=== PATIENT | female | born 1940 | race Caucasian/White ===

== ENCOUNTER 2017-07-25 15:47 | Emergency (ER) | payer OTHER ==
[~2017-07-25] VITALS: Ht 165.1 cm; Wt 82.0 kg
[~2017-07-25 15:47] MED LIST: AMLO5 PO; ASPI1TAB7 PO; ASPI81TA82 PO; CALTCHW4 PO; CAPT12.52 PO; CAPT50TA PO; CLON.1 PO; EFFE150C PO; FERR324T8 PO; FOSA70TA PO; FURO20 PO; GABA100C2 PO; GABA100C4 PO; GABA400C5 PO; HYDR-3129 PO; LOVA40TA PO; MECL25 PO; MEVA40TA6 PO; MOTI25CH PO; MULT-65 PO; NAPR250T57 PO; NITR.3 SL; NORV10TA PO; OMEP20TA39 PO; POTA-243 PO; POTA-267 PO; PRIL20CA PO; PRIM50TA PO; RIVA20 PO; TRAM50TA PO; TRIA1CAP PO; VENL150T14 PO; VITA-13 PO; ZOLO50TA PO; [UNRECOGNIZED DRUG - CODE] PO
[2017-07-25 15:54] VITALS: BP 114/65; PULSE 72; RESP 21; TEMP 98.5; O2SAT 92
[2017-07-25 16:08] VITALS: BP 114/65; PULSE 71; RESP 21; TEMP 98.5; O2SAT 93
--- NOTE | 2017-07-25 16:11 | PD ---
HPI Chief Complaint: Fall Time Seen by Provider: 16:00 Travel History International Travel<30 days: No Contact w/Intl Traveler<30days: No Traveled to known affect area: No History of Present Illness HPI 76-year-old female presents via EMS for evaluation of left leg pain. Symptoms started 2 days ago. Pain is an aching pain in the left leg, primarily in the proximal left leg below but the distal left leg. She is also developed some lower back pain since yesterday. The pain is worse with movement. She reports that she primarily ambulates with a wheelchair or a walker at home. She tried using tramadol and Tylenol for pain but it persisted which prompted evaluation. She denies any injury. She does report history of frequent falls as well as frequent fractures in the past. She reports that the last time she fell was over one month ago. She denies any abdominal pain, numbness or tingling or weakness, chest pain or shortness of breath, fevers or chills. No other complaints. PFSH Past Medical History Hx Anticoagulant Therapy: Yes (Unsure of which one) Arthritis: Yes Anxiety: Yes Depression: No Heart Rhythm Problems: Yes Cancer: No Cardiovascular Problems: Yes (HTN ) High Cholesterol: Yes Chest Pain: Yes Congestive Heart Failure: No COPD: Yes Cerebrovascular Accident: Yes Diminished Hearing: No Endocrine: No Gastrointestinal Disorders: Yes GERD: No Genitourinary: No Headaches: No Hiatal Hernia: No Hypertension: No Immune Disorder: No Implanted Vascular Access Dvce: Yes Musculoskeletal: Yes Neurologic: No Psychiatric: Yes Reproductive: No Respiratory: Yes Migraines: No Seizures: No Sickle Cell Disease: No Ulcer: No Menopausal: Yes : 4 Para: 3 : 1 Past Surgical History Abdominal Surgery: Yes (GALLBLADDER 2000) AICD: No Arteriovenous Shunt: No Cardiac Surgery: No Cholecystectomy: Yes (2000) Ear Surgery: No Endocrine Surgery: No Eye Surgery: No Genitourinary Surgery: No Gynecologic Surgery: No Insulin Pump: No Joint Replacement: Yes (hip replacement, wrist surgery) Neurologic Surgery: No Oral Surgery: No Pacemaker: No Thoracic Surgery: No Other Surgery: Yes Social History Alcohol Use: No Tobacco Use: No Substance Use: No Allergies-Medications (Allergen,Severity, Reaction): Coded Allergies: No Known Allergies (Verified , 07/25/17) Reported Meds & Prescriptions Reported Meds & Active Scripts Active Naproxen 500 Mg Tab 500 Mg PO BID 7 Days Reported Calcium 600+D 200 (Calcium Carbonate-Vitamin D) 600-200 Mg-Unit Tab 1 Tab PO DAILY Vitamin D3 (Cholecalciferol) Unknown Strength Tab 1 Tab PO DAILY Garlic Unknown Strength Capsule 1 Cap PO DAILY Vitamin C (Ascorbic Acid) Unknown Strength Tab 1 Tab PO DAILY Amlodipine (Amlodipine Besylate) 10 Mg Tab 10 Mg PO DAILY Primidone 50 Mg Tab 100 Mg PO TID Cymbalta DR (Duloxetine HCl) 20 Mg Capdr 20 Mg PO DAILY Lisinopril-Hctz 20-25 Mg Tab 1 Tab PO DAILY Meclizine 25 (Meclizine HCl) 25 Mg Tab 25 Mg PO TID PRN Lexapro (Escitalopram Oxalate) 10 Mg Tab 10 Mg PO DAILY Lovastatin 40 Mg Tab 40 Mg PO DAILY Potassium Chloride ER (Potassium Chloride) 10 Meq Tab 10 Meq PO DAILY Lasix (Furosemide) 20 Mg Tab 20 Mg PO DAILY Review of Systems Except as stated in HPI: all other systems reviewed are Neg Physical Exam Narrative GENERAL: Well-developed well-nourished female in no acute distress SKIN: Warm and dry. No open wounds, no bruising or soft tissue swelling HEAD: Atraumatic. Normocephalic. EYES: Pupils equal and round. No scleral icterus. No injection or drainage. ENT: No nasal bleeding or discharge. Mucous membranes pink and moist. NECK: Trachea midline. No JVD. CARDIOVASCULAR: Regular rate and rhythm. No murmur appreciated. RESPIRATORY: No accessory muscle use. Clear to auscultation. Breath sounds equal bilaterally. GASTROINTESTINAL: Abdomen soft, non-tender, nondistended. Hepatic and splenic margins not palpable. MUSCULOSKELETAL: No obvious deformities. The patient maintains full range of motion of the lower extremities. She has some tenderness to palpation to the left thigh musculature. There is no lower extremity edema, negative Homans. There is 2+ dorsalis pedis pulse bilaterally in the lower extremities are warm and well perfused. She does have some tenderness to palpation to the left sacroiliac region. There is no tenderness to palpation along the thoracic or lumbar midline spine. NEUROLOGICAL: Awake and alert. No obvious cranial nerve deficits. Motor grossly within normal limits. Normal speech. Data Data Last Documented VS Vital Signs Date Time Temp Pulse Resp B/P (MAP) Pulse Ox O2 Delivery O2 Flow Rate FiO2 07/25/17 16:08 98.5 71 21 114/65 (81) 93 Room Air Orders Orders Femur (Ap & Lat/2vws) (07/25/17 ) Spine, Lumbar - Ltd (Ap & Lat) (07/25/17 ) Us Leg Venous Doppler (07/25/17 16:06) Acetamin-Hydrocod 325-5 Mg (Denison 5-325 (07/25/17 16:15) Ketorolac Inj (Toradol Inj) (07/25/17 16:15) MDM Medical Decision Making Medical Screen Exam Complete: Yes Emergency Medical Condition: Yes Medical Record Reviewed: Yes Interpretation(s) X-ray imaging of the lumbar spine, left femur revealed no acute abnormalities. Ultrasound left leg Differential Diagnosis Herniated nucleus pulposus, compression fracture, muscle spasm, muscle strain, DVT, peripheral neuropathy, peripheral vascular disease, arterial occlusion Narrative Course 76-year-old female to history of frequent falls, frequent bony fractures, presents with 2 days of spontaneous left leg pain and 1 day of left lower back pain. She appears well and examination. She has full range of motion, no obvious deformities. Some tenderness in the left lower back sacroiliac region and left thigh. Plan is for x-ray imaging as well as ultrasound of the left leg. She will be given a dose of Lortab. X-ray and ultrasound imaging are negative. The plan at this time is to discharge the patient into the care of her son. She will follow up with her primary care physician. She'll be given a prescription for naproxen. Diagnosis Primary Impression: Left leg pain Additional Instructions: Medication as needed. Tramadol as needed. Walker and wheelchair as needed. Follow-up with primary care physician. Return for any emergent medical conditions. Med/Other Pt SpecificInfo: Prescription(s) given Scripts Naproxen (Naproxen) 500 Mg Tab 500 MG PO BID for 7 Days, TAB 0 Refills Prov: Aleks Harrison MD 07/25/17 Disposition: 01 DISCHARGE HOME Condition: Stable Joey Shields Jul 25, 2017 16:11
[2017-07-25] MEDS ORDERED: KETOROLAC TROMETHAMINE 60 MG/2 ML (IM) VIAL IM ONE (16:15)
[2017-07-25] MEDS ORDERED: ACETAMINOPHEN/HYDROcodone 325 MG/5 MG TAB PO ONE (16:15)
[2017-07-25] MEDS ORDERED: FURO1TAB62 PO (16:37)
[2017-07-25] MEDS ORDERED: LOVA40TA PO (16:37)
[2017-07-25] MEDS ORDERED: PRIM50TA5 PO (16:37)
[2017-07-25] MEDS ORDERED: CALCTAB19 PO (16:37)
[2017-07-25] MEDS ORDERED: DULO20 PO (16:37)
[2017-07-25] MEDS ORDERED: VITA250T3 PO (16:37)
[2017-07-25] MEDS ORDERED: LEXA10TA PO (16:37)
[2017-07-25] MEDS ORDERED: MECL1TAB42 PO (16:37)
[2017-07-25] MEDS ORDERED: LISI20TA3 PO (16:37)
[2017-07-25] MEDS ORDERED: POTA10TA2 PO (16:37)
[2017-07-25] MEDS ORDERED: GARL1CAP6 PO (16:37)
[2017-07-25] MEDS ORDERED: AMLO10TA2 PO (16:37)
[2017-07-25] MEDS ORDERED: VITA100064 PO (16:37)
--- NOTE | 2017-07-25 17:11 | RADRPT ---
EXAM DATE/TIME: 07/25/2017 16:48 [facility] COMPARISON: FEMUR LEFT (AP & LAT/2VWS), July 25, 2017, 16:49. INDICATIONS : Lower back pain after fall. MEDICAL HISTORY : None. SURGICAL HISTORY : None. ENCOUNTER: Initial ACUITY: 1 day PAIN SCORE: 9/10 LOCATION: Bilateral lower back. FINDINGS: There is preservation of vertebral body height in lateral projection. There is minimal retrolisthesi s of L2 with respect to L3. Pedicles are seen at all levels. The arcuate lines of the sacrum are sy mmetrical. Bilateral total hip arthroplasty. Hemoclips in the right upper quadrant from presumed ch olecystectomy. CONCLUSION: 1. No compression deformities seen. 2. Mild retrolisthesis of L2 with respect to L3. Oneil Hernandez MD on July 25, 2017 at 17:08 Board Certified Radiologist. This report was verified electronically.
--- NOTE | 2017-07-25 17:13 | RADRPT ---
EXAM DATE/TIME: 07/25/2017 16:49 [facility] COMPARISON: FEMUR LEFT (AP & LAT/2VWS), December 04, 2015, 12:18. INDICATIONS : Left femur pain after fall. MEDICAL HISTORY : None. SURGICAL HISTORY : ORIF left hip. ENCOUNTER: Initial ACUITY: 1 day PAIN SCORE: 9/10 LOCATION: Left proximal femur. FINDINGS: Multiple surgical procedures in the left femur including total hip arthroplasty with 2 proximal femor al cerclage wires and a long lateral plate extending down to the distal metaphysis of the femur. Scr ews appear intact. There is mild heterotopic ossification about the greater trochanter and medial to the proximal femur. The bony acetabulum appears grossly intact. No evidence of dislocation. Vascu lar calcifications in the medial thigh. CONCLUSION: No evidence of acute bony injury or dislocation. Oneil Hernandez MD on July 25, 2017 at 17:10 Board Certified Radiologist. This report was verified electronically.
--- NOTE | 2017-07-25 17:24 | RADRPT ---
EXAM DATE/TIME: 07/25/2017 16:53 [facility] COMPARISON: No previous studies available for comparison. INDICATIONS : Left leg pain. MEDICAL HISTORY : Hypertension. Chronic obstructive pulmonary disease. Hypercholesterolemia. Cerebrovascular acciden t. Myocardial infarction. Gallbladder disease. Osteoporosis. Anxiety. SURGICAL HISTORY : Cholecystectomy. Right hip replacement. Right wrist surgery. Left hip replacement. ENCOUNTER: Initial ACUITY: 3 days PAIN SCORE: 6/10 LOCATION: Left leg. TECHNIQUE: Venous ultrasound of the leg was performed from the inguinal ligament to the proximal calf. Real-alyssia e, color Doppler and spectral tracing, compression and augmentation techniques were used. FINDINGS: There is normal compressibility of the deep venous system from the inguinal region to the proximal ca lf. No echogenic clot is seen in the lumen of the common femoral, femoral, popliteal, and posterior tibial veins. There is a normal response of the venous system to proximal and distal augmentation an d respiration. CONCLUSION: Normal examination. Sung Triplett MD on July 25, 2017 at 17:22 Board Certified Radiologist. This report was verified electronically.
[2017-07-25] MEDS ORDERED: NAPR500T PO (17:30)
== END 2017-07-25 19:03 | disposition home or self-care (01) ==
LOC: NEPD 15:47
DX: M79.662 Pain in left lower leg (principal); I10 Essential (primary) hypertension; E78.00 Pure hypercholesterolemia, unspecified; Z86.73 Personal history of transient ischemic attack (TIA), and cerebral infarction without residual deficits; J44.9 Chronic obstructive pulmonary disease, unspecified; Z79.01 Long term (current) use of anticoagulants
CPT/HCPCS: 72100; 73552; 93971; 96372; 99284; J1885

== ENCOUNTER 2017-09-21 20:05 | Inpatient (IN) | payer MEDICARE, OTHER ==
[~2017-09-21] VITALS: Ht 165.1 cm; Wt 81.3 kg
[~2017-09-21 20:05] MED LIST changes: +AMLO10TA2 PO; -AMLO5 PO; -ASPI1TAB7 PO; -ASPI81TA82 PO; -CALTCHW4 PO; -CAPT12.52 PO; -CAPT50TA PO; +CARB25TA9 PO; -CLON.1 PO; +DOCU100C PO; +DULO20 PO; -EFFE150C PO; +FENT25DI T-DERMAL; -FERR324T8 PO; -FOSA70TA PO; +FURO1TAB62 PO; -FURO20 PO; -GABA100C2 PO; -GABA100C4 PO; -GABA400C5 PO; -HYDR-3129 PO; +LEXA10TA PO; -LOVA40TA PO; +MECL1TAB42 PO; -MECL25 PO; -MEVA40TA6 PO; -MOTI25CH PO; -MULT-65 PO; -NAPR250T57 PO; -NITR.3 SL; -NORV10TA PO; -OMEP20TA39 PO; -POTA-243 PO; -POTA-267 PO; +POTA10TA2 PO; -PRIL20CA PO; -PRIM50TA PO; -RIVA20 PO; -TRAM50TA PO; -TRIA1CAP PO; -VENL150T14 PO; -VITA-13 PO; -ZOLO50TA PO; -[UNRECOGNIZED DRUG - CODE] PO
[2017-09-21 20:09] VITALS: BP 93/51; PULSE 66; RESP 17; TEMP 94.6; O2SAT 85
[2017-09-21] MEDS ORDERED: SODIUM CHLOR 0.9% 1000 ML INJ 1,000 ML IV SCH (20:17)
[2017-09-21] MEDS ORDERED: SODIUM CHLORIDE 0.9% FLUSH 10 ML FLUSH IV FLUSH PRN (20:30)
[2017-09-21] MEDS ORDERED: SODIUM CHLOR 0.9% 250 ML INJ 250 ML IV ONE (20:30)
[2017-09-21] MEDS ORDERED: VANCOMYCIN INJ 1,000 MG in SODIUM CHLOR 0.9% 250 ML INJ 250 ML IV ONE (20:30)
[2017-09-21] MEDS ORDERED: SODIUM CHLOR 0.9% 1000 ML INJ 1,000 ML IV ONE ×2 (20:30→20:45)
[2017-09-21] MEDS ORDERED: PIPERACIL-TAZO 4.5 GM PREMIX 100 ML IV ONE (20:30)
[2017-09-21 20:44] LABS: AUTOMATED NEUTROPHIL # 4.3 TH/MM3 (1.8-7.7); BASOPHIL # 0.1 TH/MM3 (0-0.2); BASOPHIL % 1.3 % (0.0-2.0); EOSINOPHIL # 0.1 TH/MM3 (0-0.4); EOSINOPHIL % 0.7 % (0.0-4.0); HEMATOCRIT 40.6 % (35.0-46.0); HEMOGLOBIN 13.7 GM/DL (11.6-15.3); LYMPH % 32.5 % (9.0-44.0); LYMPHOCYTE # 2.4 TH/MM3 (1.0-4.8); MEAN CELL VOLUME 92.6 FL (80.0-100.0); MEAN CORPUSCULAR HEMOGLOBIN 31.3 PG (27.0-34.0); MEAN CORPUSCULAR HGB CONC 33.8 % (32.0-36.0); MEAN PLATELET VOLUME 8.3 FL (7.0-11.0); MONO % 7.4 % (0.0-8.0); MONOCYTE # 0.5 TH/MM3 (0-0.9); NEUT % 58.1 % (16.0-70.0); PLATELET COUNT 470 TH/MM3 (150-450); RED BLOOD COUNT 4.38 MIL/MM3 (4.00-5.30); RED CELL DISTRIBUTION WIDTH 13.3 % (11.6-17.2); WHITE BLOOD COUNT 7.4 TH/MM3 (4.0-11.0)
--- NOTE | 2017-09-21 20:48 | RADRPT ---
EXAM DATE/TIME: 09/21/2017 20:29 [facility] COMPARISON: CHEST SINGLE AP, April 15, 2016, 20:41. INDICATIONS : Abdominal pain. MEDICAL HISTORY : : Hypertension. Chronic obstructive pulmonary disease. Hypercholesterolemia. Cerebrovascular accident . Myocardial infarction. Gallbladder disease. Osteoporosis. Anxiety. SURGICAL HISTORY : Cholecystectomy. Right hip replacement. Right wrist surgery. Left hip replacement. ENCOUNTER: Initial ACUITY: 2 days PAIN SCORE: 4/10 LOCATION: Bilateral lower chest FINDINGS: A single view of the chest demonstrates the lungs to be symmetrically aerated without evidence of mas s, infiltrate or effusion. The cardiomediastinal contours are unremarkable. Osseous structures are intact. Right-sided rotator cuff disease. Osteoarthritis of both shoulders. CONCLUSION: Normal examination. Jameel Baldwin MD on September 21, 2017 at 20:45 Board Certified Radiologist. This report was verified electronically.
--- NOTE | 2017-09-21 20:55 | PD ---
HPI Chief Complaint: Abdominal Pain Time Seen by Provider: 20:17 Travel History International Travel<30 days: No Contact w/Intl Traveler<30days: No Traveled to known affect area: No History of Present Illness HPI 77-year-old female presents to the emergency department from home by EMS transport her family identified patient to be pale and complaining of severe abdominal pain. Patient reportedly has had issues with constipation and symptoms worsened this evening. Patient presents the emergency department. Pale cool diaphoretic and hypotensive. Patient is awake and able to tell her own history. Patient denies any chest pain or shortness of breath. Patient's had no nausea or vomiting. Patient denies fever or chills. Patient does complain of abdominal pain. Patient does not report any dysuria frequency urgency or incontinence. No recent fall or injury. According to paramedics patient is on hospice but she does not know why she is on hospice and reportedly the son who is at the scene also did not know why the patient was on hospice. No known terminal illness. Patient has hypertension chronic tremor and chronic pain syndrome. Patient has recently had many of her medications adjusted according to son Jameel who called the emergency department to provide history. Patient is a DNR. Patient is unaware of exacerbating or alleviating factors. PFSH Past Medical History Narrative Medical CAD dyslipidemia COPD CVA chronic tremor lower extremity weakness cholecystectomy no tobacco use no alcohol use; nursing notes reviewed Hx Anticoagulant Therapy: Yes (Unsure of which one) Arthritis: Yes Anxiety: Yes Depression: No Heart Rhythm Problems: Yes Cancer: No Cardiovascular Problems: Yes (HTN ) High Cholesterol: Yes Chest Pain: Yes Congestive Heart Failure: No COPD: Yes Cerebrovascular Accident: Yes Diminished Hearing: No Endocrine: No Gastrointestinal Disorders: Yes GERD: No Genitourinary: No Headaches: No Hiatal Hernia: No Hypertension: No Immune Disorder: No Implanted Vascular Access Dvce: Yes Musculoskeletal: Yes Neurologic: No Psychiatric: Yes Reproductive: No Respiratory: Yes Migraines: No Seizures: No Sickle Cell Disease: No Ulcer: No ?: Not Menopausal: Yes : 4 Para: 3 : 1 Past Surgical History Abdominal Surgery: Yes (GALLBLADDER 2000) AICD: No Arteriovenous Shunt: No Cardiac Surgery: No Cholecystectomy: Yes (2000) Ear Surgery: No Endocrine Surgery: No Eye Surgery: No Genitourinary Surgery: No Gynecologic Surgery: No Insulin Pump: No Joint Replacement: Yes (hip replacement, wrist surgery) Neurologic Surgery: No Oral Surgery: No Pacemaker: No Thoracic Surgery: No Other Surgery: Yes Social History Alcohol Use: No Tobacco Use: No Substance Use: No Allergies-Medications (Allergen,Severity, Reaction): Coded Allergies: No Known Allergies (Verified Allergy, Unknown, 09/21/17) Reported Meds & Prescriptions Reported Meds & Active Scripts Active Reported Carbidopa-Levodopa 25-100 Mg Tab 1 Tab PO Q8HR Fentanyl Patch 72 HR (Fentanyl) 25 Mcg/Hr Patch 25 Mcg T-DERMAL Q72H Docusate Sodium 100 Mg Cap 100 Mg PO BID Amlodipine (Amlodipine Besylate) 10 Mg Tab 10 Mg PO DAILY Cymbalta DR (Duloxetine HCl) 20 Mg Capdr 20 Mg PO DAILY Meclizine 25 (Meclizine HCl) 25 Mg Tab 25 Mg PO TID PRN Lexapro (Escitalopram Oxalate) 10 Mg Tab 10 Mg PO DAILY Potassium Chloride ER (Potassium Chloride) 10 Meq Tab 10 Meq PO DAILY Lasix (Furosemide) 20 Mg Tab 20 Mg PO DAILY Physical Exam Narrative GENERAL: Well-developed well-nourished pale and cool elderly female; GCS 15 SKIN: Warm and dry. HEAD: Atraumatic. Normocephalic. EYES: Pupils equal and round. No scleral icterus. No injection or drainage. ENT: No nasal bleeding or discharge. Mucous membranes pink and moist. NECK: Trachea midline. No JVD. CARDIOVASCULAR: Regular rate and rhythm. RESPIRATORY: No accessory muscle use. Clear to auscultation. Breath sounds equal bilaterally. GASTROINTESTINAL: Abdomen soft, diffusely tender with marked tenderness to palpation LLQ, nondistended. Hepatic and splenic margins not palpable. MUSCULOSKELETAL: Extremities without clubbing, cyanosis, or edema. No obvious deformities. NEUROLOGICAL: Awake and alert. No obvious cranial nerve deficits. Motor grossly within normal limits. Five out of 5 muscle strength in the arms and legs. Normal speech. PSYCHIATRIC: Appropriate mood and affect; insight and judgment normal. Data Data Last Documented VS Vital Signs Date Time Temp Pulse Resp B/P (MAP) Pulse Ox O2 Delivery O2 Flow Rate FiO2 09/21/17 20:09 94.6 66 17 93/51 (65) 85 Orders Orders Complete Blood Count With Diff (09/21/17 20:17) Comprehensive Metabolic Panel (09/21/17 20:17) Lipase (09/21/17 20:17) Lactic Acid (09/21/17 20:17) Prothrombin Time / Inr (Pt) (09/21/17 20:17) Act Partial Throm Time (Ptt) (09/21/17 20:) Urinalysis - C+S If Indicated (09/21/17 20:17) Iv Access Insert/Monitor (09/21/17 20:17) Ecg Monitoring (09/21/17 20:) Oximetry (09/21/17:) Sodium Chlor 0.9% 1000 Ml Inj (Ns 1000 M (09/21/17 20:17) Sodium Chloride 0.9% Flush (Ns Flush) (09/21/17 20:30) Electrocardiogram (09/21/17:) Chest, Single Ap (09/21/17 20:17) Sodium Chlor 0.9% 1000 Ml Inj (Ns 1000 M (09/21/17 20:30) Urinary Catheter Insert/Apply (09/21/17 20:) Type And Screen (09/21/17:) Piperacil-Tazo 4.5 Gm Premix (Zosyn 4.5 (09/21/17 20:30) Vancomycin Inj (Vancomycin Inj) (09/21/17 20:30) Red Blood Cells (Rbc) (09/21/17 20:17) Sodium Chlor 0.9% 250 Ml Inj (Ns 250 Ml (09/21/17 20:30) ^ For Further Orders (09/21/17 20:36) I-Stat Creatinine (09/21/17 20:30) I-Stat Profile (09/21/17 20:30) Labs Laboratory Tests Test 09/21/17 20:30 09/21/17 20:38 White Blood Count 7.4 TH/MM3 Red Blood Count 4.38 MIL/MM3 Hemoglobin 13.7 GM/DL Bedside Hemoglobin 15.0 G/DL Hematocrit 40.6 % Bedside Hematocrit 44.0 % Mean Corpuscular Volume 92.6 FL Mean Corpuscular Hemoglobin 31.3 PG Mean Corpuscular Hemoglobin Concent 33.8 % Red Cell Distribution Width 13.3 % Platelet Count 470 TH/MM3 Mean Platelet Volume 8.3 FL Neutrophils (%) (Auto) 58.1 % Lymphocytes (%) (Auto) 32.5 % Monocytes (%) (Auto) 7.4 % Eosinophils (%) (Auto) 0.7 % Basophils (%) (Auto) 1.3 % Neutrophils # (Auto) 4.3 TH/MM3 Lymphocytes # (Auto) 2.4 TH/MM3 Monocytes # (Auto) 0.5 TH/MM3 Eosinophils # (Auto) 0.1 TH/MM3 Basophils # (Auto) 0.1 TH/MM3 CBC Comment DIFF FINAL Differential Comment Prothrombin Time 11.1 SEC Prothromb Time International Ratio 1.0 RATIO Activated Partial Thromboplast Time 22.9 SEC Bedside Sodium 138 MMOL/L Blood Urea Nitrogen 32 MG/DL Creatinine 1.89 MG/DL Random Glucose 147 MG/DL Total Protein 7.9 GM/DL Albumin 3.8 GM/DL Calcium Level 9.4 MG/DL Alkaline Phosphatase 71 U/L Aspartate Amino Transf (AST/SGOT) 21 U/L Alanine Aminotransferase (ALT/SGPT) 12 U/L Total Bilirubin 0.6 MG/DL Sodium Level 136 MEQ/L Potassium Level 2.6 MEQ/L Chloride Level 93 MEQ/L Carbon Dioxide Level 29.5 MEQ/L Bedside Potassium 2.6 MMOL/L Bedside Chloride 93 MMOL/L Anion Gap 14 MEQ/L Bedside Blood Urea Nitrogen 33 MG/DL Bedside Creatinine 2.0 MG/DL Estimat Glomerular Filtration Rate 26 ML/MIN Bedside Glucose 153 MG/DL Lactic Acid Level 2.8 mmol/L Magnesium Level 1.8 MG/DL Total Creatine Kinase 96 U/L Troponin I 0.02 NG/ML Lipase 485 U/L Blood Gas Puncture Site LT BRACHIAL Blood Gas Patient Temperature 98.6 Blood Gas HCO3 29 mmol/L Blood Gas Base Excess 4.2 mmol/L Blood Gas Oxygen Saturation 88 % Arterial Blood pH 7.38 Arterial Blood Partial Pressure CO2 50 mmHg Arterial Blood Partial Pressure O2 61 mmHG Arterial Blood Oxygen Content 16.5 Vol % Arterial Blood Carboxyhemoglobin 1.0 % Arterial Blood Methemoglobin 0.5 % Blood Gas Hemoglobin 13.3 G/DL Oxygen Delivery Device NASAL CANNULA Blood Gas Liter Flow 2 L/M [facility] Medical Decision Making Medical Screen Exam Complete: Yes Emergency Medical Condition: Yes Medical Record Reviewed: Yes Interpretation(s) EKG sinus rhythm rate 64 septal infarct age indeterminate possible inferior infarct Q wave noted age-indeterminate no acute ST elevation or injury pattern change or ectopy noted Last Impressions Chest X-Ray 09/21/172016 Signed Impressions: Service Date/Time: Thursday, September 21, 2017 20:29 - CONCLUSION: Normal examination. Jameel Baldwin MD CBC & BMP Diagram 09/21/17 20:30 Total Protein 7.9, Albumin 3.8, Calcium Level 9.4, Alkaline Phosphatase 71, Aspartate Amino Transf (AST/SGOT) 21, Alanine Aminotransferase (ALT/SGPT) 12, Total Bilirubin 0.6 Vital Signs Date Time Temp Pulse Resp B/P (MAP) Pulse Ox O2 Delivery O2 Flow Rate FiO2 09/21/17 20:09 94.6 66 17 93/51 (65) 85 Differential Diagnosis Cardiogenic shock septic shock hypovolemic shock perforated viscus diverticulitis with abscess GI bleed ruptured aneurysm ischemic bowel polypharmacy dehydration Narrative Course @ 8:20 PM Bedside FAST exam does not reveal any free fluid in the abdomen; Patient administered 1 Liter wide open T&S oredered stats Patient administered additional bolus of normal saline spoke with patient's son Los---DNR, hospice for home resources-- no terminal illness to his knowledge, confirmed medications -- no xarelto Warmer discontinued Patient identified to have hypokalemia Patient responding well to IV fluid hydration and blanket warmer Patient administered IV and oral potassium after CT abdomen and pelvis reveals no acute abnormality patient is identified to have elevated lipase nonspecific Urinalysis within normal limits Patient identified to have hypokalemia renal insufficiency and acute lactic acidosis Patient identified to have fentanyl patch underneath a Band-Aid on her right posterior shoulder fentanyl patch removed Plan will be to admit patient to medicine service with ongoing IV fluid hydration reassessment of lactic acid and removal of fentanyl patch Patient risk for overdosing on multiple sedatives and narcotics patient's son did identify that patient's blood pressure has been noticing to become lower and lower on her current regimen of medications and there has been concern about continue her on blood pressure medication these medicines have indigestion or new since being put on hospice for making obtaining resources easier such as her medications and providing care for her at home. Critical Care Narrative Aggregate critical care time was minutes. Time to perform other separately billable procedures was not included in the critical care time. My time did not include minutes spent treating any other patients simultaneously or on activities that did not directly contribute to the patient's treatment. The services I provided to this patient were to treat and/or prevent clinically significant deterioration that could result in: Arrhythmia, shock, I provided critical care services requiring my management, as noted below: Chart data review, documentation time, medication orders and management, vital sign assessments/reviewing monitor data, ordering and reviewing lab tests, ordering and interpreting/reviewing x-rays and diagnostic studies, care of the patient and discussion of the patient with the admitting physicians. Physician Communication Physician Communication discussed with Dr Castillo --admit as OBS Diagnosis Primary Impression: Generalized weakness Additional Impressions: Hypokalemia Abdominal pain Elevated lipase Hypotension LUNA (acute kidney injury) Admitting Information Admitting Physician Requests: Observation Denise Rangel MD Sep 21, 2017 20:55
[2017-09-21 21:06] LABS: PROTHROMBIN TIME - PATIENT 11.1 SEC (9.8-11.6)
[2017-09-21 21:27] LABS: ALBUMIN 3.8 GM/DL (3.4-5.0); ALKALINE PHOSPHATASE 71 U/L (45-117); ALT (GPT) 12 U/L (10-53); AST (GOT) 21 U/L (15-37); BICARBONATE 29.5 MEQ/L (21.0-32.0); BLOOD UREA NITROGEN 32 MG/DL (7-18); CALCIUM 9.4 MG/DL (8.5-10.1); CHLORIDE 93 MEQ/L (98-107); CREATININE 1.89 MG/DL (0.50-1.00); GLOMERULAR FILTRATION RATE 26 ML/MIN (>89); GLUCOSE,RANDOM 147 MG/DL (74-106); LIPASE 485 U/L (73-393); SODIUM (NA) 136 MEQ/L (136-145); TOTAL BILIRUBIN ADULT 0.6 MG/DL (0.2-1.0); TOTAL PROTEIN 7.9 GM/DL (6.4-8.2)
[2017-09-21 21:34] LABS: BILIRUBIN, URINE NEG (NEG); BLOOD, URINE NEG (NEG); GLUCOSE,URINE NEG (NEG); HYALINE CAST, URINE 1 /lpf (RARE); KETONE, URINE NEG (NEG); NITRITE,URINE NEG (NEG); PH, URINE 6.5 (5.0-8.5); SQUAMOUS EPITHELIAL CELL URINE 1 /hpf (0-5); URINE COLOR YELLOW (YELLW/STRAW); URINE LEUKOCYTE ESTERASE NEG (NEG)
--- NOTE | 2017-09-21 21:56 | RADRPT ---
EXAM DATE/TIME: 09/21/2017 21:18 [facility] COMPARISON: No previous studies available for comparison. INDICATIONS : Abdomen pain. ORAL CONTRAST: No oral contrast ingested. RADIATION DOSE: 11.02 CTDIvol (mGy) MEDICAL HISTORY : Cerebrovascular disease. Cardiovascular disease Hypertension.COPD SURGICAL HISTORY : Cholecystectomy. Bilateral hips ENCOUNTER: Initial ACUITY: 1 day PAIN SCALE: 0/10 LOCATION: Bilateral abdomen TECHNIQUE: Volumetric scanning of the abdomen and pelvis was performed. Using automated exposure control and ad justment of the mA and/or kV according to patient size, radiation dose was kept as low as reasonably achievable to obtain optimal diagnostic quality images. DICOM format image data is available electro nically for review and comparison. FINDINGS: LOWER LUNGS: The visualized lower lungs are clear. LIVER: Homogeneous density without lesion. There is expected intrahepatic dilation of the biliary tree stat us post cholecystectomy. SPLEEN: Normal size without lesion. PANCREAS: Within normal limits. KIDNEYS: Normal in size and shape. There is no mass, stone, or hydronephrosis. ADRENAL GLANDS: Within normal limits. VASCULAR: There is no aortic aneurysm. BOWEL/MESENTERY: The stomach, small bowel, and colon demonstrate no acute abnormality. There is no free intraperitone al air or fluid. ABDOMINAL WALL: Within normal limits. RETROPERITONEUM: There is no lymphadenopathy. BLADDER: No wall thickening or mass. REPRODUCTIVE: Within normal limits. INGUINAL: There is no lymphadenopathy or hernia. MUSCULOSKELETAL: Markedly and facet disease lower lumbar spine. Bilateral total hip arthroplasties CONCLUSION: Normal examination with degenerative lumbar disease and bilateral hip arthroplasties. Status post cho lecystectomy with expected intrahepatic biliary tree dilatation. No evidence of free fluid or free ai r.. Jameel Baldwin MD on September 21, 2017 at 21:52 Board Certified Radiologist. This report was verified electronically.
[2017-09-21] MEDS: POTASSIUM CHLOR 10 MEQ PREMIX 100 ML IV SCH ×2 (22:21→23:26)
[2017-09-21 22:22] VITALS: TEMP 94.6
[2017-09-21 22:50] LABS: MAGNESIUM 1.8 MG/DL (1.5-2.5)
[2017-09-21 22:53] LABS: TROPONIN I 0.02 NG/ML (0.02-0.05)
[2017-09-21] MEDS ORDERED: POTASSIUM CHLORIDE 20 MEQ CONTROLLED RELEASE TAB PO ONE (23:30)
[2017-09-21 23:56] VITALS: BP 102/51; PULSE 74; RESP 16; TEMP 98.5; O2SAT 97
[2017-09-22] VITALS (10 sets, daily range): BP systolic 88–118; BP diastolic 51–57; PULSE 62–72; RESP 16–20; TEMP 97–98.9; O2SAT 91–97
[2017-09-22] MEDS ORDERED: ACETAMINOPHEN 325 MG TAB PO PRN
[2017-09-22] MEDS ORDERED: NALOXONE HCL 0.4 MG/ML AMP IV PUSH PRN
[2017-09-22] MEDS ORDERED: ONDANSETRON HCL 4 MG/2 ML VIAL IVP PRN
[2017-09-22] MEDS ORDERED: SODIUM CHLORIDE 0.9% FLUSH 10 ML FLUSH IV FLUSH PRN
[2017-09-22] MEDS: POTASSIUM CHLOR 10 MEQ PREMIX 100 ML IV SCH (01:12)
--- NOTE | 2017-09-22 05:01 | HHI.HP ---
[facility] Triston Pena M.D. Admission Diagnosis generalized weakness; hypotension; hypokalemia Diagnoses: Travel History International Travel<30 Days: No Contact w/Intl Traveler <30 Da: No Traveled to Known Affected Are: No History of Present Illness 77-year-old female presents with weakness and abdominal pain. The patient was brought in by her son who provided most of the history to the emergency room physician. At the time of our interview, the patient was alone in her room. She continues to complain of abdominal pain. Her labs were significant for potassium of 2.6, creatinine of 1.89 with a baseline of 0.85 in 2016, and a lipase of 485. Lactic acid 2.8. Chest x-ray within normal limits. CT of the abdomen/pelvis for acute process. Review of Systems Denies fever or chills Denies blurry vision, otorrhea, rhinorrhea Denies sore throat and cough No chest pain, palpitations, shortness of breath Positive abdominal pain Denies constipation/diarrhea/nausea/vomiting Positive weakness No rashes Past Family Social History Past Medical History Obtained from previous records Anxiety, Hyperlipidemia and HTN Past Surgical History Cholecystectomy, Hip Replacement, Wrist Surgery Reported Medications Reported Meds & Active Scripts Active Reported Carbidopa-Levodopa 25-100 Mg Tab 1 Tab PO Q8HR Fentanyl Patch 72 HR (Fentanyl) 25 Mcg/Hr Patch 25 Mcg T-DERMAL Q72H Docusate Sodium 100 Mg Cap 100 Mg PO BID Amlodipine (Amlodipine Besylate) 10 Mg Tab 10 Mg PO DAILY Cymbalta DR (Duloxetine HCl) 20 Mg Capdr 20 Mg PO DAILY Meclizine 25 (Meclizine HCl) 25 Mg Tab 25 Mg PO TID PRN Lexapro (Escitalopram Oxalate) 10 Mg Tab 10 Mg PO DAILY Potassium Chloride ER (Potassium Chloride) 10 Meq Tab 10 Meq PO DAILY Lasix (Furosemide) 20 Mg Tab 20 Mg PO DAILY Allergies: Coded Allergies: No Known Allergies (Verified Allergy, Unknown, 09/21/17) Family History No diabetes or CAD Social History History of tobacco use, quit 15 years ago. Negative for alcohol or drugs. Physical Exam Vital Signs Vital Signs Date Time Temp Pulse Resp B/P (MAP) Pulse Ox O2 Delivery O2 Flow Rate FiO2 09/22/17 01:03 97.6 62 18 111/53 (72) 97 09/22/17 00:59 09/21/17 23:56 98.5 74 16 102/51 (68) 97 Nasal Cannula 2.00 09/21/17 22:22 94.6 09/21/17 20:09 94.6 66 17 93/51 (65) 85 Physical Exam GENERAL: Elderly female lying in bed SKIN: No rashes, ecchymoses or lesions. Cool and dry. HEAD: Atraumatic. Normocephalic. No temporal or scalp tenderness. EYES: Pupils equal round and reactive. Extraocular motions intact. No scleral icterus. No injection or drainage. ENT: Nose without bleeding, purulent drainage or septal hematoma. Throat without erythema, tonsillar hypertrophy or exudate. Uvula midline. Airway patent. NECK: Trachea midline. No JVD or lymphadenopathy. Supple, nontender, no meningeal signs. CARDIOVASCULAR: Regular rate and rhythm without murmurs, gallops, or rubs. RESPIRATORY: Clear to auscultation. Breath sounds equal bilaterally. No wheezes , rales, or rhonchi. GASTROINTESTINAL: Abdomen soft, tender to palpation worse in the lower quadrants , nondistended. No hepato-splenomegaly, or palpable masses. No guarding. MUSCULOSKELETAL: Extremities without clubbing, cyanosis, or edema. No joint tenderness, effusion, or edema noted. No calf tenderness. NEUROLOGICAL: Awake and alert. Cranial nerves II through XII intact. Motor and sensory grossly within normal limits. Laboratory Laboratory Tests Test 09/21/17 20:30 09/21/17 20:38 09/21/17 21:20 09/22/17 00:20 White Blood Count 7.4 Red Blood Count 4.38 Hemoglobin 13.7 Bedside Hemoglobin 15.0 Hematocrit 40.6 Bedside Hematocrit 44.0 Mean Corpuscular Volume 92.6 Mean Corpuscular Hemoglobin 31.3 Mean Corpuscular Hemoglobin Concent 33.8 Red Cell Distribution Width 13.3 Platelet Count 470 Mean Platelet Volume 8.3 Neutrophils (%) (Auto) 58.1 Lymphocytes (%) (Auto) 32.5 Monocytes (%) (Auto) 7.4 Eosinophils (%) (Auto) 0.7 Basophils (%) (Auto) 1.3 Neutrophils # (Auto) 4.3 Lymphocytes # (Auto) 2.4 Monocytes # (Auto) 0.5 Eosinophils # (Auto) 0.1 Basophils # (Auto) 0.1 CBC Comment DIFF FINAL Differential Comment Prothrombin Time 11.1 Prothromb Time International Ratio 1.0 Activated Partial Thromboplast Time 22.9 Bedside Sodium 138 Blood Urea Nitrogen 32 Creatinine 1.89 Random Glucose 147 Total Protein 7.9 Albumin 3.8 Calcium Level 9.4 Alkaline Phosphatase 71 Aspartate Amino Transf (AST/SGOT) 21 Alanine Aminotransferase (ALT/SGPT) 12 Total Bilirubin 0.6 Sodium Level 136 Potassium Level 2.6 Chloride Level 93 Carbon Dioxide Level 29.5 Bedside Potassium 2.6 Bedside Chloride 93 Anion Gap 14 Bedside Blood Urea Nitrogen 33 Bedside Creatinine 2.0 Estimat Glomerular Filtration Rate 26 Bedside Glucose 153 Lactic Acid Level 2.8 1.1 Magnesium Level 1.8 Total Creatine Kinase 96 Troponin I 0.02 Lipase 485 Blood Gas Puncture Site LT BRACHIAL Blood Gas Patient Temperature 98.6 Blood Gas HCO3 29 Blood Gas Base Excess 4.2 Blood Gas Oxygen Saturation 88 Arterial Blood pH 7.38 Arterial Blood Partial Pressure CO2 50 Arterial Blood Partial Pressure O2 61 Arterial Blood Oxygen Content 16.5 Arterial Blood Carboxyhemoglobin 1.0 Arterial Blood Methemoglobin 0.5 Blood Gas Hemoglobin 13.3 Oxygen Delivery Device NASAL CANNULA Blood Gas Liter Flow 2 Urine Color YELLOW Urine Turbidity CLEAR Urine pH 6.5 Urine Specific [place] 1.009 Urine Protein TRACE Urine Glucose (UA) NEG Urine Ketones NEG Urine Occult Blood NEG Urine Nitrite NEG Urine Bilirubin NEG Urine Urobilinogen LESS THAN 2.0 Urine Leukocyte Esterase NEG Urine WBC LESS THAN 1 Urine Squamous Epithelial Cells 1 Urine Hyaline Casts 1 Microscopic Urinalysis Comment CULT NOT INDICATED Result Diagram: 09/21/17202909/21/172029 Caprini VTE Risk Assessment Caprini VTE Risk Assessment: Mod/High Risk (score >= 2) Caprini Risk Assessment Model Point Value = 1 Point Value = 2 Point Value = 3 Point Value = 5 Age 41-60 Minor surgery BMI > 25 kg/m2 Swollen legs Varicose veins or History of unexplained or recurrent spontaneous Oral contraceptives or hormone replacement Sepsis (< 1 month) Serious lung disease, including pneumonia (< 1 month) Abnormal pulmonary function Acute myocardial infarction Congestive heart failure (< 1 month) History of inflammatory bowel disease Medical patient at bed rest Age 61-74 Arthroscopic surgery Major open surgery (> 45 min) Laparoscopic surgery (> 45 min) Malignancy Confined to bed (> 72 hours) Immobilizing plaster cast Central venous access Age >= 75 History of VTE Family history of VTE Factor V Leiden Prothrombin [id number] Lupus anticoagulant Anticardiolipin antibodies Elevated serum homocysteine Heparin-induced thrombocytopenia Other congenital or acquired thrombophilia Stroke (< 1 month) Elective arthroplasty Hip, pelvis, or leg fracture Acute spinal cord injury (< 1 month) Prophylaxis Regimen Total Risk Factor Score Risk Level Prophylaxis Regimen 0-1 Low Early ambulation 2 Moderate Order ONE of the following: *Sequential Compression Device (SCD) *Heparin 5000 units SQ BID 3-4 Higher Order ONE of the following medications: *Heparin 5000 units SQ TID *Enoxaparin/Lovenox 40 mg SQ daily (WT < 150 kg, CrCl > 30 mL/min) *Enoxaparin/Lovenox 30 mg SQ daily (WT < 150 kg, CrCl > 10-29 mL/min) *Enoxaparin/Lovenox 30 mg SQ BID (WT < 150 kg, CrCl > 30 mL/min) AND/OR *Sequential Compression Device (SCD) 5 or more Highest Order ONE of the following medications: *Heparin 5000 units SQ TID (Preferred with Epidurals) *Enoxaparin/Lovenox 40 mg SQ daily (WT < 150 kg, CrCl > 30 mL/min) *Enoxaparin/Lovenox 30 mg SQ daily (WT < 150 kg, CrCl > 10-29 mL/min) *Enoxaparin/Lovenox 30 mg SQ BID (WT < 150 kg, CrCl > 30 mL/min) AND *Sequential Compression Device (SCD) Assessment and Plan Assessment and Plan 77-year-old female presents with weakness, hypokalemia, AK I and mildly elevated lipase 1. Hypokalemia Repleted Monitor BMP Per son, the patient has been out of her oral potassium replacements 2. Abdominal pain Unclear etiology Trend lipase CT within normal limits 3. Elevated lactic acid Unclear etiology Resolved 4. AK I Continue fluid resuscitation Follow creatinine 5. Hypertension Continue home medications FEN: Heart healthy diet NS +20 K at 84 cc/hour Electrolytes: Replete as above Heparin Patient is on hospice although the reason for this is unclear. Anticipate discharge to home with hospice care. Physician Certification 2 Midnight Certification Type: Admission for Inpatient Services Order for Inpatient Services The services are ordered in accordance with Medicare regulations or non- Medicare payer requirements, as applicable. In the case of services not specified as inpatient-only, they are appropriately provided as inpatient services in accordance with the 2-midnight benchmark. Estimated LOS (days): 2 2 days is the estimated time the patient will need to remain in the hospital, assuming treatment plan goals are met and no additional complications. Post-Hospital Plan: Not yet determined Micki Castillo MD Sep 22, 2017 05:01
[2017-09-22] MEDS: NS + KCL 20 MEQ INJ 1,000 ML IV SCH ×2 (06:06→14:07)
[2017-09-22] MEDS: CARBIDOPA/LEVODOPA 25 MG/100 MG TAB PO SCH ×3 (06:52→23:10)
[2017-09-22] MEDS ORDERED: FUROSEMIDE 20 MG TAB PO SCH (09:00)
[2017-09-22] MEDS ORDERED: MAGNESIUM SULFATE 1 GM PREMIX 100 ML IV ONE ×2 (09:00→18:15)
[2017-09-22] MEDS: POTASSIUM CHLORIDE 10 MEQ CONTROLLED RELEASE TAB PO SCH (09:21)
[2017-09-22] MEDS: HEPARIN SODIUM - SQ 10,000 UNITS/ML VIAL SQ SCH ×2 (09:21→23:10)
[2017-09-22] MEDS: SODIUM CHLORIDE 0.9% FLUSH 10 ML FLUSH IV FLUSH SCH ×2 (09:22→23:10)
[2017-09-22] MEDS: ESCITALOPRAM OXALATE 10 MG TAB PO SCH (09:22)
[2017-09-22] MEDS: DULoxetine HCl DR 20 MG CAP PO SCH (09:22)
[2017-09-22] MEDS ORDERED: SODIUM CHLOR 0.9% 1000 ML INJ 1,000 ML IV ONE (09:45)
--- NOTE | 2017-09-22 13:34 | HHI.PR ---
Subjective Remarks Follow up for weakness, abdominal pain. The patient is awake, alert, oriented to self, [facility], and states the date is July 2018. She says she feels much better today. She admits that she had some abdominal pain yesterday at the Q however this has gone away. She admits to being constipated recently , reports she hasn't had a BM in at least 2-3 days. Denies any nausea/vomiting or diarrhea. Denies any fevers/chills. She does report a mild cough over the past 2 weeks with some nasal congestion. She is unable to produce any sputum. Denies any chest pain. She says she's been eating fairly well recently. Denies any dysuria. She has no other medical complaints at this time. Objective Vitals Vital Signs Date Time Temp Pulse Resp B/P (MAP) Pulse Ox O2 Delivery O2 Flow Rate FiO2 09/22/17 12:18 69 16 107/53 (71) 09/22/17 11:08 97.0 71 18 88/52 (64) 96 09/22/17 07:31 97.6 69 18 92/51 (65) 91 09/22/17 05:05 98.3 68 19 97/52 (67) 94 09/22/17 04:49 Nasal Cannula 3.00 09/22/17 01:03 97.6 62 18 111/53 (72) 97 09/22/17 00:59 09/21/17 23:56 98.5 74 16 102/51 (68) 97 Nasal Cannula 2.00 09/21/17 22:22 94.6 09/21/17 20:09 94.6 66 17 93/51 (65) 85 I/O 09/21/17 09/21/17 09/21/17 09/22/17 09/22/17 09/22/17 07:00 15:00 23:00 07:00 15:00 23:00 Intake Total 3350 ml 200 ml Output Total 2500 ml Balance 3350 ml -2300 ml Intake Oral 100 ml IV Total 3350 ml 100 ml Output Urine Total 2500 ml Result Diagram: 09/21/17202909/21/172029 Imaging Last Impressions Abdomen/Pelvis CT 09/21/172109 Signed Impressions: Service Date/Time: Thursday, September 21, 2017 21:18 - CONCLUSION: Normal examination with degenerative lumbar disease and bilateral hip arthroplasties. Status post cholecystectomy with expected intrahepatic biliary tree dilatation. No evidence of free fluid or free air.. Jameel Baldwin MD Chest X-Ray 09/21/172016 Signed Impressions: Service Date/Time: Thursday, September 21, 2017 20:29 - CONCLUSION: Normal examination. Jameel Baldwin MD Objective Remarks GENERAL: Well-nourished, well-developed pleasant elderly female patient in NAD. SKIN: Warm and dry. No rash. HEENT: Normocephalic. Atraumatic. Pupils equal and round. Mucous membranes pink and moist. NECK: Supple. Trachea midline. CARDIOVASCULAR: Regular rate and rhythm. S1, S2 noted. No murmur appreciated. RESPIRATORY: No accessory muscle use. Clear to auscultation. Breath sounds equal bilaterally. GASTROINTESTINAL: Abdomen soft, non-tender, nondistended. Normoactive bowel sounds x4. MUSCULOSKELETAL: No obvious deformities. Extremities without clubbing, cyanosis , or edema. NEUROLOGICAL: Awake and alert, oriented x2. No obvious cranial nerve deficits. Motor grossly within normal limits. Moving all extremities spontaneously. Normal speech. PSYCHIATRIC: Appropriate mood and affect; insight and judgment fair. Medications and IVs Current Medications Medications (Trade) Dose Ordered Sig/Joselin Route Start Time Stop Time Status Last Admin (NS Flush) 2 ml UNSCH PRN IV FLUSH 09/22/17 00:00 (NS Flush) 2 ml BID IV FLUSH 09/22/17 09:00 09/22/17 09:22 (Tylenol) 650 mg Q4H PRN PO 09/22/17 00:00 (Zofran Inj) 4 mg Q6H PRN IVP 09/22/17 00:00 (Narcan Inj) 0.4 mg UNSCH PRN IV PUSH 09/22/17 00:00 Potassium Chloride/Sodium Chloride 1,000 ml @ 125 mls/hr Q8H IV 09/22/17 04:45 09/22/17 06:06 (Norvasc) 10 mg DAILY PO 09/22/17 09:00 Future Hold (Sinemet 25-100 Mg) 1 tab Q8HR PO 09/22/17 06:00 09/22/17 06:52 (Cymbalta Dr) 20 mg DAILY PO 09/22/17 09:00 09/22/17 09:22 (Lexapro) 10 mg DAILY PO 09/22/17 09:00 09/22/17 09:22 (Lasix) 20 mg DAILY PO 09/22/17 09:00 Future Hold 09/22/17 09:21 (KCl) 10 meq DAILY PO 09/22/17 09:00 09/22/17 09:21 (Heparin Inj) 5,000 units Q12HR SQ 09/22/17 09:00 09/22/17 09:21 A/P Problem List: (1) LUAN (acute kidney injury) ICD Code: N17.9 - Acute kidney failure, unspecified Status: Acute (2) Hypotension ICD Code: I95.9 - Hypotension, unspecified Status: Acute (3) Abdominal pain ICD Code: R10.9 - Unspecified abdominal pain Status: Acute (4) Generalized weakness ICD Code: R53.1 - Weakness Status: Acute Assessment and Plan 77-year-old female with history of HTN, HLD, anxiety, presents with abdominal pain and weakness Hypokalemia: K 2.6 upon arrival. Unclear etiology, possibly secondary to decreased oral intake and reportedly patient has been out of her po potassium supplement. -given po and IV KCl replacement -mag 1.8, given IV Mag sulfate x1G -repeat BMP pending -monitor and replace electrolytes as needed Abdominal pain: suspect secondary to constipation, no BM x2-3 days. No nausea/ vomiting/diarrhea. -Abd/pelvis CT images reviewed, unremarkable s/p cholecystectomy; no acute findings -lipase mildly elevated at 485, will trend -LFTs wnl -give MOM x1 now for constipation, and start on Kayley-Colace 2tabs bid -monitor for BM Elevated lactic acid: lactate 2.8 upon arrival. Unclear etiology -given IVF -repeat lactic acid 1.1, resolved LUNA: Cr 1.89 upon arrival, previously Cr 0.85 in 2016 -Continue IVF hydration -Repeat BMP -Avoid nephrotoxins Hypotension with hx of Hypertension: BP as low as 88/52 -continue IVF hydration and give additional 1L IVF bolus -hold any antihypertensives -monitor BP closely Generalized Weakness: suspect multifactorial with chronic deconditioning and recent illness -continue supportive treatment with IVF hydration -consult PT/OT DVT Prophylaxis: heparin sq Patient is hospice patient, unclear reason. Anticipate discharge home with hospice. Hina Alberto PA-C Sep 22, 2017 1:34 pm
[2017-09-22] MEDS ORDERED: MAGNESIUM HYDROXIDE SUSP 30 ML CUP PO ONE (15:00)
[2017-09-22 15:39] LABS: AUTOMATED NEUTROPHIL # 5.9 TH/MM3 (1.8-7.7); BASOPHIL # 0.1 TH/MM3 (0-0.2); BASOPHIL % 1.1 % (0.0-2.0); EOSINOPHIL # 0.1 TH/MM3 (0-0.4); EOSINOPHIL % 0.9 % (0.0-4.0); HEMATOCRIT 34.1 % (35.0-46.0); HEMOGLOBIN 12.2 GM/DL (11.6-15.3); LYMPH % 19.3 % (9.0-44.0); LYMPHOCYTE # 1.5 TH/MM3 (1.0-4.8); MEAN CORPUSCULAR HEMOGLOBIN 33.2 PG (27.0-34.0); MEAN CORPUSCULAR HGB CONC 35.7 % (32.0-36.0); MEAN PLATELET VOLUME 8.7 FL (7.0-11.0); MONO % 5.7 % (0.0-8.0); MONOCYTE # 0.5 TH/MM3 (0-0.9); PLATELET COUNT 349 TH/MM3 (150-450); RED BLOOD COUNT 3.66 MIL/MM3 (4.00-5.30); RED CELL DISTRIBUTION WIDTH 13.1 % (11.6-17.2)
[2017-09-22 16:08] LABS: ALBUMIN 2.9 GM/DL (3.4-5.0); ALKALINE PHOSPHATASE 63 U/L (45-117); ALT (GPT) 29 U/L (10-53); AST (GOT) 34 U/L (15-37); BICARBONATE 29.1 MEQ/L (21.0-32.0); BLOOD UREA NITROGEN 19 MG/DL (7-18); CALCIUM 8.1 MG/DL (8.5-10.1); CHLORIDE 103 MEQ/L (98-107); CREATININE 1.04 MG/DL (0.50-1.00); GLOMERULAR FILTRATION RATE 51 ML/MIN (>89); GLUCOSE,RANDOM 175 MG/DL (74-106); LIPASE 398 U/L (73-393); MAGNESIUM 1.7 MG/DL (1.5-2.5); SODIUM (NA) 140 MEQ/L (136-145); TOTAL BILIRUBIN ADULT 0.4 MG/DL (0.2-1.0); TOTAL PROTEIN 6.5 GM/DL (6.4-8.2)
[2017-09-22] MEDS ORDERED: POTASSIUM CHLORIDE 20 MEQ CONTROLLED RELEASE TAB PO ONE (18:15)
[2017-09-22] MEDS ORDERED: POTASSIUM CHLOR 20 MEQ PREMIX 100 ML IV ONE (18:15)
[2017-09-22] MEDS: DOCUSATE SODIUM 50 MG/SENNA 8.6 MG TAB PO SCH (23:10)
[2017-09-23] VITALS: BP 121/56; PULSE 72; RESP 18; TEMP 98.6; O2SAT 93
[2017-09-23 04:00] VITALS: BP 112/58; PULSE 70; RESP 18; TEMP 98.7; O2SAT 94
[2017-09-23] MEDS: NS + KCL 20 MEQ INJ 1,000 ML IV SCH ×3 (06:21→20:33)
[2017-09-23] MEDS: CARBIDOPA/LEVODOPA 25 MG/100 MG TAB PO SCH ×3 (06:31→20:32)
--- NOTE | 2017-09-23 07:34 | HHI.PR ---
Subjective Remarks Patient in bed, feels tired. Not eating much. Denies any chest pain at this time. No sob, palpitations. No n/v/d/c. Objective Vitals Vital Signs Date Time Temp Pulse Resp B/P (MAP) Pulse Ox O2 Delivery O2 Flow Rate FiO2 09/23/17 04:00 Nasal Cannula 2.00 09/23/17 04:00 98.7 70 18 112/58 (76) 94 09/23/17 00:00 Nasal Cannula 2.00 09/23/17 00:00 98.6 72 18 121/56 (77) 93 09/22/17 21:22 71 09/22/17 20:10 Nasal Cannula 2.00 09/22/17 20:08 98.9 72 18 118/57 (77) 94 09/22/17 15:21 71 09/22/17 15:13 98.0 70 20 97/52 (67) 97 09/22/17 12:18 69 16 107/53 (71) 09/22/17 11:29 69 09/22/17 11:08 97.0 71 18 88/52 (64) 96 I/O 09/22/17 09/22/17 09/22/17 09/23/17 09/23/17 09/23/17 07:00 15:00 23:00 07:00 15:00 23:00 Intake Total 200 ml 500 ml 100 ml 1354 ml Output Total 2500 ml 1800 ml 800 ml 1400 ml Balance -2300 ml -1300 ml -700 ml -46 ml Intake Oral 100 ml 500 ml 240 ml IV Total 100 ml 100 ml 1114 ml Output Urine Total 2500 ml 1800 ml 800 ml 1400 ml # Bowel Movements 0 Result Diagram: 09/22/17 1505 09/22/17 1505 Imaging Last Impressions Abdomen/Pelvis CT 09/21/172109 Signed Impressions: Service Date/Time: Thursday, September 21, 2017 21:18 - CONCLUSION: Normal examination with degenerative lumbar disease and bilateral hip arthroplasties. Status post cholecystectomy with expected intrahepatic biliary tree dilatation. No evidence of free fluid or free air.. Jameel Baldwin MD Chest X-Ray 09/21/172016 Signed Impressions: Service Date/Time: Thursday, September 21, 2017 20:29 - CONCLUSION: Normal examination. Jameel Baldwin MD Objective Remarks GENERAL: Well-nourished, well-developed pleasant elderly female patient in NAD. CARDIOVASCULAR: Regular rate and rhythm. S1, S2 noted. No murmur appreciated. RESPIRATORY: No accessory muscle use. Clear to auscultation. Breath sounds equal bilaterally. GASTROINTESTINAL: Abdomen soft, non-tender, nondistended. Normoactive bowel sounds x4. MUSCULOSKELETAL: No obvious deformities. Extremities without clubbing, cyanosis , or edema. NEUROLOGICAL: Awake and alert, oriented x2. No obvious cranial nerve deficits. Motor grossly within normal limits. Moving all extremities spontaneously. Normal speech. PSYCHIATRIC: Appropriate mood and affect; insight and judgment fair. A/P Problem List: (1) LUNA (acute kidney injury) ICD Code: N17.9 - Acute kidney failure, unspecified Status: Acute (2) Hypotension ICD Code: I95.9 - Hypotension, unspecified Status: Acute (3) Abdominal pain ICD Code: R10.9 - Unspecified abdominal pain Status: Acute (4) Generalized weakness ICD Code: R53.1 - Weakness Status: Acute Assessment and Plan 77-year-old female with history of HTN, HLD, anxiety, presents with abdominal pain and weakness Hypokalemia: K 2.6 upon arrival. Unclear etiology, possibly secondary to decreased oral intake and reportedly patient has been out of her po potassium supplement. -given po and IV KCl replacement -mag 1.8, given IV Mag sulfate x1G -repeat BMP pending -monitor and replace electrolytes as needed Abdominal pain: suspect secondary to constipation, no BM x2-3 days. No nausea/ vomiting/diarrhea. -Abd/pelvis CT images reviewed, unremarkable s/p cholecystectomy; no acute findings -lipase mildly elevated at 485, will trend -LFTs wnl -give MOM x1 now for constipation, and start on Kayley-Colace 2tabs bid -monitor for BM Elevated lactic acid: lactate 2.8 upon arrival. Unclear etiology -given IVF -repeat lactic acid 1.1, resolved LUNA: Cr 1.89 upon arrival, previously Cr 0.85 in 2016 -Continue IVF hydration -Repeat BMP -Avoid nephrotoxins Hypotension with hx of Hypertension: BP as low as 88/52 -continue IVF hydration and give additional 1L IVF bolus -hold any antihypertensives -monitor BP closely Generalized Weakness: suspect multifactorial with chronic deconditioning and recent illness -continue supportive treatment with IVF hydration -consult PT/OT DVT Prophylaxis: heparin sq Patient is hospice patient, unclear reason. Anticipate discharge home with hospice. Will ask palliative care for goals of care Pt recommends SNF. Daria Laureano MD Sep 23, 2017 07:34
[2017-09-23 08:00] VITALS: BP 116/53; PULSE 73; RESP 18; TEMP 98.5; O2SAT 94
[2017-09-23] MEDS: ESCITALOPRAM OXALATE 10 MG TAB PO SCH (08:49)
[2017-09-23] MEDS: HEPARIN SODIUM - SQ 10,000 UNITS/ML VIAL SQ SCH ×2 (08:49→20:32)
[2017-09-23] MEDS: DOCUSATE SODIUM 50 MG/SENNA 8.6 MG TAB PO SCH ×2 (08:49→20:40)
[2017-09-23] MEDS: POTASSIUM CHLORIDE 10 MEQ CONTROLLED RELEASE TAB PO SCH (08:50)
[2017-09-23] MEDS: SODIUM CHLORIDE 0.9% FLUSH 10 ML FLUSH IV FLUSH SCH ×2 (08:51→20:32)
[2017-09-23 09:01] LABS: CALCIUM 8.5 MG/DL (8.5-10.1)
[2017-09-23 09:22] LABS: BICARBONATE 30.6 MEQ/L (21.0-32.0); CREATININE 0.78 MG/DL (0.50-1.00); MAGNESIUM 1.8 MG/DL (1.5-2.5)
[2017-09-23] MEDS: DULoxetine HCl DR 20 MG CAP PO SCH (10:52)
[2017-09-23] MEDS ORDERED: POTASSIUM CHLORIDE 20 MEQ CONTROLLED RELEASE TAB PO ONE (11:00)
--- NOTE | 2017-09-23 11:44 | EKG ---
Date Performed: 09/21/2017 Time Performed: 21:12:38 PTAGE: 77 years EKG: Sinus rhythm Consider anteroseptal myocardial infarction - age indeterminate Consider inferior myocardial infarct ion - age indeterminate ABNORMAL ECG PREVIOUS TRACING : 12/04/2015 04.36 DOCTOR: Walter West Interpretating Date/Time 09/23/2017 11:42:56
[2017-09-23 12:47] VITALS: BP 122/56; PULSE 68; RESP 18; TEMP 98.4; O2SAT 96
[2017-09-23 16:38] VITALS: BP 144/63; PULSE 70; RESP 18; TEMP 98.6; O2SAT 95
[2017-09-23 20:00] VITALS: BP 125/66; PULSE 72; PULSE 73; RESP 18; TEMP 98.6; O2SAT 98
[2017-09-24] VITALS: BP 157/74; PULSE 76; RESP 18; TEMP 97.9; O2SAT 96
[2017-09-24 04:00] VITALS: BP 139/78; PULSE 71; RESP 18; TEMP 97.7; O2SAT 96
[2017-09-24] MEDS: CARBIDOPA/LEVODOPA 25 MG/100 MG TAB PO SCH ×2 (05:24→13:58)
[2017-09-24] MEDS: NS + KCL 20 MEQ INJ 1,000 ML IV SCH (05:26)
[2017-09-24 07:55] VITALS: PULSE 66
[2017-09-24 08:02] LABS: AUTOMATED NEUTROPHIL # 3.8 TH/MM3 (1.8-7.7); BASOPHIL # 0.1 TH/MM3 (0-0.2); BASOPHIL % 1.1 % (0.0-2.0); EOSINOPHIL # 0.1 TH/MM3 (0-0.4); EOSINOPHIL % 1.2 % (0.0-4.0); HEMATOCRIT 36.5 % (35.0-46.0); HEMOGLOBIN 12.6 GM/DL (11.6-15.3); LYMPH % 23.6 % (9.0-44.0); LYMPHOCYTE # 1.3 TH/MM3 (1.0-4.8); MEAN CORPUSCULAR HEMOGLOBIN 32.5 PG (27.0-34.0); MEAN CORPUSCULAR HGB CONC 34.6 % (32.0-36.0); MEAN PLATELET VOLUME 8.9 FL (7.0-11.0); MONO % 8.2 % (0.0-8.0); MONOCYTE # 0.5 TH/MM3 (0-0.9); NEUT % 65.9 % (16.0-70.0); PLATELET COUNT 326 TH/MM3 (150-450); RED BLOOD COUNT 3.88 MIL/MM3 (4.00-5.30); WHITE BLOOD COUNT 5.7 TH/MM3 (4.0-11.0)
[2017-09-24 08:29] LABS: BICARBONATE 27.8 MEQ/L (21.0-32.0); CREATININE 0.75 MG/DL (0.50-1.00); MAGNESIUM 1.7 MG/DL (1.5-2.5)
--- NOTE | 2017-09-24 09:01 | HHI.PR ---
Subjective Remarks The patient is in the chair, feels much better today. She wants to go home. Patient daughter decided to go home with hospice. She has been with us in the past. Electrolytes are back to normal. Says she still feels very however improving. No nausea or vomiting no diarrhea or constipation. Says she is not eating much. Objective Vitals Vital Signs Date Time Temp Pulse Resp B/P (MAP) Pulse Ox O2 Delivery O2 Flow Rate FiO2 09/24/17 04:00 Room Air 09/24/17 04:00 97.7 71 18 139/78 (98) 96 09/24/17 00:00 Room Air 09/24/17 00:00 97.9 76 18 157/74 (101) 96 09/23/17 20:00 98.6 73 18 125/66 (85) 98 09/23/17 20:00 72 09/23/17 19:45 Nasal Cannula 2.00 09/23/17 16:38 98.6 70 18 144/63 (90) 95 09/23/17 12:47 98.4 68 18 122/56 (78) 96 I/O 09/23/17 09/23/17 09/23/17 09/24/17 09/24/17 09/24/17 07:00 15:00 23:00 07:00 15:00 23:00 Intake Total 1354 ml 480 ml 1283 ml Output Total 1400 ml 1000 ml Balance -46 ml 480 ml 283 ml Intake Oral 240 ml 480 ml 0 ml IV Total 1114 ml 1283 ml Output Urine Total 1400 ml 1000 ml # Voids 4 # Bowel Movements 0 3 3 Result Diagram: 09/24/1730 09/24/17 0630 Imaging Last Impressions Abdomen/Pelvis CT 09/21/172109 Signed Impressions: Service Date/Time: Thursday, September 21, 2017 21:18 - CONCLUSION: Normal examination with degenerative lumbar disease and bilateral hip arthroplasties. Status post cholecystectomy with expected intrahepatic biliary tree dilatation. No evidence of free fluid or free air.. Jameel Baldwin MD Chest X-Ray 09/21/172016 Signed Impressions: Service Date/Time: Thursday, September 21, 2017 20:29 - CONCLUSION: Normal examination. Jameel Baldwin MD Objective Remarks GENERAL: Well-nourished, well-developed pleasant elderly female patient in NAD. CARDIOVASCULAR: Regular rate and rhythm. S1, S2 noted. No murmur appreciated. RESPIRATORY: No accessory muscle use. Clear to auscultation. Breath sounds equal bilaterally. GASTROINTESTINAL: Abdomen soft, non-tender, nondistended. Normoactive bowel sounds x4. MUSCULOSKELETAL: No obvious deformities. Extremities without clubbing, cyanosis , or edema. NEUROLOGICAL: Awake and alert, oriented x2. No obvious cranial nerve deficits. Motor grossly within normal limits. Moving all extremities spontaneously. Normal speech. PSYCHIATRIC: Appropriate mood and affect; insight and judgment fair. A/P Problem List: (1) LUNA (acute kidney injury) ICD Code: N17.9 - Acute kidney failure, unspecified Status: Acute (2) Hypotension ICD Code: I95.9 - Hypotension, unspecified Status: Acute (3) Abdominal pain ICD Code: R10.9 - Unspecified abdominal pain Status: Acute (4) Generalized weakness ICD Code: R53.1 - Weakness Status: Acute Assessment and Plan 77-year-old female with history of HTN, HLD, anxiety, presents with abdominal pain and weakness Hypokalemia: Resolved. She is eating better per nurse. K 2.6 upon arrival. Unclear etiology, possibly secondary to decreased oral intake and reportedly patient has been out of her po potassium supplement. -given po and IV KCl replacement -mag 1.8, given IV Mag sulfate x1G -repeat BMP pending -monitor and replace electrolytes as needed Abdominal pain: suspect secondary to constipation, no BM x2-3 days. No nausea/ vomiting/diarrhea. -Abd/pelvis CT images reviewed, unremarkable s/p cholecystectomy; no acute findings -lipase mildly elevated at 485, will trend -LFTs wnl -give MOM x1 now for constipation, and start on Kayley-Colace 2tabs bid -monitor for BM Elevated lactic acid: lactate 2.8 upon arrival. Unclear etiology -given IVF -repeat lactic acid 1.1, resolved LUNA: Cr 1.89 upon arrival, previously Cr 0.85 in 2016 -Continue IVF hydration -Repeat BMP -Avoid nephrotoxins Hypotension with hx of Hypertension: BP as low as 88/52 -continue IVF hydration and give additional 1L IVF bolus -hold any antihypertensives -monitor BP closely Generalized Weakness: suspect multifactorial with chronic deconditioning and recent illness -continue supportive treatment with IVF hydration -consult PT/OT DVT Prophylaxis: heparin sq Patient is hospice patient, unclear reason. Anticipate discharge home with hospice. Pt recommends SNF. Patient improved. Patient to be discharged home with hospice per patient and daughter wishes. Will walker at discharge. Daria Laureano MD Sep 24, 2017 09:01
[2017-09-24] MEDS ORDERED: WALKER WHEELS/F1 MIS (09:03)
--- NOTE | 2017-09-24 09:05 | HHI.DS ---
Discharge Summary Admission Date Sep 22, 2017 at 04:36 Discharge Date: Sep 24, 2017 Admitting Diagnosis generalized weakness; hypotension; hypokalemia (1) LUNA (acute kidney injury) ICD Code: N17.9 - Acute kidney failure, unspecified Status: Acute (2) Hypotension ICD Code: I95.9 - Hypotension, unspecified Status: Acute (3) Abdominal pain ICD Code: R10.9 - Unspecified abdominal pain Status: Acute (4) Generalized weakness ICD Code: R53.1 - Weakness Status: Acute Procedures none Brief History - From Admission 77-year-old female presents with weakness and abdominal pain. The patient was brought in by her son who provided most of the history to the emergency room physician. At the time of our interview, the patient was alone in her room. She continues to complain of abdominal pain. Her labs were significant for potassium of 2.6, creatinine of 1.89 with a baseline of 0.85 in 2015, and a lipase of 485. Lactic acid 2.8. Chest x-ray within normal limits. CT of the abdomen/pelvis for acute process. CBC/BMP: 09/24/17 0630 09/24/17 0630 Significant Findings Laboratory Tests Test 09/21/17 20:30 09/21/17 20:38 09/21/17 21:20 09/22/17 00:20 Platelet Count 470 TH/MM3 (150-450) Activated Partial Thromboplast Time 22.9 SEC (24.3-30.1) Blood Urea Nitrogen 32 MG/DL (7-18) Creatinine 1.89 MG/DL (0.50-1.00) Random Glucose 147 MG/DL (74-106) Potassium Level 2.6 MEQ/L (3.5-5.1) Chloride Level 93 MEQ/L (98-107) Bedside Potassium 2.6 MMOL/L (3.5-4.9) Bedside Chloride 93 MMOL/L (98-109) Bedside Blood Urea Nitrogen 33 MG/DL (8-26) Bedside Creatinine 2.0 MG/DL (0.6-1.0) Estimat Glomerular Filtration Rate 26 ML/MIN (>89) Bedside Glucose 153 MG/DL (60-95) Lactic Acid Level 2.8 mmol/L (0.4-2.0) Lipase 485 U/L (73-393) Blood Gas HCO3 29 mmol/L (22-26) Blood Gas Base Excess 4.2 mmol/L (-2-2) Blood Gas Oxygen Saturation 88 % (90-100) Arterial Blood Partial Pressure CO2 50 mmHg (38-42) Test 09/22/17 15:05 09/23/17 07:20 09/24/17 06:30 Red Blood Count 3.66 MIL/MM3 (4.00-5.30) 3.88 MIL/MM3 (4.00-5.30) Hematocrit 34.1 % (35.0-46.0) Neutrophils (%) (Auto) 73.0 % (16.0-70.0) Blood Urea Nitrogen 19 MG/DL (7-18) 6 MG/DL (7-18) Creatinine 1.04 MG/DL (0.50-1.00) Random Glucose 175 MG/DL (74-106) Albumin 2.9 GM/DL (3.4-5.0) Calcium Level 8.1 MG/DL (8.5-10.1) Potassium Level 3.0 MEQ/L (3.5-5.1) 3.3 MEQ/L (3.5-5.1) Estimat Glomerular Filtration Rate 51 ML/MIN (>89) 71 ML/MIN (>89) 75 ML/MIN (>89) Lipase 398 U/L (73-393) Monocytes (%) (Auto) 8.2 % (0.0-8.0) Imaging Last Impressions Abdomen/Pelvis CT [id number]/[id number] Signed Impressions: Service Date/Time: Thursday, September 21, 2017 21:18 - CONCLUSION: Normal examination with degenerative lumbar disease and bilateral hip arthroplasties. Status post cholecystectomy with expected intrahepatic biliary tree dilatation. No evidence of free fluid or free air.. Jameel Baldwin MD Chest X-Ray 09/21/172016 Signed Impressions: Service Date/Time: Thursday, September 21, 2017 20:29 - CONCLUSION: Normal examination. Jameel Baldwin MD PE at Discharge GENERAL: Well-nourished, well-developed pleasant elderly female patient in NAD. CARDIOVASCULAR: Regular rate and rhythm. S1, S2 noted. No murmur appreciated. RESPIRATORY: No accessory muscle use. Clear to auscultation. Breath sounds equal bilaterally. GASTROINTESTINAL: Abdomen soft, non-tender, nondistended. Normoactive bowel sounds x4. MUSCULOSKELETAL: No obvious deformities. Extremities without clubbing, cyanosis , or edema. NEUROLOGICAL: Awake and alert, oriented x2. No obvious cranial nerve deficits. Motor grossly within normal limits. Moving all extremities spontaneously. Normal speech. PSYCHIATRIC: Appropriate mood and affect; insight and judgment fair. Hospital Course 77-year-old female with history of HTN, HLD, anxiety, presents with abdominal pain and weakness. Patient was found with hypokalemia replaced the patient was fine with hypokalemia, potassium was replaced. Patient also with abdominal pain and with constipation, resolved with laxatives. Pt recommends SNF. Patient improved. Patient to be discharged home with hospice per patient and daughter wishes. [place] walker at discharge. Hypokalemia: Resolved. She is eating better per nurse. K 2.6 upon arrival. Unclear etiology, possibly secondary to decreased oral intake and reportedly patient has been out of her po potassium supplement. -given po and IV KCl replacement -mag 1.8, given IV Mag sulfate x1G -repeat BMP pending -monitor and replace electrolytes as needed Abdominal pain: suspect secondary to constipation, no BM x2-3 days. No nausea/ vomiting/diarrhea. -Abd/pelvis CT images reviewed, unremarkable s/p cholecystectomy; no acute findings -lipase mildly elevated at 485, will trend -LFTs wnl -give MOM x1 now for constipation, and start on Kayley-Colace 2tabs bid -monitor for BM Elevated lactic acid: lactate 2.8 upon arrival. Unclear etiology -given IVF -repeat lactic acid 1.1, resolved LUNA: Cr 1.89 upon arrival, previously Cr 0.85 in 2016 -Continue IVF hydration -Repeat BMP -Avoid nephrotoxins Hypotension with hx of Hypertension: BP as low as 88/52 -continue IVF hydration and give additional 1L IVF bolus -hold any antihypertensives -monitor BP closely Generalized Weakness: suspect multifactorial with chronic deconditioning and recent illness -continue supportive treatment with IVF hydration -consult PT/OT DVT Prophylaxis: heparin sq Patient is hospice patient, unclear reason. Anticipate discharge home with hospice. Pt recommends SNF. Patient improved. Patient to be discharged home with hospice per patient and daughter wishes. Will have walker at discharge. Pt Condition on Discharge: Stable Discharge Disposition: Hospice/ Home Discharge Time: > 30 minutes Discharge Instructions DIET: Follow Instructions for: Heart Healthy Diet Activities you can perform: Regular-No Restrictions Follow up Referrals: PCP Follow-up - 2-3 Days New Medications: Walker with Front Wheels (Walker with Front Wheels) 1 Mis Mis EA .ROUTE DIRECTED, #1 0 Refills Continued Medications: Amlodipine (Amlodipine) 10 Mg Tab 10 MG PO DAILY for Blood Pressure Management, #30 TAB 0 Refills Carbidopa-Levodopa (Carbidopa-Levodopa) 25-100 Mg Tab 1 TAB PO Q8HR for Parkinson Disease Mgmt, #90 TAB 0 Refills Docusate Sodium (Docusate Sodium) 100 Mg Cap 100 MG PO BID for Prevent Constipation, #60 CAP [address] (Cymbalta DR) 20 Mg Capdr 20 MG PO DAILY, #30 CAP 0 Refills Escitalopram (Lexapro) 10 Mg Tab 10 MG PO DAILY, #30 TAB 0 Refills Fentanyl Patch 72 HR (Fentanyl Patch 72 HR) 25 Mcg/Hr Patch 25 MCG T-DERMAL Q72H for Pain Management, #10 PATCH 0 Refills Furosemide (Lasix) 20 Mg Tab 20 MG PO DAILY, #30 TAB 0 Refills Meclizine HCl (Meclizine 25) 25 Mg Tab 25 MG PO TID PRN for DIZZINESS Potassium Chloride ER (Potassium Chloride ER) 10 Meq Tab 10 MEQ PO DAILY for Electrolyte Replacement, #30 TAB 0 Refills Daria Laureano MD Sep 24, 2017 09:05
[2017-09-24] MEDS: DOCUSATE SODIUM 50 MG/SENNA 8.6 MG TAB PO SCH (09:26)
[2017-09-24] MEDS: ESCITALOPRAM OXALATE 10 MG TAB PO SCH (09:26)
[2017-09-24] MEDS: HEPARIN SODIUM - SQ 10,000 UNITS/ML VIAL SQ SCH (09:26)
[2017-09-24] MEDS: SODIUM CHLORIDE 0.9% FLUSH 10 ML FLUSH IV FLUSH SCH (09:26)
[2017-09-24] MEDS: POTASSIUM CHLORIDE 10 MEQ CONTROLLED RELEASE TAB PO SCH (09:26)
[2017-09-24] MEDS: DULoxetine HCl DR 20 MG CAP PO SCH (09:26)
[2017-09-24 09:30] VITALS: BP 176/77; PULSE 68; RESP 16; TEMP 98.1; O2SAT 98
--- NOTE | 2017-09-24 11:28 | PD.CONS ---
Consult Service Palliative Care . Consult Requested By Dr. Laureano . Primary Care Physician Triston Pena M.D. Reason for Consultation a. To assist with evaluation and management of symptoms including: Anxiety and Pain. b. To assist medical decision maker(s) with: better understanding of current medical conditions; weighing benefits/burdens of medical treatment options; making medical treatment decisions. . HPI History of Present Illness Patient is a 77-year-old female with a history of anxiety, hyperlipidemia, hypertension, tremors, chronic pain syndrome, coronary artery disease and CVA. She presented to [facility] via EMS on 09/21/2017 for evaluation of generalized weakness and severe abdominal pain. Patient reportedly has had issues with constipation with worsening symptoms 1 day. Upon presentation to the ED the patient is pale, diaphoretic and hypotensive. Per EMS, the patient is on hospice but neither is the patient nor her son could identify why the patient was on hospice. No known terminal illness. Additional diagnostic data: * Vital signs: Pulse 66, respirations 17, BP 93/51, oxygen saturation 85% on room air, temperature 94.6 percent * WBC: 7.4, hemoglobin 13.7, hematocrit 40.6, platelets 470, neutrophils 58.1% * Sodium: 140, potassium 3.0, chloride 103, carbon dioxide 29.1, glucose 175, calcium 1.1, magnesium 1.7 * BUN: 19, creatinine 1.04, GFR 51 * Lactic acid: 1.1 * Total bilirubin: 0.4, AST 34, ALT 29, alkaline phosphatase 63 * Total creatine kinase: 96 * Troponin: 0.02 * Total protein: 6.5, albumin 2.9 * Lipase: 398 * FAST exam does not reveal any free fluid in the abdomen * Negative urinalysis * Normal chest x-ray. * CT abdomen/pelvis: Normal examination with degenerative lumbar disease and bilateral hip arthroplasties. Status post cholecystectomy and expected intrahepatic biliary tree dilatation. No evidence of free fluid or free air. The patient received IV fluids and was placed under warmer blanket. Patient was noted to have hypokalemia, renal insufficiency and acute lactic acidosis. Oral and IV potassium were administered secondary to hypokalemia. On exam, the patient was found to have a fentanyl patch underneath a Band-Aid on her right posterior shoulder which was removed. Patient was admitted for further evaluation and medical management of generalized weakness. Additional impressions include hypokalemia, abdominal pain, elevated lipase, hypotension and LUNA. Palliative Care was consulted to assist with symptom management and to discuss with the patient/family the benefits and burdens of her current illnesses and the options regarding future care. Of note, patient is on [facility] although the reason for this is unclear. Anticipate discharge home with hospice care. . Function/Cognitive Trajectory Patient has been on [facility] although the reason for this is unclear. Patient states she is on hospice because it is a better option than her previous insurance and they pay for her medication. She verbalizes aggressive goals up to the point of cardiopulmonary resuscitation. Patient lives at home with her son, oLs. She states she uses a walker when ambulating but is otherwise independent with all ADLs. . Review of Systems ROS Limitations: Poor Historian Constitutional: COMPLAINS OF: Generalized weakness Respiratory: DENIES: Shortness of breath Gastrointestinal: COMPLAINS OF: Abdominal pain, DENIES: Black stools, Bloody stools, Nausea, Vomiting, Vomiting blood Musculoskeletal: COMPLAINS OF: Joint pain Neurologic: COMPLAINS OF: Abnormal gait, Tremor, Poor Balance, DENIES: Seizures , Speech Problems Psychiatric: COMPLAINS OF: Anxiety Past Family Social History Coded Allergies: No Known Allergies (Verified Allergy, Unknown, 09/21/17) Past Medical History Anxiety Hyperlipidemia Hypertension Coronary artery disease COPD CVA . Past Surgical History Cholecystectomy Hip replacement Wrist surgery . Reported Medications Carbidopa-Levodopa 25-100 Mg Tab 1 Tab PO Q8HR Fentanyl Patch 72 HR (Fentanyl) 25 Mcg/Hr Patch 25 Mcg T-DERMAL Q72H Docusate Sodium 100 Mg Cap 100 Mg PO BID Amlodipine (Amlodipine Besylate) 10 Mg Tab 10 Mg PO DAILY Cymbalta DR (Duloxetine HCl) 20 Mg Capdr 20 Mg PO DAILY Meclizine 25 (Meclizine HCl) 25 Mg Tab 25 Mg PO TID PRN Lexapro (Escitalopram Oxalate) 10 Mg Tab 10 Mg PO DAILY Potassium Chloride ER (Potassium Chloride) 10 Meq Tab 10 Meq PO DAILY Lasix (Furosemide) 20 Mg Tab 20 Mg PO DAILY . Current Medications Medications (Trade) Dose Ordered Sig/Joselin Route Start Time Stop Time Status Last Admin (NS Flush) 2 ml UNSCH PRN IV FLUSH 09/22/17 00:00 (NS Flush) 2 ml BID IV FLUSH 11/4/17 09:00 09/24/17 09:26 (Tylenol) 650 mg Q4H PRN PO 09/22/17 00:00 (Zofran Inj) 4 mg Q6H PRN IVP 09/22/17 00:00 (Narcan Inj) 0.4 mg UNSCH PRN IV PUSH 09/22/17 00:00 Potassium Chloride/Sodium Chloride 1,000 ml @ 125 mls/hr Q8H IV 09/22/17 04:45 09/24/17 05:26 (Norvasc) 10 mg DAILY PO 09/22/17 09:00 Future Hold (Sinemet 25-100 Mg) 1 tab Q8HR PO 09/22/17 06:00 09/24/17 05:24 (Cymbalta Dr) 20 mg DAILY PO 09/22/17 09:00 09/24/17 09:26 (Lexapro) 10 mg DAILY PO 09/22/17 09:00 09/24/17 09:26 (Lasix) 20 mg DAILY PO 09/22/17 09:00 Future Hold 09/22/17 09:21 (KCl) 10 meq DAILY PO 09/22/17 09:00 09/24/17 09:26 (Heparin Inj) 5,000 units Q12HR SQ 09/22/17 09:00 09/24/17 09:26 (Kayley-Colace) 2 tab BID PO 09/22/17 21:00 09/24/17 09:26 . Family History Patient's mother at the age of 70 from complications related to CVA. Sister is with a history of seizures. Patient's father in 2002, unknown reason. . Substance Use Tobacco: Previous smoker, quit 15 years ago Alcohol: Patient denies Prescription med abuse: Patient denies Illicits: Patient denies . Psychosocial History Patient was born in [facility]. She had 1 brother and 1 sister. Her sister is ; her brother lives in [place]. Patient states her father was a political prisoner in [place]. She moved to the [place] when she was 17 years old with her daughter. She met her after moving to the [facility]. Together they had 2 addition children; son (Los) and daughter ( Elsy ) both live locally. Patient was to her for approximately 30 years before he from complications related to EtOH consumption. He worked as a gordillo before his . 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 She currently lives with her son in her home in [place]. . Spiritual/Cultural Factors Christianity tato . Date completed: 10/04/2017 . Health Care Surrogate(s): Patient's son (Los) is designated as the healthcare surrogate decision maker. Daughter, Elsy, is designated as the alternate health care surrogate. . Documented care wishes: Health care surrogate designation form completed 09/24/2017. Information on living will was left at patient's bedside. . Today's verbally stated goals: Patient tearfully states she wants to return home to be with her son and kitten. She plans to return home with hospice services. Patient verbalizes aggressive goals up to the point of cardiopulmonary resuscitation. . Family/friends goals: Return home with hospice services. . Ethical and Legal Issues No known ethical or legal issues impacting care at this time. . Physical Exam Vital Signs Date Time Temp Pulse Resp B/P (MAP) Pulse Ox O2 Delivery O2 Flow Rate FiO2 09/24/17 09:30 98.1 68 16 176/77 (110) 98 09/24/17 04:00 Room Air 09/24/17 04:00 97.7 71 18 139/78 (98) 96 09/24/17 00:00 Room Air 09/24/17 00:00 97.9 76 18 157/74 (101) 96 09/23/17 20:00 98.6 73 18 125/66 (85) 98 09/23/17 20:00 72 09/23/17 19:45 Nasal Cannula 2.00 09/23/17 16:38 98.6 70 18 144/63 (90) 95 09/23/17 12:47 98.4 68 18 122/56 (78) 96 . Exam CONSTITUTIONAL/GENERAL: This is an adequately nourished, elderly female patient in no apparent distress. TUBES/LINES/DRAINS: PIV 1 SKIN: No jaundice or lesions. Abrasion on right upper arm. Generalized pallor. Skin temperature appropriate. Not diaphoretic. HEAD: Atraumatic. Normocephalic. EYES: Pupils equal and round and reactive. No scleral icterus. No injection or drainage. Fundi not examined. ENT: Hearing grossly normal. Nose without bleeding or purulent drainage. NECK: Trachea midline. Supple, nontender. No palpable thyroid enlargement or nodularity. CARDIOVASCULAR: Regular rate and rhythm without murmurs, gallops, or rubs. No JVD. Peripheral pulses symmetric. RESPIRATORY/CHEST: Symmetric, unlabored respirations. Breath diminished bilaterally. No wheezes, rales, or rhonchi. GASTROINTESTINAL: Abdomen soft, non-tender, nondistended. No hepato-splenomegaly , or palpable masses. No guarding. Bowel sounds present. GENITOURINARY: Without palpable bladder distension. MUSCULOSKELETAL: Extremities without clubbing, cyanosis, or edema. No mottling or clubbing. LYMPHATICS: No palpable cervical or supraclavicular adenopathy. NEUROLOGICAL: Awake and alert. Follows commands. Moves all extremities. Able to make needs known. PSYCHIATRIC: + Anxiety at baseline . Diagnostic Tests Laboratory Laboratory Tests Test 09/21/17 20:30 09/21/17 20:38 09/21/17 21:20 09/22/17 00:20 White Blood Count 7.4 TH/MM3 (4.0-11.0) Red Blood Count 4.38 MIL/MM3 (4.00-5.30) Hemoglobin 13.7 GM/DL (11.6-15.3) Bedside Hemoglobin 15.0 G/DL (12.0-17.0) Hematocrit 40.6 % (35.0-46.0) Bedside Hematocrit 44.0 % (38.0-51.0) Mean Corpuscular Volume 92.6 FL (80.0-100.0) Mean Corpuscular Hemoglobin 31.3 PG (27.0-34.0) Mean Corpuscular Hemoglobin Concent 33.8 % (32.0-36.0) Red Cell Distribution Width 13.3 % (11.6-17.2) Platelet Count 470 TH/MM3 (150-450) Mean Platelet Volume 8.3 FL (7.0-11.0) Neutrophils (%) (Auto) 58.1 % (16.0-70.0) Lymphocytes (%) (Auto) 32.5 % (9.0-44.0) Monocytes (%) (Auto) 7.4 % (0.0-8.0) Eosinophils (%) (Auto) 0.7 % (0.0-4.0) Basophils (%) (Auto) 1.3 % (0.0-2.0) Neutrophils # (Auto) 4.3 TH/MM3 (1.8-7.7) Lymphocytes # (Auto) 2.4 TH/MM3 (1.0-4.8) Monocytes # (Auto) 0.5 TH/MM3 (0-0.9) Eosinophils # (Auto) 0.1 TH/MM3 (0-0.4) Basophils # (Auto) 0.1 TH/MM3 (0-0.2) CBC Comment DIFF FINAL Differential Comment Prothrombin Time 11.1 SEC (9.8-11.6) Prothromb Time International Ratio 1.0 RATIO Activated Partial Thromboplast Time 22.9 SEC (24.3-30.1) Bedside Sodium 138 MMOL/L (138-146) Blood Urea Nitrogen 32 MG/DL (7-18) Creatinine 1.89 MG/DL (0.50-1.00) Random Glucose 147 MG/DL (74-106) Total Protein 7.9 GM/DL (6.4-8.2) Albumin 3.8 GM/DL (3.4-5.0) Calcium Level 9.4 MG/DL (8.5-10.1) Alkaline Phosphatase 71 U/L (45-117) Aspartate Amino Transf (AST/SGOT) 21 U/L (15-37) Alanine Aminotransferase (ALT/SGPT) 12 U/L (10-53) Total Bilirubin 0.6 MG/DL (0.2-1.0) Sodium Level 136 MEQ/L (136-145) Potassium Level 2.6 MEQ/L (3.5-5.1) Chloride Level 93 MEQ/L (98-107) Carbon Dioxide Level 29.5 MEQ/L (21.0-32.0) Bedside Potassium 2.6 MMOL/L (3.5-4.9) Bedside Chloride 93 MMOL/L (98-109) Anion Gap 14 MEQ/L (5-15) Bedside Blood Urea Nitrogen 33 MG/DL (8-26) Bedside Creatinine 2.0 MG/DL (0.6-1.0) Estimat Glomerular Filtration Rate 26 ML/MIN (>89) Bedside Glucose 153 MG/DL (60-95) Lactic Acid Level 2.8 mmol/L (0.4-2.0) 1.1 mmol/L (0.4-2.0) Magnesium Level 1.8 MG/DL (1.5-2.5) Total Creatine Kinase 96 U/L (26-192) Troponin I 0.02 NG/ML (0.02-0.05) Lipase 485 U/L (73-393) Blood Gas Puncture Site LT BRACHIAL Blood Gas Patient Temperature 98.6 Blood Gas HCO3 29 mmol/L (22-26) Blood Gas Base Excess 4.2 mmol/L (-2-2) Blood Gas Oxygen Saturation 88 % (90-100) Arterial Blood pH 7.38 (7.380-7.420) Arterial Blood Partial Pressure CO2 50 mmHg (38-42) Arterial Blood Partial Pressure O2 61 mmHG (61-120) Arterial Blood Oxygen Content 16.5 Vol % (12.0-20.0) Arterial Blood Carboxyhemoglobin 1.0 % (0-4) Arterial Blood Methemoglobin 0.5 % (0-2) Blood Gas Hemoglobin 13.3 G/DL (12.0-16.0) Oxygen Delivery Device NASAL CANNULA Blood Gas Liter Flow 2 L/M Urine Color YELLOW (YELLW/STRAW) Urine Turbidity CLEAR (CLEAR) Urine pH 6.5 (5.0-8.5) Urine Specific [place] 1.009 (1.002-1.035) Urine Protein TRACE mg/dL (NEG-TRACE) Urine Glucose (UA) NEG mg/dL (NEG) Urine Ketones NEG mg/dL (NEG) Urine Occult Blood NEG (NEG) Urine Nitrite NEG (NEG) Urine Bilirubin NEG (NEG) Urine Urobilinogen LESS THAN 2.0 MG/DL (LESS Urine Leukocyte Esterase NEG (NEG) Urine WBC LESS THAN 1 /hpf (0-5) Urine Squamous Epithelial Cells 1 /hpf (0-5) Urine Hyaline Casts 1 /lpf (RARE) Microscopic Urinalysis Comment CULT NOT INDICATED Test 09/22/17 15:05 09/23/17 07:20 09/24/17 06:30 White Blood Count 8.0 TH/MM3 (4.0-11.0) 5.7 TH/MM3 (4.0-11.0) Red Blood Count 3.66 MIL/MM3 (4.00-5.30) 3.88 MIL/MM3 (4.00-5.30) Hemoglobin 12.2 GM/DL (11.6-15.3) 12.6 GM/DL (11.6-15.3) Hematocrit 34.1 % (35.0-46.0) 36.5 % (35.0-46.0) Mean Corpuscular Volume 93.0 FL (80.0-100.0) 94.0 FL (80.0-100.0) Mean Corpuscular Hemoglobin 33.2 PG (27.0-34.0) 32.5 PG (27.0-34.0) Mean Corpuscular Hemoglobin Concent 35.7 % (32.0-36.0) 34.6 % (32.0-36.0) Red Cell Distribution Width 13.1 % (11.6-17.2) 13.0 % (11.6-17.2) Platelet Count 349 TH/MM3 (150-450) 326 TH/MM3 (150-450) Mean Platelet Volume 8.7 FL (7.0-11.0) 8.9 FL (7.0-11.0) Neutrophils (%) (Auto) 73.0 % (16.0-70.0) 65.9 % (16.0-70.0) Lymphocytes (%) (Auto) 19.3 % (9.0-44.0) 23.6 % (9.0-44.0) Monocytes (%) (Auto) 5.7 % (0.0-8.0) 8.2 % (0.0-8.0) Eosinophils (%) (Auto) 0.9 % (0.0-4.0) 1.2 % (0.0-4.0) Basophils (%) (Auto) 1.1 % (0.0-2.0) 1.1 % (0.0-2.0) Neutrophils # (Auto) 5.9 TH/MM3 (1.8-7.7) 3.8 TH/MM3 (1.8-7.7) Lymphocytes # (Auto) 1.5 TH/MM3 (1.0-4.8) 1.3 TH/MM3 (1.0-4.8) Monocytes # (Auto) 0.5 TH/MM3 (0-0.9) 0.5 TH/MM3 (0-0.9) Eosinophils # (Auto) 0.1 TH/MM3 (0-0.4) 0.1 TH/MM3 (0-0.4) Basophils # (Auto) 0.1 TH/MM3 (0-0.2) 0.1 TH/MM3 (0-0.2) CBC Comment DIFF FINAL DIFF FINAL Differential Comment Blood Urea Nitrogen 19 MG/DL (7-18) 9 MG/DL (7-18) 6 MG/DL (7-18) Creatinine 1.04 MG/DL (0.50-1.00) 0.78 MG/DL (0.50-1.00) 0.75 MG/DL (0.50-1.00) Random Glucose 175 MG/DL (74-106) 82 MG/DL (74-106) 87 MG/DL (74-106) Total Protein 6.5 GM/DL (6.4-8.2) Albumin 2.9 GM/DL (3.4-5.0) Calcium Level 8.1 MG/DL (8.5-10.1) 8.5 MG/DL (8.5-10.1) 9.0 MG/DL (8.5-10.1) Magnesium Level 1.7 MG/DL (1.5-2.5) 1.8 MG/DL (1.5-2.5) 1.7 MG/DL (1.5-2.5) Alkaline Phosphatase 63 U/L (45-117) Aspartate Amino Transf (AST/SGOT) 34 U/L (15-37) Alanine Aminotransferase (ALT/SGPT) 29 U/L (10-53) Total Bilirubin 0.4 MG/DL (0.2-1.0) Sodium Level 140 MEQ/L (136-145) 141 MEQ/L (136-145) 141 MEQ/L (136-145) Potassium Level 3.0 MEQ/L (3.5-5.1) 3.3 MEQ/L (3.5-5.1) 4.2 MEQ/L (3.5-5.1) Chloride Level 103 MEQ/L (98-107) 104 MEQ/L (98-107) 106 MEQ/L (98-107) Carbon Dioxide Level 29.1 MEQ/L (21.0-32.0) 30.6 MEQ/L (21.0-32.0) 27.8 MEQ/L (21.0-32.0) Anion Gap 8 MEQ/L (5-15) 6 MEQ/L (5-15) 7 MEQ/L (5-15) Estimat Glomerular Filtration Rate 51 ML/MIN (>89) 71 ML/MIN (>89) 75 ML/MIN (>89) Lipase 398 U/L (73-393) 332 U/L (73-393) . Result Diagram: 09/24/17 0630 09/24/17 0630 Imaging Last 72 hours Impressions Abdomen/Pelvis CT 09/21/17 2110 Signed Impressions: Service Date/Time: Thursday, September 21, 2017 21:18 - CONCLUSION: Normal examination with degenerative lumbar disease and bilateral hip arthroplasties. Status post cholecystectomy with expected intrahepatic biliary tree dilatation. No evidence of free fluid or free air.. Jameel Baldwin MD Chest X-Ray 09/21/172016 Signed Impressions: Service Date/Time: Thursday, September 21, 2017 20:29 - CONCLUSION: Normal examination. Jameel Baldwin MD . Patient/Family Conference Present at Family Conference: Met with patient at bedside . Family Conference Location: Bedside Issues Discussed: * Palliative care role, purpose, approach * Additional medical, psychosocial, and spiritual history * Patients general health, functional status, and cognitive changes in the months leading up to the current hospitalization * Patient/family understanding of the current medical problems * Patients goals of care as best understood from advance directives and/or conversations and/or values * Questions answered to the best of my ability * Palliative care contact information provided . Assessment and Plan Disease Oriented Problem List: (1) Elevated lactic acid level (2) Hypokalemia (3) Abdominal pain (4) LUNA (acute kidney injury) (5) Hypertension (6) Hyperlipidemia Symptom Scale: (1) Pain (2) Anxiety Pertinent Non-Medical Issues Psychosocial: Patient was born in [facility]. She had 1 brother and 1 sister. Her sister is ; her brother lives in [place]. Patient states her father was a political prisoner in [place]. She moved to the [place] when she was 17 years old with her daughter. She met her after moving to the [facility]. Together they had 2 addition children; son (Los) and daughter ( Elsy) both live locally. Patient was to her for approximately 30 years before he from complications related to EtOH consumption. He worked as a gordillo before his . 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 She currently lives with her son in her home in [place]. Spiritual: Christianity tato Legal: [facility] designation form completed 09/24/2017. Patient's son (Los) is designated as the healthcare surrogate decision maker. Daughter, Elsy, is designated as the alternate health care surrogate. Ethical issues impacting care: No known ethical issues impacting care . Important Contacts Elsy Corona, daughter: [phone] Jameel Baum, son: [phone] Prognosis Patient is a 77-year-old female with a history of anxiety,hyperlipidemia, HTN, tremors chronic pain syndrome, CAD, CVA. She was admitted on 09/21/2017 for evaluation of generalized weakness and severe abdominal pain which has since resolved. Apparently, the patient is on [facility] although the reason is unknown. Patient must have a life expectancy of 6 months or less to be hospice appropriate. . Code Status: No Code Plan * NO CODE * Decision-making: [facility] designation form completed 09/24/2017. Patient's son ( Los) is designated as the healthcare surrogate decision maker. Daughter, Elsy, is designated as the alternate health care surrogate. * Discussed the process of cardiopulmonary resuscitation with the patient who states she has lived a long life and asks that in the event of cardiopulmonary resuscitation she be allowed to pass peacefully and naturally stating; "I have had a long life. When it's my time time." * Goals are aggressive up to the point of cardiopulmonary resuscitation. Patient will likely return home with hospice services. * Patient has been on [facility] although the reason for this is unclear. Patient states she is on hospice because it is a better option than her previous insurance and they pay for her medication. She verbalizes aggressive goals up to the point of cardiopulmonary resuscitation. * Discussed this patient with adult protective caseworker, Shaun Lane. * Palliative care contact information provided to the patient. * Symptom management-pain: Patient presented to [facility] with complaints of severe abdominal pain which has since resolved. Additionally, the patient has a history of chronic pain syndrome. Upon arrival to the ED, patient was found to have a fentanyl patch underneath a Band-Aid on her right posterior shoulder which was removed. Patient denies pain on exam. No recommendations at this time. * Symptom management-anxiety: Patient has a history of anxiety at baseline. She is tearful on exam, stating she wants to be home with her son. She verbalizes fear that something could happen to her son, and she does not believe she could possible handle that scenario. Patient is currently on Cymbalta and Lexapro. * Palliative care will continue to follow this patient throughout her hospitalization to establish trust, assist with symptom management and clarification of medical treatment goals. . Thank you for the opportunity to participate in the care of Ms. Baum. Attestation To help prompt me to consider important information that might be impacting today's encounter and assessment, information from prior notes written by myself or my colleagues may have been "brought forward" into today's note. My signature on this note, however, is an attestation that I personally performed the exam, history, and/or decision-making noted today, and, unless otherwise indicated, the interactions with patient, family, and staff as well as the review of records all occurred today. I also attest that the listed assessment and stated plan reflect my best clinical judgment today based on the combination of historical information, prior notes, and today's exam/ interactions. When time spent is documented, it refers only to time spent today by the signer, or if indicated, combined time spent today by collaborating physician/nurse practitioner. . Annie Shukla Sep 24, 2017 11:28
[2017-09-24 12:00] VITALS: BP 168/70; PULSE 74; RESP 17; TEMP 98; O2SAT 98
[2017-09-24 16:00] VITALS: BP_SYST 138; BP_SYST 141; BP_DIAS 62; BP_DIAS 70; PULSE 96; RESP 18; TEMP 98; O2SAT 100; O2SAT 96
== END 2017-09-24 17:14 | disposition hospice, home (50) | DRG 683 ==
LOC: NEPC 20:05 → NEDA 20:39 → NEPHCDU 09-22 00:56 → OBSVTOIN 09-22 04:36 → N04A 09-22 20:08
PROVIDERS: ADMIT Hospitalist; ATTEND Hospitalist
DX: N17.9 Acute kidney failure, unspecified (principal); E87.2 Acidosis; I95.9 Hypotension, unspecified; J44.9 Chronic obstructive pulmonary disease, unspecified; G20 Parkinson's disease; E87.6 Hypokalemia; I10 Essential (primary) hypertension; K59.00 Constipation, unspecified; G89.4 Chronic pain syndrome; I25.10 Atherosclerotic heart disease of native coronary artery without angina pectoris; E78.5 Hyperlipidemia, unspecified; M19.90 Unspecified osteoarthritis, unspecified site; F41.9 Anxiety disorder, unspecified; Z51.5 Encounter for palliative care; Z66 Do not resuscitate; Z86.73 Personal history of transient ischemic attack (TIA), and cerebral infarction without residual deficits; Z87.891 Personal history of nicotine dependence; Z96.643 Presence of artificial hip joint, bilateral
CPT/HCPCS: 36600; 51702; 71010; 74176; 76937; 80048; 80053; 81001; 82435; 82550; 82565; 82805; 82947; 83605; 83690; 83735; 84132; 84295; 84484; 84520; 85025; 85610; 85730; 86850; 86900; 86901; 86920; 93005; 96365; 96366; 96368; G8987-GP; G8988-GP; J1644; J2543; J3370; J3475; J3480; J7030; J7050

== ENCOUNTER 2017-11-12 15:40 | Inpatient (IN) | payer OTHER, MEDICARE ==
[~2017-11-12] VITALS: Ht 167.6 cm; Wt 80.0 kg
[~2017-11-12 15:40] MED LIST changes: -DOCU100C PO; +DOCU100C15 PO; +WALKER WHEELS/F1 MIS
[2017-11-12 15:50] VITALS: BP 141/65; PULSE 68; RESP 16; TEMP 97.9; O2SAT 95
[2017-11-12 16:00] VITALS: BP 145/68; PULSE 67; RESP 15; O2SAT 98
[2017-11-12] MEDS ORDERED: ONDANSETRON HCL 4 MG/2 ML VIAL IVP ONE (16:00)
[2017-11-12] MEDS ORDERED: SODIUM CHLORID 0.9% 500 ML INJ 500 ML IV ONE (16:00)
[2017-11-12] MEDS ORDERED: SODIUM CHLORIDE 0.9% FLUSH 10 ML FLUSH IV FLUSH PRN (16:00)
[2017-11-12] MEDS ORDERED: GABA300C5 PO (16:10)
[2017-11-12] MEDS ORDERED: PRED10 PO (16:10)
[2017-11-12] MEDS ORDERED: LISI-515 PO (16:10)
[2017-11-12] MEDS ORDERED: LOVA40TA PO (16:10)
[2017-11-12] MEDS ORDERED: BUSP30TA PO (16:10)
[2017-11-12 16:40] LABS: AUTOMATED NEUTROPHIL # 10.5 TH/MM3 (1.8-7.7); BASOPHIL # 0.1 TH/MM3 (0-0.2); BASOPHIL % 0.6 % (0.0-2.0); EOSINOPHIL # 0.1 TH/MM3 (0-0.4); EOSINOPHIL % 0.6 % (0.0-4.0); HEMATOCRIT 43.9 % (35.0-46.0); HEMOGLOBIN 14.7 GM/DL (11.6-15.3); LYMPH % 21.6 % (9.0-44.0); LYMPHOCYTE # 3.1 TH/MM3 (1.0-4.8); MEAN CELL VOLUME 94.8 FL (80.0-100.0); MEAN CORPUSCULAR HEMOGLOBIN 31.8 PG (27.0-34.0); MEAN CORPUSCULAR HGB CONC 33.5 % (32.0-36.0); MEAN PLATELET VOLUME 7.6 FL (7.0-11.0); MONO % 5.3 % (0.0-8.0); MONOCYTE # 0.8 TH/MM3 (0-0.9); NEUT % 71.9 % (16.0-70.0); PLATELET COUNT 378 TH/MM3 (150-450); RED BLOOD COUNT 4.63 MIL/MM3 (4.00-5.30); RED CELL DISTRIBUTION WIDTH 14.4 % (11.6-17.2); WHITE BLOOD COUNT 14.6 TH/MM3 (4.0-11.0)
--- NOTE | 2017-11-12 16:43 | RADRPT ---
EXAM DATE/TIME: 11/12/2017 16:09 [facility] COMPARISON: No previous studies available for comparison. INDICATIONS : Abdominal pain. MEDICAL HISTORY : Hypertension. Chronic obstructive pulmonary disease. Hypercholesterolemia. Cerebrovascular accident. Myocardial infarction. Gallbladder disease. Osteoporosis. Anxiety. SURGICAL HISTORY : Cholecystectomy. Right hip replacement. Right wrist surgery. Left hip replacement. ENCOUNTER: Initial ACUITY: 1 day PAIN SCORE: Non-responsive. LOCATION: Bilateral abdomen. FINDINGS: Supine and upright views of the abdomen. Scattered gas and stool in the colon. Prominent amount of st ool in the rectum. No abnormal abdominal calcification. Moderate bony degenerative findings of the stanford mbar spine. Surgical clips in the right upper quadrant. No evidence of free air. Bilateral total hip prostheses. CONCLUSION: Bowel gas pattern within normal limits. Mike Crum MD on November 12, 2017 at 16:39 Board Certified Radiologist. This report was verified electronically.
[2017-11-12 16:55] LABS: PROTHROMBIN TIME - PATIENT 9.9 SEC (9.8-11.6)
[2017-11-12 17:01] LABS: ALBUMIN 3.7 GM/DL (3.4-5.0); ALT (GPT) 10 U/L (10-53); AST (GOT) 15 U/L (15-37); BICARBONATE 30.1 MEQ/L (21.0-32.0); BLOOD UREA NITROGEN 15 MG/DL (7-18); CALCIUM 8.7 MG/DL (8.5-10.1); CHLORIDE 105 MEQ/L (98-107); CREATININE 0.87 MG/DL (0.50-1.00); GLOMERULAR FILTRATION RATE 63 ML/MIN (>89); GLUCOSE,RANDOM 121 MG/DL (74-106); LIPASE 339 U/L (73-393); SODIUM (NA) 141 MEQ/L (136-145)
[2017-11-12 17:04] LABS: ALKALINE PHOSPHATASE 54 U/L (45-117); TOTAL BILIRUBIN ADULT 0.5 MG/DL (0.2-1.0); TOTAL PROTEIN 7.3 GM/DL (6.4-8.2)
[2017-11-12 17:30] VITALS: BP 174/82; PULSE 74; RESP 15; O2SAT 98
[2017-11-12 17:40] LABS: BACTERIA, URINE OCC /hpf; BILIRUBIN, URINE NEG (NEG); BLOOD, URINE TRACE (NEG); GLUCOSE,URINE NEG (NEG); KETONE, URINE NEG (NEG); MUCUS URINE FEW /lpf (OCC); NITRITE,URINE NEG (NEG); URINE COLOR YELLOW (YELLW/STRAW); URINE LEUKOCYTE ESTERASE SMALL (NEG)
[2017-11-12 18:57] VITALS: BP 147/70; PULSE 85; RESP 15; O2SAT 98
[2017-11-12] MEDS ORDERED: cefTRIAXone INJ 1,000 MG in SODIUM CHLORIDE 0.9% INJ 100 ML IV ONE (19:15)
--- NOTE | 2017-11-12 19:33 | PD ---
HPI Chief Complaint: Abdominal Pain Time Seen by Provider: 15:57 Travel History International Travel<30 days: No Contact w/Intl Traveler<30days: No Traveled to known affect area: No History of Present Illness HPI Patient is a 77-year-old female who is brought in by EMS, originally because she was having abdominal pain. Per EMS, she called for constipation. However, EMS states that in the back of the ambulance, she only complained of being cold. When asked why she is here, she states she is cold. She then states that she wants to . She denies any pain at this time. She provides very little other history. PFSH Past Medical History Hx Anticoagulant Therapy: Yes (Unsure of which one) Arthritis: Yes Asthma: No Autoimmune Disease: No Blood Disorders: No Anxiety: No Depression: No Heart Rhythm Problems: No Cancer: Yes Cardiovascular Problems: Yes High Cholesterol: No Chemotherapy: No Chest Pain: No Congestive Heart Failure: No COPD: No Cerebrovascular Accident: Yes Diabetes: No Diminished Hearing: No Endocrine: No Gastrointestinal Disorders: Yes GERD: No Genitourinary: Yes (chairez ) Headaches: No Hiatal Hernia: No Hypertension: Yes Immune Disorder: No Implanted Vascular Access Dvce: Yes Musculoskeletal: Yes Neurologic: No Psychiatric: No Reproductive: No Respiratory: No Migraines: No Radiation Therapy: No Seizures: No Sickle Cell Disease: No Sleep Apnea: No Thyroid Disease: No Ulcer: No Menopausal: Yes : 4 Para: 3 : 1 Past Surgical History Abdominal Surgery: Yes (GALLBLADDER 2000) AICD: No Arteriovenous Shunt: No Cardiac Surgery: No Cholecystectomy: Yes (2000) Ear Surgery: No Endocrine Surgery: No Eye Surgery: No Genitourinary Surgery: No Gynecologic Surgery: No Insulin Pump: No Joint Replacement: Yes (hip replacement, wrist surgery) Neurologic Surgery: No Oral Surgery: Yes (teeth removed) Pacemaker: No Thoracic Surgery: No Other Surgery: Yes (hip surgery hx, gall bladder out, hx port in chest) Social History Alcohol Use: No Tobacco Use: No Substance Use: No Allergies-Medications (Allergen,Severity, Reaction): Coded Allergies: No Known Allergies (Verified Allergy, Unknown, 09/21/17) Reported Meds & Prescriptions Reported Meds & Active Scripts Active Walker with Front Wheels (Device) 1 Mis Mis Ea .ROUTE DIRECTED Reported Gabapentin 300 Mg Cap 300 Mg PO BID Buspirone (Buspirone HCl) 30 Mg Tab 30 Mg PO BID Prednisone 10 Mg Tab 10 Mg PO DAILY Lovastatin 40 Mg Tab 40 Mg PO DAILY Lisinopril 20 Mg Tab 20 Mg PO DAILY Carbidopa-Levodopa 25-100 Mg Tab 1 Tab PO Q8HR Fentanyl Patch 72 HR (Fentanyl) 25 Mcg/Hr Patch 25 Mcg T-DERMAL Q72H Docusate Sodium 100 Mg Cap 100 Mg PO BID Amlodipine (Amlodipine Besylate) 10 Mg Tab 10 Mg PO DAILY Cymbalta DR (Duloxetine HCl) 20 Mg Capdr 20 Mg PO DAILY Meclizine 25 (Meclizine HCl) 25 Mg Tab 25 Mg PO TID PRN Potassium Chloride ER (Potassium Chloride) 10 Meq Tab 10 Meq PO DAILY Review of Systems ROS Limitations: Uncooperative Physical Exam Narrative GENERAL: Awake and alert, does not want to answer questions. SKIN: Focused skin assessment warm/dry. No wounds or signs of infection. HEAD: Atraumatic. Normocephalic. EYES: Pupils equal and round. No scleral icterus. ENT: Mucous membranes pink and moist. NECK: Trachea midline. No JVD. CARDIOVASCULAR: Regular rate and rhythm. No murmur appreciated. RESPIRATORY: No accessory muscle use. Clear to auscultation. Breath sounds equal bilaterally. GASTROINTESTINAL: Abdomen soft, non-tender, nondistended. MUSCULOSKELETAL: No obvious deformities. No clubbing. No cyanosis. No edema. NEUROLOGICAL: Awake and alert. No obvious cranial nerve deficits. Motor grossly within normal limits. Normal speech. PSYCHIATRIC: Appropriate mood and affect; insight and judgment normal. Data Data Last Documented VS Vital Signs Date Time Temp Pulse Resp B/P (MAP) Pulse Ox O2 Delivery O2 Flow Rate FiO2 11/12/17 18:57 85 15 147/70 (95) 98 Nasal Cannula 2.00 11/12/17 15:50 97.9 Orders Orders Complete Blood Count With Diff (11/12/17 16:00) Comprehensive Metabolic Panel (11/12/17 16:00) Lipase (11/12/17 16:00) Lactic Acid (11/12/17 16:00) Prothrombin Time / Inr (Pt) (11/12/17 16:00) Act Partial Throm Time (Ptt) (11/12/17 16:00) Urinalysis - C+S If Indicated (11/12/17 16:00) Abdomen, Flat & Upright (11/12/17 ) Iv Access Insert/Monitor (11/12/17 16:00) Ecg Monitoring (11/12/17 16:00) Oximetry (11/12/17 16:00) Ondansetron Inj (Zofran Inj) (11/12/17 16:00) Sodium Chloride 0.9% Flush (Ns Flush) (11/12/17 16:00) Sodium Chlorid 0.9% 500 Ml Inj (Ns 500 M (11/12/17 16:00) Cath For Specimen (11/12/17 16:00) Psych Screen (11/12/17 16:00) Drug Screen, Random Urine (11/12/17 16:00) Urine Culture (11/12/17 17:25) Ceftriaxone Inj (Rocephin Inj) (11/12/17 19:15) Admit Order (Ed Use Only) (11/12/17 20:41) Admit To Inpatient Psych (11/12/17 ) Vital Signs (Adult) WEI.Q12H.E (11/12/17 20:41) Activity Oob Ad Marquita (11/12/17 20:41) Level Of Observation (Psych) (11/12/17 20:41) Diet Regular Basic (11/13/17 Breakfast) Basic Metabolic Panel (Bmp) (11/13/17 06:00) Lipid Profile (11/13/17 06:00) Hemoglobin (Hgb) A1c (11/13/17 06:00) Consult Hospitalist (11/12/17 ) Labs Laboratory Tests Test 11/12/17 16:30 11/12/17 17:25 White Blood Count 14.6 TH/MM3 Red Blood Count 4.63 MIL/MM3 Hemoglobin 14.7 GM/DL Hematocrit 43.9 % Mean Corpuscular Volume 94.8 FL Mean Corpuscular Hemoglobin 31.8 PG Mean Corpuscular Hemoglobin Concent 33.5 % Red Cell Distribution Width 14.4 % Platelet Count 378 TH/MM3 Mean Platelet Volume 7.6 FL Neutrophils (%) (Auto) 71.9 % Lymphocytes (%) (Auto) 21.6 % Monocytes (%) (Auto) 5.3 % Eosinophils (%) (Auto) 0.6 % Basophils (%) (Auto) 0.6 % Neutrophils # (Auto) 10.5 TH/MM3 Lymphocytes # (Auto) 3.1 TH/MM3 Monocytes # (Auto) 0.8 TH/MM3 Eosinophils # (Auto) 0.1 TH/MM3 Basophils # (Auto) 0.1 TH/MM3 CBC Comment DIFF FINAL Differential Comment Prothrombin Time 9.9 SEC Prothromb Time International Ratio 1.0 RATIO Activated Partial Thromboplast Time 21.1 SEC Blood Urea Nitrogen 15 MG/DL Creatinine 0.87 MG/DL Random Glucose 121 MG/DL Total Protein 7.3 GM/DL Albumin 3.7 GM/DL Calcium Level 8.7 MG/DL Alkaline Phosphatase 54 U/L Aspartate Amino Transf (AST/SGOT) 15 U/L Alanine Aminotransferase (ALT/SGPT) 10 U/L Total Bilirubin 0.5 MG/DL Sodium Level 141 MEQ/L Potassium Level 3.4 MEQ/L Chloride Level 105 MEQ/L Carbon Dioxide Level 30.1 MEQ/L Anion Gap 6 MEQ/L Estimat Glomerular Filtration Rate 63 ML/MIN Lactic Acid Level 1.7 mmol/L Lipase 339 U/L Urine Color YELLOW Urine Turbidity CLEAR Urine pH 7.0 Urine Specific [place] 1.007 Urine Protein 30 mg/dL Urine Glucose (UA) NEG mg/dL Urine Ketones NEG mg/dL Urine Occult Blood TRACE Urine Nitrite NEG Urine Bilirubin NEG Urine Urobilinogen LESS THAN 2.0 MG/DL Urine Leukocyte Esterase SMALL Urine RBC 19 /hpf Urine WBC 10 /hpf Urine Bacteria OCC /hpf Urine Mucus FEW /lpf Microscopic Urinalysis Comment CULTURE INDICATED Urine Opiates Screen NEG Urine Barbiturates Screen NEG Urine Amphetamines Screen NEG Urine Benzodiazepines Screen NEG Urine Cocaine Screen NEG Urine Cannabinoids Screen NEG MDM Medical Decision Making Medical Screen Exam Complete: Yes Emergency Medical Condition: Yes Medical Record Reviewed: Yes Differential Diagnosis Constipation versus UTI versus depression Narrative Course Patient is a 77-year-old female who comes in because she says she wants to . Exam shows no acute abnormalities. IV established, labs sent. Labs showed elevated white blood cell count. Urinalysis is positive for UTI. Patient given a dose of Rocephin. Patient to be seen by psychiatry, she would benefit from a med psych bed. Diagnosis Primary Impression: UTI (urinary tract infection) Qualified Codes: N30.00 - Acute cystitis without hematuria Scripts Nitrofurantoin Monohydrate Macrocrystals (Macrobid) 100 Mg Capsule 100 MG PO DAILY for Infection for 5 Days, #5 CAP 0 Refills Prov: Vinny Garcia MD 11/13/17 Velia Cifuentes MD Nov 12, 2017 19:33
[2017-11-12 21:15] VITALS: BP 98/45; PULSE 78; RESP 19; TEMP 97.9; O2SAT 91
[2017-11-12] MEDS ORDERED: LORazepam 2 MG/ML VIAL - age > 65 yrs IM PRN (21:15)
[2017-11-12] MEDS ORDERED: LORazepam 0.5 MG TAB age > 65 yrs PO PRN (21:15)
[2017-11-12] MEDS ORDERED: ACETAMINOPHEN 325 MG TAB PO PRN (21:15)
[2017-11-12] MEDS ORDERED: ALUMINUM/MAGNESIUM/SIMETH 30 ML CUP PO PRN (21:15)
[2017-11-12] MEDS ORDERED: MECLIZINE HCL 25 MG TAB PO PRN (21:15)
[2017-11-12] MEDS ORDERED: MAGNESIUM HYDROXIDE SUSP 30 ML CUP PO PRN (21:15)
[2017-11-12] MEDS ORDERED: traZODone HCL 50 MG TAB PO PRN (21:15)
[2017-11-12] MEDS ORDERED: fentaNYL 25 MCG/HR PATCH T-DERMAL SCH (22:00)
[2017-11-12] MEDS ORDERED: REMOVE OLD DURAGESIC (FENTANYL) PATCH T-DERMAL SCH (22:00)
[2017-11-12] MEDS ORDERED: CARBIDOPA/LEVODOPA 25 MG/100 MG TAB PO SCH (22:00)
[2017-11-13 06:12] LABS: BICARBONATE 31.2 MEQ/L (21.0-32.0); BLOOD UREA NITROGEN 13 MG/DL (7-18); CALCIUM 8.4 MG/DL (8.5-10.1); CHLORIDE 102 MEQ/L (98-107); CREATININE 0.76 MG/DL (0.50-1.00); GLOMERULAR FILTRATION RATE 73 ML/MIN (>89); GLUCOSE,RANDOM 100 MG/DL (74-106); SODIUM (NA) 140 MEQ/L (136-145)
[2017-11-13 06:13] LABS: CHOLESTEROL 165 MG/DL (120-200); TRIGLYCERIDES 195 MG/DL (42-150)
[2017-11-13 06:15] LABS: HDL CHOLESTEROL 65.9 MG/DL (40.0-60.0); LDL CHOLESTEROL 60 MG/DL (0-99)
[2017-11-13 06:24] VITALS: BP 95/40; PULSE 71; RESP 16; TEMP 97.9; O2SAT 95
--- NOTE | 2017-11-13 08:50 | HHI.HP ---
Provisional Diagnosis Admission Date Nov 12, 2017 at 20:44 [place] I. Adjustment disorder with depressed mood Certification of Person's Competence To Provide Express and Informed Consent I have personally examined Radha Baum , a person being served at [facility] on, Nov 13, 2017 08:33. Express and informed consent means consent voluntarily given in writing, by a competent person, after sufficient explanation and disclosure of the subject matter involved to enable the person to make a knowing and willful decision without any element of force, fraud, deceit, duress, or other form of constraint or coercion. This person is 18 years of age or older, is not now known to be incompetent to consent to treatment with a guardian advocate, and does not have a health care surrogate or proxy currently making medical treatment decisions. I have found this person to be one of the following: [x] Competent to provide express and informed consent, as defined above, for voluntary admission to this facility and is competent to provide express and informed consent for treatment. He/she has the consistent capacity to make well reasoned, willful, and knowing decisions concerning his or her medical or mental health treatment. The person fully and consistently understands the purpose of the admission for examination/placement and is fully capable of personally exercising all rights [place] Incompetent to provide express and informed consent to voluntary admission, and this is incompetent to provide express and informed consent to treatment. The person must be transferred to involuntary status and a petition for a guardian advocate filed with the Circuit Court. [] Refusing to provide express and informed consent to voluntary admission but is competent to provide express and informed consent for treatment. The person must be discharged or transferred to involuntary status. Form shall be completed within 24 hours of a person's arrival at the receiving facility and filed in the clinical record of each person: 1. Admitted on a voluntary basis 2. Permitted to provide express and informed consent to his/her own treatment 3. Allowed to transfer from involuntary to voluntary status 4. Prior to permitting a person to consent to his or her own treatment after having been previously found incompetent to consent to treatment. History of Present Illness Capacity: Has Capacity HPI Patient is a 77-year-old [place] woman, , 3 adult children, domicile with 1 adult son, unemployed on Social Security benefits, with no formal past psychiatric history, no prior psychiatric authorization no prior suicide attempts or self-injurious behavior currently followed by primary care doctor, Dr. Pena, who has his describing patient Cymbalta 20 mg by mouth daily, gabapentin 300 mg by mouth twice a day and escitalopram 10 mg by mouth daily, who was brought in by EMS for abdominal pain and constipation and had endorsed suicidal ideations to EMS personnel which patient was transferred to the inpatient psychiatry unit for further evaluation and management. Patient was found lying in hospital bed, cooperative interview today. Patient states that she is feeling "okay" states that she came to the hospital because she was having some abdominal pain and called 911 which have brought to the hospital. Patient states that she was having chronic arthritic pain but as well as recent abdominal pain which she stated stated to the EMS staff "with this, patient had rather be " but states that she did not made it statement with the intention to wanting to end her life. Patient states that she has never had any prior suicide ideations nor self injurious behavior or suicide attempts in the past. Patient states that her main stressor is her arthritis and that when she has a lot of pain due to the same she feels depressed. Patient states that she has no difficulty with sleep no change in appetite has noticed some decreased energy but her mood has been "the same... Up and down" but denies feeling helpless or hopeless, denies any suicide ideations. Patient spent some time talking about feeling upset that she left her home country [place] ago stating "life is not the way it supposed to be" recalling regretting leaving and living here in the [place]. Patient this time states her mood is "fair" denies any suicidal homicidal ideations, perceptual disturbances or delusions at this time. Patient alert and oriented to person place and partially today. Patient reports that her son Los is aware that she is in hospital and gives appropriate consent for treatment team to speak with him. Family psychiatric history: Denies Past psychiatric history: Denies previous psychiatric diagnoses, denies any prior psychiatric consultations, tires prior psychiatric medication trials although currently on Lexapro and Cymbalta, denies pre-suicide attempt was a for his behavior. Patient currently being prescribed antidepressants to her primary care doctor, Dr. Pena. Substance use history: Patient quit tobacco use 20 years ago, denies use of any illicit drugs, prior rehabilitation or detox. Past medical history: Patient reports history of hypertension, arthritis Allergies: NKDA Social history: , 3 adult children, domiciled with one, unemployed on social security benefits, highest education is college. Denies any legal history. Review of Systems Except as stated in HPI: all other systems reviewed are Neg Past Psych History Violence risk - others (6 mos) low Violence risk - self (6 mos) low due to no prior suicide attempt or self-injurious behavior, although did make a statement of wanting to to EMS personnel due to the pain she was in. Substance Abuse History Drugs/Alcohol past 12 months Patient quit tobacco use 20 years ago, denies use of any illicit drugs, prior rehabilitation or detox. Past Family Social History Coded Allergies: No Known Allergies (Verified Allergy, Unknown, 09/21/17) Active Scripts Walker with Front Wheels (Walker with Front Wheels) 1 Mis Mis, EA .ROUTE DIRECTED, #1 0 Refills Prov:Daria Laureano MD 09/24/17 Reported Medications Gabapentin (Gabapentin) 300 Mg Cap, 300 MG PO BID, #60 CAP 0 Refills 11/12/17 Buspirone (Buspirone) 30 Mg Tab, 30 MG PO BID for Anxiety, TAB 0 Refills 11/12/17 Prednisone (Prednisone) 10 Mg Tab, 10 MG PO DAILY, TAB 0 Refills 11/12/17 Lovastatin (Lovastatin) 40 Mg Tab, 40 MG PO DAILY for Cholesterol Management, # 30 TAB 0 Refills 11/12/17 Lisinopril (Lisinopril) 20 Mg Tab, 20 MG PO DAILY, #30 TAB 0 Refills 11/12/17 Carbidopa-Levodopa (Carbidopa-Levodopa) 25-100 Mg Tab, 1 TAB PO Q8HR for Parkinson Disease Mgmt, #90 TAB 0 Refills 09/14/17 Fentanyl Patch 72 HR (Fentanyl Patch 72 HR) 25 Mcg/Hr Patch, 25 MCG T-DERMAL Q72H for Pain Management, #10 PATCH 0 Refills 09/14/17 Docusate Sodium (Docusate Sodium) 100 Mg Cap, 100 MG PO BID for Prevent Constipation, #60 CAP 0 Refills 09/14/17 Amlodipine (Amlodipine) 10 Mg Tab, 10 MG PO DAILY for Blood Pressure Management , #30 TAB 0 Refills 07/25/[address] (Shanda ZAMUDIO) 20 Mg Capdr, 20 MG PO DAILY, #30 CAP 0 Refills 07/25/17 Meclizine HCl (Meclizine 25) 25 Mg Tab, 25 MG PO TID Y for DIZZINESS 07/25/17 Escitalopram (Lexapro) 10 Mg Tab, 10 MG PO DAILY, #30 TAB 0 Refills 07/25/17 Potassium Chloride ER (Potassium Chloride ER) 10 Meq Tab, 10 MEQ PO DAILY for Electrolyte Replacement, #30 TAB 0 Refills 07/25/17 Discontinued Reported Medications Furosemide (Lasix) 20 Mg Tab, 20 MG PO DAILY, #30 TAB 0 Refills 07/25/17 Current Medications Medications (Trade) Dose Ordered Sig/Joselin Route Start Time Stop Time Status Last Admin (NS Flush) 2 ml UNSCH PRN IV FLUSH 11/12/17 16:00 (Ativan) 0.5 mg Q12H PRN PO 11/12/17 21:15 (Ativan Inj) 0.5 mg Q12H PRN IM 11/12/17 21:15 (Desyrel) 50 mg HS PRN PO 11/12/17 21:15 (Tylenol) 650 mg Q4H PRN PO 11/12/17 21:15 (Milk Of Magnesia Liq) 30 ml DAILY PRN PO 11/12/17 21:15 (Mag-Al Plus Susp Liq) 30 ml Q6H PRN PO 11/12/17 21:15 (Norvasc) 10 mg DAILY PO 11/13/17 09:00 (Colace) 100 mg BID PO 11/13/17 09:00 (Sinemet 25-100 Mg) 1 tab Q8HR PO 11/12/17 22:00 (KCl) 10 meq DAILY PO 11/13/17 09:00 (Antivert) 25 mg TID PRN PO 11/12/17 21:15 (Cymbalta ) 20 mg DAILY PO 11/13/17 09:00 (Neurontin) 300 mg BID PO 11/13/17 09:00 (Deltasone) 10 mg DAILY PO 11/13/17 09:00 (Prinivil) 20 mg DAILY PO 11/13/17 09:00 (Duragesic 25 Mcg Patch.72 Hr) 1 patch Q3D T-DERMAL 11/12/17 22:00 12/26/17 01:48 Miscellaneous Information 1 Q3D T-DERMAL 11/12/17 22:00 11/12/17 22:00 Family Psych History Denies Social History , 3 adult children, domiciled with one, unemployed on social security benefits, highest education is college. Denies any legal history. Patient's Strengths (min. 2) Verbal and communicative Physical Exam Patient not noted to be in acute distress, no gross motor abnormalities, no tremors or EPS, no noted psychomotor retardation or agitation. Vital Signs Vital Signs Date Time Temp Pulse Resp B/P (MAP) Pulse Ox O2 Delivery O2 Flow Rate FiO2 11/13/17 06:24 97.9 71 16 95/40 (58) 95 11/12/17 18:57 Nasal Cannula 2.00 I/O 11/13/17 11/13/17 11/14/17 08:00 16:00 00:00 Intake Total 340 ml Balance 340 ml Lab Results Labs reviewed Test 11/12/17 16:30 11/12/17 17:25 11/13/17 04:55 White Blood Count 14.6 TH/MM3 Red Blood Count 4.63 MIL/MM3 Hemoglobin 14.7 GM/DL Hematocrit 43.9 % Mean Corpuscular Volume 94.8 FL Mean Corpuscular Hemoglobin 31.8 PG Mean Corpuscular Hemoglobin Concent 33.5 % Red Cell Distribution Width 14.4 % Platelet Count 378 TH/MM3 Mean Platelet Volume 7.6 FL Neutrophils (%) (Auto) 71.9 % Lymphocytes (%) (Auto) 21.6 % Monocytes (%) (Auto) 5.3 % Eosinophils (%) (Auto) 0.6 % Basophils (%) (Auto) 0.6 % Neutrophils # (Auto) 10.5 TH/MM3 Lymphocytes # (Auto) 3.1 TH/MM3 Monocytes # (Auto) 0.8 TH/MM3 Eosinophils # (Auto) 0.1 TH/MM3 Basophils # (Auto) 0.1 TH/MM3 CBC Comment DIFF FINAL Differential Comment Prothrombin Time 9.9 SEC Prothromb Time International Ratio 1.0 RATIO Activated Partial Thromboplast Time 21.1 SEC Blood Urea Nitrogen 15 MG/DL 13 MG/DL Creatinine 0.87 MG/DL 0.76 MG/DL Random Glucose 121 MG/DL 100 MG/DL Total Protein 7.3 GM/DL Albumin 3.7 GM/DL Calcium Level 8.7 MG/DL 8.4 MG/DL Alkaline Phosphatase 54 U/L Aspartate Amino Transf (AST/SGOT) 15 U/L Alanine Aminotransferase (ALT/SGPT) 10 U/L Total Bilirubin 0.5 MG/DL Sodium Level 141 MEQ/L 140 MEQ/L Potassium Level 3.4 MEQ/L 3.6 MEQ/L Chloride Level 105 MEQ/L 102 MEQ/L Carbon Dioxide Level 30.1 MEQ/L 31.2 MEQ/L Anion Gap 6 MEQ/L 7 MEQ/L Estimat Glomerular Filtration Rate 63 ML/MIN 73 ML/MIN Lactic Acid Level 1.7 mmol/L Lipase 339 U/L Urine Color YELLOW Urine Turbidity CLEAR Urine pH 7.0 Urine Specific [place] 1.007 Urine Protein 30 mg/dL Urine Glucose (UA) NEG mg/dL Urine Ketones NEG mg/dL Urine Occult Blood TRACE Urine Nitrite NEG Urine Bilirubin NEG Urine Urobilinogen LESS THAN 2.0 MG/DL Urine Leukocyte Esterase SMALL Urine RBC 19 /hpf Urine WBC 10 /hpf Urine Bacteria OCC /hpf Urine Mucus FEW /lpf Microscopic Urinalysis Comment CULTURE INDICATED Urine Opiates Screen NEG Urine Barbiturates Screen NEG Urine Amphetamines Screen NEG Urine Benzodiazepines Screen NEG Urine Cocaine Screen NEG Urine Cannabinoids Screen NEG Triglycerides Level 195 MG/DL Cholesterol Level 165 MG/DL LDL Cholesterol 60 MG/DL HDL Cholesterol 65.9 MG/DL Cholesterol/HDL Ratio 2.50 RATIO Date/Time Source Procedure Growth Status 11/12/17 17:25 Urine Clean Catch Urine Culture Pending Received Mental Status Examination Appearance: Appropriate Consciousness: Alert Orientation: Person, Place, Date/Time (partially to date) Speech: Unremarkable Language: Adequate Fund of Knowledge: Adequate Attention and Concentration: Adequate Memory: Unremarkable Mood: Appropriate Affect: Appropriate Thought Process & Associations: Logical, Linear Thought Content: Appropriate Hallucination Type: None Delusion Type: None Suicidal Ideation: Yes (previously stated to EMS that she dreaded be with this kind of pain, denies today) Suicidal Plan: No Suicidal Intention: No Homicidal Ideation: No Homicidal Plan: No Homicidal Intention: No Insight: Fair Judgment: Impulsive Assessment & Plan Problem List: (1) Adjustment disorder with depressed mood ICD Codes: F43.21 - Adjustment disorder with depressed mood Assessment & Plan Patient is certainly 7-year-old [place] woman with no formal past psychiatric history although be prescribed antidepressants to her primary care doctor, no prior psychiatric admissions, suicide attempts or self-injurious behavior, who was brought in by EMS activated by patient due to lower abdominal pain had stated that she would rather be than to live with this pain, now having UTI treated transferred to the psychiatry unit for further evaluation and management. Patient at this time has reported feeling depressed at times when she is having a lot of pain secondary to her perceived arthritis but has no prior psychiatric history, no prior suicide attempts or self-injurious behavior , currently connected to her primary care doctor been treated with antidepressants. Patient was noted to have 2 antidepressants prescribed by her doctor which would per her at risk for further side effects but can be adequately managed with maximizing one if necessary for depression. We'll continue Cymbalta 20 mg by mouth daily, continue rest of medications, Lexapro is continued. Continue recommendations as per primary medical team for management of UTI other chronic medical illnesses. Collateral contact: (son) Los Baum to be contacted for collateral information. Patient at this time although has made statement of wanting to due to the pain has not endorsed other depressive symptoms aside from having low energy and if collateral information does not provided treatment team with any concerning information patient can continue management of depression as an outpatient care and not require inpatient hospital stay if patient deemed not an acute risk for self-harm at this time which the termination of the same can be reached once collateral information is obtained. Discharge planning in progress Discharge Planning Patient return back to her residence once medically and psychiatrically stable Vinny Garcia MD Nov 13, 2017 08:50
[2017-11-13] MEDS ORDERED: POTASSIUM CHLORIDE 10 MEQ CONTROLLED RELEASE TAB PO SCH (09:00)
[2017-11-13] MEDS ORDERED: GABAPENTIN 300 MG CAP PO SCH (09:00)
[2017-11-13] MEDS ORDERED: LISINOPRIL 20 MG TAB PO SCH (09:00)
[2017-11-13] MEDS ORDERED: DOCUSATE SODIUM 100 MG CAP PO SCH (09:00)
[2017-11-13] MEDS ORDERED: predniSONE 10 MG TAB PO SCH (09:00)
[2017-11-13] MEDS ORDERED: DULoxetine HCl DR 20 MG CAP PO SCH (09:00)
[2017-11-13] MEDS ORDERED: MACR100C2 PO (10:53)
--- NOTE | 2017-11-13 13:52 | HHI.DS ---
Psychiatry Discharge Summary Inpatient Psychiatric care?: Yes Advance Directive: Yes Mental Health AdvanceDirective: No Health Care Proxy: No Admission Admission Date Nov 12, 2017 at 20:44 Admission Diagnosis: (1) Adjustment disorder with depressed mood ICD Code: F43.21 - Adjustment disorder with depressed mood Brief History Patient is a 77-year-old [place] woman, , 3 adult children, domicile with 1 adult son, unemployed on Social Security benefits, with no formal past psychiatric history, no prior psychiatric authorization no prior suicide attempts or self-injurious behavior currently followed by primary care doctor, Dr. Pena, who has his describing patient Cymbalta 20 mg by mouth daily, gabapentin 300 mg by mouth twice a day and escitalopram 10 mg by mouth daily, who was brought in by EMS for abdominal pain and constipation and had endorsed suicidal ideations to EMS personnel which patient was transferred to the inpatient psychiatry unit for further evaluation and management. Patient was found lying in hospital bed, cooperative interview today. Patient states that she is feeling "okay" states that she came to the hospital because she was having some abdominal pain and called 911 which have brought to the hospital. Patient states that she was having chronic arthritic pain but as well as recent abdominal pain which she stated stated to the EMS staff "with this, patient had rather be " but states that she did not made it statement with the intention to wanting to end her life. Patient states that she has never had any prior suicide ideations nor self injurious behavior or suicide attempts in the past. Patient states that her main stressor is her arthritis and that when she has a lot of pain due to the same she feels depressed. Patient states that she has no difficulty with sleep no change in appetite has noticed some decreased energy but her mood has been "the same... Up and down" but denies feeling helpless or hopeless, denies any suicide ideations. Patient spent some time talking about feeling upset that she [place] stating "life is not the way it supposed to be" recalling regretting leaving and living here in the [place]. Patient this time states her mood is "fair" denies any suicidal homicidal ideations, perceptual disturbances or delusions at this time. Patient alert and oriented to person place and partially today. Patient reports that her son Los is aware that she is in hospital and gives appropriate consent for treatment team to speak with him. Family psychiatric history: Denies Past psychiatric history: Denies previous psychiatric diagnoses, denies any prior psychiatric consultations, tires prior psychiatric medication trials although currently on Lexapro and Cymbalta, denies pre-suicide attempt was a for his behavior. Patient currently being prescribed antidepressants to her primary care doctor, Dr. Pena. Substance use history: Patient quit tobacco use 20 years ago, denies use of any illicit drugs, prior rehabilitation or detox. Past medical history: Patient reports history of hypertension, arthritis Allergies: NKDA Social history: , 3 adult children, domiciled with one, unemployed on social security benefits, highest education is college. Denies any legal history. Tobacco Use In Past 30 Days: No Tobacco Past 30 Days Alcohol Use: Never Hospital Course Patient is a 77-year-old [place] woman, , 3 adult children, domicile with 1 adult son, unemployed on Social Security benefits, with no formal past psychiatric history, no prior psychiatric authorization no prior suicide attempts or self-injurious behavior currently followed by primary care doctor, Dr. Pena, who has his describing patient Cymbalta 20 mg by mouth daily, gabapentin 300 mg by mouth twice a day and escitalopram 10 mg by mouth daily, who was brought in by EMS for abdominal pain and constipation and had endorsed suicidal ideations to EMS personnel which patient was transferred to the inpatient psychiatry unit for further evaluation and management. Patient at this time although has made statement of wanting to due to the pain has not endorsed other depressive symptoms aside from having low energy and collateral information reported from patient's son that he has not concerns regarding safety nor patient having any behavior that has been concerning Patient can continue management of depression as an outpatient care and not require inpatient hospital stay. Patient to continue duloxetine 20mg PO daily, discontinue escitalopram, continue gabapentin 300mg PO BID and continue the rest of her medication regimen for medical illnesses. Patient advised to continue follow up with her outpatient provider for continuity of care as well as medication regimen. Patient was advised to call 911 or go to nearest ED in case of emergency. Supportive psychotherapy provided. Patient agrees with plan. Results Blood Pressure 95 / 40 Vital Signs Date Time Temp Pulse Resp B/P (MAP) Pulse Ox O2 Delivery O2 Flow Rate FiO2 11/13/17 06:24 97.9 71 16 95/40 (58) 95 11/12/17 18:57 Nasal Cannula 2.00 Laboratory Tests Test 11/12/17 16:30 11/12/17 17:25 11/13/17 04:55 White Blood Count 14.6 TH/MM3 (4.0-11.0) Neutrophils (%) (Auto) 71.9 % (16.0-70.0) Neutrophils # (Auto) 10.5 TH/MM3 (1.8-7.7) Activated Partial Thromboplast Time 21.1 SEC (24.3-30.1) Random Glucose 121 MG/DL (74-106) Potassium Level 3.4 MEQ/L (3.5-5.1) Estimat Glomerular Filtration Rate 63 ML/MIN (>89) 73 ML/MIN (>89) Urine Protein 30 mg/dL (NEG-TRACE) Urine Occult Blood TRACE (NEG) Urine Leukocyte Esterase SMALL (NEG) Urine RBC 19 /hpf (0-3) Urine WBC 10 /hpf (0-5) Urine Bacteria OCC /hpf (NONE) Urine Mucus FEW /lpf (OCC) Calcium Level 8.4 MG/DL (8.5-10.1) Triglycerides Level 195 MG/DL (42-150) HDL Cholesterol 65.9 MG/DL (40.0-60.0) Laboratory Results Test 11/13/17 04:55 Cholesterol Level 165 MG/DL (120-200) HDL Cholesterol 65.9 MG/DL (40.0-60.0) LDL Cholesterol 60 MG/DL (0-99) Triglycerides Level 195 MG/DL (42-150) Summary of Procedures None Imaging Last Impressions Abdomen X-Ray 11/12/17 0000 Signed Impressions: Service Date/Time: Sunday, November 12, 2017 16:09 - CONCLUSION: Bowel gas pattern within normal limits. Mike Crum MD Pending results at discharge: No Medications # of Antipsychotic meds at D/C: 0 Approp Antipsych med options 1 - Minimum of three failed multiple trials of monotherapy. 2 - Documented plan to taper to monotherapy due to previous use of multiple meds OR cross-taper in progress at D/C. 3 - Documentation of augmentation of Clozapine. 4 - Justification other than those listed in allowable values 1-3, document here : Discharge Discharge Date: Nov 13, 2017 Discharge Diagnosis: (1) Adjustment disorder with depressed mood ICD Code: F43.21 - Adjustment disorder with depressed mood Pt Condition on Discharge: Stable Discharge Disposition: Discharge Home Discharge Instructions Diet Instructions: Heart Healthy Diet Activities you can perform: Regular-No Restrictions Scheduled Appointment: [facility] home health Appointment Date: Nov 13, 2017 Discharge Time > 30 minutes Mental Status Examination Appearance: Appropriate Consciousness: Alert Orientation: Person, Place, Date/Time (partially to date) Speech: Unremarkable Language: Adequate Fund of Knowledge: Adequate Attention and Concentration: Adequate Memory: Unremarkable Mood: Appropriate Affect: Appropriate Thought Process & Associations: Logical, Linear Thought Content: Appropriate Hallucination Type: None Delusion Type: None Suicidal Ideation: No Suicidal Plan: No Suicidal Intention: No Homicidal Ideation: No Homicidal Plan: No Homicidal Intention: No Insight: Fair Judgment: Impulsive Discharge/Advance Care Plan Health Problems: (1) Adjustment disorder with depressed mood Goals to promote your health * To prevent worsening of your condition and complications * To maintain your health at the optimal level Directions to meet your goals Take your medications as prescribed Follow your dietary instruction Follow activity as directed Keep your appointments as scheduled Take your immunizations and boosters as scheduled If your symptoms worsen call your PCP, if no PCP go to Urgent Care Center or Emergency Room For / questions related to your inpatient stay or results of tests pending at discharge, please contact Dr. Vinny Garcia at Smoking is Dangerous to Your Health. Avoid second hand smoking Vinny Garcia MD Nov 13, 2017 13:52
== END 2017-11-13 15:07 | disposition home or self-care (01) | DRG 881 ==
LOC: NEPE 15:40 → NEDA 20:44 → H4EA 21:05
PROVIDERS: ADMIT Student in an Organized Health Care Education/Training Program; ATTEND Student in an Organized Health Care Education/Training Program
DX: F43.21 Adjustment disorder with depressed mood (principal); N39.0 Urinary tract infection, site not specified; I10 Essential (primary) hypertension; K59.00 Constipation, unspecified; M19.90 Unspecified osteoarthritis, unspecified site; Z86.73 Personal history of transient ischemic attack (TIA), and cerebral infarction without residual deficits; Z87.891 Personal history of nicotine dependence; Z96.643 Presence of artificial hip joint, bilateral
CPT/HCPCS: 74020; 80048; 80053; 80061; 80307; 81001; 83036; 83605; 83690; 85025; 85610; 85730; 87077; 87086; 87186; 96361; 96365; 96375; J0696; J2405; J7040; J7512; P9612

== ENCOUNTER 2018-01-19 08:26 | Inpatient (IN) | payer OTHER, MEDICARE ==
[2018-01-19] VITALS (24 sets, daily range): BP systolic 74–137; BP diastolic 40–75; PULSE 62–94; RESP 16–18; TEMP 97.9–101.4; O2SAT 95–100
[~2018-01-19] VITALS: Ht 167.6 cm; Wt 74.5 kg
[~2018-01-19 08:26] MED LIST changes: +BUSP30TA PO; -FURO1TAB62 PO; +GABA300C5 PO; -LEXA10TA PO; +LISI-515 PO; +LOVA40TA PO; +MACR100C2 PO; +PRED10 PO
[2018-01-19] MEDS ORDERED: NALOXONE HCL 0.4 MG/ML AMP ONE (08:30)
[2018-01-19] MEDS ORDERED: VANCOMYCIN INJ 1,000 MG in SODIUM CHLOR 0.9% 250 ML INJ 250 ML IV STA (08:36)
[2018-01-19] MEDS ORDERED: PIPERACIL-TAZO 4.5 GM PREMIX 100 ML IV STA (08:36)
[2018-01-19] MEDS ORDERED: SUCCINYLCHOLINE CHLORIDE 200 MG/10 ML VIAL ONE (08:38)
[2018-01-19] MEDS ORDERED: ETOMIDATE 40 MG/20 ML VIAL ONE (08:38)
[2018-01-19] MEDS ORDERED: PROPOFOL 500 MG/50 ML INJ 50 ML ONE (08:39)
[2018-01-19] MEDS ORDERED: SODIUM CHLOR 0.9% 1000 ML INJ 1,000 ML IV ONE ×3 (08:45→10:00)
[2018-01-19] MEDS ORDERED: ACETAMINOPHEN 650 MG SUPP RECTAL ONE (09:00)
[2018-01-19] MEDS ORDERED: ETOMIDATE 20 MG/10 ML VIAL IV PUSH ONE (09:00)
[2018-01-19] MEDS ORDERED: PROPOFOL 1000 MG/100 ML INJ 100 ML IV PRN ×2 (09:00→10:30)
[2018-01-19] MEDS ORDERED: SUCCINYLCHOLINE CHLORIDE 100 MG/5 ML SYRINGE IV PUSH ONE (09:00)
[2018-01-19 09:04] LABS: AUTOMATED NEUTROPHIL # 15.6 TH/MM3 (1.8-7.7); BASOPHIL # 0.1 TH/MM3 (0-0.2); BASOPHIL % 0.3 % (0.0-2.0); HEMATOCRIT 41.9 % (35.0-46.0); HEMOGLOBIN 14.2 GM/DL (11.6-15.3); LYMPH % 14.8 % (9.0-44.0); MEAN CELL VOLUME 92.2 FL (80.0-100.0); MEAN CORPUSCULAR HEMOGLOBIN 31.2 PG (27.0-34.0); MEAN CORPUSCULAR HGB CONC 33.8 % (32.0-36.0); MEAN PLATELET VOLUME 8.9 FL (7.0-11.0); MONO % 7.9 % (0.0-8.0); MONOCYTE # 1.6 TH/MM3 (0-0.9); PLATELET COUNT 436 TH/MM3 (150-450); RED BLOOD COUNT 4.55 MIL/MM3 (4.00-5.30); RED CELL DISTRIBUTION WIDTH 13.1 % (11.6-17.2); WHITE BLOOD COUNT 20.3 TH/MM3 (4.0-11.0)
[2018-01-19 09:10] LABS: PROTHROMBIN TIME - PATIENT 10.6 SEC (9.8-11.6)
[2018-01-19 09:23] LABS: ALBUMIN 3.6 GM/DL (3.4-5.0); AST (GOT) 20 U/L (15-37); BICARBONATE 30.5 MEQ/L (21.0-32.0); BLOOD UREA NITROGEN 34 MG/DL (7-18); CHLORIDE 94 MEQ/L (98-107); CREATININE 2.59 MG/DL (0.50-1.00); GLOMERULAR FILTRATION RATE 18 ML/MIN (>89); GLUCOSE,RANDOM 139 MG/DL (74-106); MAGNESIUM 1.9 MG/DL (1.5-2.5); SODIUM (NA) 138 MEQ/L (136-145)
[2018-01-19] MEDS ORDERED: MIDAZOLAM HCL 5 MG/ML VIAL (1 ML) ONE (09:23)
[2018-01-19 09:24] LABS: ALT (GPT) 11 U/L (10-53)
--- NOTE | 2018-01-19 09:24 | RADRPT ---
EXAM DATE/TIME: 01/19/2018 09:05 [facility] COMPARISON: No previous studies available for comparison. INDICATIONS : Status post intubation. MEDICAL HISTORY : Hypertension. Chronic obstructive pulmonary disease. Hypercholesterolemia. Cerebrovascular accident. Myocardial infarction. Gallbladder disease. Osteoporosis. Anxiety. SURGICAL HISTORY : Cholecystectomy. ENCOUNTER: Initial ACUITY: 1 day PAIN SCORE: Non-responsive. LOCATION: chest FINDINGS: A single view of the chest demonstrates the endotracheal tube and nasogastric are both in good positi on. Lungs are grossly clear. The cardiomediastinal contours are unremarkable. Osseous structures ar e intact. CONCLUSION: ET tube in good position. Lungs are grossly clear. Jameel Baldwin MD on January 19, 2018 at 9:22 Board Certified Radiologist. This report was verified electronically.
[2018-01-19 09:28] LABS: ALKALINE PHOSPHATASE 72 U/L (45-117); TOTAL BILIRUBIN ADULT 0.9 MG/DL (0.2-1.0); TOTAL PROTEIN 7.5 GM/DL (6.4-8.2); TROPONIN I 0.09 NG/ML (0.02-0.05)
[2018-01-19 09:46] LABS: LACTIC ACID SEPSIS PROTOCOL 4.6 mmol/L (0.4-2.0)
--- NOTE | 2018-01-19 09:59 | PD ---
HPI Chief Complaint: Neuro Symptoms/ Deficits Time Seen by Provider: 08:36 Travel History International Travel<30 days: No Contact w/Intl Traveler<30days: No Traveled to known affect area: No History of Present Illness HPI 77-year-old female was brought by EMS emergently as altered mental status. Patient is unable to give any history because of poor responsiveness. History is mainly obtained from EMS. As per the paramedics is a hospice. Hospice nurse who arrived this morning and found the patient to be unresponsive and called 911. The hospice nurses seeing this patient for the very first time. Patient lives with her son and apparently the son did not know much about the history either. He last saw her in her baseline mental status last night. Patient is on a lot of pain medications given by hospice including a Duragesic patch. EMS to the Duragesic patch off and gave her 0.4 of Narcan. As per EMS radio report patient's GCS improved from 7-15. Initial blood pressure was 70 palp. Patient had received some fluid which improved the blood pressure to 108 prior to their arrival as per EMS. Sugar was within normal limits. When patient arrived to the emergency room I noticed that she was poorly responsive even to sternal rub. Blood pressure was in the 90s systolic with manual cuff. As per the hospice nurse to the paramedics patient is a full code. Her rectal temperature was 100.4 upon arrival. [facility] Past Medical History Narrative Medical List of her past medical, surgical, social and family history is reviewed from the nursing note. Hx Anticoagulant Therapy: Yes (Unsure of which one) Arthritis: Yes Asthma: No Autoimmune Disease: No Blood Disorders: No Anxiety: No Depression: No Heart Rhythm Problems: No Cancer: Yes Cardiovascular Problems: Yes High Cholesterol: No Chemotherapy: No Chest Pain: No Congestive Heart Failure: No COPD: No Cerebrovascular Accident: Yes Diabetes: No Diminished Hearing: No Endocrine: No Gastrointestinal Disorders: Yes GERD: No Genitourinary: Yes (chairez ) Headaches: No Hiatal Hernia: No Hypertension: Yes Immune Disorder: No Implanted Vascular Access Dvce: Yes Musculoskeletal: Yes Neurologic: No Psychiatric: No Reproductive: No Respiratory: No Migraines: No Radiation Therapy: No Seizures: No Sickle Cell Disease: No Sleep Apnea: No Thyroid Disease: No Ulcer: No ?: Not Menopausal: Yes : 4 Para: 3 : 1 Past Surgical History Abdominal Surgery: Yes (GALLBLADDER 2000) AICD: No Arteriovenous Shunt: No Cardiac Surgery: No Cholecystectomy: Yes (2000) Ear Surgery: No Endocrine Surgery: No Eye Surgery: No Genitourinary Surgery: No Gynecologic Surgery: No Insulin Pump: No Joint Replacement: Yes (hip replacement, wrist surgery) Neurologic Surgery: No Oral Surgery: Yes (teeth removed) Pacemaker: No Thoracic Surgery: No Other Surgery: Yes (hip surgery hx, gall bladder out, hx port in chest) Social History Alcohol Use: No Tobacco Use: No Substance Use: No Allergies-Medications (Allergen,Severity, Reaction): Coded Allergies: No Known Allergies (Verified Allergy, Unknown, 09/21/17) Comments No known drug allergies. Reported Meds & Prescriptions Reported Meds & Active Scripts Active Macrobid (Nitrofurantoin Monohydrate Macrocrystals) 100 Mg Capsule 100 Mg PO DAILY 5 Days Walker with Front Wheels (Device) 1 Mis Mis Ea .ROUTE DIRECTED Reported Gabapentin 300 Mg Cap 300 Mg PO BID Buspirone (Buspirone HCl) 30 Mg Tab 30 Mg PO BID Prednisone 10 Mg Tab 10 Mg PO DAILY Lovastatin 40 Mg Tab 40 Mg PO DAILY Lisinopril 20 Mg Tab 20 Mg PO DAILY Carbidopa-Levodopa 25-100 Mg Tab 1 Tab PO Q8HR Fentanyl Patch 72 HR (Fentanyl) 25 Mcg/Hr Patch 25 Mcg T-DERMAL Q72H Docusate Sodium 100 Mg Cap 100 Mg PO BID Amlodipine (Amlodipine Besylate) 10 Mg Tab 10 Mg PO DAILY Cymbalta DR (Duloxetine HCl) 20 Mg Capdr 20 Mg PO DAILY Meclizine 25 (Meclizine HCl) 25 Mg Tab 25 Mg PO TID PRN Potassium Chloride ER (Potassium Chloride) 10 Meq Tab 10 Meq PO DAILY Narrative Medication List of her home medications reviewed from the nursing note. Review of Systems ROS Limitations: Unresponsive Except as stated in HPI: all other systems reviewed are Neg General / Constitutional: Positive: Fever Physical Exam Narrative GENERAL: Unresponsive, significant distress SKIN: Focused skin assessment warm/dry. HEAD: Atraumatic. Normocephalic. EYES: Pupils equal and round. No scleral icterus. No injection or drainage. ENT: No nasal bleeding or discharge. Dry mucous membrane NECK: Trachea midline. No JVD. CARDIOVASCULAR: Regular rate and rhythm. No murmur appreciated. RESPIRATORY: No accessory muscle use. Clear to auscultation. Breath sounds equal bilaterally. GASTROINTESTINAL: Abdomen soft, non-tender, nondistended. Hepatic and splenic margins not palpable. MUSCULOSKELETAL: No obvious deformities. No clubbing. No cyanosis. No edema. NEUROLOGICAL: GCS of 8, twitching PSYCHIATRIC: Unable to assess Data Data Last Documented VS Vital Signs Date Time Temp Pulse Resp B/P (MAP) Pulse Ox O2 Delivery O2 Flow Rate FiO2 01/19/18 09:50 74 18 74/40 (51) 100 Ventilator 01/19/18 09:44 100 01/19/18 09:05 101.4 Orders Orders Naloxone Inj (Narcan Inj) (01/19/18 08:30) Etomidate Inj (Amidate Inj) (01/19/18 08:38) Succinylcholine Inj (Quelicin Inj) (01/19/18 08:38) Sepsis Workup Initiated (01/19/18 ) Complete Blood Count With Diff (01/19/18 08:36) Comprehensive Metabolic Panel (01/19/18 08:36) Prothrombin Time / Inr (Pt) (01/19/18 08:36) Lactic Acid Sepsis Protocol (01/19/18 08:36) Magnesium (Mg) (01/19/18 08:36) Lipase (01/19/18 08:36) Troponin I (01/19/18 08:36) Urinalysis - C+S If Indicated (01/19/18 08:36) Blood Culture (01/19/18 08:36) Chest, Single Ap (01/19/18 08:36) Blood Glucose (01/19/18 08:36) Ecg Monitoring (01/19/18 08:36) Iv Access Insert/Monitor (01/19/18 08:36) Oximetry (01/19/18 08:36) Oxygen Administration (01/19/18 08:36) Ct Brain W/O Iv Contrast(Rout) (01/19/18 08:36) Vancomycin Inj (Vancomycin Inj) (01/19/18 08:36) Piperacil-Tazo 4.5 Gm Premix (Zosyn 4.5 (01/19/18 08:36) Propofol 500 Mg/50 Ml Inj (Diprivan 500 (01/19/18 08:39) Sodium Chlor 0.9% 1000 Ml Inj (Ns 1000 M (01/19/18 08:45) Acetaminophen Supp (Tylenol Supp) (01/19/18 09:00) Urinary Catheter Insert/Apply (01/19/18 08:48) ^ Orogastric Tube (01/19/18 08:48) Succinylcholine Inj (Quelicin Inj) (01/19/18 09:00) Etomidate Inj (Amidate Inj) (01/19/18 09:00) Propofol 1000 Mg/100 Ml Inj (Diprivan 10 (01/19/18 09:00) Midazolam Inj (Versed Inj) (01/19/18 09:23) Sodium Chlor 0.9% 1000 Ml Inj (Ns 1000 M (01/19/18 10:00) Sodium Chlor 0.9% 1000 Ml Inj (Ns 1000 M (01/19/18 10:00) Admit Order (Ed Use Only) (01/19/18 09:50) Labs Laboratory Tests Test 01/19/18 08:35 01/19/18 08:40 01/19/18 09:02 Blood Urea Nitrogen 34 MG/DL Creatinine 2.59 MG/DL Random Glucose 139 MG/DL Total Protein 7.5 GM/DL Albumin 3.6 GM/DL Calcium Level 10.0 MG/DL Magnesium Level 1.9 MG/DL Alkaline Phosphatase 72 U/L Aspartate Amino Transf (AST/SGOT) 20 U/L Alanine Aminotransferase (ALT/SGPT) 11 U/L Total Bilirubin 0.9 MG/DL Sodium Level 138 MEQ/L Potassium Level 3.2 MEQ/L Chloride Level 94 MEQ/L Carbon Dioxide Level 30.5 MEQ/L Anion Gap 14 MEQ/L Estimat Glomerular Filtration Rate 18 ML/MIN Troponin I 0.09 NG/ML Lipase 288 U/L White Blood Count 20.3 TH/MM3 Red Blood Count 4.55 MIL/MM3 Hemoglobin 14.2 GM/DL Hematocrit 41.9 % Mean Corpuscular Volume 92.2 FL Mean Corpuscular Hemoglobin 31.2 PG Mean Corpuscular Hemoglobin Concent 33.8 % Red Cell Distribution Width 13.1 % Platelet Count 436 TH/MM3 Mean Platelet Volume 8.9 FL Neutrophils (%) (Auto) 77.0 % Lymphocytes (%) (Auto) 14.8 % Monocytes (%) (Auto) 7.9 % Eosinophils (%) (Auto) 0.0 % Basophils (%) (Auto) 0.3 % Neutrophils # (Auto) 15.6 TH/MM3 Lymphocytes # (Auto) 3.0 TH/MM3 Monocytes # (Auto) 1.6 TH/MM3 Eosinophils # (Auto) 0.0 TH/MM3 Basophils # (Auto) 0.1 TH/MM3 CBC Comment DIFF FINAL Differential Comment Prothrombin Time 10.6 SEC Prothromb Time International Ratio 1.0 RATIO Lactic Acid Level 4.6 mmol/L Urine Color YELLOW Urine Turbidity HAZY Urine pH 5.5 Urine Specific [place] 1.010 Urine Protein TRACE mg/dL Urine Glucose (UA) NEG mg/dL Urine Ketones NEG mg/dL Urine Occult Blood NEG Urine Nitrite NEG Urine Bilirubin NEG Urine Urobilinogen LESS THAN 2.0 MG/DL Urine Leukocyte Esterase TRACE Urine RBC LESS THAN 1 /hpf Urine WBC 1 /hpf Urine Bacteria RARE /hpf Microscopic Urinalysis Comment CATH-CULTURE IND Urine Eosinophils NONE SEEN /HPF Urine Random Creatinine 86.4 MG/DL Urine Random Sodium 43 MEQ/L MDM Medical Decision Making Medical Screen Exam Complete: Yes Emergency Medical Condition: Yes Medical Record Reviewed: Yes Interpretation(s) Twelve-lead EKG was reviewed by me. Normal sinus rhythm, normal axis, PVCs, nonspecific ST-T wave changes, old anterior MS. Heart rate of 84 bpm. Differential Diagnosis Sepsis, intracranial bleed, pneumonia, UTI Narrative Course 9:56 AM blood test results of back and total white blood cell count is 20,000 and lactic acid is elevated. Patient was started on Zosyn and vancomycin as soon as peripheral lines were obtained. I decided to intubate her given the fact that mental status was so depressed and patient is a full code. Intubation was tolerated well by the patient. Please refer to my procedure note. Awaiting for the CAT scan of the head to be done and resulted. I discussed the case with the fashion director Dr. Plascencia has accepted the patient. Due to lack of any history of unable to decided this point why patient is on hospice. Hospice sent her folder but it is not very helpful since there is no list of diagnoses in the folder Critical Care Narrative Aggregate critical care time was 60 minutes. Time to perform other separately billable procedures was not included in the critical care time. My time did not include minutes spent treating any other patients simultaneously or on activities that did not directly contribute to the patient's treatment. The services I provided to this patient were to treat and/or prevent clinically significant deterioration that could result in: Respiratory failure, unresponsive, sepsis, acute renal failure I provided critical care services requiring my management, as noted below: Chart data review, documentation time, medication orders and management, vital sign assessments/reviewing monitor data, ordering and reviewing lab tests, ordering and interpreting/reviewing x-rays and diagnostic studies, care of the patient and discussion of the patient with the admitting physicians. Procedures EKG Prior to Arrival: No Physician Communication Physician Communication Dr. Plascencia Diagnosis Primary Impression: Unresponsive Additional Impressions: Respiratory failure Qualified Codes: J96.00 - Acute respiratory failure, unspecified whether with hypoxia or hypercapnia Sepsis Qualified Codes: A41.9 - Sepsis, unspecified organism Acute renal failure Qualified Codes: N17.9 - Acute kidney failure, unspecified Admitting Information Admitting Physician Requests: Aleks Murray MD Jan 19, 2018 09:59
[2018-01-19] MEDS ORDERED: TERBUTALINE INJ 1 MG/ML AMP SQ PRN (10:00)
[2018-01-19 10:09] LABS: BACTERIA, URINE RARE /hpf; BILIRUBIN, URINE NEG (NEG); BLOOD, URINE NEG (NEG); GLUCOSE,URINE NEG (NEG); KETONE, URINE NEG (NEG); NITRITE,URINE NEG (NEG); PH, URINE 5.5 (5.0-8.5); URINE COLOR YELLOW (YELLW/STRAW); URINE LEUKOCYTE ESTERASE TRACE (NEG)
--- NOTE | 2018-01-19 10:28 | RADRPT ---
EXAM DATE/TIME: 01/19/2018 10:12 [facility] COMPARISON: CT BRAIN W/O CONTRAST, August 16, 2016, 18:59. INDICATIONS : Altered mental status RADIATION DOSE: 56.35 CTDIvol (mGy) MEDICAL HISTORY : Cerebrovascular disease. Hypertension. Cardiovascular disease SURGICAL HISTORY : Cholecystectomy. ENCOUNTER: Initial ACUITY: 1 day PAIN SCALE: Non-responsive LOCATION: cranial TECHNIQUE: Multiple contiguous axial images were obtained of the head. Using automated exposure control and adj ustment of the mA and/or kV according to patient size, radiation dose was kept as low as reasonably a chievable to obtain optimal diagnostic quality images. DICOM format image data is available electro nically for review and comparison. FINDINGS: CEREBRUM: Atrophy. Periventricular low attenuation change involving both cerebral hemispheres. Chronic lacunar infarction involving the head of caudate on the left. Basal ganglia calcifications bilaterally. The v entricles are normal for age. No evidence of midline shift, mass lesion, hemorrhage or acute infarct ion. No extra-axial fluid collections are seen. POSTERIOR FOSSA: The cerebellum and brainstem are intact. The 4th ventricle is midline. The cerebellopontine angle i s unremarkable. EXTRACRANIAL: The visualized portion of the orbits is intact. Mucosal thickening involving the ethmoid air cells bi laterally and right sphenoid sinus. SKULL: The calvaria is intact. No evidence of skull fracture. CONCLUSION: 1. No acute intracranial abnormality. 2. Atrophy and chronic small vessel ischemic change. 3. Paranasal sinus disease. Oneil Bills Jr., MD on January 19, 2018 at 10:20 Board Certified Radiologist. This report was verified electronically.
[2018-01-19] MEDS ORDERED: RESP: ALBUTEROL 2.5 MG/3 ML NEB (PRN) INH (10:30)
[2018-01-19] MEDS ORDERED: MAGNESIUM HYDROXIDE SUSP 30 ML CUP PO PRN (10:30)
[2018-01-19] MEDS ORDERED: DEXTROSE 50% IN WATER 50 ML VIAL(D50) IV PUSH PRN (10:30)
[2018-01-19] MEDS ORDERED: GLUCAGON 1 MG/ML VIAL OTHER PRN (10:30)
[2018-01-19] MEDS ORDERED: CHLORHEXIDINE GLUCONATE 2 % 1 PACK (2 CLOTHS) TOP PRN (10:30)
[2018-01-19] MEDS ORDERED: SENNOSIDES 8.6 MG TAB PO PRN (10:30)
[2018-01-19] MEDS ORDERED: MIDAZOLAM HCL 2 MG/2 ML VIAL IV PUSH PRN (10:30)
[2018-01-19] MEDS ORDERED: BISACODYL 10 MG SUPP RECTAL PRN (10:30)
[2018-01-19] MEDS ORDERED: MISCELLANEOUS NURSING INFORMATION XX SCH (10:30)
[2018-01-19] MEDS ORDERED: LACTULOSE SYRUP 20 GM/30 ML CUP PO PRN (10:30)
[2018-01-19] MEDS ORDERED: SODIUM CHLORIDE 0.9% FLUSH 10 ML FLUSH IV FLUSH PRN ×2 (10:30→14:00)
[2018-01-19] MEDS ORDERED: Vancomycin Consult Pharmacy 1 EA OTHER SCH (10:45)
[2018-01-19] MEDS: RESP: ALBUTEROL 2.5 MG/IPRATROPIUM 0.5 MG NEB (SCH) INH ×4 (11:13→23:36)
--- NOTE | 2018-01-19 11:20 | HHI.HP ---
[facility] Service Critical Care Medicine Primary Care Physician Triston Pena M.D. Admission Diagnosis altered mental status, respiratory failure, sepsis Diagnosis: (1) Septic shock Diagnosis: Principal (2) Respiratory failure (3) Hypokalemia due to loss of potassium Diagnosis: Principal (4) Acute renal failure Diagnosis: Secondary (5) Adjustment disorder with depressed mood Diagnosis: Secondary (6) Elevated lactic acid level Diagnosis: Principal (7) Hyperlipidemia Diagnosis: Principal (8) Hypertension Diagnosis: Secondary (9) Chronic narcotic use Diagnosis: Secondary (10) Coronary artery disease Diagnosis: Secondary (11) History of CVA (cerebrovascular accident) Diagnosis: Secondary (12) Unresponsive Diagnosis: Principal Chief Complaint: Patient found unresponsive at home by EMS Travel History International Travel<30 Days: No Contact w/Intl Traveler <30 Da: No Traveled to Known Affected Are: No Sepsis Criteria SIRS Criteria (2 or more): WBC > 09904, < 4000 or > 10% bands Sepsis Criteria (SIRS+source): Infect source susp/known Septic Shock Criteria: Lactic acid >=4 History of Present Illness This is a 77-year-old female. Date of admission 01/19/2018 medical history includes CVA involving the left caudate, adjustment disorder, hypertension with insulin, chronic pain syndrome on chronic in the past clinic notes for coronary disease and COPD. Patient was previously on hospice which was rescinded by the son today. Hospice nurse evaluated this patient this morning and found the patient to be unresponsive and called 911. Patient lives with her son and apparently the son did not know regarding her history either. Fentanyl patch was removed and received 0.4 mg naltrexone. As per EMS radio report patient's GCS improved from 7-15. Initial blood pressure was 70 palp systolic. Patient had received some fluid which improved the blood pressure to 108 prior to their arrival as per EMS. MBS reportedly was within normal limits. When patient arrived to the emergency room patient became unresponsive.. Blood pressure was in the 90s systolic with manual cuff. As per the hospice nurse to the paramedics patient is a full code. Her rectal temperature was 100.4 upon arrival. Patient was intubated using 20 mg etomidate and 100 mg succinylcholine. Chest x -ray revealed no acute cardiopulmonary findings. Head CT revealed old left caudate CVA/lacunar and bilateral basal gland calcification otherwise unremarkable. Patient does have a urinary tract infection. Leukocytosis 20, 000. Lactate of 4.6. Troponin 0 0.09 with old Q waves in inferior leads. We are asked to admit Review of Systems ROS Limitations: Intubated Past Family Social History Allergies: Coded Allergies: No Known Allergies (Verified Allergy, Unknown, 09/21/17) Past Medical History COPD CVA -left basal ganglia Nonobstructive coronary artery disease Essential hypertension Dyslipidemia Chronic narcotic use Adjustment disorder Peripheral neuropathy Chronic constipation Chronic prednisone use Past Surgical History Cholecystectomy Right hip total arthroplasty Left wrist Cardiac catheterization Reported Medications Carbidopa/levodopa 25/100 1 tablet 3 times daily Lovastatin 40 mg p.o. daily Lisinopril 20 mg p.o. daily Amlodipine 10 mg p.o. daily Fentanyl patch 25 mcg every 72 hours Gabapentin 300 mg by mouth twice daily Duloxetine 20 mg p.o. daily Buspirone 30 mg p.o. twice daily Docusate sodium 100 mg p.o. twice daily Meclizine 25 mg p.o. every 6 hours as needed Prednisone 10 mg p.o. daily Active Ordered Medications Reviewed in EMR Family History No family history of diabetes mellitus or coronary disease Social History Quit tobacco 15 years ago. 40 pack is documented. No documentation of alcohol or illicit drug use. Patient is with 3 children. One . One adopted. Physical Exam Vital Signs Vital Signs Date Time Temp Pulse Resp B/P (MAP) Pulse Ox O2 Delivery O2 Flow Rate FiO2 01/19/18 10:49 67 26 100 Ventilator 01/19/18 10:45 98.4 70 16 136/63 (87) 100 Ventilator 100 01/19/18 10:15 69 18 137/63 (87) 100 Room Air 01/19/18 10:05 62 16 101/53 (69) 100 Ventilator 01/19/18 09:50 74 18 74/40 (51) 100 Ventilator 01/19/18 09:44 100 01/19/18 09:41 100 Ventilator 50 01/19/18 09:41 18 100 Ventilator 50 01/19/18 09:30 94 18 116/58 (77) 100 Room Air 01/19/18 09:05 99.9 94 18 126/58 (80) 99 Ventilator 100 01/19/18 08:56 100 100 Physical Exam GENERAL: 77-year-old female currently orotracheally intubated SKIN: Warm and dry. No mottling. Well-perfused HEAD: Atraumatic. Normocephalic. EYES: Pupils equal and round around 3 mm bilaterally and reactive. No scleral icterus. No injection or drainage. ENT: No nasal bleeding or discharge. Mucous membranes pink and moist. NECK: Trachea midline. No JVD. CARDIOVASCULAR: Regular rate and rhythm. S1, S2. No S4. Without murmur RESPIRATORY: Clear to auscultation. Breath sounds equal bilaterally. GASTROINTESTINAL: Abdomen soft, non-tender, nondistended. Hepatic and splenic margins not palpable. MUSCULOSKELETAL: Extremities with trace bilateral lower extremity edema. No obvious deformities. NEUROLOGICAL: Sedated on the ventilator. Withdraws to all 4 extremities. Upward toes. Positive gag and corneal reflex. Positive cough. Laboratory Laboratory Tests Test 01/19/18 08:35 01/19/18 08:40 01/19/18 09:02 01/19/18 11:05 Blood Urea Nitrogen 34 Creatinine 2.59 Random Glucose 139 Total Protein 7.5 Albumin 3.6 Calcium Level 10.0 Magnesium Level 1.9 Alkaline Phosphatase 72 Aspartate Amino Transf (AST/SGOT) 20 Alanine Aminotransferase (ALT/SGPT) 11 Total Bilirubin 0.9 Sodium Level 138 Potassium Level 3.2 Chloride Level 94 Carbon Dioxide Level 30.5 Anion Gap 14 Estimat Glomerular Filtration Rate 18 Troponin I 0.09 Lipase 288 White Blood Count 20.3 Red Blood Count 4.55 Hemoglobin 14.2 Hematocrit 41.9 Mean Corpuscular Volume 92.2 Mean Corpuscular Hemoglobin 31.2 Mean Corpuscular Hemoglobin Concent 33.8 Red Cell Distribution Width 13.1 Platelet Count 436 Mean Platelet Volume 8.9 Neutrophils (%) (Auto) 77.0 Lymphocytes (%) (Auto) 14.8 Monocytes (%) (Auto) 7.9 Eosinophils (%) (Auto) 0.0 Basophils (%) (Auto) 0.3 Neutrophils # (Auto) 15.6 Lymphocytes # (Auto) 3.0 Monocytes # (Auto) 1.6 Eosinophils # (Auto) 0.0 Basophils # (Auto) 0.1 CBC Comment DIFF FINAL Differential Comment Prothrombin Time 10.6 Prothromb Time International Ratio 1.0 Lactic Acid Level 4.6 Urine Color YELLOW Urine Turbidity HAZY Urine pH 5.5 Urine Specific [place] 1.010 Urine Protein TRACE Urine Glucose (UA) NEG Urine Ketones NEG Urine Occult Blood NEG Urine Nitrite NEG Urine Bilirubin NEG Urine Urobilinogen LESS THAN 2.0 Urine Leukocyte Esterase TRACE Urine RBC LESS THAN 1 Urine WBC 1 Urine Bacteria RARE Microscopic Urinalysis Comment CATH-CULTURE IND Date/Time Source Procedure Growth Status 01/19/18 08:40 Blood Peripheral Aerobic Blood Culture Pending Received 01/19/18 08:40 Blood Peripheral Anaerobic Blood Culture Pending Received 01/19/18 09:02 Urine Catheterized Urine Legionella Antigen Pending Received 01/19/18 09:02 Urine Catheterized Urine Streptococcus pneumoniae Antigen (M Pending Received Result Diagram: 01/19/18 0840 01/19/18 0835 Imaging Last Impressions Head CT 01/19/1836 Signed Impressions: Service Date/Time: Friday, January 19, 2018 10:12 - CONCLUSION: 1. No acute intracranial abnormality. 2. Atrophy and chronic small vessel ischemic change. 3. Paranasal sinus disease. Oneil Bills Jr., MD Chest X-Ray 01/19/1836 Signed Impressions: Service Date/Time: Friday, January 19, 2018 09:05 - CONCLUSION: ET tube in good position. Lungs are grossly clear. Jameel Baldwin MD Renal Ultrasound 01/19/18 0000 Signed Impressions: Service Date/Time: Friday, January 19, 2018 10:45 - CONCLUSION: Normal examination. Jameel Baldwin MD Septic Shock Reassessment Septic shock perfusion: reassessment completed Caprini VTE Risk Assessment Caprini VTE Risk Assessment: Mod/High Risk (score >= 2) Caprini Risk Assessment Model Point Value = 1 Point Value = 2 Point Value = 3 Point Value = 5 Age 41-60 Minor surgery BMI > 25 kg/m2 Swollen legs Varicose veins or History of unexplained or recurrent spontaneous Oral contraceptives or hormone replacement Sepsis (< 1 month) Serious lung disease, including pneumonia (< 1 month) Abnormal pulmonary function Acute myocardial infarction Congestive heart failure (< 1 month) History of inflammatory bowel disease Medical patient at bed rest Age 61-74 Arthroscopic surgery Major open surgery (> 45 min) Laparoscopic surgery (> 45 min) Malignancy Confined to bed (> 72 hours) Immobilizing plaster cast Central venous access Age >= 75 History of VTE Family history of VTE Factor V Leiden Prothrombin [id number] Lupus anticoagulant Anticardiolipin antibodies Elevated serum homocysteine Heparin-induced thrombocytopenia Other congenital or acquired thrombophilia Stroke (< 1 month) Elective arthroplasty Hip, pelvis, or leg fracture Acute spinal cord injury (< 1 month) Prophylaxis Regimen Total Risk Factor Score Risk Level Prophylaxis Regimen 0-1 Low Early ambulation 2 Moderate Order ONE of the following: *Sequential Compression Device (SCD) *Heparin 5000 units SQ BID 3-4 Higher Order ONE of the following medications: *Heparin 5000 units SQ TID *Enoxaparin/Lovenox 40 mg SQ daily (WT < 150 kg, CrCl > 30 mL/min) *Enoxaparin/Lovenox 30 mg SQ daily (WT < 150 kg, CrCl > 10-29 mL/min) *Enoxaparin/Lovenox 30 mg SQ BID (WT < 150 kg, CrCl > 30 mL/min) AND/OR *Sequential Compression Device (SCD) 5 or more Highest Order ONE of the following medications: *Heparin 5000 units SQ TID (Preferred with Epidurals) *Enoxaparin/Lovenox 40 mg SQ daily (WT < 150 kg, CrCl > 30 mL/min) *Enoxaparin/Lovenox 30 mg SQ daily (WT < 150 kg, CrCl > 10-29 mL/min) *Enoxaparin/Lovenox 30 mg SQ BID (WT < 150 kg, CrCl > 30 mL/min) AND *Sequential Compression Device (SCD) Assessment and Plan Assessment and Plan Neuro/Psych: Acute toxic metabolic encephalopathy History of CVA -with count 8 adjustment disorder Depression/anxiety Chronic pain syndrome -chronic narcotic use Patient is currently on propofol/fentanyl drips for sedation/analgesia while intubated Goal RASS -[address] brain 01/19 revealed no acute intracranial findings. Old left carried CV and bilateral basal cranial calcifications. Holding carbidopa/levodopa 25/101 tablet every 8 hours. Resume when clinically indicated Holding gabapentin 300 mg p.o. twice daily and fluoxetine 20 mg daily buspirone 30 mg twice daily Check MRI brain/EEG if no neurological improvement. CV: Septic shock History of hypertension Dyslipidemia Nonobstructive coronary disease -cardiac catheterization 2011 revealed EF 80% nonobstructive coronary disease Holding lovastatin 40 mg p.o. daily for dyslipidemia. Resume clinically indicated Holding lisinopril 20 mg p.o. daily in light of acute kidney injury Holding amlodipine 10 mg p.o. daily light of hypertension Currently on normal saline at 100 cc an hour. Received 2 L bolus in the ED Vasopressors if indicated to maintain mean atrial pressure greater than 65 Cardiac markers every 8 hours 3. Initially 0.09. Likely type II non-STEMI. Hypoperfusion from severe septic shock Check 2D echocardiogram EKG revealed heart rate of 84. Normal FL, QRS and QT intervals. Inferior Q waves. Nonspecific in acute lateral ST changes. Resp: Acute hypoxemic respiratory failure History of COPD PRVC 16/500/11/23/100 Ventilator bundle Albuterol/ipratropium aerosols every 6 hours albuterol aerosols every 2 hours. Dyspnea Spontaneous breathing trials when clinically indicated Follow postintubation ABG and chest x-ray GI: Chronic constipation Continue NGT to LIWS Famotidine for GI prophylaxis Docusate sodium/senna 1 tablet twice daily for bowel regimen. Patient is docusate sodium/senna 1 tablet twice daily at home : Bah catheter has been placed for accurate I's and O's in a critical patient Endo: Hyperglycemia Chronic prednisone use 10 mg daily Sliding scale insulin with Novulin R to maintain euglycemia/low regimen Check TSH Started on hydrocortisone 100 mg IV every 8 hours with history of chronic prednisone use. Renal: Acute kidney injury Baseline creatinine within normal limits. Currently 2.6 Check urine eosinophils and electrolytes Renal ultrasound pending Heme: Leukocytosis Monitor CBC daily. Follow trend ID: Severe sepsis Vancomycin, ampicillin/tazobactam ordered day #1 Blood cultures 2, UA and sputum are pending. Influenza, urine Legionella and pneumococcal antigens pending FEN: Hypokalemia Received 30 mEq KCl IV 1 now. Recheck in a.m. MSK: PT evaluate and treat Access: -Utilize peripheral IV. Central if indicated Prophylaxis -GI -famotidine -DVT -SCD/heparin subcu Critical Care: The total critical care time was 35 minutes. Time to perform other separately billable procedures was not included in the critical care time. Code Status Full code Discussed Condition With Dr. Harrison. Care plan discussed and all questions answered. No family currently available Problem Qualifiers (1) Respiratory failure: Qualified Codes: J96.00 - Acute respiratory failure, unspecified whether with hypoxia or hypercapnia (2) Acute renal failure: Qualified Codes: N17.9 - Acute kidney failure, unspecified (3) Coronary artery disease: Qualified Codes: I25.10 - Atherosclerotic heart disease of [place] coronary artery without angina pectoris Biga,Vinay M. MD Jan 19, 2018 11:20
--- NOTE | 2018-01-19 11:27 | RADRPT ---
EXAM DATE/TIME: 01/19/2018 10:45 [facility] COMPARISON: No previous studies available for comparison. INDICATIONS : Increased BUN/Creatnine. MEDICAL HISTORY : Stroke. Hypertension. Glasses. Dizziness. Syncope. Numbness. Anticoagulant therapy. Arthritis. Oste oporosis. SURGICAL HISTORY : Cholecystectomy. Teeth removed. Right hip replacement. Right wrist surgery. Left hip replacement. ENCOUNTER: Initial ACUITY: 1 day PAIN SCORE: Nonresponsive. LOCATION: Bilateral flank MEASUREMENTS: RIGHT KIDNEY: 11.7 x 4.0 x 3.4 cm LEFT KIDNEY: 11.0 x 4.2 x 5.0 cm FINDINGS: RIGHT KIDNEY: Renal cortex is normal in thickness and echotexture. No hydronephrosis, stone, or mass. LEFT KIDNEY: Renal cortex is normal in thickness and echotexture. No hydronephrosis, stone, or mass. BLADDER: Within normal limits given the degree of distension. CONCLUSION: Normal examination. Jameel Baldwin MD on January 19, 2018 at 11:25 Board Certified Radiologist. This report was verified electronically.
[2018-01-19] MEDS: INSULIN NovoLIN REGULAR SUPPLEMENTAL SCALE SQ SCH ×2 (12:00→17:58)
[2018-01-19 12:34] LABS: CREATININE, RANDOM URINE 86.4 MG/DL
[2018-01-19] MEDS: ARTIFICIAL TEARS OPTH SOLN 15 ML BTL EACH EYE SCH ×2 (13:00→17:58)
[2018-01-19] MEDS: NOREPINEPHRINE-DEXTROSE DRIP 250 ML IV PRN (13:14)
--- NOTE | 2018-01-19 13:49 | PD.PROCEDR ---
Central Line Procedure REASON FOR PROCEDURE Central venous access PROCEDURE PERFORMED Central line placement: Left IJ CVL CONSENT Informed consent for procedure was not obtained and considered emergent due to hemodynamic instability and lack of peripheral access. The risks and benefits of the procedure were discussed to include but limited to bleeding, clot formation, infection, and even . ANESTHESIA Local injection of 1% Lidocaine DESCRIPTION OF THE PROCEDURE The patient was placed in supine, mild Trendelenburg position. The area was exposed and cleansed with ChloraPrep, times two. Large sterile drape was used to cover the patient, with the site exposed, under sterile conditions including cap, face mask, sterile gown, and sterile gloves. On single attempt, the introducer needle was inserted with negative pressure in syringe and venous flash was obtained. The guide wire was then advanced without any restriction and the needle was removed. The dilator was used without any complications. Using Seldinger technique the antibiotic coated triple lumen catheter was advanced over the guide wire to a depth of 20 centimeters. The guide wire was removed. All ports were aspirated with dark venous blood return and flushed easily with sterile saline. All ports were capped. Antibiotic disc was placed around central line at puncture site. The central line was secured to the skin with two interrupted 2.0 silk sutures. The area was bandaged with sterile see- through central line bandage. RADIOLOGICAL DATA Ultrasound guidance was used to locate left internal jugular vein. Doppler/ color flow was used to confirm venous flow. COMPLICATIONS: No apparent complications ESTIMATED BLOOD LOSS: Less than 1 cc. Vinay Plascencia MD Jan 19, 2018 13:49
[2018-01-19] MEDS: HYDROCORTISONE SOD SUCCINATE 100 MG VIAL IV PUSH SCH ×2 (14:09→21:35)
[2018-01-19] MEDS: PIPERACIL-TAZO 2.25 GM PREMIX 50 ML IV SCH ×2 (14:09→17:58)
[2018-01-19] MEDS: POTASSIUM CHLOR 10 MEQ PREMIX 100 ML IV SCH ×3 (14:11→17:58)
[2018-01-19] MEDS: SODIUM CHLORIDE 0.9% FLUSH 10 ML FLUSH IV FLUSH SCH ×2 (14:11→21:35)
--- NOTE | 2018-01-19 14:14 | RADRPT ---
EXAM DATE/TIME: 01/19/2018 13:55 [facility] COMPARISON: CHEST SINGLE AP, January 19, 2018, 9:05. INDICATIONS : Central line placement. MEDICAL HISTORY : Hypertension. Chronic obstructive pulmonary disease. Hypercholesterolemia. Cerebrovascular accident. Myocardial infarction.Gallbladder disease. Osteoporosis. Anxiety. SURGICAL HISTORY : Cholecystectomy. Right hip replacement. Right wrist surgery. Left hip replacement. ENCOUNTER: Subsequent ACUITY: 1 day PAIN SCORE: Non-responsive. LOCATION: Bilateral chest FINDINGS: Line in good position without pneumothorax injury from the left. ET tube and nasogastric tube in goo d position. Increasing parenchymal changes right base. The cardiomediastinal contours are unremarka ble. Osseous structures are intact. CONCLUSION: Line in good position of pneumothorax Increasing parenchymal changes right base Los Chau MD FACR on January 19, 2018 at 14:12 Board Certified Radiologist. This report was verified electronically.
--- NOTE | 2018-01-19 17:50 | ECHRPT ---
Indication: CONCLUSIONS Normal left ventricular size. The left ventricular systolic function is normal with an estimated ejection fraction in the range of 55-60%. Moderate mitral annular calcification. The mitral valve area by Pressure Halftime Method is 1.6__ cm. No aortic valve regurgitation. Aortic valve sclerosis is present. No aortic valve stenosis. There is mild tricuspid valve regurgitation. The estimated pulmonary arterial pressure is 29.2 mmHg. BP: / HR: Rhythm: MEASUREMENTS (Male / Female) Normal Values Technical Quality:Very technically difficult study 2D ECHO LV Diastolic Diameter PLAX 4.2 cm 4.2 - 5.9 / 3.9 - 5.3 cm LV Systolic Diameter PLAX 3.2 cm IVS Diastolic Thickness 1.1 cm 0.6 - 1.0 / 0.6 - 0.9 cm LVPW Diastolic Thickness 1.2 cm 0.6 - 1.0 / 0.6 - 0.9 cm LV Relative Wall Thickness 0.6 RV Internal Dim ED PLAX 3.0 cm M-MODE Aortic Root Diameter MM 3.7 cm LA Systolic Diameter MM 4.4 cm LA Ao Ratio MM 1.2 AV Cusp Separation MM 2.1 cm DOPPLER MV Area PHT 1.7 cm Mitral E Point Velocity 72.1 cm/s Mitral A Point Velocity 91.8 cm/s Mitral E to A Ratio 0.8 LV E' Lateral Velocity 7.6 cm/s Mitral E to LV E' Lateral Ratio 9.5 LV E' Septal Velocity 7.1 cm/s Mitral E to LV E' Septal Ratio 10.1 TR Peak Velocity 219.0 cm/s TR Peak Gradient 19.2 mmHg Right Atrial Pressure 10.0 mmHg Pulmonary Artery Systolic Pressu 29.2 mmHg Right Ventricular Systolic Press 29.2 mmHg FINDINGS LEFT VENTRICLE Normal left ventricular size. The left ventricular systolic function is normal with an estimated ejection fraction in the range of 55-60%. RIGHT VENTRICLE Normal right ventricular size and systolic function. LEFT ATRIUM The left atrial size is normal. RIGHT ATRIUM The right atrial size is normal. ATRIAL SEPTUM Normal atrial septal thickness without atrial level shunting by limited color doppler interrogation. AORTA The aortic root and proximal ascending aorta are normal in size on limited imaging. MITRAL VALVE Moderate mitral annular calcification. The mitral valve area by Pressure Halftime Method is 1.6__ cm. AORTIC VALVE Trileaflet aortic valve. No aortic valve regurgitation. Aortic valve sclerosis is present. No aortic valve stenosis. TRICUSPID VALVE There is mild tricuspid valve regurgitation. The estimated pulmonary arterial pressure is 29.2 mmHg. PULMONARY VALVE No pulmonary valve regurgitation or stenosis. VESSELS The inferior vena cava is normal in size. PERICARDIUM No pericardial effusion. Elin Weinstein MD, FACC (Electronically Signed) Final Date:19 January 2018 17:49
[2018-01-19] MEDS: CHLORHEXIDINE 0.12% (ORAL KIT) 15 ML CUP MT SCH (21:35)
[2018-01-19] MEDS: HEPARIN SODIUM - SQ 10,000 UNITS/ML VIAL SQ SCH (21:36)
[2018-01-19] MEDS: FAMOTIDINE 20 MG/2 ML VIAL IV PUSH SCH (21:36)
[2018-01-19] MEDS: DOCUSATE SODIUM 50 MG/SENNA 8.6 MG TAB PO SCH (21:36)
[2018-01-19] MEDS: SODIUM CHLOR 0.9% 1000 ML INJ 1,000 ML IV SCH (21:39)
[2018-01-19 21:43] LABS: TROPONIN I 0.77 NG/ML (0.02-0.05)
[2018-01-19] MEDS: fentaNYL DRIP 250 ML IV PRN (22:36)
[2018-01-20] VITALS (27 sets, daily range): BP systolic 51–148; BP diastolic 38–68; PULSE 57–71; RESP 14–25; TEMP 97.7–98; O2SAT 94–98
[2018-01-20] MEDS: NOREPINEPHRINE-DEXTROSE DRIP 250 ML IV PRN ×4 (01:10→18:21)
[2018-01-20] MEDS: PIPERACIL-TAZO 2.25 GM PREMIX 50 ML IV SCH ×4 (01:12→17:27)
[2018-01-20] MEDS: SODIUM CHLOR 0.9% 1000 ML INJ 1,000 ML IV SCH ×3 (01:54→22:12)
[2018-01-20] MEDS: RESP: ALBUTEROL 2.5 MG/IPRATROPIUM 0.5 MG NEB (SCH) INH ×6 (03:12→23:48)
[2018-01-20] MEDS: CHLORHEXIDINE GLUCONATE 2 % 1 PACK (2 CLOTHS) TOP SCH (04:00)
[2018-01-20 04:36] LABS: AUTOMATED NEUTROPHIL # 18.1 TH/MM3 (1.8-7.7); BASOPHIL % 0.2 % (0.0-2.0); EOSINOPHIL % 0.1 % (0.0-4.0); HEMATOCRIT 37.1 % (35.0-46.0); HEMOGLOBIN 12.7 GM/DL (11.6-15.3); LYMPH % 3.7 % (9.0-44.0); LYMPHOCYTE # 0.7 TH/MM3 (1.0-4.8); MEAN CELL VOLUME 90.4 FL (80.0-100.0); MEAN CORPUSCULAR HGB CONC 34.3 % (32.0-36.0); MEAN PLATELET VOLUME 8.7 FL (7.0-11.0); MONO % 4.8 % (0.0-8.0); NEUT % 91.2 % (16.0-70.0); PLATELET COUNT 411 TH/MM3 (150-450); RED BLOOD COUNT 4.11 MIL/MM3 (4.00-5.30); RED CELL DISTRIBUTION WIDTH 13.4 % (11.6-17.2); WHITE BLOOD COUNT 19.8 TH/MM3 (4.0-11.0)
[2018-01-20 04:49] LABS: INTERNATIONAL NORMALIZED RATIO 1.2 RATIO; PROTHROMBIN TIME - PATIENT 12.2 SEC (9.8-11.6)
[2018-01-20 05:22] LABS: ALBUMIN 2.6 GM/DL (3.4-5.0); ALKALINE PHOSPHATASE 56 U/L (45-117); ALT (GPT) 18 U/L (10-53); AST (GOT) 43 U/L (15-37); BICARBONATE 27.1 MEQ/L (21.0-32.0); BLOOD UREA NITROGEN 27 MG/DL (7-18); CALCIUM 8.2 MG/DL (8.5-10.1); CHLORIDE 103 MEQ/L (98-107); CHOLESTEROL 131 MG/DL (120-200); CHOLESTEROL/ HDL RATIO 3.17 RATIO; CREATININE 1.47 MG/DL (0.50-1.00); GLOMERULAR FILTRATION RATE 34 ML/MIN (>89); GLUCOSE,RANDOM 278 MG/DL (74-106); HDL CHOLESTEROL 41.3 MG/DL (40.0-60.0); LDL CHOLESTEROL 67 MG/DL (0-99); MAGNESIUM 1.7 MG/DL (1.5-2.5); PHOSPHORUS 3.1 MG/DL (2.5-4.9); RANDOM VANCOMYCIN 6.8 COMMENT; SODIUM (NA) 140 MEQ/L (136-145); TOTAL BILIRUBIN ADULT 0.9 MG/DL (0.2-1.0); TOTAL PROTEIN 6.2 GM/DL (6.4-8.2); TRIGLYCERIDES 116 MG/DL (42-150)
[2018-01-20] MEDS: HYDROCORTISONE SOD SUCCINATE 100 MG VIAL IV PUSH SCH ×3 (05:41→20:00)
--- NOTE | 2018-01-20 05:41 | RADRPT ---
EXAM DATE/TIME: 01/20/2018 02:52 [facility] COMPARISON: CHEST SINGLE AP, January 19, 2018, 13:55. INDICATIONS : Shortness of breath, possible pulmonary disease. MEDICAL HISTORY : Hypertension. Chronic obstructive pulmonary disease. Hypercholesterolemia. CVA [place] SURGICAL HISTORY : Cholecystectomy. Rt Hip Arthroplasty ENCOUNTER: Subsequent ACUITY: 2 days PAIN SCORE: Non-responsive. LOCATION: Bilateral chest FINDINGS: Submaximal inspiration. ET tube tip is 2 cm above the mi O. stopped left internal jugular cathet er tip projects at the origin of the superior vena cava. Partial consolidative infiltrates in the in frahilar region bilaterally similar to prior. CONCLUSION: Bilateral medial lower lung infiltrates. Oneil Hernandez MD on January 20, 2018 at 5:39 Board Certified Radiologist. This report was verified electronically.
[2018-01-20] MEDS: INSULIN NovoLIN REGULAR SUPPLEMENTAL SCALE SQ SCH ×4 (06:00→17:27)
[2018-01-20] MEDS: fentaNYL DRIP 250 ML IV PRN ×2 (06:43→18:20)
[2018-01-20 07:13] LABS: BANDS 13 % (0-6); LYMPHOCYTES 5 % (9-44); MONOCYTES 7 % (0-8); NEUTROPHIL # MANUAL DIFF 17.4 TH/MM3 (1.8-7.7); POLYS (SEG NEUTROPHILS) 75 % (16-70)
[2018-01-20] MEDS ORDERED: TERBUTALINE INJ 1 MG/ML AMP SQ PRN (07:30)
[2018-01-20] MEDS ORDERED: PHENYLEPHRINE 40 MG in D5W 500 ML IV PRN (07:30)
[2018-01-20] MEDS: CHLORHEXIDINE 0.12% (ORAL KIT) 15 ML CUP MT SCH ×2 (08:00→20:00)
[2018-01-20] MEDS: ARTIFICIAL TEARS OPTH SOLN 15 ML BTL EACH EYE SCH ×3 (08:45→17:27)
[2018-01-20] MEDS ORDERED: POTASSIUM CHLORIDE 25 MEQ EFFERVESCENT TAB OG-TUBE ONE ×2 (08:45→13:45)
[2018-01-20] MEDS ORDERED: MIDAZOLAM HCL 2 MG/2 ML VIAL IV PUSH ONE (08:45)
[2018-01-20] MEDS: FAMOTIDINE 20 MG/2 ML VIAL IV PUSH SCH ×2 (08:56→21:00)
[2018-01-20] MEDS: SODIUM CHLORIDE 0.9% FLUSH 10 ML FLUSH IV FLUSH SCH ×3 (08:56→21:00)
[2018-01-20] MEDS: HEPARIN SODIUM - SQ 10,000 UNITS/ML VIAL SQ SCH ×2 (08:56→21:00)
[2018-01-20] MEDS: PRAVASTATIN SOD 40 MG TAB PO SCH (08:57)
[2018-01-20] MEDS: DOCUSATE SODIUM 50 MG/SENNA 8.6 MG TAB PO SCH (08:57)
[2018-01-20] MEDS ORDERED: POTASSIUM CHLOR 40 MEQ PREMIX 100 ML IV ONE (09:00)
--- NOTE | 2018-01-20 10:52 | HHI.CCPN ---
Subjective Remarks/Hospital Course This is a 77-year-old female. Date of admission 01/19/2018 medical history includes CVA involving the left caudate, adjustment disorder, hypertension with insulin, chronic pain syndrome on chronic in the past clinic notes for coronary disease and COPD. Patient was previously on hospice which was rescinded by the son today. Hospice nurse evaluated this patient this morning and found the patient to be unresponsive and called 911. Patient lives with her son and apparently the son did not know regarding her history either. Fentanyl patch was removed and received 0.4 mg naltrexone. As per EMS radio report patient's GCS improved from 7-15. Initial blood pressure was 70 palp systolic. Patient had received some fluid which improved the blood pressure to 108 prior to their arrival as per EMS. MBS reportedly was within normal limits. When patient arrived to the emergency room patient became unresponsive.. Blood pressure was in the 90s systolic with manual cuff. As per the hospice nurse to the paramedics patient is a full code. Her rectal temperature was 100.4 upon arrival. Patient was intubated using 20 mg etomidate and 100 mg succinylcholine. Chest x -ray revealed no acute cardiopulmonary findings. Head CT revealed old left caudate CVA/lacunar and bilateral basal gland calcification otherwise unremarkable. Patient does have a urinary tract infection. Leukocytosis 20, 000. Lactate of 4.6. Troponin 0 0.09 with old Q waves in inferior leads. We are asked to admit Subjective: 01/20: Patient noted to be hypokalemic 2.5, with noted ventricular bigeminy. Potassium being repleted. Noted to have spontaneous eye opening, currently not following any commands. Results revealed yesterday strep pneumococcal pneumonia antibiotics initiated. EEG ordered, results pending. Objective Vital Signs Date Time Temp Pulse Resp B/P (MAP) Pulse Ox O2 Delivery O2 Flow Rate FiO2 01/20/18 08:00 97.9 68 19 124/67 (86) 96 86/62 (70) 01/20/18 07:28 50 01/19/18 12:05 Ventilator Intake and Output 01/20/18 01/20/18 01/21/18 08:00 16:00 00:00 Intake Total 1323 ml Output Total 805 ml Balance 518 ml Result Diagram: 01/20/18 0420 01/20/18 0420 Other Results Microbiology Date/Time Source Procedure Growth Status 01/20/18 00:45 Nasal Aspirate Influenza Types A,B Antigen (MAKAYLA) - Final NEGATIVE FOR FLU A AND B ANTIGEN.... Complete 01/19/18 09:02 Urine Catheterized Urine Legionella Antigen - Final PRESUMPTIVE NEGATIVE FOR LEGIONELLA P... Complete 01/19/18 09:02 Streptococcus pneumoniae Antigen (M - Final Pos For Pneumococcal Antigen Complete Laboratory Tests Test 01/19/18 11:15 Blood Gas Puncture Site RT RADIAL Blood Gas Patient Temperature 98.6 Blood Gas HCO3 24 mmol/L (22-26) Blood Gas Base Excess 0.3 mmol/L (-2-2) Blood Gas Oxygen Saturation 98 % (90-100) Arterial Blood pH 7.44 (7.380-7.420) Arterial Blood Partial Pressure CO2 36 mmHg (38-42) Arterial Blood Partial Pressure O2 176 mmHG (61-120) Arterial Blood Oxygen Content 17.6 Vol % (12.0-20.0) Arterial Blood Carboxyhemoglobin 0.8 % (0-4) Arterial Blood Methemoglobin 0.6 % (0-2) Blood Gas Hemoglobin 12.6 G/DL (12.0-16.0) Oxygen Delivery Device VENTILATOR Blood Gas Ventilator Setting PRVC/AC Blood Gas Inspired Oxygen 100 % Imaging Last Impressions Chest X-Ray 01/20/18 0600 Signed Impressions: Service Date/Time: Saturday, January 20, 2018 02:52 - CONCLUSION: Bilateral medial lower lung infiltrates. Oneil Hernandez MD Head CT 01/19/18835 Signed Impressions: Service Date/Time: Friday, January 19, 2018 10:12 - CONCLUSION: 1. No acute intracranial abnormality. 2. Atrophy and chronic small vessel ischemic change. 3. Paranasal sinus disease. Oneil Bills Jr., MD Renal Ultrasound 01/19/18 0000 Signed Impressions: Service Date/Time: Friday, January 19, 2018 10:45 - CONCLUSION: Normal examination. Jameel Baldwin MD Last Impressions Head CT 01/19/1836 Signed Impressions: Service Date/Time: Friday, January 19, 2018 10:12 - CONCLUSION: 1. No acute intracranial abnormality. 2. Atrophy and chronic small vessel ischemic change. 3. Paranasal sinus disease. Oneil Bills Jr., MD Chest X-Ray 01/19/18835 Signed Impressions: Service Date/Time: Friday, January 19, 2018 09:05 - CONCLUSION: ET tube in good position. Lungs are grossly clear. Jameel Baldwin MD Renal Ultrasound 01/19/18 0000 Signed Impressions: Service Date/Time: Friday, January 19, 2018 10:45 - CONCLUSION: Normal examination. Jameel Baldwin MD Objective Remarks GENERAL: 77-year-old female currently orotracheally intubated and sedated SKIN: Warm and dry. No mottling. Well-perfused HEAD: Atraumatic. Normocephalic. EYES: Pupils equal and round around 3 mm bilaterally and reactive. No scleral icterus. No injection or drainage. ENT: No nasal bleeding or discharge. Mucous membranes pink and moist. NECK: Trachea midline. No JVD. CARDIOVASCULAR: Regular rate and ventricular bigeminy. S1, S2. No S4. Without murmur RESPIRATORY: Clear to auscultation. Breath sounds equal bilaterally. GASTROINTESTINAL: Abdomen soft, non-tender, nondistended. Hepatic and splenic margins not palpable. MUSCULOSKELETAL: Extremities with trace bilateral lower extremity edema. No obvious deformities. NEUROLOGICAL: RASS -2.Spontaneous eye opening. Sedated on the ventilator. Withdraws to all 4 extremities. Upward toes. Positive gag and corneal reflex. Positive cough. A/P Assessment and Plan Neuro/Psych: Acute toxic metabolic encephalopathy History of CVA -with adjustment disorder Depression/anxiety Chronic pain syndrome -chronic narcotic use Patient is currently on fentanyl infusion for sedation/analgesia while intubated Goal RASS -[address] brain 01/19 revealed no acute intracranial findings. Old left carried CV and bilateral basal cranial calcifications. Holding carbidopa/levodopa 25/101 tablet every 8 hours. Resume when clinically indicated Holding gabapentin 300 mg p.o. twice daily and fluoxetine 20 mg daily buspirone 30 mg twice daily Check MRI brain if no neurological improvement 01/20 EEG ordered - F/U results CV: Septic shock History of hypertension Dyslipidemia Nonobstructive coronary disease -cardiac catheterization 2011 revealed EF 80% nonobstructive coronary disease Ventricular bigeminy secondary to severe hypokalemia Holding lovastatin 40 mg p.o. daily for dyslipidemia. Resume clinically indicated Holding lisinopril 20 mg p.o. daily in light of acute kidney injury Holding amlodipine 10 mg p.o. daily light of hypertension Currently on normal saline at 100 cc an hour. Received 2 L bolus in the ED Vasopressors if indicated to maintain mean atrial pressure greater than 65 Cardiac markers every 8 hours 3. Initially 0.09. Likely type II non-STEMI. Hypoperfusion from severe septic shock 3/3 2D echocardiogram- EF 55-60%,,mod TR, PAP 29, moderate annular calcifications EKG revealed heart rate of 84. Normal WA, QRS and QT intervals. Inferior Q waves. Nonspecific in acute lateral ST changes. Resp: Acute hypoxemic respiratory failure History of COPD [facility] /11/23/49 Ventilator bundle Albuterol/ipratropium aerosols every 6 hours albuterol aerosols every 2 hours. Dyspnea Spontaneous breathing trials when clinically indicated ABG and chest x-ray as clinically indicated GI: Chronic constipation Continue NGT to [facility]WS Famotidine for GI prophylaxis Docusate sodium/senna 1 tablet twice daily for bowel regimen. Patient is docusate sodium/senna 1 tablet twice daily at home : Bah catheter has been placed for accurate I's and O's in a critical patient Endo: Hyperglycemia Chronic prednisone use 10 mg daily Sliding scale insulin with Novulin R to maintain euglycemia/low regimen Check TSH Started on hydrocortisone 100 mg IV every 8 hours with history of chronic prednisone use. Renal: Acute kidney injury Baseline creatinine within normal limits. Resolving 2.6-> 1.4 Check urine eosinophils and electrolytes Renal ultrasound pending Heme: Leukocytosis Monitor CBC daily. Follow trend ID: Severe sepsis Vancomycin, ampicillin/tazobactam ordered day #1 Blood cultures 2, UA and sputum are pending. Influenza, urine Legionella- negative 3/3 Pneumococcal antigens positive FEN: Hypokalemia Received 30 mEq KCl IV 1 now. Potassium level 2.5-repletion with 40 mEq of KCl IV MSK: PT evaluate and treat Access: -Utilize peripheral IV. Central if indicated Prophylaxis -GI -famotidine -DVT -SCD/heparin SQ Critical Care: my billing statement This patient remains critically ill with one or more organ systems which are or may become a threat to life. I have spent in excess of 37 minutes discontinuously in the care and management of this patient. This time is exclusive of procedures, and includes, but is not limited to, evaluation of the patient, review of the medical record, discussions with family, consultants, nursing staff, or respiratory therapy, and documentation in the medical record. D/W case management and [employer] at bedside (Christi), requesting [facility] be consulted at this time. All questions answered Physician Samreen Schulte MD Jan 20, 2018 10:52
--- NOTE | 2018-01-20 10:57 | MG ---
cc: Omayra Henderson MD EEG #[id number] REFERRING PHYSICIAN: Dr. Plascencia Room 505-B intubated with photic done, sedated, Diprivan at 20 mcg, turned down to 10 at the start of the study, intubated. CT shows chronic vessel disease. A 77-year-old woman found unresponsive. Hospice nurse found her in a lot of pain. On pain medicine. On Solu-Cortef, propofol at 10 mcg, Zosyn and others, vancomycin. DESCRIPTION OF RECORD: The patient has overall background of 4-5 Hertz, slowing. EKG is of low amplitude and difficult to interpret by this one lead. A lot of eye movement, muscle artifact. The patient towards the middle part of the EEG starts waking up and moving around, so there is a lot of artifact. Photic stimulation with possible mild driving response. Apparently, with deep tactile stimulation she withdrew both legs and her upper extremities. IMPRESSION: Abnormal EEG due to mild moderate slowing, may be medicine effect versus encephalopathic process. No epileptic activity. Omayra Henderson MD DF/TL/rr , 08:39 AM , 09:00 AM
--- NOTE | 2018-01-20 13:23 | EKG ---
Date Performed: 01/19/2018 Time Performed: 09:15:03 PTAGE: 77 years EKG: Sinus rhythm WITH OCCASIONAL VENTRICULAR PREMATURE COMPLEXES INFERIOR MYOCARDIAL INFARCTION ANTEROLATERAL MYOCARD IAL INFARCTION ABNORMAL ECG INTERPRETATION BASED ON A DEFAULT AGE OF 38 YEARS NO PREVIOUS TRACING DOCTOR: Jameel Nunez Interpretating Date/Time 01/20/2018 13:20:20
[2018-01-20] MEDS ORDERED: VANCOMYCIN INJ 1,250 MG in SODIUM CHLOR 0.9% 250 ML INJ 250 ML IV ONE (17:00)
[2018-01-21] VITALS (21 sets, daily range): BP systolic 88–132; BP diastolic 49–67; PULSE 64–99; RESP 14–20; TEMP 97.7–101.1; O2SAT 93–100
[2018-01-21] MEDS: CHLORHEXIDINE GLUCONATE 2 % 1 PACK (2 CLOTHS) TOP SCH (03:54)
[2018-01-21] MEDS: RESP: ALBUTEROL 2.5 MG/IPRATROPIUM 0.5 MG NEB (SCH) INH ×6 (03:56→23:08)
[2018-01-21] MEDS: HYDROCORTISONE SOD SUCCINATE 100 MG VIAL IV PUSH SCH ×3 (04:00→20:18)
[2018-01-21] MEDS: PIPERACIL-TAZO 2.25 GM PREMIX 50 ML IV SCH ×2 (05:40)
--- NOTE | 2018-01-21 05:40 | RADRPT ---
EXAM DATE/TIME: 01/21/2018 03:47 [facility] COMPARISON: CHEST SINGLE AP, January 20, 2018, 2:52. INDICATIONS : Shortness of breath, possible pulmonary. MEDICAL HISTORY : Hypertension. Chronic obstructive pulmonary disease. Hypercholesterolemia. CVA OK SURGICAL HISTORY : Cholecystectomy. Rt hip arthroplasty ENCOUNTER: Subsequent ACUITY: 3 days PAIN SCORE: Non-responsive. LOCATION: Bilateral chest FINDINGS: Portable AP view of the chest demonstrates a normal-sized cardiac silhouette. ETT, nasogastric tube, and left IJ central line are present. Nasogastric tube is new from the prior study and is looped in t he stomach. Lungs are underinflated with mild bibasilar opacity, stable from the prior study. No pleu ral effusion or pneumothorax is visualized. CONCLUSION: Stable chest x-ray with underinflation and bilateral basilar air space opacities representing either atelectasis or consolidation. Sung Fernandez MD on January 21, 2018 at 5:37 Board Certified Radiologist. This report was verified electronically.
[2018-01-21] MEDS: INSULIN NovoLIN REGULAR SUPPLEMENTAL SCALE SQ SCH ×4 (06:00→18:00)
[2018-01-21] MEDS: fentaNYL DRIP 250 ML IV PRN (06:01)
[2018-01-21 06:29] LABS: AUTOMATED NEUTROPHIL # 13.9 TH/MM3 (1.8-7.7); BASOPHIL % 0.2 % (0.0-2.0); HEMATOCRIT 32.5 % (35.0-46.0); HEMOGLOBIN 10.9 GM/DL (11.6-15.3); LYMPH % 9.9 % (9.0-44.0); LYMPHOCYTE # 1.7 TH/MM3 (1.0-4.8); MEAN CELL VOLUME 90.8 FL (80.0-100.0); MEAN CORPUSCULAR HEMOGLOBIN 30.5 PG (27.0-34.0); MEAN CORPUSCULAR HGB CONC 33.6 % (32.0-36.0); MEAN PLATELET VOLUME 8.7 FL (7.0-11.0); MONO % 8.1 % (0.0-8.0); MONOCYTE # 1.4 TH/MM3 (0-0.9); NEUT % 81.8 % (16.0-70.0); PLATELET COUNT 353 TH/MM3 (150-450); RED BLOOD COUNT 3.58 MIL/MM3 (4.00-5.30); RED CELL DISTRIBUTION WIDTH 13.3 % (11.6-17.2)
[2018-01-21 06:58] LABS: ALBUMIN 2.2 GM/DL (3.4-5.0); ALKALINE PHOSPHATASE 55 U/L (45-117); ALT (GPT) 22 U/L (10-53); AST (GOT) 24 U/L (15-37); BICARBONATE 27.6 MEQ/L (21.0-32.0); BLOOD UREA NITROGEN 17 MG/DL (7-18); CALCIUM 7.5 MG/DL (8.5-10.1); CHLORIDE 108 MEQ/L (98-107); CREATININE 0.96 MG/DL (0.50-1.00); GLOMERULAR FILTRATION RATE 56 ML/MIN (>89); GLUCOSE,RANDOM 121 MG/DL (74-106); MAGNESIUM 1.6 MG/DL (1.5-2.5); PHOSPHORUS 1.4 MG/DL (2.5-4.9); RANDOM VANCOMYCIN 12.9 COMMENT; SODIUM (NA) 142 MEQ/L (136-145); TOTAL BILIRUBIN ADULT 0.4 MG/DL (0.2-1.0); TOTAL PROTEIN 5.5 GM/DL (6.4-8.2)
[2018-01-21] MEDS: SODIUM CHLORIDE 0.9% FLUSH 10 ML FLUSH IV FLUSH SCH ×3 (09:00→20:18)
[2018-01-21] MEDS: ACETAMINOPHEN 325 MG TAB PO PRN ×2 (09:45→20:17)
--- NOTE | 2018-01-21 09:46 | PD.CONS ---
Consult Service Palliative Care . Consult Requested By Dr. Plascencia . Primary Care Physician Triston Pena M.D. . Reason for Consultation a. To assist with evaluation and management of symptoms including: Pain, dyspnea, confusion b. To assist medical decision maker(s) with: better understanding of current medical conditions; weighing benefits/burdens of medical treatment options; making medical treatment decisions. . HPI History of Present Illness Ms. Baum is a 77 year old female with adjustment disorder, lipidemia, hypertension, CAD, COPD, CVA (left basal ganglia) and peripheral neuropathy who presented to [facility] on 01/19/2018 for evaluation of altered mental status. The patient was apparently on [facility]; the hospice nurse call 911 after finding the patient unresponsive. Patient lives with her son who was unable to provide much medical history. Patient was on significant amounts of pain medication including a Duragesic patch. Upon EMS arrival, the Duragesic patch was removed and Narcan was administered with GCS improving from 7-15. Initial blood pressure was 70 palp systolic. The patient received some fluid and the blood pressure improved to 108 systolic. Blood glucose was within normal limits. When the patient arrived to the ED she was poorly responsive to sternal rub, febrile and hypotensive. Additional diagnostic data: * Vital signs: Pulse 94, respirations 18, BP 126/58, oxygen saturation 99% on 100% FiO2 via mechanical ventilation and oral temperature of 101.4 * WBC: 20.3, hemoglobin 14.2, hematocrit 41.9, platelets 436, neutrophils 77.0% * Sodium: 138, potassium 3.2, chloride 94, carbon dioxide 30.5, glucose 139, calcium 10.0, magnesium 1.9 * BUN: 34, creatinine 2.59, GFR 11 * Lactic acid: 4.6 * Total bilirubin: 0.9, AST 20, ALT 11, alkaline phosphatase 72 * Troponin: 0.09 * Total protein: 7.5, albumin 3.6 * PT: 10.6, INR 1.0 * Urinalysis with trace leukocyte esterase and rare bacteria. * Urine culture positive for pneumococcal antigen * Blood cultures negative to date * Sputum culture negative to date * Chest x-ray revealed no acute cardiopulmonary findings. * CT head revealed an old left left caudate CVA/lacunar and bilateral basal gland calcification, otherwise unremarkable. * Renal ultrasound was normal. * EKG showed normal sinus rhythm, normal axis, PVCs, nonspecific ST-T wave changes and previous anterior LA. Patient was intubated for airway protection due to her altered mental status. Patient received 2L bolus in the ED. her white blood cell count and lactic acid were elevated; the patient was subsequently started on Zosyn and Vancomycin and admitted to critical care services for further evaluation and medical management. Cardiac catheterization in 2011 revealed EF of 80%. Follow-up echocardiogram on on admission showed normal left ventricular systolic function with EF of 55-60% with mild tricuspid valve regurgitation and moderate annular calcifications. Yesterday on 01/20/18 the patient was hypokalemic with a potassium level of 2.5; she was noted to have ventricular bigeminy. EEG was abnormal due to mild/ moderate slowing, medication versus encephalopathic process. No epileptic activity noted. Follow-up chest x-ray this morning 01/21/2018 was stable with underinflation and bilateral basilar airspace opacities representing either atelectasis or consolidation. Palliative Care was consulted to assist with symptom management and to discuss with the family the benefits and burdens of her current illnesses and the options regarding future care. . Function/Cognitive Trajectory [facility] although the reason for this is unclear. Patient's son and daughter do not know why the patient is on hospice either. Patient lives at home with her son, Los. She was using a walker when ambulating and was independent with all ADLs, but the patient has become increasingly weak and spends much of her time in bed. . Review of Systems Constitutional: COMPLAINS OF: Fatigue, Generalized weakness Gastrointestinal: DENIES: Black stools, Bloody stools, Vomiting blood Hematologic/Lymphatics: COMPLAINS OF: Bruising Neurologic: COMPLAINS OF: Abnormal gait, Localized weakness Psychiatric: COMPLAINS OF: Confusion Past Family Social History Coded Allergies: No Known Allergies (Verified Allergy, Unknown, 09/21/17) Past Medical History Adjustment disorder Dyslipidemia Hypertension Coronary artery disease COPD CVA-left basal ganglia Chronic narcotic use Peripheral neuropathy Chronic constipation Chronic prednisone use . Past Surgical History Cholecystectomy Right hip total arthroplasty Left wrist Cardiac catheterization-2011 . Reported Medications Gabapentin 300 Mg Cap 300 Mg PO BID Buspirone (Buspirone HCl) 30 Mg Tab 30 Mg PO BID Prednisone 10 Mg Tab 10 Mg PO DAILY Lovastatin 40 Mg Tab 40 Mg PO DAILY Lisinopril 20 Mg Tab 20 Mg PO DAILY Carbidopa-Levodopa 25-100 Mg Tab 1 Tab PO Q8HR Fentanyl Patch 72 HR (Fentanyl) 25 Mcg/Hr Patch 25 Mcg T-DERMAL Q72H Docusate Sodium 100 Mg Cap 100 Mg PO BID Amlodipine (Amlodipine Besylate) 10 Mg Tab 10 Mg PO DAILY Cymbalta DR (Duloxetine HCl) 20 Mg Capdr 20 Mg PO DAILY Meclizine 25 (Meclizine HCl) 25 Mg Tab 25 Mg PO TID PRN Potassium Chloride ER (Potassium Chloride) 10 Meq Tab 10 Meq PO DAILY . Current Medications Medications (Trade) Dose Ordered Sig/Joselin Route Start Time Stop Time Status Last Admin Norepinephrine Bitartrate 250 ml @ 7.5 mls/hr TITRATE PRN IV 01/19/18 10:00 01/20/18 18:21 (SoluCORTEF INJ) 100 mg Q8H IV PUSH 01/19/18 12:00 01/21/18 04:00 Sodium Chloride 1,000 ml @ 84 mls/hr [id number] IV 01/19/18 10:27 01/20/18 22:12 (NS Flush) 2 ml UNSCH PRN IV FLUSH 01/19/18 10:30 (NS Flush) 2 ml BID IV FLUSH 01/19/18 21:00 01/20/18 21:00 (Pepcid Inj) 10 mg Q12HR IV PUSH 01/19/18 21:00 01/20/18 21:00 (Versed Inj) 2 mg Q1H PRN IV PUSH 01/19/18 10:30 (Tears Naturale Opth Soln) 1 drop TID EACH EYE 01/19/18 13:00 01/20/18 17:27 (Zofran Inj) 4 mg Q6H PRN IV PUSH 01/19/18 10:30 (Duoneb Neb) 1 ampule Q4HR NEB INH 01/19/18 12:00 01/21/18 08:25 (Albuterol Neb) 2.5 mg Q2HR NEB PRN INH 01/19/18 10:30 Miscellaneous Information 1 Q361D XX 01/19/18 10:30 (Chlorhexidine 2% Cloth) 3 pack Taper DAILY@04 TOP 01/20/18 04:00 01/16/19 03:59 01/21/18 03:54 (Chlorhexidine 2% Cloth) 3 pack UNSCH PRN TOP 01/19/18 10:30 (Kayley-Colace) 1 tab BID PO 01/19/18 21:00 01/20/18 08:57 (Milk Of Magnesia Liq) 30 ml Q12H PRN PO 01/19/18 10:30 (Senokot) 17.2 mg Q12H PRN PO 01/19/18 10:30 (Dulcolax Supp) 10 mg DAILY PRN RECTAL 01/19/18 10:30 (Lactulose Liq) 30 ml DAILY PRN PO 01/19/18 10:30 (Peridex 0.12% Liq) 15 ml BID@08,20 MT 01/19/18 20:00 01/20/18 20:00 Propofol 100 ml @ 2.4 mls/hr TITRATE PRN IV 01/19/18 10:30 Fentanyl Citrate 250 ml @ 5 mls/hr TITRATE PRN IV 01/19/18 10:30 01/21/18 06:01 (D50w (Vial) Inj) 50 ml UNSCH PRN IV PUSH 01/19/18 10:30 (Glucagon Inj) 1 mg UNSCH PRN OTHER 01/19/18 10:30 (NovoLIN R SUPPLEMENTAL SCALE) 1 Q6HR SQ 01/19/18 12:00 01/20/18 12:17 Pharmacy Profile Note 0 ml @ 0 mls/hr UNSCH OTHER 01/19/18 10:45 (Pravachol) 40 mg DAILY PO 01/20/18 09:00 01/20/18 08:57 (Heparin Inj) 5,000 units Q12HR SQ 01/19/18 21:00 01/20/18 21:00 (NS Flush) DAILY IV FLUSH 01/19/18 14:00 01/20/18 08:57 (NS Flush) UNSCH PRN IV FLUSH 01/19/18 14:00 Phenylephrine HCl 40 mg/Dextrose 500 ml @ 30 mls/hr TITRATE PRN IV 01/20/18 07:30 (Brethine Inj) 1 mg UNSCH PRN SQ 01/20/18 07:30 Piperacillin Sod/ Tazobactam Sod 50 ml @ 100 mls/hr Q6H IV 01/21/18 11:00 Family History Patient's mother at the age of 70 from complications related to CVA. Sister is with a history of seizures. Patient's father in 2002, unknown reason. . . Substance Use Tobacco: Previous smoker, quit 15 years ago Alcohol: Patient denies Prescription med abuse: Patient denies Illicits: Patient denies . Psychosocial History Patient was born in [facility]. She had 1 brother and 1 sister. Her sister is ; her brother lives in [place]. Patient states her father was a political prisoner in [place]. She moved to the [facility] when she was 17 years old with her daughter. She met her after moving to the [facility]. Together they had 2 additional children; son (Los) and daughter ( Elsy) both live locally. One child is . Patient was to her for approximately 30 years before he from complications related to EtOH consumption. He worked as a gordillo before his . 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 She currently lives with her son in her home in [place]. . Spiritual/Cultural Factors Religious tato . Health Care Surrogate: Copy in medical record Date completed: 10/04/2017 . Health Care Surrogate(s): Patient's son (Los) is designated as the healthcare surrogate decision maker. Daughter, Elsy, is designated as the alternate health care surrogate. . Documented care wishes: Health care surrogate designation form completed 09/24/2017. . Today's verbally stated goals: Patient is unable to verbalize medical tx goals. . Family/friends goals: Met with patient's eldest daughter, Paty, who expresses aggressive goals at this time. Tentative palliative care meeting tomorrow 01/22/2018 to clarify medical treatment goals. . Ethical and Legal Issues No known ethical or legal issues impacting care at this time. . Physical Exam Vital Signs Date Time Temp Pulse Resp B/P (MAP) Pulse Ox O2 Delivery O2 Flow Rate FiO2 01/21/18 08:25 96 40 01/21/18 06:00 65 01/21/18 04:00 97.8 70 17 132/58 (82) 96 124/58 (80) 01/21/18 04:00 70 01/21/18 04:00 45 01/21/18 03:57 100 40 01/21/18 02:00 67 01/21/18 01:16 96 40 01/21/18 00:00 97.7 74 16 121/49 (73) 98 88/60 (69) 01/21/18 00:00 74 01/21/18 00:00 45 01/20/18 22:29 96 45 01/20/18 22:00 63 01/20/18 20:45 64 116/56 (76) 126/55 (78) 01/20/18 20:00 71 01/20/18 20:00 97.7 71 16 117/55 (75) 94 74/60 (65) 01/20/18 20:00 45 01/20/18 19:58 94 45 01/20/18 18:21 62 83/58 01/20/18 18:00 62 01/20/18 18:00 62 17 115/58 (77) 95 80/56 (64) 01/20/18 17:00 64 16 127/60 (82) 97 82/58 (66) 01/20/18 16:00 45 01/20/18 16:00 63 22 120/57 (78) 96 75/53 (60) 01/20/18 16:00 63 01/20/18 15:26 97 45 01/20/18 15:00 60 16 85/62 (70) 97 01/20/18 14:00 60 17 119/56 (77) 97 91/64 (73) 01/20/18 14:00 60 01/20/18 13:16 60 92/65 01/20/18 13:00 67 25 96/66 (76) 96 01/20/18 12:00 98.0 60 17 77/57 (64) 96 01/20/18 12:00 60 01/20/18 12:00 50 01/20/18 11:27 97 45 01/20/18 11:00 59 19 118/58 (78) 97 93/63 (73) 01/20/18 10:00 61 01/20/18 10:00 61 17 116/58 (77) 97 90/62 (71) . Exam CONSTITUTIONAL/GENERAL: This is an adequately nourished, elderly female person in no acute distress TUBES/LINES/DRAINS: ETT, OG T, PIV 2, CVL, Bah catheter SKIN: No jaundice, rashes, or lesions. Ecchymoses on upper extremities. No wounds seen anteriorly. Skin temperature appropriate. Not diaphoretic. HEAD: Atraumatic. Normocephalic. EYES: Pupils equal and round and reactive. Extraocular motions intact. No scleral icterus. No injection or drainage. Fundi not examined. ENT: Hearing grossly normal. Nose without bleeding or purulent drainage. NECK: Trachea midline. Supple, nontender. No palpable thyroid enlargement or nodularity. CARDIOVASCULAR: Regular rate and ventricle bigeminy. No murmurs, gallops, or rubs. No JVD. Peripheral pulses symmetric. RESPIRATORY/CHEST: Intubated on mechanical ventilation. Clear to auscultation. Breath sounds equal bilaterally. No wheezes, rales, or rhonchi. GASTROINTESTINAL: Abdomen soft, non-tender, nondistended. No hepato-splenomegaly , or palpable masses. No guarding. Bowel sounds present. GENITOURINARY: Without palpable bladder distension. Bah catheter in place. MUSCULOSKELETAL: No obvious deformities. Extremities without clubbing, cyanosis or mottling. Trace edema in bilateral lower extremities. Extremities without clubbing, cyanosis, or edema. No joint tenderness or effusion noted. LYMPHATICS: No palpable cervical or supraclavicular adenopathy. NEUROLOGICAL: Opens eyes spontaneously. Follows some simple commands; squeezing with right hand and wiggling toes on her right foot requested to do so. Appears to shake/not head appropriately when asked questions. PSYCHIATRIC: No obvious anxiety/depression. no apparent hallucinations or other psychotic thought process. . . Diagnostic Tests Laboratory Laboratory Tests Test 01/19/18 08:35 01/19/18 08:40 01/19/18 09:02 01/19/18 11:05 Blood Urea Nitrogen 34 MG/DL (7-18) Creatinine 2.59 MG/DL (0.50-1.00) Random Glucose 139 MG/DL (74-106) Total Protein 7.5 GM/DL (6.4-8.2) Albumin 3.6 GM/DL (3.4-5.0) Calcium Level 10.0 MG/DL (8.5-10.1) Magnesium Level 1.9 MG/DL (1.5-2.5) Alkaline Phosphatase 72 U/L (45-117) Aspartate Amino Transf (AST/SGOT) 20 U/L (15-37) Alanine Aminotransferase (ALT/SGPT) 11 U/L (10-53) Total Bilirubin 0.9 MG/DL (0.2-1.0) Sodium Level 138 MEQ/L (136-145) Potassium Level 3.2 MEQ/L (3.5-5.1) Chloride Level 94 MEQ/L (98-107) Carbon Dioxide Level 30.5 MEQ/L (21.0-32.0) Anion Gap 14 MEQ/L (5-15) Estimat Glomerular Filtration Rate 18 ML/MIN (>89) Troponin I 0.09 NG/ML (0.02-0.05) Lipase 288 U/L (73-393) White Blood Count 20.3 TH/MM3 (4.0-11.0) Red Blood Count 4.55 MIL/MM3 (4.00-5.30) Hemoglobin 14.2 GM/DL (11.6-15.3) Hematocrit 41.9 % (35.0-46.0) Mean Corpuscular Volume 92.2 FL (80.0-100.0) Mean Corpuscular Hemoglobin 31.2 PG (27.0-34.0) Mean Corpuscular Hemoglobin Concent 33.8 % (32.0-36.0) Red Cell Distribution Width 13.1 % (11.6-17.2) Platelet Count 436 TH/MM3 (150-450) Mean Platelet Volume 8.9 FL (7.0-11.0) Neutrophils (%) (Auto) 77.0 % (16.0-70.0) Lymphocytes (%) (Auto) 14.8 % (9.0-44.0) Monocytes (%) (Auto) 7.9 % (0.0-8.0) Eosinophils (%) (Auto) 0.0 % (0.0-4.0) Basophils (%) (Auto) 0.3 % (0.0-2.0) Neutrophils # (Auto) 15.6 TH/MM3 (1.8-7.7) Lymphocytes # (Auto) 3.0 TH/MM3 (1.0-4.8) Monocytes # (Auto) 1.6 TH/MM3 (0-0.9) Eosinophils # (Auto) 0.0 TH/MM3 (0-0.4) Basophils # (Auto) 0.1 TH/MM3 (0-0.2) CBC Comment DIFF FINAL Differential Comment Prothrombin Time 10.6 SEC (9.8-11.6) Prothromb Time International Ratio 1.0 RATIO Lactic Acid Level 4.6 mmol/L (0.4-2.0) 2.5 mmol/L (0.4-2.0) Urine Color YELLOW (YELLW/STRAW) Urine Turbidity HAZY (CLEAR) Urine pH 5.5 (5.0-8.5) Urine Specific [place] 1.010 (1.002-1.035) Urine Protein TRACE mg/dL (NEG-TRACE) Urine Glucose (UA) NEG mg/dL (NEG) Urine Ketones NEG mg/dL (NEG) Urine Occult Blood NEG (NEG) Urine Nitrite NEG (NEG) Urine Bilirubin NEG (NEG) Urine Urobilinogen LESS THAN 2.0 MG/DL (LESS Urine Leukocyte Esterase TRACE (NEG) Urine RBC LESS THAN 1 /hpf (0-3) Urine WBC 1 /hpf (0-5) Urine Bacteria RARE /hpf (NONE) Microscopic Urinalysis Comment CATH-CULTURE IND Urine Eosinophils NONE SEEN /HPF (NONE SEEN) Urine Random Creatinine 86.4 MG/DL Urine Random Sodium 43 MEQ/L Test 01/19/18 11:15 01/19/18 14:48 01/19/18 21:10 01/20/18 01:30 Blood Gas Puncture Site RT RADIAL Blood Gas Patient Temperature 98.6 Blood Gas HCO3 24 mmol/L (22-26) Blood Gas Base Excess 0.3 mmol/L (-2-2) Blood Gas Oxygen Saturation 98 % (90-100) Arterial Blood pH 7.44 (7.380-7.420) Arterial Blood Partial Pressure CO2 36 mmHg (38-42) Arterial Blood Partial Pressure O2 176 mmHG (61-120) Arterial Blood Oxygen Content 17.6 Vol % (12.0-20.0) Arterial Blood Carboxyhemoglobin 0.8 % (0-4) Arterial Blood Methemoglobin 0.6 % (0-2) Blood Gas Hemoglobin 12.6 G/DL (12.0-16.0) Oxygen Delivery Device VENTILATOR Blood Gas Ventilator Setting PRVC/AC Blood Gas Inspired Oxygen 100 % Lactic Acid Level 1.6 mmol/L (0.4-2.0) 1.3 mmol/L (0.4-2.0) 1.7 mmol/L (0.4-2.0) Troponin I 0.80 NG/ML (0.02-0.05) 0.77 NG/ML (0.02-0.05) Thyroid Stimulating Hormone 3rd Gen 0.195 uIU/ML (0.358-3.740) Nasal Screen MRSA (PCR) MRSA NOT DETECTED (NOT Test 01/20/18 04:20 01/20/18 12:30 01/20/18 17:52 01/21/18 05:55 White Blood Count 19.8 TH/MM3 (4.0-11.0) 17.0 TH/MM3 (4.0-11.0) Red Blood Count 4.11 MIL/MM3 (4.00-5.30) 3.58 MIL/MM3 (4.00-5.30) Hemoglobin 12.7 GM/DL (11.6-15.3) 10.9 GM/DL (11.6-15.3) Hematocrit 37.1 % (35.0-46.0) 32.5 % (35.0-46.0) Mean Corpuscular Volume 90.4 FL (80.0-100.0) 90.8 FL (80.0-100.0) Mean Corpuscular Hemoglobin 31.0 PG (27.0-34.0) 30.5 PG (27.0-34.0) Mean Corpuscular Hemoglobin Concent 34.3 % (32.0-36.0) 33.6 % (32.0-36.0) Red Cell Distribution Width 13.4 % (11.6-17.2) 13.3 % (11.6-17.2) Platelet Count 411 TH/MM3 (150-450) 353 TH/MM3 (150-450) Mean Platelet Volume 8.7 FL (7.0-11.0) 8.7 FL (7.0-11.0) Neutrophils (%) (Auto) 91.2 % (16.0-70.0) 81.8 % (16.0-70.0) Lymphocytes (%) (Auto) 3.7 % (9.0-44.0) 9.9 % (9.0-44.0) Monocytes (%) (Auto) 4.8 % (0.0-8.0) 8.1 % (0.0-8.0) Eosinophils (%) (Auto) 0.1 % (0.0-4.0) 0.0 % (0.0-4.0) Basophils (%) (Auto) 0.2 % (0.0-2.0) 0.2 % (0.0-2.0) Neutrophils # (Auto) 18.1 TH/MM3 (1.8-7.7) 13.9 TH/MM3 (1.8-7.7) Lymphocytes # (Auto) 0.7 TH/MM3 (1.0-4.8) 1.7 TH/MM3 (1.0-4.8) Monocytes # (Auto) 1.0 TH/MM3 (0-0.9) 1.4 TH/MM3 (0-0.9) Eosinophils # (Auto) 0.0 TH/MM3 (0-0.4) 0.0 TH/MM3 (0-0.4) Basophils # (Auto) 0.0 TH/MM3 (0-0.2) 0.0 TH/MM3 (0-0.2) CBC Comment AUTO DIFF DIFF FINAL Differential Total Cells Counted 100 Neutrophils % (Manual) 75 % (16-70) Band Neutrophils % 13 % (0-6) Lymphocytes % 5 % (9-44) Monocytes % 7 % (0-8) Neutrophils # (Manual) 17.4 TH/MM3 (1.8-7.7) Differential Comment FINAL DIFF MANUAL Platelet Estimate NORMAL (NORMAL) Platelet Morphology Comment NORMAL (NORMAL) Red Cell Morphology Comment NORMAL (NORMAL) Prothrombin Time 12.2 SEC (9.8-11.6) Prothromb Time International Ratio 1.2 RATIO Activated Partial Thromboplast Time 25.5 SEC (24.3-30.1) Fibrinogen 465 mg/dL (227-377) Blood Urea Nitrogen 27 MG/DL (7-18) 17 MG/DL (7-18) Creatinine 1.47 MG/DL (0.50-1.00) 0.96 MG/DL (0.50-1.00) Random Glucose 278 MG/DL (74-106) 121 MG/DL (74-106) Total Protein 6.2 GM/DL (6.4-8.2) 5.5 GM/DL (6.4-8.2) Albumin 2.6 GM/DL (3.4-5.0) 2.2 GM/DL (3.4-5.0) Calcium Level 8.2 MG/DL (8.5-10.1) 7.5 MG/DL (8.5-10.1) Phosphorus Level 3.1 MG/DL (2.5-4.9) 1.4 MG/DL (2.5-4.9) Magnesium Level 1.7 MG/DL (1.5-2.5) 1.6 MG/DL (1.5-2.5) Alkaline Phosphatase 56 U/L (45-117) 55 U/L (45-117) Aspartate Amino Transf (AST/SGOT) 43 U/L (15-37) 24 U/L (15-37) Alanine Aminotransferase (ALT/SGPT) 18 U/L (10-53) 22 U/L (10-53) Total Bilirubin 0.9 MG/DL (0.2-1.0) 0.4 MG/DL (0.2-1.0) Sodium Level 140 MEQ/L (136-145) 142 MEQ/L (136-145) Potassium Level 2.5 MEQ/L (3.5-5.1) 3.1 MEQ/L (3.5-5.1) 3.4 MEQ/L (3.5-5.1) 3.0 MEQ/L (3.5-5.1) Chloride Level 103 MEQ/L (98-107) 108 MEQ/L (98-107) Carbon Dioxide Level 27.1 MEQ/L (21.0-32.0) 27.6 MEQ/L (21.0-32.0) Anion Gap 10 MEQ/L (5-15) 6 MEQ/L (5-15) Estimat Glomerular Filtration Rate 34 ML/MIN (>89) 56 ML/MIN (>89) Lactic Acid Level 2.0 mmol/L (0.4-2.0) Ammonia 16 MCMOL/L (11-32) Total Creatine Kinase 519 U/L (26-192) Creatine Kinase MB 8.3 NG/ML (0.5-3.6) Creatine Kinase MB % 1.6 % (0.0-4.0) Triglycerides Level 116 MG/DL (42-150) Cholesterol Level 131 MG/DL (120-200) LDL Cholesterol 67 MG/DL (0-99) HDL Cholesterol 41.3 MG/DL (40.0-60.0) Cholesterol/HDL Ratio 3.17 RATIO Amylase Level 38 U/L (25-115) Lipase 112 U/L (73-393) Random Vancomycin Level 6.8 COMMENT 12.9 COMMENT . Result Diagram: 01/21/18 0555 01/21/18 0555 Microbiology Microbiology Date/Time Source Procedure Growth Status 01/19/18 08:40 Blood Peripheral Aerobic Blood Culture - Preliminary NO GROWTH IN 1 DAY Resulted 01/19/18 08:40 Blood Peripheral Anaerobic Blood Culture - Preliminary NO GROWTH IN 1 DAY Resulted 01/19/18 08:35 Blood Peripheral Aerobic Blood Culture - Preliminary NO GROWTH IN 1 DAY Resulted 01/19/18 08:35 Blood Peripheral Anaerobic Blood Culture - Preliminary NO GROWTH IN 1 DAY Resulted 01/20/18 00:45 Nasal Aspirate Influenza Types A,B Antigen (MAKAYLA) - Final NEGATIVE FOR FLU A AND B ANTIGEN.... Complete 01/19/18 12:09 Sputum Endotracheal Gram Stain - Final Resulted 01/19/18 12:09 Sputum Endotracheal Sputum Culture - Preliminary LIGHT GROWTH NORMAL RESPIRATORY HO... Resulted 01/19/18 09:02 Urine Catheterized Urine Legionella Antigen - Final PRESUMPTIVE NEGATIVE FOR LEGIONELLA P... Complete 01/19/18 09:02 Streptococcus pneumoniae Antigen (M - Final Pos For Pneumococcal Antigen Complete 01/19/18 09:02 Urine Catheterized Urine Urine Culture - Preliminary IMMATURE GROWTH - REINCUBATE Resulted . Imaging Last 72 hours Impressions Chest X-Ray 01/21/18 0600 Signed Impressions: Service Date/Time: Sunday, January 21, 2018 03:47 - CONCLUSION: Stable chest x-ray with underinflation and bilateral basilar air space opacities representing either atelectasis or consolidation. Sung Fernandez MD Chest X-Ray 01/20/18 0600 Signed Impressions: Service Date/Time: Saturday, January 20, 2018 02:52 - CONCLUSION: Bilateral medial lower lung infiltrates. Oneil Hernandez MD Chest X-Ray 01/19/18 1347 Signed Impressions: Service Date/Time: Friday, January 19, 2018 13:55 - CONCLUSION: Line in good position of pneumothorax Increasing parenchymal changes right base Los Chau MD FACR Head CT 01/19/18 0836 Signed Impressions: Service Date/Time: Friday, January 19, 2018 10:12 - CONCLUSION: 1. No acute intracranial abnormality. 2. Atrophy and chronic small vessel ischemic change. 3. Paranasal sinus disease. Oneil Bills Jr., MD Chest X-Ray 01/19/18 0836 Signed Impressions: Service Date/Time: Friday, January 19, 2018 09:05 - CONCLUSION: ET tube in good position. Lungs are grossly clear. Jameel Baldwin MD Renal Ultrasound 01/19/18 0000 Signed Impressions: Service Date/Time: Friday, January 19, 2018 10:45 - CONCLUSION: Normal examination. Jameel Baldwin MD . Procedures 01/19/2018: Intubation 01/19/2018: NGT placement 01/19/2018: Left IJ central line placement . Patient/Family Conference Present at Family Conference: Met with patient's daughter, Paty, at bedside and in the conference room. Attempting to coordinate palliative care meeting with 3 adult children tomorrow 01/22/2018. . Family Conference Location: Bedside, Consult Room Issues Discussed: * Palliative care role, purpose, approach * Additional medical, psychosocial, and spiritual history * Patients general health, functional status, and cognitive changes in the months leading up to the current hospitalization * Patient/family understanding of the current medical problems * Patient/family understanding of prognosis * Patients goals of care as best understood from advance directives and/or conversations and/or values * Current medical treatment options and benefits/burdens of those options * Likely scenarios comparing ongoing aggressive care with a transition to comfort measures only * Questions answered to the best of my ability * Palliative care contact information provided . Assessment and Plan Disease Oriented Problem List: (1) Coronary artery disease (2) Septic shock (3) History of CVA (cerebrovascular accident) (4) History of myocardial infarction (5) Acute renal failure (6) Sepsis (7) Leukocytosis (8) Chronic constipation (9) COPD (chronic obstructive pulmonary disease) (10) Acute hypoxemic respiratory failure (11) Chronic pain syndrome (12) Toxic metabolic encephalopathy Symptom Scale: (1) Dyspnea (2) Confusion (3) Pain Pertinent Non-Medical Issues Psychosocial: Patient was born in [facility]. She had 1 brother and 1 sister. Her sister is ; her brother lives in [place]. Patient states her father was a political prisoner in [place]. She moved to the [place] when she was 17 years old with her daughter. She met her after moving to the [facility]. Together they had 2 addition children; son (Los) and daughter ( Elsy) both live locally. Patient was to her for approximately 30 years before he from complications related to EtOH consumption. He worked as a gordillo before his . 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 She currently lives with her son in her home in [place]. Spiritual: Religious tato Legal: [facility] designation form completed 09/24/2017. Patient's son (Los) is designated as the healthcare surrogate decision maker. Daughter, Elsy, is designated as the alternate health care surrogate. Ethical issues impacting care: No known ethical issues impacting care . Important Contacts Elsy Corona, daughter: [phone] Jameel Baum, son: [phone] . Prognosis Patient is a 77-year-old female with multiple comorbid conditions who was admitted with hypoxia and sepsis. Patient's family reporting an acute decline in recent months as evidenced by increased confusion, weakness and poor nutritional intake. Patient son states the patient wants to stay in bed all the time and is sleeping more often. Patient is at risk for further decline given her age, complex medical condition and overall poor functional status. . Code Status: Full Code Plan * FULL CODE * Decision-making: [facility] designation form completed 09/24/2017. Patient's son ( Los) is designated as the healthcare surrogate decision maker. Daughter, Elsy, is designated as the alternate health care surrogate. * Goals are aggressive * [facility] although the reason for this is unclear. Patient's children can not tell me the patient's primary hospice diagnosis either. Patient previously stated she was on hospice because it is a better option than her previous insurance and they pay for her medication. Will need to ensure patient and her family understand hospice philosophy and that her medical treatment goals are hospice appropriate. * Hospice was discussed with patient's daughterPaty. Tentative plan for palliative care to meet with patient's family tomorrow when all 3 children can be present. Hospice will follow up with palliative care after the family meeting. * Discussed this patient with Dr. Goldberg and bedside nurse, Jenna. * Palliative care contact information provided to the patient. * Symptom management: = Dyspnea: Patient tolerating CPAP trials this morning. Follow-up chest x-ray 01/21/17 was stable with underinflation and bilateral basilar airspace opacities representing either atelectasis or consolidation. Receiving scheduled and PRN albuterol nebulizers. * Palliative care will continue to follow this patient throughout her hospitalization to establish trust, assist with symptom management and clarification of medical treatment goals. Thank you for the opportunity to participate in the care of Ms. Baum. . Attestation To help prompt me to consider important information that might be impacting today's encounter and assessment, information from prior notes written by myself or my colleagues may have been "brought forward" into today's note. My signature on this note, however, is an attestation that I personally performed the exam, history, and/or decision-making noted today, and, unless otherwise indicated, the interactions with patient, family, and staff as well as the review of records all occurred today. I also attest that the listed assessment and stated plan reflect my best clinical judgment today based on the combination of historical information, prior notes, and today's exam/ interactions. When time spent is documented, it refers only to time spent today by the signer, or if indicated, combined time spent today by collaborating physician/nurse practitioner. . Annie Shukla Jan 21, 2018 09:46
[2018-01-21] MEDS: PRAVASTATIN SOD 40 MG TAB PO SCH (10:15)
[2018-01-21] MEDS: DOCUSATE SODIUM 50 MG/SENNA 8.6 MG TAB PO SCH ×2 (10:16→20:18)
[2018-01-21] MEDS: HEPARIN SODIUM - SQ 10,000 UNITS/ML VIAL SQ SCH ×2 (10:17→20:17)
[2018-01-21] MEDS: FAMOTIDINE 20 MG/2 ML VIAL IV PUSH SCH ×2 (10:17→20:18)
[2018-01-21] MEDS: PIPERACIL-TAZO 3.375 GM PREMIX 50 ML IV SCH ×3 (10:17→23:00)
[2018-01-21] MEDS: ARTIFICIAL TEARS OPTH SOLN 15 ML BTL EACH EYE SCH ×3 (10:19→18:47)
--- NOTE | 2018-01-21 10:29 | HHI.CCPN ---
Subjective Remarks/Hospital Course This is a 77-year-old female. Date of admission 01/19/2018 medical history includes CVA involving the left caudate, adjustment disorder, hypertension with insulin, chronic pain syndrome on chronic in the past clinic notes for coronary disease and COPD. Patient was previously on hospice which was rescinded by the son today. Hospice nurse evaluated this patient this morning and found the patient to be unresponsive and called 911. Patient lives with her son and apparently the son did not know regarding her history either. Fentanyl patch was removed and received 0.4 mg naltrexone. As per EMS radio report patient's GCS improved from 7-15. Initial blood pressure was 70 palp systolic. Patient had received some fluid which improved the blood pressure to 108 prior to their arrival as per EMS. MBS reportedly was within normal limits. When patient arrived to the emergency room patient became unresponsive.. Blood pressure was in the 90s systolic with manual cuff. As per the hospice nurse to the paramedics patient is a full code. Her rectal temperature was 100.4 upon arrival. Patient was intubated using 20 mg etomidate and 100 mg succinylcholine. Chest x -ray revealed no acute cardiopulmonary findings. Head CT revealed old left caudate CVA/lacunar and bilateral basal gland calcification otherwise unremarkable. Patient does have a urinary tract infection. Leukocytosis 20, 000. Lactate of 4.6. Troponin 0 0.09 with old Q waves in inferior leads. We are asked to admit Subjective: 01/20: Patient noted to be hypokalemic 2.5, with noted ventricular bigeminy. Potassium being repleted. Noted to have spontaneous eye opening, currently not following any commands. Results revealed yesterday strep pneumococcal pneumonia antibiotics initiated. EEG ordered, results pending. 01/21: Tmax 101.6 . The patient continues on antibiotics leukocytosis resolving . Levodopa carbidopa resumed this a.m..The patient continues to have electrolyte derangement, currently being repleted. [facility] consult initiated per request of family. Objective Vital Signs Date Time Temp Pulse Resp B/P (MAP) Pulse Ox O2 Delivery O2 Flow Rate FiO2 01/21/18 08:25 96 40 01/21/18 06:00 65 01/21/18 04:00 97.8 17 132/58 (82) 124/58 (80) 01/19/18 12:05 Ventilator Intake and Output 01/21/18 01/21/18 01/21/18 07:59 15:59 23:59 Intake Total 300 ml Output Total 585 ml Balance -285 ml Result Diagram: 01/21/18 0555 01/21/18 0555 Other Results Microbiology Date/Time Source Procedure Growth Status 01/20/18 00:45 Nasal Aspirate Influenza Types A,B Antigen (MAKAYLA) - Final NEGATIVE FOR FLU A AND B ANTIGEN.... Complete 01/19/18 09:02 Urine Catheterized Urine Legionella Antigen - Final PRESUMPTIVE NEGATIVE FOR LEGIONELLA P... Complete 01/19/18 09:02 Streptococcus pneumoniae Antigen (M - Final Pos For Pneumococcal Antigen Complete Imaging Last Impressions Chest X-Ray 01/20/18 0600 Signed Impressions: Service Date/Time: Saturday, January 20, 2018 02:52 - CONCLUSION: Bilateral medial lower lung infiltrates. Oneil Hernandez MD Head CT 01/19/18835 Signed Impressions: Service Date/Time: Friday, January 19, 2018 10:12 - CONCLUSION: 1. No acute intracranial abnormality. 2. Atrophy and chronic small vessel ischemic change. 3. Paranasal sinus disease. Oneil Bills Jr., MD Renal Ultrasound 01/19/18 0000 Signed Impressions: Service Date/Time: Friday, January 19, 2018 10:45 - CONCLUSION: Normal examination. Jameel Baldwin MD Last Impressions Head CT 01/19/18835 Signed Impressions: Service Date/Time: Friday, January 19, 2018 10:12 - CONCLUSION: 1. No acute intracranial abnormality. 2. Atrophy and chronic small vessel ischemic change. 3. Paranasal sinus disease. Oneil Bills Jr., MD Chest X-Ray 01/19/18835 Signed Impressions: Service Date/Time: Friday, January 19, 2018 09:05 - CONCLUSION: ET tube in good position. Lungs are grossly clear. Jameel Baldwin MD Renal Ultrasound 01/19/18 0000 Signed Impressions: Service Date/Time: Friday, January 19, 2018 10:45 - CONCLUSION: Normal examination. Jameel Baldwin MD Objective Remarks GENERAL: 77-year-old female currently orotracheally intubated , spontaneous eye opening no tracking SKIN: Warm and dry. No mottling. Well-perfused HEAD: Atraumatic. Normocephalic. EYES: Pupils equal and round around 3 mm bilaterally and reactive. No scleral icterus. No injection or drainage. ENT: No nasal bleeding or discharge. Mucous membranes pink and moist. NECK: Trachea midline. No JVD. CARDIOVASCULAR: Regular rate and ventricular bigeminy. S1, S2. No S4. Without murmur RESPIRATORY: Clear to auscultation. Breath sounds equal bilaterally. GASTROINTESTINAL: Abdomen soft, non-tender, nondistended. Hepatic and splenic margins not palpable. MUSCULOSKELETAL: Extremities with trace bilateral lower extremity edema. No obvious deformities. NEUROLOGICAL: RASS -2.Spontaneous eye opening. Sedation currently off not following commands. Withdraws to all 4 extremities. Upward toes. Positive gag and corneal reflex. Positive cough. A/P Assessment and Plan Neuro/Psych: Acute toxic metabolic encephalopathy History of CVA -with adjustment disorder Depression/anxiety Chronic pain syndrome -chronic narcotic use Patient is currently on fentanyl infusion for sedation/analgesia while intubated Goal RASS -[address] brain 01/19 revealed no acute intracranial findings. Old left carried CV and bilateral basal cranial calcifications. 3/ carbidopa/levodopa 25/100 tablet every 8 hours, resumed Holding gabapentin 300 mg p.o. twice daily and fluoxetine 20 mg daily buspirone 30 mg twice daily Check MRI brain if no neurological improvement 01/20 EEG ordered - moderate slowing versus encephalopathic effect CV: Septic shock History of hypertension Dyslipidemia Nonobstructive coronary disease -cardiac catheterization 2011 revealed EF 80% nonobstructive coronary disease Ventricular bigeminy secondary to severe hypokalemia-resolved Holding lovastatin 40 mg p.o. daily for dyslipidemia. Resume clinically indicated Holding lisinopril 20 mg p.o. daily in light of acute kidney injury Holding amlodipine 10 mg p.o. daily light of hypertension Currently on normal saline at 84 cc an hour. Received 2 L bolus in the ED Vasopressors if indicated to maintain mean atrial pressure greater than 65 Cardiac markers every 8 hours 3. Initially 0.09. Likely type II non-STEMI. Hypoperfusion from severe septic shock 01/19 2D echocardiogram- EF 55-60%,,mod TR, PAP 29, moderate annular calcifications EKG revealed heart rate of 84. Normal ME, QRS and QT intervals. Inferior Q waves. Nonspecific in acute lateral ST changes. Resp: Acute hypoxemic respiratory failure History of COPD PRVC 16/500/50 Ventilator bundle Albuterol/ipratropium aerosols every 6 hours albuterol aerosols every 2 hours. Dyspnea Spontaneous breathing trials when clinically indicated ABG and chest x-ray as clinically indicated Positive for pneumococcal antigen- antibiotics see below GI: Chronic constipation Hypoalbuminemia Continue NGT to LIWS Obtain dietary consult for tube feeds Famotidine for GI prophylaxis Docusate sodium/senna 1 tablet twice daily for bowel regimen. Patient is docusate sodium/senna 1 tablet twice daily at home : Bah catheter has been placed for accurate I's and O's in a critical patient Endo: Hyperglycemia Chronic prednisone use 10 mg daily Sliding scale insulin with Novulin R to maintain euglycemia/low regimen Check TSH Started on hydrocortisone 100 mg IV every 8 hours with history of chronic prednisone use. Renal: Acute kidney injury Baseline creatinine within normal limits. Resolving 2.6-> 1.4 Check urine eosinophils and electrolytes Renal ultrasound pending Heme: Leukocytosis Monitor CBC daily. Follow trend ID: Severe sepsis Pneumococcal pneumonia Vancomycin, ampicillin/tazobactam ordered day #3 Blood cultures 2, UA and sputum are pending. Influenza, urine Legionella- negative 3/3 Pneumococcal antigens positive FEN: Electrolyte derangement Currently hypokalemia, hypophosphatemia, as well as low magnesia-repletion per ICU protocol MSK: PT evaluate and treat Access: -Utilize peripheral IV. Central if indicated Prophylaxis -GI -famotidine -DVT -SCD/heparin SQ Critical Care: my billing statement This patient remains critically ill with one or more organ systems which are or may become a threat to life. I have spent in excess of 33 minutes discontinuously in the care and management of this patient. This time is exclusive of procedures, and includes, but is not limited to, evaluation of the patient, review of the medical record, discussions with family, consultants, nursing staff, or respiratory therapy, and documentation in the medical record. D/W case management and [employer] at bedside (Jenna), requesting [facility] be consulted at this time. All questions answered Palliative care has been consulted recommendations pending [facility] consulted recommendations pending Physician Samreen Schulte MD Jan 21, 2018 10:29
[2018-01-21] MEDS: CARBIDOPA/LEVODOPA 25 MG/100 MG TAB PO SCH ×3 (10:36→20:19)
[2018-01-21] MEDS: CHLORHEXIDINE 0.12% (ORAL KIT) 15 ML CUP MT SCH ×2 (10:37→20:00)
[2018-01-21] MEDS ORDERED: ICU - MAGNESIUM SULFATE 4 GM/NS 100 ML IV PRN ×2 (11:30)
[2018-01-21] MEDS ORDERED: ICU - CALL ORDERING PHYSICIAN PRN (11:30)
[2018-01-21] MEDS ORDERED: ICU - MAGNESIUM OXIDE 400 MG TAB PO PRN (11:30)
[2018-01-21] MEDS ORDERED: ICU - SODIUM PHOSPHATE 30 MMOL/NS 250 ML IV PRN ×2 (11:30)
[2018-01-21] MEDS ORDERED: POTASSIUM CHLORIDE 25 MEQ EFFERVESCENT TAB PO PRN (11:30)
[2018-01-21] MEDS ORDERED: ICU - POTASSIUM PHOSPHATE MONOBASIC 500 MG TAB PO PRN (11:30)
[2018-01-21] MEDS: ICU - MAGNESIUM SULFATE 2 GM/NS 100 ML IV PRN ×2 (12:36)
[2018-01-21] MEDS: VANCOMYCIN INJ 1,250 MG in SODIUM CHLOR 0.9% 250 ML INJ 250 ML IV SCH (12:36)
[2018-01-21] MEDS: ICU - POTASSIUM PHOSPHATE 30 MMOL/NS 250 ML IV PRN ×2 (12:37)
[2018-01-21] MEDS: SODIUM CHLOR 0.9% 1000 ML INJ 1,000 ML IV SCH (12:43)
--- NOTE | 2018-01-21 13:16 | MG ---
cc: Omayra Henderson MD ELECTROENCEPHALOGRAM NUMBER: [id number] REFERRING: Young. ROOM: 505, intubated. SEDATION: Fentanyl 250 micrograms. DESCRIPTION: Following commands when asked. Repeat EEG, CT, shows atrophy. EEG 33 showed mild to moderate slowing. [id number]-old woman in hospice nursing. Hospice nurse found her unresponsive on pain medication, currently on Fentanyl, antibiotics and others per description of record. The patient has some background slowing, predominantly of 3-4 hertz. There is a lot of muscle artifact, but still diffuse slowing seen bilaterally. ECHOCARDIOGRAM:ECHOCARDIOGRAM: Difficult to tell if it is true sinus or not. PHOTIC STIMULATION: No significant driving response. IMPRESSION: Abnormal EEG due to moderate slowing still noted, without any epileptic activity, consistent with encephalopathic process. Clinical correlation. MD HOSSEIN Culp/XIMENA , 06:49 PM , 07:26 PM
[2018-01-21] MEDS: ONDANSETRON HCL 4 MG/2 ML VIAL IV PUSH PRN (20:16)
[2018-01-22] VITALS (14 sets, daily range): BP systolic 131–164; BP diastolic 58–73; PULSE 75–99; RESP 16–18; TEMP 98.6–99.1; O2SAT 91–97
[2018-01-22] MEDS: RESP: ALBUTEROL 2.5 MG/IPRATROPIUM 0.5 MG NEB (SCH) INH ×6 (03:30→23:28)
[2018-01-22] MEDS: HYDROCORTISONE SOD SUCCINATE 100 MG VIAL IV PUSH SCH ×3 (04:00→21:57)
[2018-01-22] MEDS: CHLORHEXIDINE GLUCONATE 2 % 1 PACK (2 CLOTHS) TOP SCH (04:00)
[2018-01-22] MEDS: PIPERACIL-TAZO 3.375 GM PREMIX 50 ML IV SCH ×4 (05:00→21:56)
[2018-01-22] MEDS: INSULIN NovoLIN REGULAR SUPPLEMENTAL SCALE SQ SCH ×4 (06:00→18:00)
[2018-01-22] MEDS: CARBIDOPA/LEVODOPA 25 MG/100 MG TAB PO SCH ×2 (06:00→13:07)
[2018-01-22] MEDS: FAMOTIDINE 20 MG/2 ML VIAL IV PUSH SCH ×2 (07:52→21:56)
[2018-01-22] MEDS: HEPARIN SODIUM - SQ 10,000 UNITS/ML VIAL SQ SCH ×2 (07:52→21:57)
[2018-01-22] MEDS: PRAVASTATIN SOD 40 MG TAB PO SCH (07:52)
[2018-01-22] MEDS: SODIUM CHLORIDE 0.9% FLUSH 10 ML FLUSH IV FLUSH SCH ×3 (07:54→21:57)
[2018-01-22] MEDS: CHLORHEXIDINE 0.12% (ORAL KIT) 15 ML CUP MT SCH ×2 (07:55→20:00)
[2018-01-22] MEDS: ARTIFICIAL TEARS OPTH SOLN 15 ML BTL EACH EYE SCH ×2 (07:56→12:23)
[2018-01-22] MEDS: DOCUSATE SODIUM 50 MG/SENNA 8.6 MG TAB PO SCH ×2 (08:36→21:00)
[2018-01-22 09:33] LABS: ALBUMIN 2.2 GM/DL (3.4-5.0); BICARBONATE 26.9 MEQ/L (21.0-32.0); CALCIUM 7.3 MG/DL (8.5-10.1); CALCIUM-PROTEIN CORRECTED 8.1 MG/DL (8.5-10.1); CREATININE 0.71 MG/DL (0.50-1.00); TOTAL BILIRUBIN ADULT 0.5 MG/DL (0.2-1.0); TOTAL PROTEIN 5.6 GM/DL (6.4-8.2)
[2018-01-22] MEDS ORDERED: POTASSIUM CHLORIDE 25 MEQ EFFERVESCENT TAB PO ONE (10:15)
[2018-01-22] MEDS: ICU - POTASSIUM CHLORIDE/AQUEOUS SOLN 40 MEQ/100 ML IVPB IV PRN ×2 (10:56→12:21)
[2018-01-22] MEDS ORDERED: PHARMACY ORDERED LAB ONE (11:45)
[2018-01-22] MEDS ORDERED: ALTEPLASE RECOMBINANT 2 MG VIAL INTRACATH ONE (13:00)
[2018-01-22 13:22] LABS: MAGNESIUM 1.8 MG/DL (1.5-2.5); PHOSPHORUS 1.3 MG/DL (2.5-4.9)
--- NOTE | 2018-01-22 13:28 | HHI.CCPN ---
Subjective Remarks/Hospital Course This is a 77-year-old female. Date of admission 01/19/2018 medical history includes CVA involving the left caudate, adjustment disorder, hypertension with insulin, chronic pain syndrome on chronic in the past clinic notes for coronary disease and COPD. Patient was previously on hospice which was rescinded by the son today. Hospice nurse evaluated this patient this morning and found the patient to be unresponsive and called 911. Patient lives with her son and apparently the son did not know regarding her history either. Fentanyl patch was removed and received 0.4 mg naltrexone. As per EMS radio report patient's GCS improved from 7-15. Initial blood pressure was 70 palp systolic. Patient had received some fluid which improved the blood pressure to 108 prior to their arrival as per EMS. MBS reportedly was within normal limits. When patient arrived to the emergency room patient became unresponsive.. Blood pressure was in the 90s systolic with manual cuff. As per the hospice nurse to the paramedics patient is a full code. Her rectal temperature was 100.4 upon arrival. Patient was intubated using 20 mg etomidate and 100 mg succinylcholine. Chest x -ray revealed no acute cardiopulmonary findings. Head CT revealed old left caudate CVA/lacunar and bilateral basal gland calcification otherwise unremarkable. Patient does have a urinary tract infection. Leukocytosis 20, 000. Lactate of 4.6. Troponin 0 0.09 with old Q waves in inferior leads. We are asked to admit Subjective: 01/20: Patient noted to be hypokalemic 2.5, with noted ventricular bigeminy. Potassium being repleted. Noted to have spontaneous eye opening, currently not following any commands. Results revealed yesterday strep pneumococcal pneumonia antibiotics initiated. EEG ordered, results pending. 01/21: Tmax 101.6 . The patient continues on antibiotics leukocytosis resolving . Levodopa carbidopa resumed this a.m..The patient continues to have electrolyte derangement, currently being repleted. [facility] consult initiated per request of family. 01/22: Sedation remained off most of day yesterday to assess neurological status. The patient self extubated. Decreasing FiO2 requirements throughout the night. Patient remains on O2 2 L via nasal cannula. Formal swallow evaluation performed which was successful the patient was placed on a pured diet locations resumed to include Cymbalta,Buspirone and extended release potassium 10 meq. Vasopressors have been discontinued the patient remained normotensive throughout the night. Meeting scheduled today with palliative care and family. Objective Vital Signs Date Time Temp Pulse Resp B/P (MAP) Pulse Ox O2 Delivery O2 Flow Rate FiO2 01/22/18 12:00 99.1 99 16 164/73 (103) 97 01/22/18 07:36 Nasal Cannula 4.00 01/21/18 16:00 40 Intake and Output 01/22/18 01/22/18 01/23/18 08:00 16:00 00:00 Intake Total 50 ml Output Total 685 ml 75 ml Balance -635 ml -75 ml Result Diagram: 01/21/18 0555 01/22/18 0825 Other Results Microbiology Date/Time Source Procedure Growth Status 01/20/18 00:45 Nasal Aspirate Influenza Types A,B Antigen (MAKAYLA) - Final NEGATIVE FOR FLU A AND B ANTIGEN.... Complete Imaging Last Impressions Chest X-Ray 01/21/18599 Signed Impressions: Service Date/Time: Sunday, January 21, 2018 03:47 - CONCLUSION: Stable chest x-ray with underinflation and bilateral basilar air space opacities representing either atelectasis or consolidation. Sung Fernandez MD Head CT 01/19/18835 Signed Impressions: Service Date/Time: Friday, January 19, 2018 10:12 - CONCLUSION: 1. No acute intracranial abnormality. 2. Atrophy and chronic small vessel ischemic change. 3. Paranasal sinus disease. Oneil Bills Jr., MD Renal Ultrasound 01/19/18 Signed Impressions: Service Date/Time: Friday, January 19, 2018 10:45 - CONCLUSION: Normal examination. Jameel Baldwin MD Last Impressions Chest X-Ray 01/20/18599 Signed Impressions: Service Date/Time: Saturday, January 20, 2018 02:52 - CONCLUSION: Bilateral medial lower lung infiltrates. Oneil Hernandez MD Head CT 01/19/18835 Signed Impressions: Service Date/Time: Friday, January 19, 2018 10:12 - CONCLUSION: 1. No acute intracranial abnormality. 2. Atrophy and chronic small vessel ischemic change. 3. Paranasal sinus disease. Oneil Bills Jr., MD Renal Ultrasound 01/19/18 0000 Signed Impressions: Service Date/Time: Friday, January 19, 2018 10:45 - CONCLUSION: Normal examination. Jameel Baldwin MD Last Impressions Head CT 01/19/18 0836 Signed Impressions: Service Date/Time: Friday, January 19, 2018 10:12 - CONCLUSION: 1. No acute intracranial abnormality. 2. Atrophy and chronic small vessel ischemic change. 3. Paranasal sinus disease. Oneil Bills Jr., MD Chest X-Ray 01/19/18 0836 Signed Impressions: Service Date/Time: Friday, January 19, 2018 09:05 - CONCLUSION: ET tube in good position. Lungs are grossly clear. Jameel Baldwin MD Renal Ultrasound 01/19/18 0000 Signed Impressions: Service Date/Time: Friday, January 19, 2018 10:45 - CONCLUSION: Normal examination. Jameel Baldwin MD Objective Remarks GENERAL: 77-year-old female currently orotracheally intubated , spontaneous eye opening no tracking SKIN: Warm and dry. No mottling. Well-perfused HEAD: Atraumatic. Normocephalic. EYES: Pupils equal and round around 3 mm bilaterally and reactive. No scleral icterus. No injection or drainage. ENT: No nasal bleeding or discharge. Mucous membranes pink and moist. NECK: Trachea midline. No JVD. CARDIOVASCULAR: Regular rate and ventricular bigeminy. S1, S2. No S4. Without murmur RESPIRATORY: Clear to auscultation. Breath sounds equal bilaterally. GASTROINTESTINAL: Abdomen soft, non-tender, nondistended. Hepatic and splenic margins not palpable. MUSCULOSKELETAL: Extremities with trace bilateral lower extremity edema. No obvious deformities. NEUROLOGICAL: RASS -2.Spontaneous eye opening. Sedation currently off not following commands. Withdraws to all 4 extremities. Upward toes. Positive gag and corneal reflex. Positive cough. A/P Assessment and Plan Neuro/Psych: Acute toxic metabolic encephalopathy History of CVA -with adjustment disorder Depression/anxiety Chronic pain syndrome -chronic narcotic use Patient is currently on fentanyl infusion for sedation/analgesia while intubated Goal RASS -[address] brain 01/19 revealed no acute intracranial findings. Old left carried CV and bilateral basal cranial calcifications. Holding carbidopa/levodopa 25/101 tablet every 8 hours. Resume when clinically indicated Holding gabapentin 300 mg p.o. twice daily and fluoxetine 20 mg daily buspirone 30 mg twice daily Check MRI brain if no neurological improvement 01/20 EEG - moderate slowing, no epileptic activity Resume home medications Cymbalta, buspirone CV: Septic shock History of hypertension Dyslipidemia Nonobstructive coronary disease -cardiac catheterization 2011 revealed EF 80% nonobstructive coronary disease Ventricular bigeminy secondary to severe hypokalemia Holding lovastatin 40 mg p.o. daily for dyslipidemia. Resume clinically indicated Holding lisinopril 20 mg p.o. daily in light of acute kidney injury Holding amlodipine 10 mg p.o. daily light of hypertension IV Hep-Locked Vasopressors if indicated to maintain mean atrial pressure greater than 65 Cardiac markers every 8 hours 3. Initially 0.09. Likely type II non-STEMI. Hypoperfusion from severe septic shock 01/19 2D echocardiogram- EF 55-60%,,mod TR, PAP 29, moderate annular calcifications EKG revealed heart rate of 84. Normal VT, QRS and QT intervals. Inferior Q waves. Nonspecific in acute lateral ST changes. Resp: Acute hypoxemic respiratory failure History of COPD [facility] 16/11/23/49 Ventilator bundle Albuterol/ipratropium aerosols every 6 hours albuterol aerosols every 2 hours. Dyspnea Spontaneous breathing trials when clinically indicated ABG and chest x-ray as clinically indicated GI: Chronic constipation Continue NGT to LIWS Famotidine for GI prophylaxis Docusate sodium/senna 1 tablet twice daily for bowel regimen. Patient is docusate sodium/senna 1 tablet twice daily at home : Bah catheter has been placed for accurate I's and O's in a critical patient Endo: Hyperglycemia Chronic prednisone use 10 mg daily Sliding scale insulin with Novulin R to maintain euglycemia/low regimen Check TSH Started on hydrocortisone 100 mg IV every 8 hours with history of chronic prednisone use. Renal: Acute kidney injury Baseline creatinine within normal limits. Resolving 2.6-> 1.4 Check urine eosinophils and electrolytes Renal ultrasound pending Heme: Leukocytosis Monitor CBC daily. Follow trend ID: Severe sepsis Vancomycin, ampicillin/tazobactam ordered day #1 Blood cultures 2, UA and sputum are pending. Influenza, urine Legionella- negative 3/3 Pneumococcal antigens positive FEN: Hypokalemia Electrolyte replacement per ICU protocol. Resume extended release potassium 10 mEq/day MSK: PT evaluate and treat Access: -Utilize peripheral IV. Central if indicated Prophylaxis -GI -famotidine -DVT -SCD/heparin SQ Critical Care: Level 2 follow up Planned transfer to the [facility] Physician Samreen Schulte MD Jan 22, 2018 13:28
[2018-01-22] MEDS: VANCOMYCIN INJ 1,250 MG in SODIUM CHLOR 0.9% 250 ML INJ 250 ML IV SCH (14:01)
[2018-01-22] MEDS: DULoxetine HCl DR 20 MG CAP PO SCH (15:22)
--- NOTE | 2018-01-22 16:15 | HHI.HCPN ---
Reason for visit a. To assist with evaluation and management of symptoms including: Pain, dyspnea, confusion b. To assist medical decision maker(s) with: better understanding of current medical conditions; weighing benefits/burdens of medical treatment options; making medical treatment decisions. . Subjective/Interval History Ms. Baum is a 77 year old female with adjustment disorder, lipidemia, hypertension, CAD, COPD, CVA (left basal ganglia) and peripheral neuropathy who presented to [facility] on 01/19/2018 for evaluation of altered mental status. Patient was intubated for airway protection due to her altered mental status. Patient received 2L bolus in the ED. White blood cell count and lactic acid were elevated. Patient was started on empiric antibiotics (Zosyn and Vancomycin) and was then admitted to critical care services for further evaluation and medical management. Follow-up visit for symptom management and clarification of medical treatment goals. Patient was seen and assessed in [facility], room 505-B. Patient is awake and alert, tracking with her eyes. She is able to follow simple commands such as squeezing her left and right hand but does not do so consistently. She did not respond verbally to my questions. EEG on 01/21/2018 was abnormal due to mild/moderate slowing, medication versus encephalopathic process. No epileptic activity noted. Tolerating 5L via nasal cannula with oxygen saturations in the mid to high 90s status post self extubation yesterday 12/24/17. Follow-up chest x-ray this morning 01/21/2018 was stable with underinflation and bilateral basilar airspace opacities representing either atelectasis or consolidation. WBC: 17.0 Urine with pneumococcal antigen; sputum with Streptococcus pneumoniae. Blood cultures negative today. Patient past swallow evaluation this morning, advance to pured diet with thin consistency liquids. Resumed Cymbalta, Buspirone and Potassium supplement ( extended release); vasopressors have been discontinued as the patient has remained normotensive overnight and throughout the day. PT is following this patient who would benefit from rehab at discharge if goals remain aggressive. . Family/friend interactions Met with patient's 3 children to discuss patient's current clinical conditions, co-morbid conditions, debility and over prognosis moving forward. [facility] the family did not know why the patient was on hospice and did not appear to understand the difference between aggressive versus comfort focus goals. Patient's son and daughter who live locally described an obvious decline over the past 12 months. After meeting with Palliative Care, the patient's children verbalize a better understanding of the current hospital and possible medical decisions they will likely be forced to address in the future. They remain cautiously optimistic that their mother will improve enough that they can have conversations with her about medical treatment goals, perhaps completing written advanced directives. CODE STATUS was changed to ALTERNATE CODE-intubation, ACLS medications and cardioversion if needed. NO COMPRESSIONS. Family would want to proceed with reintubation, for a short period of time ( 1-2 weeks), if indicated. . Advance Directives Health Care Surrogate: Copy in medical record Advance Directive Specifics Date completed: 10/04/2017 . Health Care Surrogate(s): Patient's son (Los) is designated as the healthcare surrogate decision maker. Daughter, Elsy, is designated as the alternate health care surrogate. . Documented care wishes: Health care surrogate designation form completed 09/24/2017. . Significant change in goals: CODE STATUS was changed to ALTERNATE CODE-intubation, ACLS medications and cardioversion if needed. NO COMPRESSIONS. Family would want to proceed with reintubation, for a short period of time ( 1-2 weeks), if indicated. Objective Vital Signs Date Time Temp Pulse Resp B/P (MAP) Pulse Ox O2 Delivery O2 Flow Rate FiO2 01/22/18 14:00 83 01/22/18 12:00 99.1 99 16 164/73 (103) 97 01/22/18 12:00 99 01/22/18 10:00 98 01/22/18 08:00 97 01/22/18 08:00 99.0 97 16 131/58 (82) 91 Arterial Line 01/22/18 07:36 95 Nasal Cannula 4.00 01/22/18 06:00 92 01/22/18 04:00 99.0 94 144/67 (92) 97 01/22/18 04:00 94 01/22/18 02:00 81 01/22/18 00:00 99.1 91 131/61 (84) 94 01/22/18 00:00 91 01/21/18 22:00 87 01/21/18 22:00 85 01/21/18 20:06 93 Nasal Cannula 4.00 01/21/18 20:00 87 01/21/18 20:00 100.1 87 131/62 (85) 94 01/21/18 18:00 99 01/21/18 17:30 97 Nasal Cannula 4.00 01/21/18 17:18 97 Nasal Cannula 4 Intake & Output 01/22/18 01/22/18 07:00 19:00 Intake Total 100 ml 1000 ml Output Total 650 ml 110 ml Balance -550 ml 890 ml IV Total 100 ml 1000 ml Output Urine Total 650 ml 110 ml # Bowel Movements 0 1 . Physical Exam CONSTITUTIONAL/GENERAL: This is an adequately nourished, elderly female person in no acute distress TUBES/LINES/DRAINS: NG, OG T, PIV 2, CVL, Bah catheter SKIN: No jaundice, rashes, or lesions. Ecchymoses on upper extremities. No wounds seen anteriorly. Skin temperature appropriate. Not diaphoretic. HEAD: Atraumatic. Normocephalic. EYES: Pupils equal and round and reactive. Extraocular motions intact. No scleral icterus. No injection or drainage. Fundi not examined. ENT: Hearing grossly normal. Nose without bleeding or purulent drainage. NECK: Trachea midline. Supple, nontender. No palpable thyroid enlargement or nodularity. CARDIOVASCULAR: Regular rate and ventricle bigeminy. No murmurs, gallops, or rubs. No JVD. Peripheral pulses symmetric. RESPIRATORY/CHEST: 5L oxygen via nasal cannula. Clear to auscultation. Breath sounds equal bilaterally. No wheezes, rales, or rhonchi. GASTROINTESTINAL: Abdomen soft, non-tender, nondistended. No hepato-splenomegaly , or palpable masses. No guarding. Bowel sounds present. GENITOURINARY: Without palpable bladder distension. Bah catheter in place. MUSCULOSKELETAL: No obvious deformities. Extremities without clubbing, cyanosis or mottling. Trace edema in bilateral lower extremities. Extremities without clubbing, cyanosis, or edema. No joint tenderness or effusion noted. LYMPHATICS: No palpable cervical or supraclavicular adenopathy. NEUROLOGICAL: Opens eyes spontaneously. Currently off sedation. Patient responds to some simple commands but not consistently. She does not respond verbally to questions during my exam. PSYCHIATRIC: No obvious anxiety/depression. no apparent hallucinations or other psychotic thought process. . . Diagnostic Tests Laboratory Laboratory Tests Test 01/19/18 21:10 01/20/18 01:30 01/20/18 04:20 01/20/18 12:30 Lactic Acid Level 1.3 mmol/L (0.4-2.0) 1.7 mmol/L (0.4-2.0) 2.0 mmol/L (0.4-2.0) Troponin I 0.77 NG/ML (0.02-0.05) Thyroid Stimulating Hormone 3rd Gen 0.195 uIU/ML (0.358-3.740) Nasal Screen MRSA (PCR) MRSA NOT DETECTED (NOT White Blood Count 19.8 TH/MM3 (4.0-11.0) Red Blood Count 4.11 MIL/MM3 (4.00-5.30) Hemoglobin 12.7 GM/DL (11.6-15.3) Hematocrit 37.1 % (35.0-46.0) Mean Corpuscular Volume 90.4 FL (80.0-100.0) Mean Corpuscular Hemoglobin 31.0 PG (27.0-34.0) Mean Corpuscular Hemoglobin Concent 34.3 % (32.0-36.0) Red Cell Distribution Width 13.4 % (11.6-17.2) Platelet Count 411 TH/MM3 (150-450) Mean Platelet Volume 8.7 FL (7.0-11.0) Neutrophils (%) (Auto) 91.2 % (16.0-70.0) Lymphocytes (%) (Auto) 3.7 % (9.0-44.0) Monocytes (%) (Auto) 4.8 % (0.0-8.0) Eosinophils (%) (Auto) 0.1 % (0.0-4.0) Basophils (%) (Auto) 0.2 % (0.0-2.0) Neutrophils # (Auto) 18.1 TH/MM3 (1.8-7.7) Lymphocytes # (Auto) 0.7 TH/MM3 (1.0-4.8) Monocytes # (Auto) 1.0 TH/MM3 (0-0.9) Eosinophils # (Auto) 0.0 TH/MM3 (0-0.4) Basophils # (Auto) 0.0 TH/MM3 (0-0.2) CBC Comment AUTO DIFF Differential Total Cells Counted 100 Neutrophils % (Manual) 75 % (16-70) Band Neutrophils % 13 % (0-6) Lymphocytes % 5 % (9-44) Monocytes % 7 % (0-8) Neutrophils # (Manual) 17.4 TH/MM3 (1.8-7.7) Differential Comment FINAL DIFF MANUAL Platelet Estimate NORMAL (NORMAL) Platelet Morphology Comment NORMAL (NORMAL) Red Cell Morphology Comment NORMAL (NORMAL) Prothrombin Time 12.2 SEC (9.8-11.6) Prothromb Time International Ratio 1.2 RATIO Activated Partial Thromboplast Time 25.5 SEC (24.3-30.1) Fibrinogen 465 mg/dL (227-377) Blood Urea Nitrogen 27 MG/DL (7-18) Creatinine 1.47 MG/DL (0.50-1.00) Random Glucose 278 MG/DL (74-106) Total Protein 6.2 GM/DL (6.4-8.2) Albumin 2.6 GM/DL (3.4-5.0) Calcium Level 8.2 MG/DL (8.5-10.1) Phosphorus Level 3.1 MG/DL (2.5-4.9) Magnesium Level 1.7 MG/DL (1.5-2.5) Alkaline Phosphatase 56 U/L (45-117) Aspartate Amino Transf (AST/SGOT) 43 U/L (15-37) Alanine Aminotransferase (ALT/SGPT) 18 U/L (10-53) Total Bilirubin 0.9 MG/DL (0.2-1.0) Sodium Level 140 MEQ/L (136-145) Potassium Level 2.5 MEQ/L (3.5-5.1) 3.1 MEQ/L (3.5-5.1) Chloride Level 103 MEQ/L (98-107) Carbon Dioxide Level 27.1 MEQ/L (21.0-32.0) Anion Gap 10 MEQ/L (5-15) Estimat Glomerular Filtration Rate 34 ML/MIN (>89) Ammonia 16 MCMOL/L (11-32) Total Creatine Kinase 519 U/L (26-192) Creatine Kinase MB 8.3 NG/ML (0.5-3.6) Creatine Kinase MB % 1.6 % (0.0-4.0) Triglycerides Level 116 MG/DL (42-150) Cholesterol Level 131 MG/DL (120-200) LDL Cholesterol 67 MG/DL (0-99) HDL Cholesterol 41.3 MG/DL (40.0-60.0) Cholesterol/HDL Ratio 3.17 RATIO Amylase Level 38 U/L (25-115) Lipase 112 U/L (73-393) Random Vancomycin Level 6.8 COMMENT Test 01/20/18 17:52 01/21/18 05:55 01/22/18 08:25 01/22/18 12:20 Potassium Level 3.4 MEQ/L (3.5-5.1) 3.0 MEQ/L (3.5-5.1) 2.4 MEQ/L (3.5-5.1) White Blood Count 17.0 TH/MM3 (4.0-11.0) Red Blood Count 3.58 MIL/MM3 (4.00-5.30) Hemoglobin 10.9 GM/DL (11.6-15.3) Hematocrit 32.5 % (35.0-46.0) Mean Corpuscular Volume 90.8 FL (80.0-100.0) Mean Corpuscular Hemoglobin 30.5 PG (27.0-34.0) Mean Corpuscular Hemoglobin Concent 33.6 % (32.0-36.0) Red Cell Distribution Width 13.3 % (11.6-17.2) Platelet Count 353 TH/MM3 (150-450) Mean Platelet Volume 8.7 FL (7.0-11.0) Neutrophils (%) (Auto) 81.8 % (16.0-70.0) Lymphocytes (%) (Auto) 9.9 % (9.0-44.0) Monocytes (%) (Auto) 8.1 % (0.0-8.0) Eosinophils (%) (Auto) 0.0 % (0.0-4.0) Basophils (%) (Auto) 0.2 % (0.0-2.0) Neutrophils # (Auto) 13.9 TH/MM3 (1.8-7.7) Lymphocytes # (Auto) 1.7 TH/MM3 (1.0-4.8) Monocytes # (Auto) 1.4 TH/MM3 (0-0.9) Eosinophils # (Auto) 0.0 TH/MM3 (0-0.4) Basophils # (Auto) 0.0 TH/MM3 (0-0.2) CBC Comment DIFF FINAL Differential Comment Blood Urea Nitrogen 17 MG/DL (7-18) 10 MG/DL (7-18) Creatinine 0.96 MG/DL (0.50-1.00) 0.71 MG/DL (0.50-1.00) Random Glucose 121 MG/DL (74-106) 79 MG/DL (74-106) Total Protein 5.5 GM/DL (6.4-8.2) 5.6 GM/DL (6.4-8.2) Albumin 2.2 GM/DL (3.4-5.0) 2.2 GM/DL (3.4-5.0) Calcium Level 7.5 MG/DL (8.5-10.1) 7.3 MG/DL (8.5-10.1) Phosphorus Level 1.4 MG/DL (2.5-4.9) 1.3 MG/DL (2.5-4.9) Magnesium Level 1.6 MG/DL (1.5-2.5) 1.8 MG/DL (1.5-2.5) Alkaline Phosphatase 55 U/L (45-117) 59 U/L (45-117) Aspartate Amino Transf (AST/SGOT) 24 U/L (15-37) 22 U/L (15-37) Alanine Aminotransferase (ALT/SGPT) 22 U/L (10-53) 14 U/L (10-53) Total Bilirubin 0.4 MG/DL (0.2-1.0) 0.5 MG/DL (0.2-1.0) Sodium Level 142 MEQ/L (136-145) 146 MEQ/L (136-145) Chloride Level 108 MEQ/L (98-107) 110 MEQ/L (98-107) Carbon Dioxide Level 27.6 MEQ/L (21.0-32.0) 26.9 MEQ/L (21.0-32.0) Anion Gap 6 MEQ/L (5-15) 9 MEQ/L (5-15) Estimat Glomerular Filtration Rate 56 ML/MIN (>89) 79 ML/MIN (>89) Random Vancomycin Level 12.9 COMMENT Protein Corrected Calcium 8.1 MG/DL (8.5-10.1) Vancomycin Level Trough 12.0 MCG/ML (5.0-10.0) . Result Diagram: 3/5/18 0555 01/22/18 0825 Microbiology Microbiology Date/Time Source Procedure Growth Status 01/20/18 00:45 Nasal Aspirate Influenza Types A,B Antigen (MAKAYLA) - Final NEGATIVE FOR FLU A AND B ANTIGEN.... Complete . Procedures 01/19/2018: Intubation 01/19/2018: NGT placement 01/19/2018: Left IJ central line placement 01/21/2018: Self extubation . Assessment and Plan Disease Oriented Problem List: (1) Coronary artery disease (2) Septic shock (3) History of CVA (cerebrovascular accident) (4) History of myocardial infarction (5) Acute renal failure (6) Sepsis (7) Leukocytosis (8) Chronic constipation (9) COPD (chronic obstructive pulmonary disease) (10) Acute hypoxemic respiratory failure (11) Chronic pain syndrome (12) Toxic metabolic encephalopathy Symptom Scale: (1) Dyspnea (2) Confusion (3) Pain Pertinent Non-Medical Issues Psychosocial: Patient was born in [facility]. She had 1 brother and 1 sister. Her sister is ; her brother lives in [place]. Patient states her father was a political prisoner in [place]. She moved to the [facility] when she was 17 years old with her daughter. She met her after moving to the [facility]. Together they had 2 addition children; son (Los) and daughter ( Elsy) both live locally. Patient was to her for approximately 30 years before he from complications related to EtOH consumption. He worked as a gordillo before his . 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 She currently lives with her son in her home in [place]. Spiritual: Religious tato Legal: [facility] designation form completed 09/24/2017. Patient's son (Los) is designated as the healthcare surrogate decision maker. Daughter, Elsy, is designated as the alternate health care surrogate. Ethical issues impacting care: No known ethical issues impacting care . Important Contacts Elsy Corona, daughter: [phone] Jameel Baum, son: [phone] . Prognosis . Code Status: Full Code Plan * ALTERNATE CODE-intubation, ACLS medications and cardioversion if indicated. NO COMPRESSIONS. * Decision-making: [facility] designation form completed 09/24/2017. Patient's son ( Los) is designated as the healthcare surrogate decision maker. Daughter, Elsy, is designated as the alternate health care surrogate. * Met with patient's 3 children to discuss patient's current clinical conditions , co-morbid conditions, debility and over prognosis moving forward. Patient has been on [facility] hospice for several months but the family did not know why the patient was on hospice and did not appear to understand the difference between aggressive versus comfort focus goals. Patient's son and daughter who live locally described an obvious decline over the past 12 months. After meeting with Palliative Care, the patient's children verbalize a better understanding of the current hospital and possible medical decisions they will likely be forced to address in the future. They remain cautiously optimistic that their mother will improve enough that they can have conversations with her about medical treatment goals, perhaps completing written advanced directives. CODE STATUS was changed to ALTERNATE CODE-intubation, ACLS medications and cardioversion if needed. NO COMPRESSIONS. Family would want to proceed with reintubation, for a short period of time ( 1-2 weeks), if indicated * Discussed this patient with Dr. Goldberg and bedside nurse, Jenna. * Palliative care contact information provided to the patient. * Symptom management: = Dyspnea: Patient tolerating CPAP trials this morning. Follow-up chest x-ray 01/21/17 was stable with underinflation and bilateral basilar airspace opacities representing either atelectasis or consolidation. Receiving scheduled and PRN albuterol nebulizers. = Encephalopathy: Sedation has been discontinued Patient is awake and alert, tracking with her eyes. She is able to follow simple commands such as squeezing her left and right hand but does not do so consistently. She did not respond verbally to my questions. EEG on 01/21/2018 was abnormal due to mild/moderate slowing, medication versus encephalopathic process. No epileptic activity noted. * Palliative care will continue to follow this patient throughout her hospitalization to establish trust, assist with symptom management and clarification of medical treatment goals. . Attestation To help prompt me to consider important information that might be impacting today's encounter and assessment, information from prior notes written by myself or my colleagues may have been "brought forward" into today's note. My signature on this note, however, is an attestation that I personally performed the exam, history, and/or decision-making noted today, and, unless otherwise indicated, the interactions with patient, family, and staff as well as the review of records all occurred today. I also attest that the listed assessment and stated plan reflect my best clinical judgment today based on the combination of historical information, prior notes, and today's exam/ interactions. When time spent is documented, it refers only to time spent today by the signer, or if indicated, combined time spent today by collaborating physician/nurse practitioner. . Annie Shukla Jan 22, 2018 16:15
[2018-01-22] MEDS: ICU - POTASSIUM PHOSPHATE 30 MMOL/NS 250 ML IV PRN ×2 (19:00)
[2018-01-22] MEDS: busPIRone HCL 10 MG TAB PO SCH (21:56)
[2018-01-23] VITALS (13 sets, daily range): BP systolic 129–186; BP diastolic 60–85; PULSE 80–117; RESP 22–47; TEMP 97.8–98.4; O2SAT 81–100
[2018-01-23] MEDS: RESP: ALBUTEROL 2.5 MG/IPRATROPIUM 0.5 MG NEB (SCH) INH ×2 (03:35→07:45)
[2018-01-23] MEDS: CHLORHEXIDINE GLUCONATE 2 % 1 PACK (2 CLOTHS) TOP SCH (04:00)
[2018-01-23] MEDS: CARBIDOPA/LEVODOPA 25 MG/100 MG TAB PO SCH ×3 (05:06→20:52)
[2018-01-23] MEDS: PIPERACIL-TAZO 3.375 GM PREMIX 50 ML IV SCH ×4 (05:06→23:57)
[2018-01-23] MEDS: HYDROCORTISONE SOD SUCCINATE 100 MG VIAL IV PUSH SCH ×3 (05:15→20:00)
[2018-01-23] MEDS: INSULIN NovoLIN REGULAR SUPPLEMENTAL SCALE SQ SCH ×4 (06:00→17:50)
[2018-01-23 08:32] LABS: HEMATOCRIT 30.5 % (35.0-46.0); HEMOGLOBIN 10.2 GM/DL (11.6-15.3); MEAN CELL VOLUME 91.7 FL (80.0-100.0); MEAN CORPUSCULAR HEMOGLOBIN 30.7 PG (27.0-34.0); MEAN CORPUSCULAR HGB CONC 33.5 % (32.0-36.0); MEAN PLATELET VOLUME 8.8 FL (7.0-11.0); PLATELET COUNT 296 TH/MM3 (150-450); RED BLOOD COUNT 3.33 MIL/MM3 (4.00-5.30); RED CELL DISTRIBUTION WIDTH 13.4 % (11.6-17.2); WHITE BLOOD COUNT 12.9 TH/MM3 (4.0-11.0)
[2018-01-23] MEDS ORDERED: POTASSIUM CHLORIDE 10 MEQ CONTROLLED RELEASE TAB PO SCH (09:00)
[2018-01-23] MEDS: DOCUSATE SODIUM 50 MG/SENNA 8.6 MG TAB PO SCH (09:00)
[2018-01-23] MEDS: DULoxetine HCl DR 20 MG CAP PO SCH (09:06)
[2018-01-23] MEDS: FAMOTIDINE 20 MG/2 ML VIAL IV PUSH SCH (09:06)
[2018-01-23] MEDS: HEPARIN SODIUM - SQ 10,000 UNITS/ML VIAL SQ SCH ×2 (09:06→20:52)
[2018-01-23] MEDS: busPIRone HCL 10 MG TAB PO SCH ×2 (09:06→20:52)
[2018-01-23] MEDS: PRAVASTATIN SOD 40 MG TAB PO SCH (09:06)
[2018-01-23 09:08] LABS: BICARBONATE 27.7 MEQ/L (21.0-32.0); CALCIUM 7.1 MG/DL (8.5-10.1); CREATININE 0.59 MG/DL (0.50-1.00)
[2018-01-23] MEDS: SODIUM CHLORIDE 0.9% FLUSH 10 ML FLUSH IV FLUSH SCH ×3 (09:08→20:51)
[2018-01-23 09:31] LABS: CALCIUM-PROTEIN CORRECTED 7.9 MG/DL (8.5-10.1); TOTAL PROTEIN 5.5 GM/DL (6.4-8.2)
[2018-01-23] MEDS: ICU - POTASSIUM CHLORIDE/AQUEOUS SOLN 40 MEQ/100 ML IVPB IV PRN (09:51)
--- NOTE | 2018-01-23 13:43 | HHI.PR ---
Subjective Remarks awake and alert , did state her name says yes to questions ff some commands gets agitated- required restraints still having large volume diarrhea tolerating puree diet- but poor po Objective Vitals Vital Signs Date Time Temp Pulse Resp B/P (MAP) Pulse Ox O2 Delivery O2 Flow Rate FiO2 01/23/18 10:04 96 Nasal Cannula 4.00 01/23/18 07:00 96 Nasal Cannula 3.00 01/23/18 04:00 83 01/23/18 04:00 98.4 83 22 161/69 (99) 97 01/23/18 02:00 80 01/23/18 00:00 97 01/23/18 00:00 98.2 97 28 129/60 (83) 95 01/22/18 22:00 85 01/22/18 20:14 97 Nasal Cannula 4.00 01/22/18 20:00 75 01/22/18 20:00 98.6 75 18 132/63 (86) 97 01/22/18 19:00 96 Nasal Cannula 4.00 01/22/18 18:00 86 01/22/18 16:00 81 01/22/18 16:00 98.7 81 16 140/65 (90) 97 01/22/18 14:00 83 I/O 01/22/18 01/22/18 01/22/18 01/23/18 01/23/18 01/23/18 07:00 15:00 23:00 07:00 15:00 23:00 Intake Total 100 ml 1250 ml 552.5 ml Output Total 650 ml 110 ml 1500 ml Balance -550 ml 1140 ml -947.5 ml Intake Oral 240 ml IV Total 100 ml 1250 ml 312.5 ml Output Urine Total 650 ml 110 ml 1500 ml # Bowel Movements 0 1 3 Result Diagram: 01/23/18 0610 01/23/18 0610 Imaging Last Impressions Chest X-Ray 01/21/18 0600 Signed Impressions: Service Date/Time: Sunday, January 21, 2018 03:47 - CONCLUSION: Stable chest x-ray with underinflation and bilateral basilar air space opacities representing either atelectasis or consolidation. Sung Fernandez MD Head CT 01/19/18 0836 Signed Impressions: Service Date/Time: Friday, January 19, 2018 10:12 - CONCLUSION: 1. No acute intracranial abnormality. 2. Atrophy and chronic small vessel ischemic change. 3. Paranasal sinus disease. Oneil Bills Jr., MD Renal Ultrasound 01/19/18 0000 Signed Impressions: Service Date/Time: Friday, January 19, 2018 10:45 - CONCLUSION: Normal examination. Jameel Baldwin MD Objective Remarks awake and alert but confused anciteric no nuchal rigidity lungs- decreased breath sounds regular rhythm abdomen- soft, good bowel sounds extremities- no edema moves all extremities spontaneously Assessment to: Continue Bah insert reason: Prolonged Immobilization A/P Problem List: (1) Septic shock ICD Code: A41.9 - Sepsis, unspecified organism; R65.21 - Severe sepsis with septic shock (2) Respiratory failure ICD Code: J96.90 - Respiratory failure, unspecified, unspecified whether with hypoxia or hypercapnia Status: Acute (3) Hypokalemia due to loss of potassium ICD Code: E87.6 - Hypokalemia (4) Acute renal failure ICD Code: N17.9 - Acute kidney failure, unspecified Status: Acute (5) Adjustment disorder with depressed mood ICD Code: F43.21 - Adjustment disorder with depressed mood (6) Elevated lactic acid level ICD Code: R79.89 - Other specified abnormal findings of blood chemistry (7) Hyperlipidemia ICD Code: E78.5 - Hyperlipidemia Status: Acute (8) Hypertension ICD Code: I10 - Essential (primary) hypertension Status: Acute (9) Chronic narcotic use ICD Code: F11.90 - Opioid use, unspecified, uncomplicated (10) Coronary artery disease ICD Code: I25.10 - Atherosclerotic heart disease of [place] coronary artery without angina pectoris (11) History of CVA (cerebrovascular accident) ICD Code: Z86.73 - Personal history of transient ischemic attack (TIA), and cerebral infarction without residual deficits (12) Unresponsive ICD Code: R41.89 - Other symptoms and signs involving cognitive functions and awareness Status: Acute Assessment and Plan Neuro/Psych: Acute toxic metabolic encephalopathy History of CVA -with adjustment disorder Depression/anxiety Chronic pain syndrome -chronic narcotic use Patient is currently on fentanyl infusion for sedation/analgesia while intubated Goal RASS -[address] brain 01/19 revealed no acute intracranial findings. Old left carried CV and bilateral basal cranial calcifications. Holding carbidopa/levodopa 25/101 tablet every 8 hours. Resume when clinically indicated Holding gabapentin 300 mg p.o. twice daily and fluoxetine 20 mg daily buspirone 30 mg twice daily Check MRI brain if no neurological improvement / EEG - moderate slowing, no epileptic activity Resume home medications Cymbalta, buspirone CV: Septic shock History of hypertension Dyslipidemia Nonobstructive coronary disease -cardiac catheterization 2011 revealed EF 80% nonobstructive coronary disease Ventricular bigeminy secondary to severe hypokalemia Holding lovastatin 40 mg p.o. daily for dyslipidemia. Resume clinically indicated Holding lisinopril 20 mg p.o. daily in light of acute kidney injury Holding amlodipine 10 mg p.o. daily light of hypertension IV Hep-Locked Vasopressors if indicated to maintain mean atrial pressure greater than 65 Cardiac markers every 8 hours 3. Initially 0.09. Likely type II non-STEMI. Hypoperfusion from severe septic shock 3/3 2D echocardiogram- EF 55-60%,,mod TR, PAP 29, moderate annular calcifications EKG revealed heart rate of 84. Normal [place], QRS and QT intervals. Inferior Q waves. Nonspecific in acute lateral ST changes. Resp: Acute hypoxemic respiratory failure History of COPD [facility] 16/500/11/23/50 Ventilator bundle Albuterol/ipratropium aerosols every 6 hours albuterol aerosols every 2 hours. Dyspnea Spontaneous breathing trials when clinically indicated ABG and chest x-ray as clinically indicated GI: Chronic constipation-Now having large volume diarrhea DC Docusate sodium/senna 1 tablet twice daily for bowel regimen. check C diff Bah catheter has been placed for accurate I's and O's in a critical patient Endo: Hyperglycemia Chronic prednisone use 10 mg daily Sliding scale insulin with Novulin R to maintain euglycemia/low regimen Check TSH Started on hydrocortisone 100 mg IV every 8 hours with history of chronic prednisone use. Renal: Acute kidney injury Baseline creatinine within normal limits. Resolving 2.6-> 1.4 Check urine eosinophils and electrolytes Renal ultrasound pending Hypokalemia HYpernatremic from diarrhea start IVF- D51/2 NS + KCL Increase KCL tp 20 meq bid on protocol ff BMP Heme: Leukocytosis Monitor CBC daily. Follow trend ID: Severe sepsis Vancomycin, ampicillin/tazobactam ordered day #1 Blood cultures 2, UA and sputum are pending. Influenza, urine Legionella- negative 3/3 Pneumococcal antigens positive FEN: Hypokalemia Electrolyte replacement per ICU protocol. Resume extended release potassium 10 mEq/day MSK: PT evaluate and treat Access: -Utilize peripheral IV. Central if indicated Prophylaxis -GI -famotidine -DVT -SCD/heparin SQ Problem Qualifiers (1) Respiratory failure: Qualified Codes: J96.00 - Acute respiratory failure, unspecified whether with hypoxia or hypercapnia (2) Acute renal failure: Qualified Codes: N17.9 - Acute kidney failure, unspecified (3) Coronary artery disease: Qualified Codes: I25.10 - Atherosclerotic heart disease of [place]da[place] coronary artery without angina pectoris Jovanny Barakat MD Jan 23, 2018 13:43
[2018-01-23] MEDS ORDERED: D5-1/2 NS + KCL 20 MEQ INJ 1,000 ML IV SCH (13:45)
[2018-01-23] MEDS: VANCOMYCIN INJ 1,500 MG in SODIUM CHLORID 0.9% 500 ML INJ 500 ML IV SCH (17:46)
[2018-01-23] MEDS: CHLORHEXIDINE 0.12% (ORAL KIT) 15 ML CUP MT SCH ×2 (20:48→20:55)
[2018-01-23] MEDS: POTASSIUM CHLORIDE 20 MEQ CONTROLLED RELEASE TAB PO SCH ×2 (20:50→20:56)
[2018-01-23] MEDS: FAMOTIDINE 20 MG TAB PO SCH (20:52)
[2018-01-23] MEDS: cloNIDine HCL 0.1 MG TAB PO PRN (21:05)
[2018-01-23] MEDS ORDERED: DILTIAZEM HCL 25 MG/5 ML VIAL IV ONE (22:45)
[2018-01-24] VITALS (38 sets, daily range): BP systolic 135–196; BP diastolic 61–154; PULSE 58–84; RESP 19–40; TEMP 97.4–99; O2SAT 92–100
[2018-01-24] MEDS: INSULIN NovoLIN REGULAR SUPPLEMENTAL SCALE SQ SCH ×4 (00:15→18:00)
[2018-01-24] MEDS: CHLORHEXIDINE GLUCONATE 2 % 1 PACK (2 CLOTHS) TOP SCH (04:00)
[2018-01-24] MEDS: HYDROCORTISONE SOD SUCCINATE 100 MG VIAL IV PUSH SCH ×3 (04:39→20:01)
[2018-01-24] MEDS: PIPERACIL-TAZO 3.375 GM PREMIX 50 ML IV SCH ×3 (04:40→17:15)
[2018-01-24] MEDS: ICU - POTASSIUM CHLORIDE/AQUEOUS SOLN 40 MEQ/100 ML IVPB IV PRN ×3 (04:41→19:57)
[2018-01-24] MEDS: ICU - MAGNESIUM SULFATE 2 GM/NS 100 ML IV PRN ×2 (05:03)
[2018-01-24] MEDS: CARBIDOPA/LEVODOPA 25 MG/100 MG TAB PO SCH ×3 (06:28→19:58)
[2018-01-24 07:20] LABS: BICARBONATE 29.5 MEQ/L (21.0-32.0); CALCIUM 7.3 MG/DL (8.5-10.1); CREATININE 0.59 MG/DL (0.50-1.00)
[2018-01-24 07:47] LABS: CALCIUM-PROTEIN CORRECTED 8.1 MG/DL (8.5-10.1); TOTAL PROTEIN 5.7 GM/DL (6.4-8.2)
[2018-01-24] MEDS: CHLORHEXIDINE 0.12% (ORAL KIT) 15 ML CUP MT SCH ×2 (08:00→20:01)
[2018-01-24] MEDS: cloNIDine HCL 0.1 MG TAB PO PRN ×2 (09:00→17:15)
[2018-01-24] MEDS: DULoxetine HCl DR 20 MG CAP PO SCH (09:00)
[2018-01-24] MEDS: POTASSIUM CHLORIDE 20 MEQ CONTROLLED RELEASE TAB PO SCH ×2 (09:00→19:58)
[2018-01-24] MEDS: busPIRone HCL 10 MG TAB PO SCH ×2 (09:00→19:58)
[2018-01-24] MEDS: PRAVASTATIN SOD 40 MG TAB PO SCH (09:00)
[2018-01-24] MEDS: FAMOTIDINE 20 MG TAB PO SCH ×2 (09:00→20:00)
[2018-01-24] MEDS: SODIUM CHLORIDE 0.9% FLUSH 10 ML FLUSH IV FLUSH SCH ×3 (09:01→20:00)
[2018-01-24] MEDS: HEPARIN SODIUM - SQ 10,000 UNITS/ML VIAL SQ SCH ×2 (09:01→19:59)
[2018-01-24] MEDS: VANCOMYCIN INJ 1,500 MG in SODIUM CHLORID 0.9% 500 ML INJ 500 ML IV SCH (11:04)
--- NOTE | 2018-01-24 11:49 | HHI.PR ---
Subjective Remarks awake and alert, oriented to person and place ff all commands BP 130/80 occasional elevated BP poor po per staff - episodes of agitation Objective Vitals Vital Signs Date Time Temp Pulse Resp B/P (MAP) Pulse Ox O2 Delivery O2 Flow Rate FiO2 01/24/18 10:12 98 Nasal Cannula 2.00 01/24/18 06:00 67 01/24/18 04:00 65 01/24/18 04:00 98.3 65 23 137/100 (112) 98 01/24/18 02:00 75 01/24/18 00:00 97.4 84 21 141/63 (89) 92 01/24/18 00:00 84 01/23/18 22:00 82 01/23/18 20:00 92 01/23/18 20:00 92 30 178/85 (116) 94 01/23/18 19:32 100 Nasal Cannula 01/23/18 19:00 97 Nasal Cannula 4.00 40 01/23/18 18:00 80 01/23/18 16:00 97.8 83 186/74 (111) 01/23/18 16:00 83 01/23/18 14:00 117 01/23/18 12:00 98.1 113 47 186/74 (111) 81 01/23/18 12:00 113 I/O 01/23/18 01/23/18 01/23/18 01/24/18 01/24/18 01/24/18 07:00 15:00 23:00 07:00 15:00 23:00 Intake Total 120 ml Output Total 1850 ml 2601 ml Balance -1850 ml -2481 ml Intake Oral 120 ml Output Urine Total 1850 ml 2600 ml Stool Total 1 ml # Bowel Movements 4 1 Result Diagram: 01/23/18 0610 01/24/18 0555 Imaging Last Impressions Chest X-Ray 01/21/18 0600 Signed Impressions: Service Date/Time: Sunday, January 21, 2018 03:47 - CONCLUSION: Stable chest x-ray with underinflation and bilateral basilar air space opacities representing either atelectasis or consolidation. Sung Fernandez MD Head CT 01/19/18 0836 Signed Impressions: Service Date/Time: Friday, January 19, 2018 10:12 - CONCLUSION: 1. No acute intracranial abnormality. 2. Atrophy and chronic small vessel ischemic change. 3. Paranasal sinus disease. Oneil Bills Jr., MD Renal Ultrasound 01/19/18 0000 Signed Impressions: Service Date/Time: Friday, January 19, 2018 10:45 - CONCLUSION: Normal examination. Jameel Baldwin MD Objective Remarks awake and alert, oriented x 2 today anicteric no nuchal rigidity lungs- decreased breath sounds regular rhythm abdomen- soft, good bowel sounds extremities- no edema moves all extremities spontaneously Urinary Catheter: Yes Assessment to: Continue Bah insert reason: Prolonged Immobilization A/P Problem List: (1) Septic shock ICD Code: A41.9 - Sepsis, unspecified organism; R65.21 - Severe sepsis with septic shock (2) Respiratory failure ICD Code: J96.90 - Respiratory failure, unspecified, unspecified whether with hypoxia or hypercapnia Status: Acute (3) Hypokalemia due to loss of potassium ICD Code: E87.6 - Hypokalemia (4) Acute renal failure ICD Code: N17.9 - Acute kidney failure, unspecified Status: Acute (5) Adjustment disorder with depressed mood ICD Code: F43.21 - Adjustment disorder with depressed mood (6) Elevated lactic acid level ICD Code: R79.89 - Other specified abnormal findings of blood chemistry (7) Hyperlipidemia ICD Code: E78.5 - Hyperlipidemia Status: Acute (8) Hypertension ICD Code: I10 - Essential (primary) hypertension Status: Acute (9) Chronic narcotic use ICD Code: F11.90 - Opioid use, unspecified, uncomplicated (10) Coronary artery disease ICD Code: I25.10 - Atherosclerotic heart disease of [place] coronary artery without angina pectoris (11) History of CVA (cerebrovascular accident) ICD Code: Z86.73 - Personal history of transient ischemic attack (TIA), and cerebral infarction without residual deficits (12) Unresponsive ICD Code: R41.89 - Other symptoms and signs involving cognitive functions and awareness Status: Acute Assessment and Plan Neuro/Psych: Acute toxic metabolic encephalopathy- Improved History of CVA -with adjustment disorder Depression/anxiety Chronic pain syndrome -chronic narcotic use Patient is currently on fentanyl infusion for sedation/analgesia while intubated Goal RASS -2 CT brain 01/19 revealed no acute intracranial findings. Old left carried CV and bilateral basal cranial calcifications. Holding carbidopa/levodopa 25/101 tablet every 8 hours. Resume when clinically indicated Holding gabapentin 300 mg p.o. twice daily and fluoxetine 20 mg daily buspirone 30 mg twice daily Check MRI brain if no neurological improvement 3/ EEG - moderate slowing, no epileptic activity Resume home medications Cymbalta, buspirone CV: Septic shock History of hypertension Dyslipidemia Nonobstructive coronary disease -cardiac catheterization 2011 revealed EF 80% nonobstructive coronary disease Ventricular bigeminy secondary to severe hypokalemia On Pravastatin Holding lisinopril 20 mg p.o. daily in light of acute kidney injury- restart if uncontrolled with close monitoring of BMP started Lopressor 12.5 mg po q 8 Add Amlodipine 5 mg po daily )at home was on 10 mg ) 3 2D echocardiogram- EF 55-60%,,mod TR, PAP 29, moderate annular calcifications EKG revealed heart rate of 84. Normal AR, QRS and QT intervals. Inferior Q waves. Nonspecific in acute lateral ST changes. Resp: Acute hypoxemic respiratory failure- Resolved History of COPD patient on chronic Prednisone decrease Hydrocortisone to 50 mg IV 8- taper (given for stress doses for septic shock) duonebs GI: Chronic constipation-Now having large volume diarrhea - BM slowed down - off stool softeners - ff C diff negative Bah catheter has been placed for accurate I's and O's in a critical patient Endo: Hyperglycemia Chronic prednisone use 10 mg daily Sliding scale insulin with Novulin R to maintain euglycemia/low regimen Check TSH- normal on Hydrocortisone to 100 mg q 8 Renal: Acute kidney injury- REsolved Renal ultrasound no hydronephrosis Heplock IV and monitor Hypokalemia - improved HYpernatremic- improved from diarrhea- slow down Increase KCL to po 20 meq bid ff BMP Heme: Leukocytosis Monitor CBC daily. Follow trend ID: Severe sepsis secondary to S. Pneumoniae Now also growing Aspergillus- possible contaminant ? DC Vancomycin, Continue Zosyn Influenza, urine Legionella- negative FEN: MSK: PT evaluate and treat Access: -Utilize peripheral IV. Central if indicated Prophylaxis -GI -famotidine -DVT -SCD/heparin SQ Problem Qualifiers (1) Respiratory failure: Qualified Codes: J96.00 - Acute respiratory failure, unspecified whether with hypoxia or hypercapnia (2) Acute renal failure: Qualified Codes: N17.9 - Acute kidney failure, unspecified (3) Coronary artery disease: Qualified Codes: I25.10 - Atherosclerotic heart disease of [place] coronary artery without angina pectoris Jovanny Barakat MD Jan 24, 2018 11:49
[2018-01-24] MEDS ORDERED: D5-1/2 NS + KCL 30 MEQ INJ 1,000 ML IV SCH (12:00)
[2018-01-24] MEDS ORDERED: PILL SPLITTER OTHER PRN (12:00)
[2018-01-24] MEDS: METOPROLOL TARTRATE 25 MG TAB PO SCH ×2 (13:04→19:58)
--- NOTE | 2018-01-24 14:37 | HHI.HCPN ---
Reason for visit a. To assist with evaluation and management of symptoms including: Pain, dyspnea, confusion b. To assist medical decision maker(s) with: better understanding of current medical conditions; weighing benefits/burdens of medical treatment options; making medical treatment decisions. . Subjective/Interval History Ms. Baum is a 77 year old female with adjustment disorder, lipidemia, hypertension, CAD, COPD, CVA (left basal ganglia) and peripheral neuropathy who presented to [facility] on 01/19/2018 for evaluation of altered mental status. Patient was intubated for airway protection due to her altered mental status. Patient received 2L bolus in the ED. White blood cell count and lactic acid were elevated. Patient was started on empiric antibiotics (Zosyn and Vancomycin) and was then admitted to critical care services for further evaluation and medical management. Follow-up visit for symptom management and clarification of medical treatment goals. Patient [place] and [place] [facility] [place] She is slowly becoming more alert; short-term memory remains poor. She is engaged and talkative when her daughter is at bedside. EEG on 01/21/2018 was abnormal due to mild/moderate slowing, medication versus encephalopathic process. No epileptic activity noted. Tolerating 2L via nasal cannula with oxygen saturations in the mid to high 90s.. Follow-up chest x-ray 01/21/2018 was stable with underinflation and bilateral basilar airspace opacities representing either atelectasis or consolidation. WBC: 17.0 Urine with pneumococcal antigen; sputum with Streptococcus pneumoniae. Blood cultures negative today Remains on pured diet with thin consistency liquids. PO intake is poor. Speech therapy continues to follow. Patient's daughter verbalizing concerns that the patient's son will not be able to handle the amount of care her mother may require at discharge. Daughter requesting information about nursing homes in the area. Would recommend placement at SNF for rehab if goals remain aggressive. . Advance Directives Health Care Surrogate: Copy in medical record Advance Directive Specifics Date completed: 10/04/2017 . Health Care Surrogate(s): Patient's son (Los) is designated as the healthcare surrogate decision maker. Daughter, Elsy, is designated as the alternate health care surrogate. . Documented care wishes: Health care surrogate designation form completed 09/24/2017. . Objective Vital Signs Date Time Temp Pulse Resp B/P (MAP) Pulse Ox O2 Delivery O2 Flow Rate FiO2 01/24/18 13:30 66 24 164/71 (102) 99 01/24/18 13:00 68 24 172/73 (106) 99 01/24/18 12:31 69 23 165/74 (104) 98 01/24/18 12:01 99.0 67 24 178/81 (113) 99 01/24/18 12:00 64 24 97 01/24/18 11:30 64 21 135/61 (85) 98 01/24/18 11:00 68 31 148/66 (93) 94 01/24/18 10:31 81 26 150/65 (93) 98 01/24/18 10:12 98 Nasal Cannula 2.00 01/24/18 10:00 69 24 155/67 (96) 98 01/24/18 09:30 69 24 152/67 (95) 99 01/24/18 09:00 67 21 173/74 (107) 99 01/24/18 08:30 69 20 159/75 (103) 99 01/24/18 08:07 64 21 193/79 (117) 100 01/24/18 08:00 97.8 61 20 183/79 (113) 100 01/24/18 07:31 58 19 162/71 (101) 100 01/24/18 07:01 58 20 173/74 (107) 98 01/24/18 07:00 98 Nasal Cannula 4.00 01/24/18 07:00 63 20 98 01/24/18 06:00 67 01/24/18 04:00 65 01/24/18 04:00 98.3 65 23 137/100 (112) 98 01/24/18 02:00 75 01/24/18 00:00 97.4 84 21 141/63 (89) 92 01/24/18 00:00 84 01/23/18 22:00 82 01/23/18 20:00 92 01/23/18 20:00 92 30 178/85 (116) 94 01/23/18 19:32 100 Nasal Cannula 01/23/18 19:00 97 Nasal Cannula 4.00 40 01/23/18 18:00 80 01/23/18 16:00 97.8 83 186/74 (111) 01/23/18 16:00 83 Intake & Output 01/24/18 01/24/18 07:00 19:00 Intake Total 120 ml Output Total 2601 ml Balance -2481 ml Intake Oral 120 ml Output Urine Total 2600 ml Stool Total 1 ml # Bowel Movements 1 . Physical Exam CONSTITUTIONAL/GENERAL: This is an adequately nourished, elderly female person in no acute distress TUBES/LINES/DRAINS: NG, OG T, PIV 2, CVL, Bah catheter SKIN: No jaundice, rashes, or lesions. Ecchymoses on upper extremities. No wounds seen anteriorly. Skin temperature appropriate. Not diaphoretic. HEAD: Atraumatic. Normocephalic. EYES: Pupils equal and round and reactive. Extraocular motions intact. No scleral icterus. No injection or drainage. Fundi not examined. ENT: Hearing grossly normal. Nose without bleeding or purulent drainage. NECK: Trachea midline. Supple, nontender. No palpable thyroid enlargement or nodularity. CARDIOVASCULAR: Regular rate and ventricle bigeminy. No murmurs, gallops, or rubs. No JVD. Peripheral pulses symmetric. RESPIRATORY/CHEST: 2L oxygen via nasal cannula. Clear to auscultation. Breath sounds equal bilaterally. No wheezes, rales, or rhonchi. GASTROINTESTINAL: Abdomen soft, non-tender, nondistended. No hepato-splenomegaly , or palpable masses. No guarding. Bowel sounds present. GENITOURINARY: Without palpable bladder distension. Bah catheter in place. MUSCULOSKELETAL: No obvious deformities. Extremities without clubbing, cyanosis or mottling. Trace edema in bilateral lower extremities. LYMPHATICS: No palpable cervical or supraclavicular adenopathy. NEUROLOGICAL: Slowly becoming more alert; short-term memory remains poor. Patient oriented to person, place and time. Patient does not show insight or judgment related to her current medical conditions. PSYCHIATRIC: No obvious anxiety/depression. no apparent hallucinations or other psychotic thought process. . . Diagnostic Tests Laboratory Laboratory Tests Test 01/22/18 08:25 01/22/18 12:20 01/22/18 17:40 01/23/18 06:10 Blood Urea Nitrogen 10 MG/DL (7-18) 6 MG/DL (7-18) Creatinine 0.71 MG/DL (0.50-1.00) 0.59 MG/DL (0.50-1.00) Random Glucose 79 MG/DL (74-106) 67 MG/DL (74-106) Total Protein 5.6 GM/DL (6.4-8.2) 5.5 GM/DL (6.4-8.2) Albumin 2.2 GM/DL (3.4-5.0) Calcium Level 7.3 MG/DL (8.5-10.1) 7.1 MG/DL (8.5-10.1) Alkaline Phosphatase 59 U/L (45-117) Aspartate Amino Transf (AST/SGOT) 22 U/L (15-37) Alanine Aminotransferase (ALT/SGPT) 14 U/L (10-53) Total Bilirubin 0.5 MG/DL (0.2-1.0) Sodium Level 146 MEQ/L (136-145) 147 MEQ/L (136-145) Potassium Level 2.4 MEQ/L (3.5-5.1) 3.1 MEQ/L (3.5-5.1) 2.7 MEQ/L (3.5-5.1) Chloride Level 110 MEQ/L (98-107) 107 MEQ/L (98-107) Carbon Dioxide Level 26.9 MEQ/L (21.0-32.0) 27.7 MEQ/L (21.0-32.0) Anion Gap 9 MEQ/L (5-15) 12 MEQ/L (5-15) Estimat Glomerular Filtration Rate 79 ML/MIN (>89) 98 ML/MIN (>89) Protein Corrected Calcium 8.1 MG/DL (8.5-10.1) 7.9 MG/DL (8.5-10.1) Phosphorus Level 1.3 MG/DL (2.5-4.9) Magnesium Level 1.8 MG/DL (1.5-2.5) Vancomycin Level Trough 12.0 MCG/ML (5.0-10.0) White Blood Count 12.9 TH/MM3 (4.0-11.0) Red Blood Count 3.33 MIL/MM3 (4.00-5.30) Hemoglobin 10.2 GM/DL (11.6-15.3) Hematocrit 30.5 % (35.0-46.0) Mean Corpuscular Volume 91.7 FL (80.0-100.0) Mean Corpuscular Hemoglobin 30.7 PG (27.0-34.0) Mean Corpuscular Hemoglobin Concent 33.5 % (32.0-36.0) Red Cell Distribution Width 13.4 % (11.6-17.2) Platelet Count 296 TH/MM3 (150-450) Mean Platelet Volume 8.8 FL (7.0-11.0) Test 01/23/18 13:00 01/23/18 21:53 01/24/18 05:55 01/24/18 13:00 Stool C. difficile Toxin (PCR) NEGATIVE (NEGATIVE) Stl C. difficile Toxin Epiderm 027 PRESUMPTIVE NEGATIVE Potassium Level 3.2 MEQ/L (3.5-5.1) 3.2 MEQ/L (3.5-5.1) Magnesium Level 1.5 MG/DL (1.5-2.5) 1.7 MG/DL (1.5-2.5) Blood Urea Nitrogen 5 MG/DL (7-18) Creatinine 0.59 MG/DL (0.50-1.00) Random Glucose 103 MG/DL (74-106) Total Protein 5.7 GM/DL (6.4-8.2) Calcium Level 7.3 MG/DL (8.5-10.1) Sodium Level 144 MEQ/L (136-145) Chloride Level 106 MEQ/L (98-107) Carbon Dioxide Level 29.5 MEQ/L (21.0-32.0) Anion Gap 9 MEQ/L (5-15) Estimat Glomerular Filtration Rate 98 ML/MIN (>89) Protein Corrected Calcium 8.1 MG/DL (8.5-10.1) Result Diagram: 01/23/18 0610 01/24/18 1300 Procedures 01/19/2018: Intubation 01/19/2018: NGT placement 01/19/2018: Left IJ central line placement 01/21/2018: Self extubation . Assessment and Plan Disease Oriented Problem List: (1) Coronary artery disease (2) Septic shock (3) History of CVA (cerebrovascular accident) (4) History of myocardial infarction (5) Acute renal failure (6) Sepsis (7) Leukocytosis (8) Chronic constipation (9) COPD (chronic obstructive pulmonary disease) (10) Acute hypoxemic respiratory failure (11) Chronic pain syndrome (12) Toxic metabolic encephalopathy Symptom Scale: (1) Dyspnea (2) Confusion (3) Pain Pertinent Non-Medical Issues Psychosocial: Patient was born in [place]. She had 1 brother and 1 sister. Her sister is ; her brother lives in [place]. Patient states her father was a political prisoner in [place]. She moved to the [place] when she was 17 years old with her daughter. She met her after moving to the [facility]. Together they had 2 addition children; son (Los) and daughter ( Elsy) both live locally. Patient was to her for approximately 30 years before he from complications related to EtOH consumption. He worked as a gordillo before his . 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 She currently lives with her son in her home in [place]. Spiritual: Sikhism tato Legal: [facility] designation form completed 09/24/2017. Patient's son (Los) is designated as the healthcare surrogate decision maker. Daughter, Elsy, is designated as the alternate health care surrogate. Ethical issues impacting care: No known ethical issues impacting care . Important Contacts Elsy Corona, daughter: [phone] Jameel Bautista, son: [phone] Paty Bautista, dtr: [phone] . Prognosis Patient is a 77-year-old female with multiple comorbid conditions who was admitted with hypoxia and sepsis. Patient's family reporting an acute decline in recent months as evidenced by increased confusion, weakness and poor nutritional intake. Patient son states the patient wants to stay in bed all the time and is sleeping more often. Patient is at risk for further decline given her age, complex medical condition and overall poor functional status. . Code Status: Alternative Code (NO COMPRESSIONS. Okay to proceed with ACLS medications, cardioversion and re-intubation if indicated) Plan * ALTERNATE CODE-intubation, ACLS medications and cardioversion if indicated. NO COMPRESSIONS. * Decision-making: [facility] designation form completed 09/24/2017. Patient's son ( oLs) is designated as the healthcare surrogate decision maker. Daughter, Elsy, is designated as the alternate health care surrogate. * Patient has been on [facility] for several months but the family did not know why the patient was on hospice and did not appear to understand the difference between aggressive versus comfort focus goals. Patient's son and daughter who live locally described an obvious decline over the past 12 months. After meeting with Palliative Care, the patient's children verbalize a better understanding of the current hospital and possible medical decisions they will likely be forced to address in the future. They remain cautiously optimistic that their mother will improve enough that they can have conversations with her about medical treatment goals, perhaps completing written advanced directives. CODE STATUS was changed to ALTERNATE CODE-intubation, ACLS medications and cardioversion if needed. NO COMPRESSIONS. Family would want to proceed with reintubation, for a short period of time ( 1-2 weeks), if indicated * Discussed this patient with bedside nurse, Fely. * Palliative care contact information provided to the patient. * Symptom management: = Dyspnea: Tolerating 2L via nasal cannula Follow-up chest x-ray 01/21/17 was stable with underinflation and bilateral basilar airspace opacities representing either atelectasis or consolidation. Receiving scheduled and PRN albuterol nebulizers. = Encephalopathy: Patient slowly becoming more alert; short term memory remains poor. EEG on 01/21/2018 was abnormal due to mild/moderate slowing, medication versus encephalopathic process. No epileptic activity noted. * Palliative care will continue to follow this patient throughout her hospitalization to establish trust, assist with symptom management and clarification of medical treatment goals. . Attestation To help prompt me to consider important information that might be impacting today's encounter and assessment, information from prior notes written by myself or my colleagues may have been "brought forward" into today's note. My signature on this note, however, is an attestation that I personally performed the exam, history, and/or decision-making noted today, and, unless otherwise indicated, the interactions with patient, family, and staff as well as the review of records all occurred today. I also attest that the listed assessment and stated plan reflect my best clinical judgment today based on the combination of historical information, prior notes, and today's exam/ interactions. When time spent is documented, it refers only to time spent today by the signer, or if indicated, combined time spent today by collaborating physician/nurse practitioner. . Annie Shukla Jan 24, 2018 14:37
--- NOTE | 2018-01-24 21:16 | EKG ---
Date Performed: 01/23/2018 Time Performed: 22:46:43 PTAGE: 77 years EKG: Sinus rhythm WITH FREQUENT SUPRAVENTRICULAR PREMATURE COMPLEXES NONSPECIFIC ST ABNORMALITY ABNORMAL ECG PREVIOUS TRACING : 01/19/2018 09.15 Compared to previous tracing, premature supraventricular co mplexes are now present, anterior infarct pattern is no longer present. DOCTOR: Dameon Peters Interpretating Date/Time 01/24/2018 21:15:46
[2018-01-25] VITALS (13 sets, daily range): BP systolic 162–187; BP diastolic 70–94; PULSE 53–69; RESP 26–33; TEMP 97.5–98.6; O2SAT 96–98
[2018-01-25] MEDS: ICU - POTASSIUM CHLORIDE/AQUEOUS SOLN 40 MEQ/100 ML IVPB IV PRN (00:04)
[2018-01-25] MEDS: cloNIDine HCL 0.1 MG TAB PO PRN ×2 (00:24→20:20)
[2018-01-25] MEDS: ACETAMINOPHEN 325 MG TAB PO PRN (00:24)
[2018-01-25] MEDS: INSULIN NovoLIN REGULAR SUPPLEMENTAL SCALE SQ SCH ×3 (01:09→18:00)
[2018-01-25] MEDS: PIPERACIL-TAZO 3.375 GM PREMIX 50 ML IV SCH ×5 (01:09→22:06)
[2018-01-25] MEDS ORDERED: hydrALAZINE HCL 20 MG/ML VIAL IV PUSH ONE (03:45)
[2018-01-25] MEDS: CHLORHEXIDINE GLUCONATE 2 % 1 PACK (2 CLOTHS) TOP SCH (04:00)
[2018-01-25] MEDS: HYDROCORTISONE SOD SUCCINATE 100 MG VIAL IV PUSH SCH ×3 (04:00→20:20)
[2018-01-25] MEDS ORDERED: LORazepam 2 MG/ML VIAL IV PUSH ONE (04:15)
[2018-01-25] MEDS: CARBIDOPA/LEVODOPA 25 MG/100 MG TAB PO SCH ×3 (04:24→22:00)
[2018-01-25] MEDS: METOPROLOL TARTRATE 25 MG TAB PO SCH ×3 (04:25→22:00)
[2018-01-25 07:32] LABS: BICARBONATE 26.5 MEQ/L (21.0-32.0); CALCIUM 7.7 MG/DL (8.5-10.1); CREATININE 0.75 MG/DL (0.50-1.00)
[2018-01-25] MEDS: CHLORHEXIDINE 0.12% (ORAL KIT) 15 ML CUP MT SCH ×2 (08:00→20:00)
[2018-01-25] MEDS: POTASSIUM CHLORIDE 20 MEQ CONTROLLED RELEASE TAB PO SCH ×2 (09:00→20:21)
[2018-01-25] MEDS: PRAVASTATIN SOD 40 MG TAB PO SCH (09:00)
[2018-01-25] MEDS: busPIRone HCL 10 MG TAB PO SCH ×2 (09:00→20:20)
[2018-01-25] MEDS: SODIUM CHLORIDE 0.9% FLUSH 10 ML FLUSH IV FLUSH SCH ×3 (09:00→20:20)
[2018-01-25] MEDS: FAMOTIDINE 20 MG TAB PO SCH ×2 (09:00→20:21)
[2018-01-25] MEDS: HEPARIN SODIUM - SQ 10,000 UNITS/ML VIAL SQ SCH ×2 (09:00→20:21)
[2018-01-25] MEDS: DULoxetine HCl DR 20 MG CAP PO SCH (09:00)
[2018-01-25] MEDS ORDERED: PHARMACY ORDERED LAB ONE (11:45)
[2018-01-25] MEDS: VANCOMYCIN INJ 1,500 MG in SODIUM CHLORID 0.9% 500 ML INJ 500 ML IV SCH (13:39)
[2018-01-25] MEDS: D5-NS + KCL 20 MEQ INJ 1,000 ML IV SCH (20:26)
[2018-01-26] VITALS (13 sets, daily range): BP systolic 141–194; BP diastolic 67–82; PULSE 53–80; RESP 17–52; TEMP 98.1–99.2; O2SAT 61–98
[2018-01-26] MEDS ORDERED: hydrALAZINE HCL 20 MG/ML VIAL IV PUSH ONE (01:45)
[2018-01-26] MEDS ORDERED: LORazepam 2 MG/ML VIAL IV PUSH ONE (03:15)
[2018-01-26] MEDS: CHLORHEXIDINE GLUCONATE 2 % 1 PACK (2 CLOTHS) TOP SCH (04:00)
[2018-01-26] MEDS: HYDROCORTISONE SOD SUCCINATE 100 MG VIAL IV PUSH SCH ×3 (04:00→19:38)
[2018-01-26] MEDS: CARBIDOPA/LEVODOPA 25 MG/100 MG TAB PO SCH ×3 (06:00→22:12)
[2018-01-26] MEDS: INSULIN NovoLIN REGULAR SUPPLEMENTAL SCALE SQ SCH ×5 (06:00→23:11)
[2018-01-26] MEDS: METOPROLOL TARTRATE 25 MG TAB PO SCH ×2 (06:00→13:13)
[2018-01-26] MEDS: PIPERACIL-TAZO 3.375 GM PREMIX 50 ML IV SCH (06:25)
[2018-01-26] MEDS: CHLORHEXIDINE 0.12% (ORAL KIT) 15 ML CUP MT SCH ×2 (08:00→19:38)
--- NOTE | 2018-01-26 08:48 | PD.CONS ---
History of Present Illness Service Infectious disease Consult Requested By Dr Barakat Reason for Consult Evaluate patient with Aspergillus in the sputum Primary Care Physician Triston Pena M.D. Diagnoses: History of Present Illness Patient seen and examined. Records reviewed. Patient is a 77-year-old female, sent home, brought into the hospital after she was found unresponsive. She has underlying CVA, adjustment disorder, COPD, chronic pain syndrome and on pain medication. She was apparently under hospice , and the son rescinded this. EMS was called, and they gave her lamin on with improvement of her mental status. She was also hypotensive with improvement after fluid resuscitation. Her blood sugars were okay. She was taken to the emergency room, and she ended up getting intubated. Her chest x-ray was normal. Her white count was up to 20,000. Creatinine was elevated as well as lactic acid. There was no other mention of any accompanying signs and symptoms as far as respiratory, GI or urinary complaints. Her urinalysis on admission is unremarkable. Patient apparently has been able to do ADLs at home and has been ambulatory. Renal ultrasound did not show any obstruction. Patient was found to have pneumococcus in her sputum culture. Her urine for pneumococcal antigen was also positive. Blood cultures were negative. Patient extubated herself on January 22, and has been doing well off the vent. She was initially febrile, and the last time she had a fever was around January 21. Subsequent chest x-ray showing basilar consolidation or infiltrates. Her WBC is now down to normal. Creatinine is also normal. Her sputum culture also is reported as growing Aspergillus. Patient has been on Zosyn and vancomycin. Infectious disease consultation has been requested to take recommendation regarding her positive sputum culture. Review of Systems ROS Limitations: Clinical Condition, Poor Historian Constitutional: COMPLAINS OF: Fever Eyes: DENIES: Eye pain Ears, nose, mouth, throat: DENIES: Nasal discharge, Oral lesions Respiratory: DENIES: Cough, Shortness of breath Gastrointestinal: DENIES: Abdominal pain, Nausea, Vomiting, Difficulty Swallowing Integumentary: DENIES: Rash Neurologic: DENIES: Localized weakness Psychiatric: COMPLAINS OF: Confusion Past Family Social History Allergies: Coded Allergies: No Known Allergies (Verified Allergy, Unknown, 09/21/17) Past Medical History COPD CVA -left basal ganglia Nonobstructive coronary artery disease Essential hypertension Dyslipidemia Chronic narcotic use Adjustment disorder Peripheral neuropathy Chronic constipation Chronic prednisone use Past Surgical History Cholecystectomy Right hip total arthroplasty Left wrist Cardiac catheterization Active Ordered Medications Current Medications Medications (Trade) Dose Ordered Sig/Joselin Route Start Time Stop Time Status Last Admin (NS Flush) 2 ml UNSCH PRN IV FLUSH 01/19/18 10:30 (NS Flush) 2 ml BID IV FLUSH 01/19/18 21:00 01/25/18 20:20 (Zofran Inj) 4 mg Q6H PRN IV PUSH 01/19/18 10:30 01/21/18 20:16 (Albuterol Neb) 2.5 mg Q2HR NEB PRN INH 01/19/18 10:30 Miscellaneous Information 1 Q361D XX 01/19/18 10:30 01/23/18 10:30 (Chlorhexidine 2% Cloth) Taper DAILY@04 TOP 01/20/18 04:00 01/16/19 03:59 01/26/18 04:00 (Chlorhexidine 2% Cloth) 3 pack UNSCH PRN TOP 01/19/18 10:30 (Senokot) 17.2 mg Q12H PRN PO 01/19/18 10:30 (Peridex 0.12% Liq) 15 ml BID@08,20 MT 01/19/18 20:00 01/25/18 08:00 (D50w (Vial) Inj) 50 ml UNSCH PRN IV PUSH 01/19/18 10:30 (Glucagon Inj) 1 mg UNSCH PRN OTHER 01/19/18 10:30 (NovoLIN R SUPPLEMENTAL SCALE) 1 Q6HR SQ 01/19/18 12:00 01/25/18 01:09 (Pravachol) 40 mg DAILY PO 01/20/18 09:00 01/25/18 09:00 (Heparin Inj) 5,000 units Q12HR SQ 01/19/18 21:00 01/25/18 20:21 (NS Flush) DAILY IV FLUSH 01/19/18 14:00 01/25/18 09:00 (NS Flush) UNSCH PRN IV FLUSH 01/19/18 14:00 (Brethine Inj) 1 mg UNSCH PRN SQ 01/20/18 07:30 Piperacillin Sod/ Tazobactam Sod 50 ml @ 100 mls/hr Q6H IV 01/21/18 11:00 01/26/18 06:25 (Sinemet 25-100 Mg) 1 tab Q8HR PO 01/21/18 10:00 01/25/18 22:00 (Tylenol) 650 mg Q6H PRN PO 01/21/18 11:30 01/25/18 00:24 Miscellaneous Information ICU - CALL ORDERING PHYSIC... UNSCH PRN .XX 01/21/18 11:30 Potassium Chloride 100 ml @ 25 mls/hr UNSCH PRN IV 01/21/18 11:30 01/25/18 00:04 (K-Lyte Cl Eff) 50 meq UNSCH PRN PO 01/21/18 11:30 Potassium Chloride 100 ml @ 50 mls/hr UNSCH PRN IV 01/21/18 11:30 Magnesium Sulfate 4 gm/Sodium Chloride 108 ml @ 54 mls/hr UNSCH PRN IV 01/21/18 11:30 Magnesium Sulfate 2 gm/Sodium Chloride 104 ml @ 52 mls/hr UNSCH PRN IV 01/21/18 11:30 01/24/18 05:03 (Mag-Ox) 800 mg UNSCH PRN PO 01/21/18 11:30 Sodium Phosphate 30 mmol/Sodium Chloride 260 ml @ 43.333 mls/ hr UNSCH PRN IV 01/21/18 11:30 (K-Phos) 2,000 mg UNSCH PRN PO 01/21/18 11:30 Potassium Phosphate 30 mmol/ Sodium Chloride 260 ml @ 43.333 mls/ hr UNSCH PRN IV 01/21/18 11:30 01/22/18 19:00 (Buspar) 30 mg BID PO 01/22/18 21:00 01/25/18 20:20 (C[address]) 20 mg DAILY PO 01/22/18 13:15 01/25/18 09:00 (Pepcid) 20 mg BID PO 01/23/18 21:00 01/25/18 20:21 (KCl) 20 meq Q12HR PO 01/23/18 14:00 01/25/18 20:21 (Catapres) 0.1 mg Q6H PRN PO 01/23/18 18:45 01/25/18 20:20 (Lopressor) 12.5 mg Q8HR PO 01/24/18 14:00 01/25/18 22:00 (Pill Splitter) 1 ea UNSCH PRN OTHER 01/24/18 12:00 (SoluCORTEF INJ) 50 mg Q8H IV PUSH 01/25/18 20:00 01/26/18 04:00 Potassium Chloride/Dextrose/ Sod Cl 1,000 ml @ 42 mls/hr [id number] IV 01/25/18 18:45 01/25/18 20:26 Family History Non-contributory Social History Quit tobacco 15 years ago. No ETOH abuse No Illicit drugs Patient is with 3 children. One . One adopted. Physical Exam Vital Signs Vital Signs Date Time Temp Pulse Resp B/P (MAP) Pulse Ox O2 Delivery O2 Flow Rate FiO2 01/26/18 07:00 94 Nasal Cannula 2.00 40 01/26/18 06:00 53 01/26/18 04:00 98.7 55 23 141/73 (95) 94 01/26/18 04:00 55 01/26/18 02:00 55 01/26/18 00:00 98.3 57 52 172/74 (106) 94 01/26/18 00:00 57 01/25/18 22:00 57 01/25/18 20:00 55 01/25/18 20:00 98.6 55 33 183/77 (112) 98 01/25/18 19:59 98 Nasal Cannula 2.00 01/25/18 19:00 94 Nasal Cannula 3.00 40 01/25/18 18:00 64 01/25/18 16:00 64 01/25/18 16:00 98.6 53 27 162/70 (100) 96 01/25/18 12:00 64 01/25/18 12:00 98.6 53 27 162/70 (100) 96 01/25/18 10:00 64 Physical Exam GENERAL: Patient is an obese, well-developed female, awake and alert, not in respiratory distress. She is on nasal O2. She is confused and has wrist restraints SKIN: Cool and dry. No generalized rash, no ecchymoses and no evidence of embolic lesions. HEAD: Atraumatic. Normocephalic. No temporal wasting, or tenderness. EYES: [place] conjunctiva. No petechia or hemorrhage. Pupils equal, round and reactive to light. Extraocular movements full and intact. No scleral icterus. No injection or drainage. EARS, NOSE AND THROAT: Nose without bleeding or purulent nasal discharge. No sinus tenderness. Mucous membranes pink and moist. No oral lesions noted. She is edentulous NECK: Trachea midline. Supple and not tender, no meningeal signs. No nuchal rigidity CARDIOVASCULAR: Regular rate and rhythm. No murmurs, rubs or gallops heard RESPIRATORY: Breath sounds equal bilaterally. No rales, wheezing or rhonchi. Decreased breath sounds at the bases. ABDOMEN: Soft, non-tender, nondistended. Bowel sounds present and normoactive. No guarding. No rebound. No organomegaly. EXTREMITIES: No clubbing, cyanosis, or edema. No joint effusion, has good ROM. No calf tenderness. Well perfused and warm. NEUROLOGICAL: Awake and alert. Cranial nerves grossly intact. Motor grossly within normal limits. PSYCHIATRIC: Normal affect, calm and cooperative. LINE: LIJ TLC with no evidence of infection Laboratory Date/Time Source Procedure Growth Status 01/19/18 08:40 Blood Peripheral Aerobic Blood Culture - Final NO GROWTH IN 5 DAYS Complete 01/19/18 08:40 Blood Peripheral Anaerobic Blood Culture - Final NO GROWTH IN 5 DAYS Complete 01/20/18 00:45 Nasal Aspirate Influenza Types A,B Antigen (MAKAYLA) - Final NEGATIVE FOR FLU A AND B ANTIGEN.... Complete 01/19/18 09:02 Urine Catheterized Urine Legionella Antigen - Final PRESUMPTIVE NEGATIVE FOR LEGIONELLA P... Complete 01/19/18 09:02 Streptococcus pneumoniae Antigen (M - Final Pos For Pneumococcal Antigen Complete Result Diagram: 01/23/18 0610 01/25/18 0520 Imaging RADIOLOGY STUDIES/FILMS REVIEWED Chest X-Ray 01/21/18 0600 Signed Impressions: Service Date/Time: Sunday, January 21, 2018 03:47 - CONCLUSION: Stable chest x-ray with underinflation and bilateral basilar air space opacities representing either atelectasis or consolidation. Sung Fernandez MD Head CT 01/19/18 0836 Signed Impressions: Service Date/Time: Friday, January 19, 2018 10:12 - CONCLUSION: 1. No acute intracranial abnormality. 2. Atrophy and chronic small vessel ischemic change. 3. Paranasal sinus disease. Oneil Bills Jr., MD Renal Ultrasound 01/19/18 0000 Signed Impressions: Service Date/Time: Friday, January 19, 2018 10:45 - CONCLUSION: Normal examination. Jameel Baldwin MD Assessment and Plan Assessment and Plan IMPRESSION Sepsis on admission due to pneumococcal PNA Pneumococcal PNA Per Hx has COPD, previous smoker Aspergillus in sputum likely contaminant RECOMMENDATION Change antibiotic to Rocephin for pneumococcal coverage No need to treat Aspergillus in the sputum Monitor progress Monitor respiratory status I will determine course of antibiotic treatment depending on her clinical course I will follow along with you Thank you for this consultation Karly Rolon MD Jan 26, 2018 08:48
[2018-01-26] MEDS: FAMOTIDINE 20 MG TAB PO SCH ×2 (09:58→19:38)
[2018-01-26] MEDS: PRAVASTATIN SOD 40 MG TAB PO SCH (09:58)
[2018-01-26] MEDS: POTASSIUM CHLORIDE 20 MEQ CONTROLLED RELEASE TAB PO SCH ×2 (09:58→19:38)
[2018-01-26] MEDS: HEPARIN SODIUM - SQ 10,000 UNITS/ML VIAL SQ SCH ×2 (09:58→19:37)
[2018-01-26] MEDS: DULoxetine HCl DR 20 MG CAP PO SCH (09:58)
[2018-01-26] MEDS: SODIUM CHLORIDE 0.9% FLUSH 10 ML FLUSH IV FLUSH SCH ×3 (09:59→19:38)
[2018-01-26] MEDS: busPIRone HCL 10 MG TAB PO SCH ×2 (10:00→19:51)
[2018-01-26] MEDS: cloNIDine HCL 0.1 MG TAB PO PRN (10:00)
[2018-01-26] MEDS: cefTRIAXone INJ 2,000 MG in SODIUM CHLORIDE 0.9% INJ 100 ML IV SCH (10:00)
[2018-01-26] MEDS ORDERED: PHARMACY ORDERED LAB ONE (11:45)
--- NOTE | 2018-01-26 14:38 | HHI.PR ---
Subjective Remarks late entry notes from 01/25 vissit awake and alert denies any pain BPs elevated Objective Vitals Vital Signs Date Time Temp Pulse Resp B/P (MAP) Pulse Ox O2 Delivery O2 Flow Rate FiO2 01/26/18 14:00 57 01/26/18 12:00 61 01/26/18 12:00 99.2 61 18 194/82 (119) 61 01/26/18 10:00 59 01/26/18 08:00 99.1 55 18 151/67 (95) 91 01/26/18 08:00 55 01/26/18 07:00 94 Nasal Cannula 2.00 40 01/26/18 06:00 53 01/26/18 04:00 98.7 55 23 141/73 (95) 94 01/26/18 04:00 55 01/26/18 02:00 55 01/26/18 00:00 98.3 57 52 172/74 (106) 94 01/26/18 00:00 57 01/25/18 22:00 57 01/25/18 20:00 55 01/25/18 20:00 98.6 55 33 183/77 (112) 98 01/25/18 19:59 98 Nasal Cannula 2.00 01/25/18 19:00 94 Nasal Cannula 3.00 40 01/25/18 18:00 64 01/25/18 16:00 64 01/25/18 16:00 98.6 53 27 162/70 (100) 96 I/O 01/25/18 01/25/18 01/25/18 01/26/18 01/26/18 01/26/18 07:00 15:00 23:00 07:00 15:00 23:00 Intake Total 300 ml 1560 ml 866 ml Output Total 1801 ml 2000 ml 1300 ml Balance -1501 ml -440 ml -434 ml Intake Oral 300 ml 480 ml 360 ml IV Total 1080 ml 506 ml Output Urine Total 1800 ml 2000 ml 1300 ml Stool Total 1 ml # Bowel Movements 1 3 1 Result Diagram: 01/23/18 0610 01/25/18 0520 Imaging Last Impressions Chest X-Ray 01/21/18 0600 Signed Impressions: Service Date/Time: Sunday, January 21, 2018 03:47 - CONCLUSION: Stable chest x-ray with underinflation and bilateral basilar air space opacities representing either atelectasis or consolidation. Sung Fernandez MD Head CT 01/19/18 0836 Signed Impressions: Service Date/Time: Friday, January 19, 2018 10:12 - CONCLUSION: 1. No acute intracranial abnormality. 2. Atrophy and chronic small vessel ischemic change. 3. Paranasal sinus disease. Oneil Bills Jr., MD Renal Ultrasound 01/19/18 0000 Signed Impressions: Service Date/Time: Friday, January 19, 2018 10:45 - CONCLUSION: Normal examination. Jameel Baldwin MD Objective Remarks awake and alert, oriented x 2 today anicteric no nuchal rigidity lungs- decreased breath sounds bradycardia- occasional in the 40s abdomen- soft, good bowel sounds extremities- no edema moves all extremities spontaneously A/P Problem List: (1) Septic shock ICD Code: A41.9 - Sepsis, unspecified organism; R65.21 - Severe sepsis with septic shock (2) Respiratory failure ICD Code: J96.90 - Respiratory failure, unspecified, unspecified whether with hypoxia or hypercapnia Status: Acute (3) Hypokalemia due to loss of potassium ICD Code: E87.6 - Hypokalemia (4) Acute renal failure ICD Code: N17.9 - Acute kidney failure, unspecified Status: Acute (5) Adjustment disorder with depressed mood ICD Code: F43.21 - Adjustment disorder with depressed mood (6) Elevated lactic acid level ICD Code: R79.89 - Other specified abnormal findings of blood chemistry (7) Hyperlipidemia ICD Code: E78.5 - Hyperlipidemia Status: Acute (8) Hypertension ICD Code: I10 - Essential (primary) hypertension Status: Acute (9) Chronic narcotic use ICD Code: F11.90 - Opioid use, unspecified, uncomplicated (10) Coronary artery disease ICD Code: I25.10 - Atherosclerotic heart disease of [place] coronary artery without angina pectoris (11) History of CVA (cerebrovascular accident) ICD Code: Z86.73 - Personal history of transient ischemic attack (TIA), and cerebral infarction without residual deficits (12) Unresponsive ICD Code: R41.89 - Other symptoms and signs involving cognitive functions and awareness Status: Acute Assessment and Plan Neuro/Psych: Acute toxic metabolic encephalopathy- Improved History of CVA -with adjustment disorder Depression/anxiety Chronic pain syndrome -chronic narcotic use Patient is currently on fentanyl infusion for sedation/analgesia while intubated Goal RASS -2 CT brain 01/19 revealed no acute intracranial findings. Old left carried CV and bilateral basal cranial calcifications. Holding carbidopa/levodopa 25/101 tablet every 8 hours. Resume when clinically indicated Holding gabapentin 300 mg p.o. twice daily and fluoxetine 20 mg daily buspirone 30 mg twice daily Check MRI brain if no neurological improvement 01/20 EEG - moderate slowing, no epileptic activity Resume home medications Cymbalta, buspirone CV: Septic shock- resolved History of hypertension- now with elevated readings Dyslipidemia Nonobstructive coronary disease -cardiac catheterization 2011 revealed EF 80% nonobstructive coronary disease Ventricular bigeminy secondary to severe hypokalemia BRAdycarrhytmia- r/o heart block On Pravastatin DC Lopressor and Clonidine- with bradyarrhythmia Start Amlodpine 10 mg po daily Hydralazine 50 mg po tid IV Vasotec prn with BP parameter and closely monitor BMP 01/19 2D echocardiogram- EF 55-60%,,mod TR, PAP 29, moderate annular calcifications EKG revealed heart rate of 84. Normal LA, QRS and QT intervals. Inferior Q waves. Nonspecific in acute lateral ST changes. Resp: Acute hypoxemic respiratory failure- Resolved History of COPD patient on chronic Prednisone decrease Hydrocortisone to 50 mg IV 8- taper duonebs GI: Chronic constipation-Now having large volume diarrhea - BM slowed down - off stool softeners - ff C diff negative Bah catheter has been placed for accurate I's and O's in a critical patient Endo: Hyperglycemia Chronic prednisone use 10 mg daily Sliding scale insulin with Novulin R to maintain euglycemia/low regimen Check TSH- normal Decrease Hydrocortisone to 50 IV mg q 8 Renal: Acute kidney injury- REsolved Renal ultrasound no hydronephrosis Heplock IV and monitor Hypokalemia - improved HYpernatremic- improved from diarrhea- slow down Increase KCL to po 20 meq bid ff BMP Heme: Leukocytosis Monitor CBC daily. Follow trend ID: Severe sepsis secondary to S. Pneumoniae Now also growing Aspergillus- possible contaminant ? DC Vancomycin, Continue Zosyn Influenza, urine Legionella- negative INfectious disease consult for recommendation FEN: MSK: PT evaluate and treat Access: -Utilize peripheral IV. Central if indicated Prophylaxis -GI -famotidine -DVT -SCD/heparin SQ Problem Qualifiers (1) Respiratory failure: Qualified Codes: J96.00 - Acute respiratory failure, unspecified whether with hypoxia or hypercapnia (2) Acute renal failure: Qualified Codes: N17.9 - Acute kidney failure, unspecified (3) Coronary artery disease: Qualified Codes: I25.10 - Atherosclerotic heart disease of [place] coronary artery without angina pectoris Jovanny Barakat MD Jan 26, 2018 14:38
--- NOTE | 2018-01-26 14:54 | HHI.PR ---
Subjective Remarks awake and alert, ff commands oriented to person and place childlike telemetry- bradycardic episodes- some drop beats elevated BP readings Objective Vitals Vital Signs Date Time Temp Pulse Resp B/P (MAP) Pulse Ox O2 Delivery O2 Flow Rate FiO2 01/26/18 14:00 57 01/26/18 12:00 61 01/26/18 12:00 99.2 61 18 194/82 (119) 61 01/26/18 10:00 59 01/26/18 08:00 99.1 55 18 151/67 (95) 91 01/26/18 08:00 55 01/26/18 07:00 94 Nasal Cannula 2.00 40 01/26/18 06:00 53 01/26/18 04:00 98.7 55 23 141/73 (95) 94 01/26/18 04:00 55 01/26/18 02:00 55 01/26/18 00:00 98.3 57 52 172/74 (106) 94 01/26/18 00:00 57 01/25/18 22:00 57 01/25/18 20:00 55 01/25/18 20:00 98.6 55 33 183/77 (112) 98 01/25/18 19:59 98 Nasal Cannula 2.00 01/25/18 19:00 94 Nasal Cannula 3.00 40 01/25/18 18:00 64 01/25/18 16:00 64 01/25/18 16:00 98.6 53 27 162/70 (100) 96 I/O 01/25/18 01/25/18 01/25/18 01/26/18 01/26/18 01/26/18 07:00 15:00 23:00 07:00 15:00 23:00 Intake Total 300 ml 1560 ml 866 ml Output Total 1801 ml 2000 ml 1300 ml Balance -1501 ml -440 ml -434 ml Intake Oral 300 ml 480 ml 360 ml IV Total 1080 ml 506 ml Output Urine Total 1800 ml 2000 ml 1300 ml Stool Total 1 ml # Bowel Movements 1 3 1 Result Diagram: 01/23/18 0610 01/25/18 0520 Imaging Last Impressions Chest X-Ray 01/21/18 0600 Signed Impressions: Service Date/Time: Sunday, January 21, 2018 03:47 - CONCLUSION: Stable chest x-ray with underinflation and bilateral basilar air space opacities representing either atelectasis or consolidation. Sung Fernandez MD Head CT 01/19/18 0836 Signed Impressions: Service Date/Time: Friday, January 19, 2018 10:12 - CONCLUSION: 1. No acute intracranial abnormality. 2. Atrophy and chronic small vessel ischemic change. 3. Paranasal sinus disease. Oneil Bills Jr., MD Renal Ultrasound 01/19/18 0000 Signed Impressions: Service Date/Time: Friday, January 19, 2018 10:45 - CONCLUSION: Normal examination. Jameel Baldwin MD Objective Remarks awake and alert, oriented x 2 today anicteric no nuchal rigidity lungs- decreased breath sounds bradycardia- occasional in the 40s- irregular abdomen- soft, good bowel sounds extremities- no edema moves all extremities spontaneously A/P Problem List: (1) Septic shock ICD Code: A41.9 - Sepsis, unspecified organism; R65.21 - Severe sepsis with septic shock (2) Respiratory failure ICD Code: J96.90 - Respiratory failure, unspecified, unspecified whether with hypoxia or hypercapnia Status: Acute (3) Hypokalemia due to loss of potassium ICD Code: E87.6 - Hypokalemia (4) Acute renal failure ICD Code: N17.9 - Acute kidney failure, unspecified Status: Acute (5) Adjustment disorder with depressed mood ICD Code: F43.21 - Adjustment disorder with depressed mood (6) Elevated lactic acid level ICD Code: R79.89 - Other specified abnormal findings of blood chemistry (7) Hyperlipidemia ICD Code: E78.5 - Hyperlipidemia Status: Acute (8) Hypertension ICD Code: I10 - Essential (primary) hypertension Status: Acute (9) Chronic narcotic use ICD Code: F11.90 - Opioid use, unspecified, uncomplicated (10) Coronary artery disease ICD Code: I25.10 - Atherosclerotic heart disease of [place] coronary artery without angina pectoris (11) History of CVA (cerebrovascular accident) ICD Code: Z86.73 - Personal history of transient ischemic attack (TIA), and cerebral infarction without residual deficits (12) Unresponsive ICD Code: R41.89 - Other symptoms and signs involving cognitive functions and awareness Status: Acute Assessment and Plan Neuro/Psych: Acute toxic metabolic encephalopathy- Improved- childlike- likely baseline dementia History of CVA -with adjustment disorder Depression/anxiety Chronic pain syndrome -chronic narcotic use CT brain 01/19 revealed no acute intracranial findings. Old left carried CV and bilateral basal cranial calcifications. Holding carbidopa/levodopa 25/101 tablet every 8 hours. Resume when clinically indicated Holding gabapentin 300 mg p.o. twice daily and fluoxetine 20 mg daily buspirone 30 mg twice daily 01/20 EEG - moderate slowing, no epileptic activity Resume home medications Cymbalta, buspirone CV: Septic shock- resolved History of hypertension- now with elevated readings Dyslipidemia Nonobstructive coronary disease -cardiac catheterization 2011 revealed EF 80% nonobstructive coronary disease Ventricular bigeminy secondary to severe hypokalemia BRAdycarrhytmia- r/o heart block telemetry- sinus with occasional drop beats ? HB On Pravastatin DC Lopressor and Clonidine- with bradyarrhythmia- if persists - consult cardiology Start Amlodpine 10 mg po daily Hydralazine 50 mg po tid IV Vasotec prn with BP parameter and closely monitor BMP 01/19 2D echocardiogram- EF 55-60%,,mod TR, PAP 29, moderate annular calcifications EKG revealed heart rate of 84. Normal [place], QRS and QT intervals. Inferior Q waves. Nonspecific in acute lateral ST changes. Severe sepsis secondary to S. Pneumoniae Now also growing Aspergillus- contaminant DC Vancomycin, Zosyn Started on Ceftriaxone per ID 01/25 Influenza, urine Legionella- negative Resp: Acute hypoxemic respiratory failure- Resolved History of COPD patient on chronic Prednisone decrease Hydrocortisone to 25 mg po q8 duonebs GI: Chronic constipation- resolved- MOnitor BM for any diarrhea - off stool softeners - ff C diff negative Bah catheter has been placed for accurate I's and O's in a critical patient Endo: Hyperglycemia Chronic prednisone use 10 mg daily Sliding scale insulin with Novulin R to maintain euglycemia/low regimen Check TSH- normal Decrease Hydrocortisone to 25 mg q8- taper Renal: Acute kidney injury- REsolved Renal ultrasound no hydronephrosis Heplock IV and monitor ff BMP with prn IV Vasotec Hypokalemia - improved HYpernatremic- improved from diarrhea- slow down Increase KCL to po 20 meq bid ff BMP Heme: Leukocytosis Monitor CBC daily. Follow trend ID: FEN: MSK: PT evaluate and treat Access: -Utilize peripheral IV. Central if indicated Prophylaxis -GI -famotidine -DVT -SCD/heparin SQ Problem Qualifiers (1) Respiratory failure: Qualified Codes: J96.00 - Acute respiratory failure, unspecified whether with hypoxia or hypercapnia (2) Acute renal failure: Qualified Codes: N17.9 - Acute kidney failure, unspecified (3) Coronary artery disease: Qualified Codes: I25.10 - Atherosclerotic heart disease of [place] coronary artery without angina pectoris Jovanny Barakat MD Jan 26, 2018 14:54
[2018-01-26] MEDS: hydrALAZINE HCL 50 MG TAB PO SCH ×2 (16:21→22:12)
[2018-01-26] MEDS ORDERED: LORazepam 1 MG TAB PO ONE (23:30)
[2018-01-26] MEDS: D5-NS + KCL 20 MEQ INJ 1,000 ML IV SCH (23:38)
[2018-01-27] VITALS (12 sets, daily range): BP systolic 132–174; BP diastolic 60–74; PULSE 60–86; RESP 18–30; TEMP 98–98.8; O2SAT 93–97
[2018-01-27] MEDS: CHLORHEXIDINE GLUCONATE 2 % 1 PACK (2 CLOTHS) TOP SCH (04:00)
[2018-01-27 05:28] LABS: AUTOMATED NEUTROPHIL # 6.4 TH/MM3 (1.8-7.7); BASOPHIL % 0.2 % (0.0-2.0); EOSINOPHIL % 0.1 % (0.0-4.0); HEMATOCRIT 35.6 % (35.0-46.0); HEMOGLOBIN 11.8 GM/DL (11.6-15.3); LYMPH % 18.4 % (9.0-44.0); LYMPHOCYTE # 1.6 TH/MM3 (1.0-4.8); MEAN CELL VOLUME 91.2 FL (80.0-100.0); MEAN CORPUSCULAR HEMOGLOBIN 30.2 PG (27.0-34.0); MEAN CORPUSCULAR HGB CONC 33.1 % (32.0-36.0); MEAN PLATELET VOLUME 8.1 FL (7.0-11.0); MONO % 7.2 % (0.0-8.0); MONOCYTE # 0.6 TH/MM3 (0-0.9); NEUT % 74.1 % (16.0-70.0); PLATELET COUNT 383 TH/MM3 (150-450); RED BLOOD COUNT 3.91 MIL/MM3 (4.00-5.30); RED CELL DISTRIBUTION WIDTH 13.2 % (11.6-17.2); WHITE BLOOD COUNT 8.7 TH/MM3 (4.0-11.0)
[2018-01-27 05:45] LABS: BICARBONATE 27.4 MEQ/L (21.0-32.0); CALCIUM 8.2 MG/DL (8.5-10.1); CREATININE 1.57 MG/DL (0.50-1.00)
[2018-01-27] MEDS: HYDROCORTISONE SOD SUCCINATE 100 MG VIAL IV PUSH SCH (05:59)
[2018-01-27] MEDS: hydrALAZINE HCL 50 MG TAB PO SCH ×3 (05:59→21:20)
[2018-01-27] MEDS: CARBIDOPA/LEVODOPA 25 MG/100 MG TAB PO SCH ×3 (05:59→21:19)
[2018-01-27] MEDS: INSULIN NovoLIN REGULAR SUPPLEMENTAL SCALE SQ SCH ×3 (06:00→18:00)
[2018-01-27] MEDS: ICU - POTASSIUM CHLORIDE/AQUEOUS SOLN 40 MEQ/100 ML IVPB IV PRN ×2 (06:03→09:55)
[2018-01-27] MEDS ORDERED: SODIUM CHLORID 0.9% 500 ML INJ 500 ML IV ONE (07:30)
[2018-01-27] MEDS ORDERED: POTASSIUM CHLORIDE 20 MEQ CONTROLLED RELEASE TAB PO ONE (07:30)
[2018-01-27] MEDS: FAMOTIDINE 20 MG TAB PO SCH ×2 (07:40→21:21)
[2018-01-27] MEDS: busPIRone HCL 10 MG TAB PO SCH ×2 (07:41→21:20)
[2018-01-27] MEDS: DULoxetine HCl DR 20 MG CAP PO SCH (07:41)
[2018-01-27] MEDS: PRAVASTATIN SOD 40 MG TAB PO SCH (07:42)
[2018-01-27] MEDS: HEPARIN SODIUM - SQ 10,000 UNITS/ML VIAL SQ SCH ×2 (07:42→21:20)
[2018-01-27] MEDS: SODIUM CHLORIDE 0.9% FLUSH 10 ML FLUSH IV FLUSH SCH ×3 (07:43→21:05)
[2018-01-27] MEDS: POTASSIUM CHLORIDE 20 MEQ CONTROLLED RELEASE TAB PO SCH ×2 (07:43→21:21)
[2018-01-27] MEDS: CHLORHEXIDINE 0.12% (ORAL KIT) 15 ML CUP MT SCH ×2 (07:44→20:00)
[2018-01-27] MEDS: cefTRIAXone INJ 2,000 MG in SODIUM CHLORIDE 0.9% INJ 100 ML IV SCH (09:58)
--- NOTE | 2018-01-27 10:11 | HHI.IDPN ---
Subjective Subjective Remarks Patient is a 77-year-old female, sent home, brought into the hospital after she was found unresponsive. She has underlying CVA, adjustment disorder, COPD, chronic pain syndrome and on pain medication. She was apparently under hospice , and the son rescinded this. EMS was called, and they gave her lamin on with improvement of her mental status. She was also hypotensive with improvement after fluid resuscitation. Her blood sugars were okay. She was taken to the emergency room, and she ended up getting intubated. Her chest x-ray was normal. Her white count was up to 20,000. Creatinine was elevated as well as lactic acid. There was no other mention of any accompanying signs and symptoms as far as respiratory, GI or urinary complaints. Her urinalysis on admission is unremarkable. Patient apparently has been able to do ADLs at home and has been ambulatory. Renal ultrasound did not show any obstruction. Patient was found to have pneumococcus in her sputum culture. Her urine for pneumococcal antigen was also positive. Blood cultures were negative. Patient extubated herself on January 22, and has been doing well off the vent. She was initially febrile, and the last time she had a fever was around January 21. Subsequent chest x-ray showing basilar consolidation or infiltrates. Her WBC is now down to normal. Creatinine is also normal. Her sputum culture also is reported as growing Aspergillus. Patient has been on Zosyn and vancomycin. Infectious disease consultation has been requested to take recommendation regarding her positive sputum culture. Notes reviewed D/W RN Very restless this morning On RA sats good Temps ok BP ok Monitor shows ?atrial fib Antibiotics Current Medications Rocephin Medications (Trade) Dose Ordered Sig/Joselin Route Start Time Stop Time Status Last Admin (NS Flush) 2 ml UNSCH PRN IV FLUSH 01/19/18 10:30 (NS Flush) 2 ml BID IV FLUSH 01/19/18 21:00 01/27/18 07:43 (Zofran Inj) 4 mg Q6H PRN IV PUSH 01/19/18 10:30 01/21/18 20:16 (Albuterol Neb) 2.5 mg Q2HR NEB PRN INH 01/19/18 10:30 Miscellaneous Information 1 Q361D XX 01/19/18 10:30 01/23/18 10:30 (Chlorhexidine 2% Cloth) Taper DAILY@04 TOP 01/20/18 04:00 01/16/19 03:59 01/27/18 04:00 (Chlorhexidine 2% Cloth) 3 pack UNSCH PRN TOP 01/19/18 10:30 (Senokot) 17.2 mg Q12H PRN PO 01/19/18 10:30 (Peridex 0.12% Liq) 15 ml BID@08,20 MT 01/19/18 20:00 01/25/18 08:00 (D50w (Vial) Inj) 50 ml UNSCH PRN IV PUSH 01/19/18 10:30 (Glucagon Inj) 1 mg UNSCH PRN OTHER 01/19/18 10:30 (NovoLIN R SUPPLEMENTAL SCALE) 1 Q6HR SQ 01/19/18 12:00 01/25/18 01:09 (Pravachol) 40 mg DAILY PO 01/20/18 09:00 01/27/18 07:42 (Heparin Inj) 5,000 units Q12HR SQ 01/19/18 21:00 01/27/18 07:42 (NS Flush) DAILY IV FLUSH 01/19/18 14:00 01/27/18 07:43 (NS Flush) UNSCH PRN IV FLUSH 01/19/18 14:00 (Brethine Inj) 1 mg UNSCH PRN SQ 01/20/18 07:30 (Sinemet 25-100 Mg) 1 tab Q8HR PO 01/21/18 10:00 01/27/18 05:59 (Tylenol) 650 mg Q6H PRN PO 01/21/18 11:30 01/25/18 00:24 Miscellaneous Information ICU - CALL ORDERING PHYSIC... UNSCH PRN .XX 01/21/18 11:30 Potassium Chloride 100 ml @ 25 mls/hr UNSCH PRN IV 01/21/18 11:30 01/27/18 09:55 (K-Lyte Cl Eff) 50 meq UNSCH PRN PO 01/21/18 11:30 Potassium Chloride 100 ml @ 50 mls/hr UNSCH PRN IV 01/21/18 11:30 Magnesium Sulfate 4 gm/Sodium Chloride 108 ml @ 54 mls/hr UNSCH PRN IV 01/21/18 11:30 Magnesium Sulfate 2 gm/Sodium Chloride 104 ml @ 52 mls/hr UNSCH PRN IV 01/21/18 11:30 01/24/18 05:03 (Mag-Ox) 800 mg UNSCH PRN PO 01/21/18 11:30 Sodium Phosphate 30 mmol/Sodium Chloride 260 ml @ 43.333 mls/ hr UNSCH PRN IV 01/21/18 11:30 (K-Phos) 2,000 mg UNSCH PRN PO 01/21/18 11:30 Potassium Phosphate 30 mmol/ Sodium Chloride 260 ml @ 43.333 mls/ hr UNSCH PRN IV 01/21/18 11:30 01/22/18 19:00 (Buspar) 30 mg BID PO 01/22/18 21:00 01/27/18 07:41 (Cymbalta Dr) 20 mg DAILY PO 01/22/18 13:15 01/27/18 07:41 (Pepcid) 20 mg BID PO 01/23/18 21:00 01/27/18 07:40 (KCl) 20 meq Q12HR PO 01/23/18 14:00 01/27/18 07:43 (Pill Splitter) 1 ea UNSCH PRN OTHER 01/24/18 12:00 Potassium Chloride/Dextrose/ Sod Cl 1,000 ml @ 100 mls/hr Q10H IV 01/25/18 18:45 01/26/18 23:38 Ceftriaxone Sodium 2000 mg/ Sodium Chloride 100 ml @ 200 mls/hr Q24H IV 01/26/18 10:00 01/27/18 09:58 (Norvasc) 10 mg DAILY PO 01/26/18 16:00 01/27/18 07:42 (Apresoline) 50 mg Q8HR PO 01/26/18 16:00 01/27/18 05:59 (SoluCORTEF INJ) 25 mg Q8H IV PUSH 01/26/18 20:00 01/27/18 05:59 (Vasotec Inj) 1.25 mg Q6H PRN IV PUSH 01/26/18 16:00 Lines LIJ TLC - no evidence of infection Past Medical History COPD CVA -left basal ganglia Nonobstructive coronary artery disease Essential hypertension Dyslipidemia Chronic narcotic use Adjustment disorder Peripheral neuropathy Chronic constipation Chronic prednisone use Past Surgical History Cholecystectomy Right hip total arthroplasty Left wrist Cardiac catheterization Allergies: Coded Allergies: No Known Allergies (Verified Allergy, Unknown, 09/21/17) Objective . Vital Signs Date Time Temp Pulse Resp B/P (MAP) Pulse Ox O2 Delivery O2 Flow Rate FiO2 01/27/18 08:20 96 21 01/27/18 07:00 97 Room Air 21 01/27/18 06:00 61 01/27/18 04:00 60 01/27/18 04:00 98.5 60 30 155/68 (97) 97 01/27/18 02:00 64 01/27/18 00:00 98.6 60 149/65 (93) 95 01/27/18 00:00 64 01/26/18 22:00 60 01/26/18 21:16 98 Nasal Cannula 2.00 01/26/18 20:00 75 01/26/18 20:00 98.3 75 33 151/67 (95) 98 01/26/18 19:00 96 Nasal Cannula 2.00 01/26/18 18:00 80 01/26/18 16:00 59 01/26/18 16:00 98.1 59 17 181/74 (109) 95 01/26/18 14:00 57 01/26/18 12:00 61 01/26/18 12:00 99.2 61 18 194/82 (119) 92 . Laboratory Tests Test 01/27/18 04:40 White Blood Count 8.7 TH/MM3 Red Blood Count 3.91 MIL/MM3 Hemoglobin 11.8 GM/DL Hematocrit 35.6 % Mean Corpuscular Volume 91.2 FL Mean Corpuscular Hemoglobin 30.2 PG Mean Corpuscular Hemoglobin Concent 33.1 % Red Cell Distribution Width 13.2 % Platelet Count 383 TH/MM3 Mean Platelet Volume 8.1 FL Neutrophils (%) (Auto) 74.1 % Lymphocytes (%) (Auto) 18.4 % Monocytes (%) (Auto) 7.2 % Eosinophils (%) (Auto) 0.1 % Basophils (%) (Auto) 0.2 % Neutrophils # (Auto) 6.4 TH/MM3 Lymphocytes # (Auto) 1.6 TH/MM3 Monocytes # (Auto) 0.6 TH/MM3 Eosinophils # (Auto) 0.0 TH/MM3 Basophils # (Auto) 0.0 TH/MM3 CBC Comment DIFF FINAL Differential Comment Laboratory Tests Test 01/27/18 04:40 Blood Urea Nitrogen 12 MG/DL Creatinine 1.57 MG/DL Random Glucose 128 MG/DL Calcium Level 8.2 MG/DL Sodium Level 144 MEQ/L Potassium Level 2.8 MEQ/L Chloride Level 109 MEQ/L Carbon Dioxide Level 27.4 MEQ/L Anion Gap 8 MEQ/L Estimat Glomerular Filtration Rate 32 ML/MIN Imaging Last Impressions Chest X-Ray 01/21/18 0600 Signed Impressions: Service Date/Time: Sunday, January 21, 2018 03:47 - CONCLUSION: Stable chest x-ray with underinflation and bilateral basilar air space opacities representing either atelectasis or consolidation. Sung Fernandez MD Head CT 01/19/18 0836 Signed Impressions: Service Date/Time: Friday, January 19, 2018 10:12 - CONCLUSION: 1. No acute intracranial abnormality. 2. Atrophy and chronic small vessel ischemic change. 3. Paranasal sinus disease. Oneil Bills Jr., MD Renal Ultrasound 01/19/18 0000 Signed Impressions: Service Date/Time: Friday, January 19, 2018 10:45 - CONCLUSION: Normal examination. Jameel Baldwin MD Physical Exam GENERAL: awake and alert, not in respiratory distress. She is confused, restless SKIN: Cool and dry. No generalized rash, no ecchymoses and no evidence of embolic lesions. HEAD: Atraumatic. Normocephalic. No temporal wasting, or tenderness. EYES: [place] conjunctiva. No petechia or hemorrhage. Pupils equal, round and reactive to light. Extraocular movements full and intact. No scleral icterus. No injection or drainage. EARS, NOSE AND THROAT: Nose without bleeding or purulent nasal discharge. No sinus tenderness. Mucous membranes pink and moist. No oral lesions noted. She is edentulous NECK: Trachea midline. Supple and not tender, no meningeal signs. No nuchal rigidity CARDIOVASCULAR: Regular rate and rhythm. No murmurs, rubs or gallops heard RESPIRATORY: Breath sounds equal bilaterally. No rales, wheezing or rhonchi. Decreased breath sounds at the bases. ABDOMEN: Soft, non-tender, nondistended. Bowel sounds present and normoactive. No guarding. No rebound. No organomegaly. EXTREMITIES: No clubbing, cyanosis, or edema. No joint effusion, has good ROM. No calf tenderness. Well perfused and warm. NEUROLOGICAL: Awake and alert. Cranial nerves grossly intact. Motor grossly within normal limits. PSYCHIATRIC: Normal affect, calm and cooperative. LINE: LIJ TLC with no evidence of infection Assessment & Plan Remarks IMPRESSION Sepsis on admission due to pneumococcal PNA, better Pneumococcal PNA Per Hx has COPD, previous smoker Aspergillus in sputum likely contaminant RECOMMENDATION Continue Rocephin for pneumococcal coverage No need to treat Aspergillus in the sputum Monitor progress Monitor respiratory status D/W Karly Headley MD Jan 27, 2018 10:11
--- NOTE | 2018-01-27 16:10 | HHI.PR ---
Subjective Remarks awake and alert denies any pain staff nurse - states patient gets agitated and cursive and verbally abusive no diarrhea reported chairez catheter draining clear urine- good urine output Objective Vitals Vital Signs Date Time Temp Pulse Resp B/P (MAP) Pulse Ox O2 Delivery O2 Flow Rate FiO2 01/27/18 12:00 86 01/27/18 10:00 73 01/27/18 08:20 96 21 01/27/18 08:00 72 01/27/18 08:00 98.0 72 20 166/60 (95) 93 01/27/18 07:00 97 Room Air 21 01/27/18 06:00 61 01/27/18 04:00 60 01/27/18 04:00 98.5 60 30 155/68 (97) 97 01/27/18 02:00 64 01/27/18 00:00 98.6 60 149/65 (93) 95 01/27/18 00:00 64 01/26/18 22:00 60 01/26/18 21:16 98 Nasal Cannula 2.00 01/26/18 20:00 75 01/26/18 20:00 98.3 75 33 151/67 (95) 98 01/26/18 19:00 96 Nasal Cannula 2.00 01/26/18 18:00 80 I/O 01/26/18 01/26/18 01/26/18 01/27/18 01/27/18 01/27/18 07:00 15:00 23:00 07:00 15:00 23:00 Intake Total 866 ml 100 ml 1200 ml 1859 ml Output Total 1300 ml 1050 ml 2100 ml Balance -434 ml 100 ml 150 ml -241 ml Intake Oral 360 ml 1200 ml 720 ml IV Total 506 ml 100 ml 1139 ml Output Urine Total 1300 ml 1050 ml 2100 ml # Bowel Movements 1 3 1 Result Diagram: 01/27/18 0440 01/27/18 0440 Imaging Last Impressions Chest X-Ray 01/21/18 0600 Signed Impressions: Service Date/Time: Sunday, January 21, 2018 03:47 - CONCLUSION: Stable chest x-ray with underinflation and bilateral basilar air space opacities representing either atelectasis or consolidation. Sung Fernandez MD Head CT 01/19/18 0836 Signed Impressions: Service Date/Time: Friday, January 19, 2018 10:12 - CONCLUSION: 1. No acute intracranial abnormality. 2. Atrophy and chronic small vessel ischemic change. 3. Paranasal sinus disease. Oneil Bills Jr., MD Renal Ultrasound 01/19/18 0000 Signed Impressions: Service Date/Time: Friday, January 19, 2018 10:45 - CONCLUSION: Normal examination. Jameel Baldwin MD Objective Remarks awake and alert, oriented x 2, ff commands anicteric no nuchal rigidity lungs- decreased breath sounds rhythm- regular- rate up in the 80s abdomen- soft, good bowel sounds extremities- no edema moves all extremities spontaneously Urinary Catheter: Yes Assessment to: Continue Chairez insert reason: Prolonged Immobilization A/P Problem List: (1) Septic shock ICD Code: A41.9 - Sepsis, unspecified organism; R65.21 - Severe sepsis with septic shock (2) Respiratory failure ICD Code: J96.90 - Respiratory failure, unspecified, unspecified whether with hypoxia or hypercapnia Status: Acute (3) Hypokalemia due to loss of potassium ICD Code: E87.6 - Hypokalemia (4) Acute renal failure ICD Code: N17.9 - Acute kidney failure, unspecified Status: Acute (5) Adjustment disorder with depressed mood ICD Code: F43.21 - Adjustment disorder with depressed mood (6) Elevated lactic acid level ICD Code: R79.89 - Other specified abnormal findings of blood chemistry (7) Hyperlipidemia ICD Code: E78.5 - Hyperlipidemia Status: Acute (8) Hypertension ICD Code: I10 - Essential (primary) hypertension Status: Acute (9) Chronic narcotic use ICD Code: F11.90 - Opioid use, unspecified, uncomplicated (10) Coronary artery disease ICD Code: I25.10 - Atherosclerotic heart disease of [place] coronary artery without angina pectoris (11) History of CVA (cerebrovascular accident) ICD Code: Z86.73 - Personal history of transient ischemic attack (TIA), and cerebral infarction without residual deficits (12) Unresponsive ICD Code: R41.89 - Other symptoms and signs involving cognitive functions and awareness Status: Acute Assessment and Plan Neuro/Psych: Acute toxic metabolic encephalopathy- Improved- childlike- likely baseline dementia History of CVA -with adjustment disorder Depression/anxiety Chronic pain syndrome -chronic narcotic use History of Parkinson's CT brain 01/19 revealed no acute intracranial findings. Old left carried CV and bilateral basal cranial calcifications. Holding carbidopa/levodopa 25/101 tablet every 8 hours. Resume when clinically indicated Holding gabapentin 300 mg p.o. twice daily and fluoxetine 20 mg daily buspirone 30 mg twice daily 01/20 EEG - moderate slowing, no epileptic activity Resume home medications Cymbalta, buspirone CV: Septic shock- resolved History of hypertension- now with elevated readings Dyslipidemia Nonobstructive coronary disease -cardiac catheterization 2011 revealed EF 80% nonobstructive coronary disease Ventricular bigeminy secondary to severe hypokalemia BRAdycarrhytmia- r/o heart block telemetry- now in SR 80s off BB On Pravastatin 01/26 - DC Lopressor and Clonidine- with bradyarrhythmia- Started Amlodpine 10 mg po daily for HTN Hydralazine 50 mg po tid IV Vasotec prn with BP parameter and closely monitor BMP 01/19 2D echocardiogram- EF 55-60%,,mod TR, PAP 29, moderate annular calcifications EKG revealed heart rate of 84. Normal MN, QRS and QT intervals. Inferior Q waves. Nonspecific in acute lateral ST changes. Severe sepsis secondary to S. Pneumoniae Now also growing Aspergillus- contaminant DC Vancomycin, Zosyn Started on Ceftriaxone per ID 01/25 Influenza, urine Legionella- negative Resp: Acute hypoxemic respiratory failure- Resolved History of COPD patient on chronic steroids DC hydrocortison- change to prednisone 10 mg po daily duonebs GI: Chronic constipation- resolved- MOnitor BM for any diarrhea - off stool softeners - ff C diff negative Chairez catheter has been placed for accurate I's and O's in a critical patient Endo: Hyperglycemia Chronic prednisone use 10 mg daily Sliding scale insulin with Novulin R to maintain euglycemia/low regimen Check TSH- normal Decrease Hydrocortisone to 25 mg q8- taper Renal: Acute kidney injury- - creatinine up again 01/27- good urine output Renal ultrasound no hydronephrosis restart IVF ff BMP with prn IV Vasotec Hypokalemia - K down again replace IV KCL 20 meq po bid HYpernatremic- improved from diarrhea- slow down Increase KCL to po 20 meq bid ff BMP Heme: Leukocytosis Monitor CBC daily. Follow trend ID: [id number]: MSK: PT evaluate and treat Access: -Utilize peripheral IV. Central if indicated Prophylaxis -GI -famotidine -DVT -SCD/heparin SQ Problem Qualifiers (1) Respiratory failure: Qualified Codes: J96.00 - Acute respiratory failure, unspecified whether with hypoxia or hypercapnia (2) Acute renal failure: Qualified Codes: N17.9 - Acute kidney failure, unspecified (3) Coronary artery disease: Qualified Codes: I25.10 - Atherosclerotic heart disease of [place] coronary artery without angina pectoris Jovanny Barakat MD Jan 27, 2018 16:10
[2018-01-27] MEDS: QUEtiapine FUMARATE 25 MG TAB PO SCH ×2 (16:30→21:21)
[2018-01-27] MEDS: predniSONE 10 MG TAB PO SCH (18:48)
[2018-01-27] MEDS: D5-NS + KCL 20 MEQ INJ 1,000 ML IV SCH (18:49)
[2018-01-27 19:11] LABS: BICARBONATE 24.4 MEQ/L (21.0-32.0); CALCIUM 8.1 MG/DL (8.5-10.1); CREATININE 1.78 MG/DL (0.50-1.00); MAGNESIUM 1.5 MG/DL (1.5-2.5)
[2018-01-28] VITALS: BP 133/60; PULSE 72; RESP 27; TEMP 98.6; O2SAT 96
[2018-01-28 03:16] LABS: BICARBONATE 28.3 MEQ/L (21.0-32.0); CALCIUM 7.6 MG/DL (8.5-10.1); CREATININE 1.68 MG/DL (0.50-1.00)
[2018-01-28 04:00] VITALS: BP 168/78; PULSE 79; RESP 16; TEMP 98
[2018-01-28] MEDS: CHLORHEXIDINE GLUCONATE 2 % 1 PACK (2 CLOTHS) TOP SCH (04:00)
[2018-01-28] MEDS: D5-NS + KCL 20 MEQ INJ 1,000 ML IV SCH (05:44)
[2018-01-28] MEDS: INSULIN NovoLIN REGULAR SUPPLEMENTAL SCALE SQ SCH ×4 (05:45→18:00)
[2018-01-28] MEDS: hydrALAZINE HCL 50 MG TAB PO SCH ×3 (05:45→21:15)
[2018-01-28] MEDS: CARBIDOPA/LEVODOPA 25 MG/100 MG TAB PO SCH ×3 (05:45→21:15)
[2018-01-28] MEDS: ENALAPRILAT 1.25 MG/ML VIAL IV PUSH PRN ×2 (07:16→22:11)
[2018-01-28 08:00] VITALS: BP 168/82; PULSE 75; RESP 16; TEMP 98
[2018-01-28] MEDS: CHLORHEXIDINE 0.12% (ORAL KIT) 15 ML CUP MT SCH ×2 (08:00→20:00)
[2018-01-28] MEDS: predniSONE 10 MG TAB PO SCH ×2 (08:09→21:15)
[2018-01-28] MEDS: busPIRone HCL 10 MG TAB PO SCH ×2 (08:09→21:15)
[2018-01-28] MEDS: DULoxetine HCl DR 20 MG CAP PO SCH (08:10)
[2018-01-28] MEDS: QUEtiapine FUMARATE 25 MG TAB PO SCH ×2 (08:10→21:16)
[2018-01-28] MEDS: POTASSIUM CHLORIDE 20 MEQ CONTROLLED RELEASE TAB PO SCH ×2 (08:10→21:14)
[2018-01-28] MEDS: FAMOTIDINE 20 MG TAB PO SCH ×2 (08:11→21:14)
[2018-01-28] MEDS: PRAVASTATIN SOD 40 MG TAB PO SCH (08:12)
[2018-01-28] MEDS: HEPARIN SODIUM - SQ 10,000 UNITS/ML VIAL SQ SCH ×2 (08:12→21:14)
[2018-01-28] MEDS: SODIUM CHLORIDE 0.9% FLUSH 10 ML FLUSH IV FLUSH SCH ×3 (09:00→21:15)
--- NOTE | 2018-01-28 09:48 | HHI.IDPN ---
Subjective Subjective Remarks Patient is a 77-year-old female, sent home, brought into the hospital after she was found unresponsive. She has underlying CVA, adjustment disorder, COPD, chronic pain syndrome and on pain medication. She was apparently under hospice , and the son rescinded this. EMS was called, and they gave her lamin on with improvement of her mental status. She was also hypotensive with improvement after fluid resuscitation. Her blood sugars were okay. She was taken to the emergency room, and she ended up getting intubated. Her chest x-ray was normal. Her white count was up to 20,000. Creatinine was elevated as well as lactic acid. There was no other mention of any accompanying signs and symptoms as far as respiratory, GI or urinary complaints. Her urinalysis on admission is unremarkable. Patient apparently has been able to do ADLs at home and has been ambulatory. Renal ultrasound did not show any obstruction. Patient was found to have pneumococcus in her sputum culture. Her urine for pneumococcal antigen was also positive. Blood cultures were negative. Patient extubated herself on January 22, and has been doing well off the vent. She was initially febrile, and the last time she had a fever was around January 21. Subsequent chest x-ray showing basilar consolidation or infiltrates. Her WBC is now down to normal. Creatinine is also normal. Her sputum culture also is reported as growing Aspergillus. Patient has been on Zosyn and vancomycin. Infectious disease consultation has been requested to take recommendation regarding her positive sputum culture. Notes reviewed D/W RN On RA sats good Temps ok BP ok In and out of AF Antibiotics Current Medications Rocephin Medications (Trade) Dose Ordered Sig/Joselin Route Start Time Stop Time Status Last Admin (NS Flush) 2 ml UNSCH PRN IV FLUSH 01/19/18 10:30 (NS Flush) 2 ml BID IV FLUSH 01/19/18 21:00 01/27/18 21:05 (Zofran Inj) 4 mg Q6H PRN IV PUSH 01/19/18 10:30 01/21/18 20:16 (Albuterol Neb) 2.5 mg Q2HR NEB PRN INH 01/19/18 10:30 Miscellaneous Information 1 Q361D XX 01/19/18 10:30 01/23/18 10:30 (Chlorhexidine 2% Cloth) Taper DAILY@04 TOP 01/20/18 04:00 2/28/19 03:59 01/27/18 04:00 (Chlorhexidine 2% Cloth) 3 pack UNSCH PRN TOP 01/19/18 10:30 (Senokot) 17.2 mg Q12H PRN PO 01/19/18 10:30 (Peridex 0.12% Liq) 15 ml BID@08,20 MT 01/19/18 20:00 01/25/18 08:00 (D50w (Vial) Inj) 50 ml UNSCH PRN IV PUSH 01/19/18 10:30 (Glucagon Inj) 1 mg UNSCH PRN OTHER 01/19/18 10:30 (NovoLIN R SUPPLEMENTAL SCALE) 1 Q6HR SQ 01/19/18 12:00 01/25/18 01:09 (Pravachol) 40 mg DAILY PO 01/20/18 09:00 01/28/18 08:12 (Heparin Inj) 5,000 units Q12HR SQ 01/19/18 21:00 01/28/18 08:12 (NS Flush) DAILY IV FLUSH 01/19/18 14:00 01/27/18 07:43 (NS Flush) UNSCH PRN IV FLUSH 01/19/18 14:00 (Brethine Inj) 1 mg UNSCH PRN SQ 01/20/18 07:30 (Sinemet 25-100 Mg) 1 tab Q8HR PO 01/21/18 10:00 01/28/18 05:45 (Tylenol) 650 mg Q6H PRN PO 01/21/18 11:30 01/25/18 00:24 Miscellaneous Information ICU - CALL ORDERING PHYSIC... UNSCH PRN .XX 01/21/18 11:30 Potassium Chloride 100 ml @ 25 mls/hr UNSCH PRN IV 01/21/18 11:30 01/27/18 09:55 (K-Lyte Cl Eff) 50 meq UNSCH PRN PO 01/21/18 11:30 Potassium Chloride 100 ml @ 50 mls/hr UNSCH PRN IV 01/21/18 11:30 Magnesium Sulfate 4 gm/Sodium Chloride 108 ml @ 54 mls/hr UNSCH PRN IV 01/21/18 11:30 Magnesium Sulfate 2 gm/Sodium Chloride 104 ml @ 52 mls/hr UNSCH PRN IV 01/21/18 11:30 01/24/18 05:03 (Mag-Ox) 800 mg UNSCH PRN PO 01/21/18 11:30 Sodium Phosphate 30 mmol/Sodium Chloride 260 ml @ 43.333 mls/ hr UNSCH PRN IV 01/21/18 11:30 (K-Phos) 2,000 mg UNSCH PRN PO 01/21/18 11:30 Potassium Phosphate 30 mmol/ Sodium Chloride 260 ml @ 43.333 mls/ hr UNSCH PRN IV 01/21/18 11:30 01/22/18 19:00 (Buspar) 30 mg BID PO 01/22/18 21:00 01/28/18 08:09 (Cymbalta Dr) 20 mg DAILY PO 01/22/18 13:15 01/28/18 08:10 (KCl) 20 meq Q12HR PO 01/23/18 14:00 01/28/18 08:10 (Pill Splitter) 1 ea UNSCH PRN OTHER 01/24/18 12:00 Potassium Chloride/Dextrose/ Sod Cl 1,000 ml @ 100 mls/hr Q10H IV 01/25/18 18:45 01/28/18 05:44 Ceftriaxone Sodium 2000 mg/ Sodium Chloride 100 ml @ 200 mls/hr Q24H IV 01/26/18 10:00 01/27/18 09:58 (Norvasc) 10 mg DAILY PO 01/26/18 16:00 01/28/18 08:10 (Apresoline) 50 mg Q8HR PO 01/26/18 16:00 01/28/18 05:45 (Vasotec Inj) 1.25 mg Q6H PRN IV PUSH 01/26/18 16:00 01/28/18 07:16 (Pepcid) 10 mg BID PO 01/27/18 21:00 01/28/18 08:11 (Deltasone) 10 mg DAILY PO 01/27/18 16:30 01/28/18 08:09 (SEROquel) 12.5 mg BID PO 01/27/18 16:30 01/28/18 08:10 Lines LIJ TLC - no evidence of infection Past Medical History COPD CVA -left basal ganglia Nonobstructive coronary artery disease Essential hypertension Dyslipidemia Chronic narcotic use Adjustment disorder Peripheral neuropathy Chronic constipation Chronic prednisone use Past Surgical History Cholecystectomy Right hip total arthroplasty Left wrist Cardiac catheterization Allergies: Coded Allergies: No Known Allergies (Verified Allergy, Unknown, 09/21/17) Objective . Vital Signs Date Time Temp Pulse Resp B/P (MAP) Pulse Ox O2 Delivery O2 Flow Rate FiO2 01/28/18 08:00 98.0 75 16 168/82 (110) 01/28/18 04:00 98.0 79 16 168/78 (108) 01/28/18 00:00 98.6 72 27 133/60 (84) 96 01/27/18 20:00 98.8 81 26 174/72 (106) 97 01/27/18 18:00 80 01/27/18 16:00 84 01/27/18 16:00 98.3 84 18 142/74 (96) 96 01/27/18 14:00 73 01/27/18 12:00 86 01/27/18 12:00 98.2 86 18 132/74 (93) 95 01/27/18 10:00 73 . Laboratory Tests Test 01/27/18 04:40 White Blood Count 8.7 TH/MM3 Red Blood Count 3.91 MIL/MM3 Hemoglobin 11.8 GM/DL Hematocrit 35.6 % Mean Corpuscular Volume 91.2 FL Mean Corpuscular Hemoglobin 30.2 PG Mean Corpuscular Hemoglobin Concent 33.1 % Red Cell Distribution Width 13.2 % Platelet Count 383 TH/MM3 Mean Platelet Volume 8.1 FL Neutrophils (%) (Auto) 74.1 % Lymphocytes (%) (Auto) 18.4 % Monocytes (%) (Auto) 7.2 % Eosinophils (%) (Auto) 0.1 % Basophils (%) (Auto) 0.2 % Neutrophils # (Auto) 6.4 TH/MM3 Lymphocytes # (Auto) 1.6 TH/MM3 Monocytes # (Auto) 0.6 TH/MM3 Eosinophils # (Auto) 0.0 TH/MM3 Basophils # (Auto) 0.0 TH/MM3 CBC Comment DIFF FINAL Differential Comment Laboratory Tests Test 01/27/18 04:40 01/27/18 18:17 01/28/18 02:20 Blood Urea Nitrogen 12 MG/DL 9 MG/DL 8 MG/DL Creatinine 1.57 MG/DL 1.78 MG/DL 1.68 MG/DL Random Glucose 128 MG/DL 130 MG/DL 229 MG/DL Calcium Level 8.2 MG/DL 8.1 MG/DL 7.6 MG/DL Sodium Level 144 MEQ/L 144 MEQ/L 147 MEQ/L Potassium Level 2.8 MEQ/L 3.7 MEQ/L 4.1 MEQ/L Chloride Level 109 MEQ/L 111 MEQ/L 114 MEQ/L Carbon Dioxide Level 27.4 MEQ/L 24.4 MEQ/L 28.3 MEQ/L Anion Gap 8 MEQ/L 9 MEQ/L 5 MEQ/L Estimat Glomerular Filtration Rate 32 ML/MIN 27 ML/MIN 29 ML/MIN Magnesium Level 1.5 MG/DL Imaging Last Impressions Chest X-Ray 01/21/18 0600 Signed Impressions: Service Date/Time: Sunday, January 21, 2018 03:47 - CONCLUSION: Stable chest x-ray with underinflation and bilateral basilar air space opacities representing either atelectasis or consolidation. Sung Fernandez MD Head CT 01/19/18 0836 Signed Impressions: Service Date/Time: Friday, January 19, 2018 10:12 - CONCLUSION: 1. No acute intracranial abnormality. 2. Atrophy and chronic small vessel ischemic change. 3. Paranasal sinus disease. Oneil Bills Jr., MD Renal Ultrasound 01/19/18 0000 Signed Impressions: Service Date/Time: Friday, January 19, 2018 10:45 - CONCLUSION: Normal examination. Jameel Baldwin MD Physical Exam GENERAL: awakens easily, NAD. SKIN: Cool and dry. No generalized rash, no ecchymoses and no evidence of embolic lesions. HEAD: Atraumatic. Normocephalic. No temporal wasting, or tenderness. EYES: [place] conjunctiva. No petechia or hemorrhage. Pupils equal, round and reactive to light. No scleral icterus. No injection or drainage. EARS, NOSE AND THROAT: Nose without bleeding or purulent nasal discharge. No sinus tenderness. Mucous membranes pink and moist. No oral lesions noted. She is edentulous NECK: Trachea midline. Supple and not tender, no meningeal signs. No nuchal rigidity CARDIOVASCULAR: Regular rate and rhythm. No murmurs, rubs or gallops heard RESPIRATORY: Breath sounds equal bilaterally. No rales, wheezing or rhonchi. Decreased breath sounds at the bases. ABDOMEN: Soft, non-tender, nondistended. Bowel sounds present and normoactive. No guarding. No rebound. No organomegaly. EXTREMITIES: No clubbing, cyanosis, or edema. No joint effusion, has good ROM. No calf tenderness. Well perfused and warm. NEUROLOGICAL: Awake and alert. Cranial nerves grossly intact. Motor grossly within normal limits. PSYCHIATRIC: Normal affect, calm and cooperative. LINE: LIJ TLC with no evidence of infection Assessment & Plan Remarks IMPRESSION Sepsis on admission due to pneumococcal PNA, better Pneumococcal PNA Per Hx has COPD, previous smoker Aspergillus in sputum likely contaminant Renal insufficiency RECOMMENDATION Change Rocephin to Levaquin and complete Rx with oral Abx No need to treat Aspergillus in the sputum Check UA with microscopy Clinically doing well from ID standpoint D/W Karly Headley MD Jan 28, 2018 09:48
[2018-01-28] MEDS: LEVOFLOXACIN 750 MG TAB PO SCH (10:00)
[2018-01-28 12:00] VITALS: BP 172/82; PULSE 75; RESP 16; TEMP 98
[2018-01-28 12:04] LABS: BACTERIA, URINE RARE /hpf; BILIRUBIN, URINE NEG (NEG); BLOOD, URINE NEG (NEG); GLUCOSE,URINE NEG (NEG); KETONE, URINE NEG (NEG); MUCUS URINE FEW /lpf (OCC); NITRITE,URINE NEG (NEG); PH, URINE 5.5 (5.0-8.5); SQUAMOUS EPITHELIAL CELL URINE 2 /hpf (0-5); TRANSITIONAL EPI CELLS, URINE <1 /hpf; URINE COLOR LIGHT-YELLOW (YELLW/STRAW); URINE LEUKOCYTE ESTERASE MOD (NEG)
--- NOTE | 2018-01-28 14:51 | HHI.PR ---
Subjective Remarks patient is very much awake and alert, and interactive, and delightful- likly starting dementia episodes of agitation last night- requiring restraints taking po very well- when offered- - c/o thirst chairez draining grossly clear urine stated her anme and date of when asked where r u answered "where do you think you are " ff all commands gets a little delightfully argumentative when asked to do some movement or some commands Objective Vitals Vital Signs Date Time Temp Pulse Resp B/P (MAP) Pulse Ox O2 Delivery O2 Flow Rate FiO2 01/28/18 12:00 98.0 75 16 172/82 (112) 01/28/18 08:00 98.0 75 16 168/82 (110) 01/28/18 04:00 98.0 79 16 168/78 (108) 01/28/18 00:00 98.6 72 27 133/60 (84) 96 01/27/18 20:00 98.8 81 26 174/72 (106) 97 01/27/18 18:00 80 01/27/18 16:00 84 01/27/18 16:00 98.3 84 18 142/74 (96) 96 I/O 01/27/18 01/27/18 01/27/18 01/28/18 01/28/18 01/28/18 06:59 14:59 22:59 06:59 14:59 22:59 Intake Total 1859 ml 200 ml 1479 ml Output Total 2100 ml 2100 ml 2650 ml Balance -241 ml 200 ml -2100 ml -1171 ml Intake Oral 720 ml 480 ml IV Total 1139 ml 200 ml 999 ml Output Urine Total 2100 ml 2100 ml 2650 ml # Bowel Movements 1 2 1 Result Diagram: 01/27/18 0440 01/28/18 0220 Imaging Last Impressions Chest X-Ray 01/21/18 0600 Signed Impressions: Service Date/Time: Sunday, January 21, 2018 03:47 - CONCLUSION: Stable chest x-ray with underinflation and bilateral basilar air space opacities representing either atelectasis or consolidation. Sung Fernandez MD Head CT 01/19/18 0836 Signed Impressions: Service Date/Time: Friday, January 19, 2018 10:12 - CONCLUSION: 1. No acute intracranial abnormality. 2. Atrophy and chronic small vessel ischemic change. 3. Paranasal sinus disease. Oneil Bills Jr., MD Renal Ultrasound 01/19/18 0000 Signed Impressions: Service Date/Time: Friday, January 19, 2018 10:45 - CONCLUSION: Normal examination. Jameel Baldwin MD Objective Remarks awake and alert, oriented x 2, ff commands, very interactive and answers appropriately anicteric + oral/tongue thrush right neck- central line in place no nuchal rigidity lungs- decreased breath sounds rhythm- regular-- telemetry - remains in sinus abdomen- soft, good bowel sounds extremities- no edema moves all extremities spontaneously Urinary Catheter: Yes Assessment to: Continue Chairez insert reason: Prolonged Immobilization A/P Problem List: (1) Septic shock ICD Code: A41.9 - Sepsis, unspecified organism; R65.21 - Severe sepsis with septic shock (2) Respiratory failure ICD Code: J96.90 - Respiratory failure, unspecified, unspecified whether with hypoxia or hypercapnia Status: Acute (3) Hypokalemia due to loss of potassium ICD Code: E87.6 - Hypokalemia (4) Acute renal failure ICD Code: N17.9 - Acute kidney failure, unspecified Status: Acute (5) Adjustment disorder with depressed mood ICD Code: F43.21 - Adjustment disorder with depressed mood (6) Elevated lactic acid level ICD Code: R79.89 - Other specified abnormal findings of blood chemistry (7) Hyperlipidemia ICD Code: E78.5 - Hyperlipidemia Status: Acute (8) Hypertension ICD Code: I10 - Essential (primary) hypertension Status: Acute (9) Chronic narcotic use ICD Code: F11.90 - Opioid use, unspecified, uncomplicated (10) Coronary artery disease ICD Code: I25.10 - Atherosclerotic heart disease of [place] coronary artery without angina pectoris (11) History of CVA (cerebrovascular accident) ICD Code: Z86.73 - Personal history of transient ischemic attack (TIA), and cerebral infarction without residual deficits (12) Unresponsive ICD Code: R41.89 - Other symptoms and signs involving cognitive functions and awareness Status: Acute Assessment and Plan Neuro/Psych: Acute toxic metabolic encephalopathy- Improved- childlike- likely baseline dementia History of CVA -with adjustment disorder Depression/anxiety Chronic pain syndrome -chronic narcotic use History fo Parkinsons ? Starting Dementia- childlike CT brain 01/19 revealed no acute intracranial findings. Old left carried CV and bilateral basal cranial calcifications. On carbidopa/levodopa 25/101 tablet every 8 hours. currently on On cymbalta and buspirone -started on Seroquel 12,5 mg po bid 01/27 - still with episodes of agitation specially at night- requiring restraints- might pull out line - childlike in demeanor and very pleasant and can be delightfully argumentative when explained about plan - will get Psychiatry consult for recommendations - d/w daughter - needs to be out of restraints to be able to DC to SNF CV: Septic shock- resolved History of hypertension- Dyslipidemia Nonobstructive coronary disease -cardiac catheterization 2011 revealed EF 80% nonobstructive coronary disease Ventricular bigeminy secondary to severe hypokalemia S/P BRAdyarrhytmia- telemetry- now in SR 80s off BB On Pravastatin 01/26 - DC Lopressor and Clonidine- with bradyarrhythmia- Amlodpine 10 mg po daily for HTN Hydralazine 50 mg po tid- IV Vasotec prn with BP parameter and closely monitor BMP check orthostatics Out of bed to chair bid and monitor VS 01/19 2D echocardiogram- EF 55-60%,,mod TR, PAP 29, moderate annular calcifications EKG revealed heart rate of 84. Normal WA, QRS and QT intervals. Inferior Q waves. Nonspecific in acute lateral ST changes. Severe sepsis secondary to S. Pneumoniae Now also growing Aspergillus- contaminant was on Ceftriaxone per ID now on Levaquin 750 mg daily till 02/07 No need to treat Aspergillus in the sputum Clinically doing well from ID standpoint Acute hypoxemic respiratory failure- Resolved History of COPD patient on chronic steroids DC Hydrocortison- change to prednisone 10 mg po bid (home dose- chronically on 10 mg daily) duonebs Chronic constipation- resolved- MOnitor BM for any diarrhea C diff negative Chairez catheter has been placed for accurate I's and O' Hyperglycemia Chronic prednisone use 10 mg daily Sliding scale insulin with Novulin R to maintain euglycemia/low regimen Check TSH- normal changed to prednisone 10 mg po bid (gradual taper- to home dose on chronic 10 mg daily) Renal: Acute kidney injury- - creatinine gradually stabilizing very good urine output Renal ultrasound no hydronephrosis continue IVF- change to 1/2 NS with slightly elev NA ff BMP - creatinine down to 1.68- non oliguric daily BMP Hypokalemia - corrected HYpernatremic- mild Na 147 from diarrhea- slow down KCL to po 20 meq bid ff BMP- change d IVF to 1/2 Oral Thrush start Nystatin 6 cc qid Deconditioning History of Parkinsons vs Essential tremors per daughter PT evaluate and treat daily Out of bed to chair daily will need SNF Prophylaxis -GI -famotidine -DVT -SCD/heparin SQ CM- will need SNF. 01/28 - s/w daughter Elsy on phone - updated her per CM notes - does not want Hospice- she agrees with SNF gets psychiatry consult Problem Qualifiers (1) Respiratory failure: Qualified Codes: J96.00 - Acute respiratory failure, unspecified whether with hypoxia or hypercapnia (2) Acute renal failure: Qualified Codes: N17.9 - Acute kidney failure, unspecified (3) Coronary artery disease: Qualified Codes: I25.10 - Atherosclerotic heart disease of [place] coronary artery without angina pectoris Jovanny Barakat MD Jan 28, 2018 14:51
[2018-01-28] MEDS: SODIUM CHLOR 0.45% 1000 ML INJ 1,000 ML IV SCH (15:00)
[2018-01-28 16:00] VITALS: BP 189/77; PULSE 73; RESP 16; TEMP 98
[2018-01-28] MEDS: NYSTATIN SUSP 500,000 U/5 ML CUP SWISH-SWAL SCH ×3 (16:00→21:00)
--- NOTE | 2018-01-28 17:04 | HHI.HCPN ---
Reason for visit a. To assist with evaluation and management of symptoms including: Pain, dyspnea, confusion b. To assist medical decision maker(s) with: better understanding of current medical conditions; weighing benefits/burdens of medical treatment options; making medical treatment decisions. . Subjective/Interval History Ms. Baum is a 77 year old female with adjustment disorder, lipidemia, hypertension, CAD, COPD, CVA (left basal ganglia) and peripheral neuropathy who presented to [facility] on 01/19/2018 for evaluation of altered mental status. Patient was intubated for airway protection due to her altered mental status. Patient received 2L bolus in the ED. White blood cell count and lactic acid were elevated. Patient was started on empiric antibiotics (Zosyn and Vancomycin) and was then admitted to critical care services for further evaluation and medical management. Follow-up visit for symptom management and clarification of medical treatment goals. Patient was seen and assessed in [facility], room 505-B. She is alert and pleasantly engaged, although confused at times. She knows her name and can you her birthday ; she becomes somewhat agitated when you ask too many questions. Follows most simple commands. Patient having increased agitation at night requiring restraints, possible "owning." Patient is on Cymbalta and Buspirone, added Seroquel on 01/27/18. Afebrile. Oxygen saturation stable on room air. Follow-up chest x-ray 01/21/2018 was stable with underinflation and bilateral basilar airspace opacities representing either atelectasis or consolidation. Leukocytosis has resolved. Sputum culture growing Aspergillus and Streptococcus pneumoniae. Urine cultures positive for pneumococcal antigen. Infectious disease following - antibiotics changed to Levaquin. Spoke with patient's daughter (Elsy) via telephone and provided an update on patient's medical conditions. Answers questions to the best of my ability. Elsy stating the family does not want hospice but want their mother to go to SNF for rehab. Message left for Paty cooper. . Advance Directives Health Care Surrogate: Copy in medical record Advance Directive Specifics Date completed: 10/04/2017 . Health Care Surrogate(s): Patient's son (Los) is designated as the healthcare surrogate decision maker. Daughter, Elsy, is designated as the alternate health care surrogate. . Documented care wishes: Health care surrogate designation form completed 09/24/2017. . Objective Vital Signs Date Time Temp Pulse Resp B/P (MAP) Pulse Ox O2 Delivery O2 Flow Rate FiO2 01/28/18 12:00 98.0 75 16 172/82 (112) 01/28/18 08:00 98.0 75 16 168/82 (110) 01/28/18 04:00 98.0 79 16 168/78 (108) 01/28/18 00:00 98.6 72 27 133/60 (84) 96 01/27/18 20:00 98.8 81 26 174/72 (106) 97 01/27/18 18:00 80 Intake & Output 01/28/18 01/28/18 07:00 19:00 Intake Total 1479 ml Output Total 2650 ml Balance -1171 ml Intake Oral 480 ml IV Total 999 ml Output Urine Total 2650 ml # Bowel Movements 1 Physical Exam CONSTITUTIONAL/GENERAL: This is an adequately nourished, elderly female person in no acute distress TUBES/LINES/DRAINS: NG, OG T, PIV 2, CVL, Bah catheter SKIN: No jaundice, rashes, or lesions. Ecchymoses on upper extremities. No wounds seen anteriorly. Skin temperature appropriate. Not diaphoretic. HEAD: Atraumatic. Normocephalic. EYES: Pupils equal and round and reactive. Extraocular motions intact. No scleral icterus. No injection or drainage. Fundi not examined. ENT: Hearing grossly normal. Nose without bleeding or purulent drainage. NECK: Trachea midline. Supple, nontender. No palpable thyroid enlargement or nodularity. CARDIOVASCULAR: Regular rate and ventricle bigeminy. No murmurs, gallops, or rubs. No JVD. Peripheral pulses symmetric. RESPIRATORY/CHEST: 2L oxygen via nasal cannula. Clear to auscultation. Breath sounds equal bilaterally. No wheezes, rales, or rhonchi. GASTROINTESTINAL: Abdomen soft, non-tender, nondistended. No hepato-splenomegaly , or palpable masses. No guarding. Bowel sounds present. GENITOURINARY: Without palpable bladder distension. Bah catheter in place. MUSCULOSKELETAL: No obvious deformities. Extremities without clubbing, cyanosis or mottling. Trace edema in bilateral lower extremities. LYMPHATICS: No palpable cervical or supraclavicular adenopathy. NEUROLOGICAL: Slowly becoming more alert; short-term memory remains poor. Patient oriented to person, place and time. Patient does not show insight or judgment related to her current medical conditions. PSYCHIATRIC: No obvious anxiety/depression. no apparent hallucinations or other psychotic thought process. . . Diagnostic Tests Laboratory Laboratory Tests Test 01/27/18 04:40 01/27/18 18:17 01/28/18 02:20 01/28/18 10:18 White Blood Count 8.7 TH/MM3 (4.0-11.0) Red Blood Count 3.91 MIL/MM3 (4.00-5.30) Hemoglobin 11.8 GM/DL (11.6-15.3) Hematocrit 35.6 % (35.0-46.0) Mean Corpuscular Volume 91.2 FL (80.0-100.0) Mean Corpuscular Hemoglobin 30.2 PG (27.0-34.0) Mean Corpuscular Hemoglobin Concent 33.1 % (32.0-36.0) Red Cell Distribution Width 13.2 % (11.6-17.2) Platelet Count 383 TH/MM3 (150-450) Mean Platelet Volume 8.1 FL (7.0-11.0) Neutrophils (%) (Auto) 74.1 % (16.0-70.0) Lymphocytes (%) (Auto) 18.4 % (9.0-44.0) Monocytes (%) (Auto) 7.2 % (0.0-8.0) Eosinophils (%) (Auto) 0.1 % (0.0-4.0) Basophils (%) (Auto) 0.2 % (0.0-2.0) Neutrophils # (Auto) 6.4 TH/MM3 (1.8-7.7) Lymphocytes # (Auto) 1.6 TH/MM3 (1.0-4.8) Monocytes # (Auto) 0.6 TH/MM3 (0-0.9) Eosinophils # (Auto) 0.0 TH/MM3 (0-0.4) Basophils # (Auto) 0.0 TH/MM3 (0-0.2) CBC Comment DIFF FINAL Differential Comment Blood Urea Nitrogen 12 MG/DL (7-18) 9 MG/DL (7-18) 8 MG/DL (7-18) Creatinine 1.57 MG/DL (0.50-1.00) 1.78 MG/DL (0.50-1.00) 1.68 MG/DL (0.50-1.00) Random Glucose 128 MG/DL (74-106) 130 MG/DL (74-106) 229 MG/DL (74-106) Calcium Level 8.2 MG/DL (8.5-10.1) 8.1 MG/DL (8.5-10.1) 7.6 MG/DL (8.5-10.1) Sodium Level 144 MEQ/L (136-145) 144 MEQ/L (136-145) 147 MEQ/L (136-145) Potassium Level 2.8 MEQ/L (3.5-5.1) 3.7 MEQ/L (3.5-5.1) 4.1 MEQ/L (3.5-5.1) Chloride Level 109 MEQ/L (98-107) 111 MEQ/L (98-107) 114 MEQ/L (98-107) Carbon Dioxide Level 27.4 MEQ/L (21.0-32.0) 24.4 MEQ/L (21.0-32.0) 28.3 MEQ/L (21.0-32.0) Anion Gap 8 MEQ/L (5-15) 9 MEQ/L (5-15) 5 MEQ/L (5-15) Estimat Glomerular Filtration Rate 32 ML/MIN (>89) 27 ML/MIN (>89) 29 ML/MIN (>89) Magnesium Level 1.5 MG/DL (1.5-2.5) Urine Color LIGHT-YELLOW (YELLW/STRAW) Urine Turbidity HAZY (CLEAR) Urine pH 5.5 (5.0-8.5) Urine Specific [place] 1.005 (1.002-1.035) Urine Protein NEG mg/dL (NEG-TRACE) Urine Glucose (UA) NEG mg/dL (NEG) Urine Ketones NEG mg/dL (NEG) Urine Occult Blood NEG (NEG) Urine Nitrite NEG (NEG) Urine Bilirubin NEG (NEG) Urine Urobilinogen LESS THAN 2.0 MG/DL (LESS Urine Leukocyte Esterase MOD (NEG) Urine RBC 1 /hpf (0-3) Urine WBC 11 /hpf (0-5) Urine Squamous Epithelial Cells 2 /hpf (0-5) Urine Transitional Epithelial Cells <1 /hpf (NONE) Urine Bacteria RARE /hpf (NONE) Urine Mucus FEW /lpf (OCC) Urine Yeast with Hyphae OCC (NONE) Urine Yeast (Budding) MOD (NONE) Result Diagram: 01/27/18 0440 01/28/18 0220 Procedures 01/19/2018: Intubation 01/19/2018: NGT placement 01/19/2018: Left IJ central line placement 01/21/2018: Self extubation . Assessment and Plan Disease Oriented Problem List: (1) Coronary artery disease (2) Septic shock (3) History of CVA (cerebrovascular accident) (4) History of myocardial infarction (5) Acute renal failure (6) Sepsis (7) Leukocytosis (8) Chronic constipation (9) COPD (chronic obstructive pulmonary disease) (10) Acute hypoxemic respiratory failure (11) Chronic pain syndrome (12) Toxic metabolic encephalopathy Symptom Scale: (1) Dyspnea (2) Confusion (3) Pain Pertinent Non-Medical Issues Psychosocial: Patient was born in [facility]. She had 1 brother and 1 sister. Her sister is ; her brother lives in [place]. Patient states her father was a political prisoner in [place]. She moved to the [facility] when she was 17 years old with her daughter. She met her after moving to the [facility]. Together they had 2 addition children; son (Los) and daughter ( Elsy) both live locally. Patient was to her for approximately 30 years before he from complications related to EtOH consumption. He worked as a gordillo before his . 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 She currently lives with her son in her home in [place]. Spiritual: Rastafarian tato Legal: [facility] designation form completed 09/24/2017. Patient's son (Los) is designated as the healthcare surrogate decision maker. Daughter, Elsy, is designated as the alternate health care surrogate. Ethical issues impacting care: No known ethical issues impacting care . Important Contacts Elsy Corona, daughter: [phone] Jameel Bautista, son: [phone] Paty Baum, dtr: [phone] . Prognosis Patient is a 77-year-old female with multiple comorbid conditions who was admitted with hypoxia and sepsis. Patient's family reporting an acute decline in recent months as evidenced by increased confusion, weakness and poor nutritional intake. Patient son states the patient wants to stay in bed all the time and is sleeping more often. Patient is at risk for further decline given her age, complex medical condition and overall poor functional status. . Code Status: Alternative Code (NO COMPRESSIONS. Okay to proceed with ACLS medications, cardioversion and re-intubation if indicated) Plan * ALTERNATE CODE-intubation, ACLS medications and cardioversion if indicated. NO COMPRESSIONS. * Decision-making: [facility] designation form completed 09/24/2017. Patient's son ( Los) is designated as the healthcare surrogate decision maker. Daughter, Elsy, is designated as the alternate health care surrogate. * Spoke with patient's daughter (Elsy) via telephone and provided an update on patient's medical conditions. Answers questions to the best of my ability. Elsy stating the family does not want hospice but want their mother to go to SNF for rehab. Message left for daughter, Paty. * Palliative care contact information provided to the patient. * Symptom management: = Dyspnea: Oxygen saturation stable on room air. Follow-up chest x- ray 01/21/17 was stable with underinflation and bilateral basilar airspace opacities representing either atelectasis or consolidation. Receiving scheduled and PRN albuterol nebulizers. = Encephalopathy: Patient slowly becoming more alert; short term memory remains poor. EEG on 01/21/2018 was abnormal due to mild/moderate slowing, medication versus encephalopathic process. No epileptic activity noted. * Palliative care will continue to follow this patient throughout her hospitalization to establish trust, assist with symptom management and clarification of medical treatment goals. . Attestation To help prompt me to consider important information that might be impacting today's encounter and assessment, information from prior notes written by myself or my colleagues may have been "brought forward" into today's note. My signature on this note, however, is an attestation that I personally performed the exam, history, and/or decision-making noted today, and, unless otherwise indicated, the interactions with patient, family, and staff as well as the review of records all occurred today. I also attest that the listed assessment and stated plan reflect my best clinical judgment today based on the combination of historical information, prior notes, and today's exam/ interactions. When time spent is documented, it refers only to time spent today by the signer, or if indicated, combined time spent today by collaborating physician/nurse practitioner. . Annie Shukla Jan 28, 2018 17:04
[2018-01-28 20:00] VITALS: BP 200/86; PULSE 86; RESP 27; TEMP 98.2; O2SAT 97
[2018-01-29] VITALS (8 sets, daily range): BP systolic 146–190; BP diastolic 57–89; PULSE 76–87; RESP 22–25; TEMP 98–98.3; O2SAT 96–99
[2018-01-29] MEDS: SODIUM CHLOR 0.45% 1000 ML INJ 1,000 ML IV SCH ×3 (02:55→21:24)
[2018-01-29] MEDS: CHLORHEXIDINE GLUCONATE 2 % 1 PACK (2 CLOTHS) TOP SCH ×2 (03:27→21:23)
[2018-01-29] MEDS: CARBIDOPA/LEVODOPA 25 MG/100 MG TAB PO SCH ×3 (04:49→21:05)
[2018-01-29] MEDS: hydrALAZINE HCL 50 MG TAB PO SCH (04:49)
[2018-01-29] MEDS: INSULIN NovoLIN REGULAR SUPPLEMENTAL SCALE SQ SCH ×3 (05:08→18:00)
[2018-01-29 06:00] LABS: BICARBONATE 25.9 MEQ/L (21.0-32.0); CALCIUM 8.6 MG/DL (8.5-10.1); CREATININE 1.56 MG/DL (0.50-1.00)
[2018-01-29] MEDS: NYSTATIN SUSP 500,000 U/5 ML CUP SWISH-SWAL SCH ×4 (07:40→21:04)
[2018-01-29] MEDS: FAMOTIDINE 20 MG TAB PO SCH ×2 (07:41→21:05)
[2018-01-29] MEDS: DULoxetine HCl DR 20 MG CAP PO SCH (07:41)
[2018-01-29] MEDS: PRAVASTATIN SOD 40 MG TAB PO SCH (07:41)
[2018-01-29] MEDS: QUEtiapine FUMARATE 25 MG TAB PO SCH ×2 (07:41→21:05)
[2018-01-29] MEDS: POTASSIUM CHLORIDE 20 MEQ CONTROLLED RELEASE TAB PO SCH ×2 (07:42→21:06)
[2018-01-29] MEDS: predniSONE 10 MG TAB PO SCH ×2 (07:42→21:05)
[2018-01-29] MEDS: busPIRone HCL 10 MG TAB PO SCH ×2 (07:47→21:04)
[2018-01-29] MEDS: SODIUM CHLORIDE 0.9% FLUSH 10 ML FLUSH IV FLUSH SCH ×2 (07:47→21:05)
[2018-01-29] MEDS: CHLORHEXIDINE 0.12% (ORAL KIT) 15 ML CUP MT SCH ×2 (08:00→20:00)
[2018-01-29] MEDS: HEPARIN SODIUM - SQ 10,000 UNITS/ML VIAL SQ SCH ×2 (09:00→21:03)
--- NOTE | 2018-01-29 09:33 | HHI.IDPN ---
Subjective Subjective Remarks Patient is a 77-year-old female, sent home, brought into the hospital after she was found unresponsive. She has underlying CVA, adjustment disorder, COPD, chronic pain syndrome and on pain medication. She was apparently under hospice , and the son rescinded this. EMS was called, and they gave her lamin on with improvement of her mental status. She was also hypotensive with improvement after fluid resuscitation. Her blood sugars were okay. She was taken to the emergency room, and she ended up getting intubated. Her chest x-ray was normal. Her white count was up to 20,000. Creatinine was elevated as well as lactic acid. There was no other mention of any accompanying signs and symptoms as far as respiratory, GI or urinary complaints. Her urinalysis on admission is unremarkable. Patient apparently has been able to do ADLs at home and has been ambulatory. Renal ultrasound did not show any obstruction. Patient was found to have pneumococcus in her sputum culture. Her urine for pneumococcal antigen was also positive. Blood cultures were negative. Patient extubated herself on January 22, and has been doing well off the vent. She was initially febrile, and the last time she had a fever was around January 21. Subsequent chest x-ray showing basilar consolidation or infiltrates. Her WBC is now down to normal. Creatinine is also normal. Her sputum culture also is reported as growing Aspergillus. Patient has been on Zosyn and vancomycin. Infectious disease consultation has been requested to take recommendation regarding her positive sputum culture. Notes reviewed Temps ok BP ok Monitor currently shows sinus with frequent PACs Line L neck still in Has good UO Creatinine slightly better UA with pyuria and yeast Has chairez placed in ED Antibiotics Levaquin Current Medications Medications (Trade) Dose Ordered Sig/Joselin Route Start Time Stop Time Status Last Admin (NS Flush) 2 ml UNSCH PRN IV FLUSH 01/19/18 10:30 (NS Flush) 2 ml BID IV FLUSH 01/19/18 21:00 01/29/18 07:47 (Zofran Inj) 4 mg Q6H PRN IV PUSH 01/19/18 10:30 01/21/18 20:16 (Albuterol Neb) 2.5 mg Q2HR NEB PRN INH 01/19/18 10:30 Miscellaneous Information 1 Q361D XX 01/19/18 10:30 01/23/18 10:30 (Chlorhexidine 2% Cloth) Taper DAILY@04 TOP 01/20/18 04:00 01/16/19 03:59 01/27/18 04:00 (Chlorhexidine 2% Cloth) 3 pack UNSCH PRN TOP 01/19/18 10:30 (Senokot) 17.2 mg Q12H PRN PO 01/19/18 10:30 (Peridex 0.12% Liq) 15 ml BID@08,20 MT 01/19/18 20:00 01/28/18 08:00 (D50w (Vial) Inj) 50 ml UNSCH PRN IV PUSH 01/19/18 10:30 (Glucagon Inj) 1 mg UNSCH PRN OTHER 01/19/18 10:30 (NovoLIN R SUPPLEMENTAL SCALE) 1 Q6HR SQ 01/19/18 12:00 01/25/18 01:09 (Pravachol) 40 mg DAILY PO 01/20/18 09:00 01/29/18 07:41 (Heparin Inj) 5,000 units Q12HR SQ 01/19/18 21:00 01/28/18 21:14 (NS Flush) DAILY IV FLUSH 01/19/18 14:00 01/27/18 07:43 (NS Flush) UNSCH PRN IV FLUSH 01/19/18 14:00 (Brethine Inj) 1 mg UNSCH PRN SQ 01/20/18 07:30 (Sinemet 25-100 Mg) 1 tab Q8HR PO 01/21/18 10:00 01/29/18 04:49 (Tylenol) 650 mg Q6H PRN PO 01/21/18 11:30 01/25/18 00:24 Miscellaneous Information ICU - CALL ORDERING PHYSIC... UNSCH PRN .XX 01/21/18 11:30 Potassium Chloride 100 ml @ 25 mls/hr UNSCH PRN IV 01/21/18 11:30 01/27/18 09:55 (K-Lyte Cl Eff) 50 meq UNSCH PRN PO 01/21/18 11:30 Potassium Chloride 100 ml @ 50 mls/hr UNSCH PRN IV 01/21/18 11:30 Magnesium Sulfate 4 gm/Sodium Chloride 108 ml @ 54 mls/hr UNSCH PRN IV 01/21/18 11:30 Magnesium Sulfate 2 gm/Sodium Chloride 104 ml @ 52 mls/hr UNSCH PRN IV 01/21/18 11:30 01/24/18 05:03 (Mag-Ox) 800 mg UNSCH PRN PO 01/21/18 11:30 Sodium Phosphate 30 mmol/Sodium Chloride 260 ml @ 43.333 mls/ hr UNSCH PRN IV 01/21/18 11:30 (K-Phos) 2,000 mg UNSCH PRN PO 01/21/18 11:30 Potassium Phosphate 30 mmol/ Sodium Chloride 260 ml @ 43.333 mls/ hr UNSCH PRN IV 01/21/18 11:30 01/22/18 19:00 (Buspar) 30 mg BID PO 01/22/18 21:00 01/29/18 07:47 (Cymbalta Dr) 20 mg DAILY PO 01/22/18 13:15 01/29/18 07:41 (KCl) 20 meq Q12HR PO 01/23/18 14:00 01/29/18 07:42 (Pill Splitter) 1 ea UNSCH PRN OTHER 01/24/18 12:00 (Norvasc) 10 mg DAILY PO 01/26/18 16:00 01/29/18 07:41 (Apresoline) 50 mg Q8HR PO 01/26/18 16:00 01/29/18 04:49 (Vasotec Inj) 1.25 mg Q6H PRN IV PUSH 01/26/18 16:00 01/28/18 22:11 (Pepcid) 10 mg BID PO 01/27/18 21:00 01/29/18 07:41 (SEROquel) 12.5 mg BID PO 01/27/18 16:30 01/29/18 07:41 (Levaquin) 750 mg Q48H PO 01/28/18 10:00 02/07/18 09:59 01/28/18 10:00 Sodium Chloride 1,000 ml @ 84 mls/hr [id number] IV 01/28/18 15:00 01/29/18 02:55 (Deltasone) 10 mg BID PO 01/28/18 21:00 01/29/18 07:42 (Mycostatin Liq) 5 ml QID SWISH-SWAL 01/28/18 16:00 01/29/18 07:40 Lines LIJ TLC - no evidence of infection Past Medical History COPD CVA -left basal ganglia Nonobstructive coronary artery disease Essential hypertension Dyslipidemia Chronic narcotic use Adjustment disorder Peripheral neuropathy Chronic constipation Chronic prednisone use Past Surgical History Cholecystectomy Right hip total arthroplasty Left wrist Cardiac catheterization Allergies: Coded Allergies: No Known Allergies (Verified Allergy, Unknown, 09/21/17) Objective . Vital Signs Date Time Temp Pulse Resp B/P (MAP) Pulse Ox O2 Delivery O2 Flow Rate FiO2 01/29/18 07:49 98.3 82 24 184/77 (112) 96 01/29/18 05:02 98.1 82 24 146/64 (91) 96 01/29/18 04:00 98.0 76 25 190/86 (120) 01/29/18 00:00 98.3 78 24 176/89 (118) 99 01/28/18 20:00 98.2 86 27 200/86 (124) 97 01/28/18 16:00 98.0 73 16 189/77 (114) 01/28/18 12:00 98.0 75 16 172/82 (112) . Laboratory Tests Test 01/27/18 18:17 01/28/18 02:20 01/29/18 03:20 Blood Urea Nitrogen 9 MG/DL 8 MG/DL 8 MG/DL Creatinine 1.78 MG/DL 1.68 MG/DL 1.56 MG/DL Random Glucose 130 MG/DL 229 MG/DL 140 MG/DL Calcium Level 8.1 MG/DL 7.6 MG/DL 8.6 MG/DL Magnesium Level 1.5 MG/DL Sodium Level 144 MEQ/L 147 MEQ/L 145 MEQ/L Potassium Level 3.7 MEQ/L 4.1 MEQ/L 3.4 MEQ/L Chloride Level 111 MEQ/L 114 MEQ/L 107 MEQ/L Carbon Dioxide Level 24.4 MEQ/L 28.3 MEQ/L 25.9 MEQ/L Anion Gap 9 MEQ/L 5 MEQ/L 12 MEQ/L Estimat Glomerular Filtration Rate 27 ML/MIN 29 ML/MIN 32 ML/MIN Imaging Last Impressions Chest X-Ray 01/21/18 0600 Signed Impressions: Service Date/Time: Sunday, January 21, 2018 03:47 - CONCLUSION: Stable chest x-ray with underinflation and bilateral basilar air space opacities representing either atelectasis or consolidation. Sung Fernandez MD Head CT 01/19/18 0836 Signed Impressions: Service Date/Time: Friday, January 19, 2018 10:12 - CONCLUSION: 1. No acute intracranial abnormality. 2. Atrophy and chronic small vessel ischemic change. 3. Paranasal sinus disease. Oneil Bills Jr., MD Renal Ultrasound 01/19/18 0000 Signed Impressions: Service Date/Time: Friday, January 19, 2018 10:45 - CONCLUSION: Normal examination. Jameel Baldwin MD Physical Exam GENERAL: awakens easily, NAD. SKIN: Cool and dry. No generalized rash, no ecchymoses and no evidence of embolic lesions. HEAD: Atraumatic. Normocephalic. No temporal wasting, or tenderness. EYES: Bartlett conjunctiva. No petechia or hemorrhage. Pupils equal, round and reactive to light. No scleral icterus. No injection or drainage. EARS, NOSE AND THROAT: Nose without bleeding or purulent nasal discharge. Mucous membranes pink and moist. She is edentulous NECK: Trachea midline. Supple and not tender, no meningeal signs. No nuchal rigidity CARDIOVASCULAR: Regular rate and rhythm. No murmurs, rubs or gallops heard RESPIRATORY: Breath sounds equal bilaterally. No rales, wheezing or rhonchi. Decreased breath sounds at the bases. ABDOMEN: Soft, non-tender, nondistended. Bowel sounds present and normoactive. No guarding. No rebound. No organomegaly. EXTREMITIES: No clubbing, cyanosis, or edema. No joint effusion, has good ROM. No calf tenderness. Well perfused and warm. NEUROLOGICAL: Awake and alert. Cranial nerves grossly intact. Motor grossly within normal limits. PSYCHIATRIC: Normal affect, calm and cooperative. LINE: LIJ TLC with no evidence of infection Assessment & Plan Remarks IMPRESSION Sepsis on admission due to pneumococcal PNA, better Pneumococcal PNA Per Hx has COPD, previous smoker Aspergillus in sputum likely contaminant Renal insufficiency RECOMMENDATION Continue Levaquin and complete Rx with oral Abx No need to treat Aspergillus in the sputum Give 7 days Diflucan for candiduria Remove central line Clinically doing well from ID standpoint I will be available prn. Please call if with any new ID issue or question D/W Karly Headley MD Jan 29, 2018 09:33
--- NOTE | 2018-01-29 11:44 | HHI.HCPN ---
Reason for visit a. To assist with evaluation and management of symptoms including: Pain, dyspnea, confusion b. To assist medical decision maker(s) with: better understanding of current medical conditions; weighing benefits/burdens of medical treatment options; making medical treatment decisions. . Subjective/Interval History Ms. Baum is a 77 year old female with adjustment disorder, lipidemia, hypertension, CAD, COPD, CVA (left basal ganglia) and peripheral neuropathy who presented to [facility] on 01/19/2018 for evaluation of altered mental status. Patient was intubated for airway protection due to her altered mental status. Patient received 2L bolus in the ED. White blood cell count and lactic acid were elevated. Patient was started on empiric antibiotics (Zosyn and Vancomycin) and was then admitted to critical care services for further evaluation and medical management. Follow-up visit for symptom management and clarification of medical treatment goals. Patient was seen and assessed [place] [facility] 505-B. Patient denies dyspnea, reporting abdominal pain that she can not describe or rate. She is alert and smiling, but she remains confused. She knows her name and knows she is in the hospital but cannot tell me her children's names. When asked a question that she apparently cannot answer she closes her eyes or trails off with "you know." Patient having increased agitation/confusion at night. Patient is on Cymbalta and Buspirone, added Seroquel on 01/27/18. Psychiatry consult pending. Afebrile since 01/21/2018. Oxygen saturation stable on room air. Follow-up chest x-ray 01/21/2018 showed basilar consolidation versus infiltrates. Leukocytosis has resolved. Sputum culture growing aspergillus and pneumococcus. UA with pyuria and yeast. Patient now on Levaquin-okay to complete course with oral meds per infectious disease. Started Diflucan 7 days for candiduria. Infectious disease has signed off. Elsy stating the family does not want hospice but want their mother to go to SNF for rehab on 01/28/18, however patient may be unable to tolerate rehab. Spoke to patient's son (Jameel) but he was unable to talk because he was working; awaiting return phone call. Message left for daughter, Elsy. Contact information correction for daughterPaty. Phone number: [phone] . Family/friend interactions Phone call to patient's son, Jameel. He was unable to talk because he was working, awaiting return phone call. A message was also left for patient's daughters, Elsy and Paty. Received a return phone call from Elsy this afternoon. Discharge plan for patient to be transferred to SNF for rehabilitation with subsequent long-term placement possible. Elsy expressed concern that her brother (Jameel) has changed his mind and is going to want to bring his mother back home; she does not feel like this is a safe discharge. At this time, patient requires care 11/06. Family's first choice is [facility] Rehab. Message left for case specialist (Claudia Beckwith) that family prefers [facility] and Rehab. Advance Directives Health Care Surrogate: Copy in medical record Advance Directive Specifics Date completed: 10/04/2017 . Health Care Surrogate(s): Patient's son (Los) is designated as the healthcare surrogate decision maker. Daughter, Elsy, is designated as the alternate health care surrogate. . Documented care wishes: Health care surrogate designation form completed 09/24/2017. . Objective Vital Signs Date Time Temp Pulse Resp B/P (MAP) Pulse Ox O2 Delivery O2 Flow Rate FiO2 01/29/18 08:00 98.3 82 24 184/77 (112) 96 01/29/18 07:49 98.3 82 24 184/77 (112) 96 01/29/18 05:02 98.1 82 24 146/64 (91) 96 01/29/18 04:00 98.0 76 25 190/86 (120) 01/29/18 00:00 98.3 78 24 176/89 (118) 99 01/28/18 20:00 98.2 86 27 200/86 (124) 97 01/28/18 16:00 98.0 73 16 189/77 (114) 01/28/18 12:00 98.0 75 16 172/82 (112) Intake & Output 01/29/18 01/29/18 06:59 18:59 Intake Total 1731 ml Output Total 3600 ml Balance -1869 ml Intake Oral 480 ml IV Total 1251 ml Output Urine Total 3600 ml # Bowel Movements 1 . Physical Exam CONSTITUTIONAL/GENERAL: This is an adequately nourished, elderly female person in no acute distress TUBES/LINES/DRAINS: NG, OG T, PIV 2, CVL, Bah catheter SKIN: No jaundice, rashes, or lesions. Ecchymoses on upper extremities. No wounds seen anteriorly. Skin temperature appropriate. Not diaphoretic. HEAD: Atraumatic. Normocephalic. EYES: Pupils equal and round and reactive. Extraocular motions intact. No scleral icterus. No injection or drainage. Fundi not examined. ENT: Hearing grossly normal. Nose without bleeding or purulent drainage. NECK: Trachea midline. Supple, nontender. No palpable thyroid enlargement or nodularity. CARDIOVASCULAR: Regular rate and ventricle bigeminy. No murmurs, gallops, or rubs. No JVD. Peripheral pulses symmetric. RESPIRATORY/CHEST: 2L oxygen via nasal cannula. Clear to auscultation. Breath sounds equal bilaterally. No wheezes, rales, or rhonchi. GASTROINTESTINAL: Abdomen soft, non-tender, nondistended. No hepato-splenomegaly , or palpable masses. No guarding. Bowel sounds present. GENITOURINARY: Without palpable bladder distension. Bah catheter in place. MUSCULOSKELETAL: No obvious deformities. Extremities without clubbing, cyanosis or mottling. Trace edema in bilateral lower extremities. LYMPHATICS: No palpable cervical or supraclavicular adenopathy. NEUROLOGICAL: Slowly becoming more alert; short-term memory remains poor. Patient oriented to person, place and time. Patient does not show insight or judgment related to her current medical conditions. PSYCHIATRIC: No obvious anxiety/depression. no apparent hallucinations or other psychotic thought process. . . Diagnostic Tests Laboratory Laboratory Tests Test 01/27/18 04:40 01/27/18 18:17 01/28/18 02:20 01/28/18 10:18 White Blood Count 8.7 TH/MM3 (4.0-11.0) Red Blood Count 3.91 MIL/MM3 (4.00-5.30) Hemoglobin 11.8 GM/DL (11.6-15.3) Hematocrit 35.6 % (35.0-46.0) Mean Corpuscular Volume 91.2 FL (80.0-100.0) Mean Corpuscular Hemoglobin 30.2 PG (27.0-34.0) Mean Corpuscular Hemoglobin Concent 33.1 % (32.0-36.0) Red Cell Distribution Width 13.2 % (11.6-17.2) Platelet Count 383 TH/MM3 (150-450) Mean Platelet Volume 8.1 FL (7.0-11.0) Neutrophils (%) (Auto) 74.1 % (16.0-70.0) Lymphocytes (%) (Auto) 18.4 % (9.0-44.0) Monocytes (%) (Auto) 7.2 % (0.0-8.0) Eosinophils (%) (Auto) 0.1 % (0.0-4.0) Basophils (%) (Auto) 0.2 % (0.0-2.0) Neutrophils # (Auto) 6.4 TH/MM3 (1.8-7.7) Lymphocytes # (Auto) 1.6 TH/MM3 (1.0-4.8) Monocytes # (Auto) 0.6 TH/MM3 (0-0.9) Eosinophils # (Auto) 0.0 TH/MM3 (0-0.4) Basophils # (Auto) 0.0 TH/MM3 (0-0.2) CBC Comment DIFF FINAL Differential Comment Blood Urea Nitrogen 12 MG/DL (7-18) 9 MG/DL (7-18) 8 MG/DL (7-18) Creatinine 1.57 MG/DL (0.50-1.00) 1.78 MG/DL (0.50-1.00) 1.68 MG/DL (0.50-1.00) Random Glucose 128 MG/DL (74-106) 130 MG/DL (74-106) 229 MG/DL (74-106) Calcium Level 8.2 MG/DL (8.5-10.1) 8.1 MG/DL (8.5-10.1) 7.6 MG/DL (8.5-10.1) Sodium Level 144 MEQ/L (136-145) 144 MEQ/L (136-145) 147 MEQ/L (136-145) Potassium Level 2.8 MEQ/L (3.5-5.1) 3.7 MEQ/L (3.5-5.1) 4.1 MEQ/L (3.5-5.1) Chloride Level 109 MEQ/L (98-107) 111 MEQ/L (98-107) 114 MEQ/L (98-107) Carbon Dioxide Level 27.4 MEQ/L (21.0-32.0) 24.4 MEQ/L (21.0-32.0) 28.3 MEQ/L (21.0-32.0) Anion Gap 8 MEQ/L (5-15) 9 MEQ/L (5-15) 5 MEQ/L (5-15) Estimat Glomerular Filtration Rate 32 ML/MIN (>89) 27 ML/MIN (>89) 29 ML/MIN (>89) Magnesium Level 1.5 MG/DL (1.5-2.5) Urine Color LIGHT-YELLOW (YELLW/STRAW) Urine Turbidity HAZY (CLEAR) Urine pH 5.5 (5.0-8.5) Urine Specific Jewell 1.005 (1.002-1.035) Urine Protein NEG mg/dL (NEG-TRACE) Urine Glucose (UA) NEG mg/dL (NEG) Urine Ketones NEG mg/dL (NEG) Urine Occult Blood NEG (NEG) Urine Nitrite NEG (NEG) Urine Bilirubin NEG (NEG) Urine Urobilinogen LESS THAN 2.0 MG/DL (LESS Urine Leukocyte Esterase MOD (NEG) Urine RBC 1 /hpf (0-3) Urine WBC 11 /hpf (0-5) Urine Squamous Epithelial Cells 2 /hpf (0-5) Urine Transitional Epithelial Cells <1 /hpf (NONE) Urine Bacteria RARE /hpf (NONE) Urine Mucus FEW /lpf (OCC) Urine Yeast with Hyphae OCC (NONE) Urine Yeast (Budding) MOD (NONE) Test 01/29/18 03:20 Blood Urea Nitrogen 8 MG/DL (7-18) Creatinine 1.56 MG/DL (0.50-1.00) Random Glucose 140 MG/DL (74-106) Calcium Level 8.6 MG/DL (8.5-10.1) Sodium Level 145 MEQ/L (136-145) Potassium Level 3.4 MEQ/L (3.5-5.1) Chloride Level 107 MEQ/L (98-107) Carbon Dioxide Level 25.9 MEQ/L (21.0-32.0) Anion Gap 12 MEQ/L (5-15) Estimat Glomerular Filtration Rate 32 ML/MIN (>89) . Result Diagram: 01/27/18 0440 01/29/18 0320 Procedures 01/19/2018: Intubation 01/19/2018: NGT placement 01/19/2018: Left IJ central line placement 01/21/2018: Self extubation . Assessment and Plan Disease Oriented Problem List: (1) Coronary artery disease (2) Septic shock (3) History of CVA (cerebrovascular accident) (4) History of myocardial infarction (5) Acute renal failure (6) Sepsis (7) Leukocytosis (8) Chronic constipation (9) COPD (chronic obstructive pulmonary disease) (10) Acute hypoxemic respiratory failure (11) Chronic pain syndrome (12) Toxic metabolic encephalopathy Symptom Scale: (1) Dyspnea (2) Confusion (3) Pain Pertinent Non-Medical Issues Psychosocial: Patient was born in [facility] [facility]. She had 1 brother and 1 sister. Her sister is ; her brother lives in [place]. Patient states her father was a political prisoner in [place]. She moved to the [place] when she was 17 years old with her daughter. She met her after moving to the [facility]. Together they had 2 addition children; son (Los) and daughter ( Elsy) both live locally. Patient was to her for approximately 30 years before he from complications related to EtOH consumption. He worked as a gordillo before his . 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 She currently lives with her son in her home in [place]. Spiritual: Yazdanism tato Legal: [employer] designation form completed 09/24/2017. Patient's son (Los) is designated as the healthcare surrogate decision maker. Daughter, Elsy, is designated as the alternate health care surrogate. Ethical issues impacting care: No known ethical issues impacting care . Important Contacts Elsy Corona, daughter: [phone] Jameel Bautista, son: [phone] Paty Baum, dtr: [phone] . Prognosis Patient is a 77-year-old female with multiple comorbid conditions who was admitted with hypoxia and sepsis. Patient's family reporting an acute decline in recent months as evidenced by increased confusion, weakness and poor nutritional intake. Patient son states the patient wants to stay in bed all the time and is sleeping more often. Patient is at risk for further decline given her age, complex medical condition and overall poor functional status. . Code Status: Alternative Code (NO COMPRESSIONS. Okay to proceed with ACLS medications, cardioversion and re-intubation if indicated) Plan * ALTERNATE CODE-intubation, ACLS medications and cardioversion if indicated. NO COMPRESSIONS. * Decision-making: [facility] designation form completed 09/24/2017. Patient's son ( Los) is designated as the healthcare surrogate decision maker. Daughter, Elsy, is designated as the alternate health care surrogate. * Phone call to patient's son, Jameel. He was unable to talk because he was working, awaiting return phone call. A message was also left for patient's daughters, Elsy and Paty. Received a return phone call from Elsy this afternoon. Discharge plan for patient to be transferred to SNF for rehabilitation with subsequent long-term placement possible. Elsy expressed concern that her brother (Jameel) has changed his mind and is going to want to bring his mother back home; she does not feel like this is a safe discharge. At this time, patient requires care 11/06. Family's first choice is [facility]. Message left for case specialist (Claudia Beckwith) that family prefers [facility]. * Contact information correction for daughter, Paty Baum. Phone number: [phone] * Symptom management: = Dyspnea: Oxygen saturation stable on room air. Follow-up chest x- ray 01/21/2018 showed basilar consolidation versus infiltrates. Leukocytosis has resolved. Sputum culture growing aspergillus and pneumococcus. Patient now on Levaquin-okay to complete course with oral meds per infectious disease. = Encephalopathy: She is alert and smiling, but she remains confused. She knows her name and knows she is in the hospital but cannot tell me her children's names. When asked a question that she apparently cannot answer she closes her eyes or trails off with "you know." Patient having increased agitation/confusion at night. Patient is on Cymbalta and Buspirone, added Seroquel on 01/27/18. Psychiatry consult pending.EEG on 01/21/2018 was abnormal due to mild/ moderate slowing, medication versus encephalopathic process. No epileptic activity noted. * Palliative care will continue to follow this patient throughout her hospitalization to establish trust, assist with symptom management and clarification of medical treatment goals. . Annie Shukla Jan 29, 2018 11:44
--- NOTE | 2018-01-29 12:26 | HHI.PR ---
Subjective Remarks The patient wanted to go home today. She said she misses her. She did not want to be in restraints anymore. Discussed with nursing at the bedside. Objective Vitals Vital Signs Date Time Temp Pulse Resp B/P (MAP) Pulse Ox O2 Delivery O2 Flow Rate FiO2 01/29/18 08:00 98.3 82 24 184/77 (112) 96 01/29/18 07:49 98.3 82 24 184/77 (112) 96 01/29/18 05:02 98.1 82 24 146/64 (91) 96 01/29/18 04:00 98.0 76 25 190/86 (120) 01/29/18 00:00 98.3 78 24 176/89 (118) 99 01/28/18 20:00 98.2 86 27 200/86 (124) 97 01/28/18 16:00 98.0 73 16 189/77 (114) I/O 01/28/18 01/28/18 01/28/18 01/29/18 01/29/18 01/29/18 07:00 15:00 23:00 07:00 15:00 23:00 Intake Total 1479 ml 480 ml 1731 ml Output Total 2650 ml 2200 ml 3600 ml Balance -1171 ml -1720 ml -1869 ml Intake Oral 480 ml 480 ml 480 ml IV Total 999 ml 1251 ml Output Urine Total 2650 ml 2200 ml 3600 ml # Bowel Movements 1 2 1 Result Diagram: 01/27/18 0440 01/29/18 0320 Imaging Last Impressions Chest X-Ray 01/21/18 0600 Signed Impressions: Service Date/Time: Sunday, January 21, 2018 03:47 - CONCLUSION: Stable chest x-ray with underinflation and bilateral basilar air space opacities representing either atelectasis or consolidation. Sung Fernandez MD Head CT 01/19/18 0836 Signed Impressions: Service Date/Time: Friday, January 19, 2018 10:12 - CONCLUSION: 1. No acute intracranial abnormality. 2. Atrophy and chronic small vessel ischemic change. 3. Paranasal sinus disease. Oneil Bills Jr., MD Renal Ultrasound 01/19/18 0000 Signed Impressions: Service Date/Time: Friday, January 19, 2018 10:45 - CONCLUSION: Normal examination. Jameel Baldwin MD Objective Remarks GENERAL: NAD. HEENT: anicteric + oral/tongue thrush, central line in place, no nuchal rigidity. PULMONARY: decreased breath sounds. CARDIAC: rhythm- regular. GI: soft, good bowel sounds. EXTREMITIES: no edema. NEURO: moves all extremities spontaneously. Medications and IVs Current Medications Medications (Trade) Dose Ordered Sig/Joselin Route Start Time Stop Time Status Last Admin (NS Flush) 2 ml UNSCH PRN IV FLUSH 01/19/18 10:30 (NS Flush) 2 ml BID IV FLUSH 01/19/18 21:00 01/29/18 07:47 (Zofran Inj) 4 mg Q6H PRN IV PUSH 01/19/18 10:30 01/21/18 20:16 (Albuterol Neb) 2.5 mg Q2HR NEB PRN INH 01/19/18 10:30 Miscellaneous Information 1 Q361D XX 01/19/18 10:30 01/23/18 10:30 (Chlorhexidine 2% Cloth) Taper DAILY@04 TOP 01/20/18 04:00 01/16/19 03:59 01/27/18 04:00 (Chlorhexidine 2% Cloth) 3 pack UNSCH PRN TOP 01/19/18 10:30 (Senokot) 17.2 mg Q12H PRN PO 01/19/18 10:30 (Peridex 0.12% Liq) 15 ml BID@08,20 MT 01/19/18 20:00 01/29/18 08:00 (D50w (Vial) Inj) 50 ml UNSCH PRN IV PUSH 01/19/18 10:30 (Glucagon Inj) 1 mg UNSCH PRN OTHER 01/19/18 10:30 (NovoLIN R SUPPLEMENTAL SCALE) 1 Q6HR SQ 01/19/18 12:00 01/25/18 01:09 (Pravachol) 40 mg DAILY PO 01/20/18 09:00 01/29/18 07:41 (Heparin Inj) 5,000 units Q12HR SQ 01/19/18 21:00 01/29/18 09:00 (NS Flush) DAILY IV FLUSH 01/19/18 14:00 01/28/18 09:00 (NS Flush) UNSCH PRN IV FLUSH 01/19/18 14:00 (Brethine Inj) 1 mg UNSCH PRN SQ 01/20/18 07:30 (Sinemet 25-100 Mg) 1 tab Q8HR PO 01/21/18 10:00 01/29/18 04:49 (Tylenol) 650 mg Q6H PRN PO 01/21/18 11:30 01/25/18 00:24 Miscellaneous Information ICU - CALL ORDERING PHYSIC... UNSCH PRN .XX 01/21/18 11:30 Potassium Chloride 100 ml @ 25 mls/hr UNSCH PRN IV 01/21/18 11:30 01/27/18 09:55 (K-Lyte Cl Eff) 50 meq UNSCH PRN PO 01/21/18 11:30 Potassium Chloride 100 ml @ 50 mls/hr UNSCH PRN IV 01/21/18 11:30 Magnesium Sulfate 4 gm/Sodium Chloride 108 ml @ 54 mls/hr UNSCH PRN IV 01/21/18 11:30 Magnesium Sulfate 2 gm/Sodium Chloride 104 ml @ 52 mls/hr UNSCH PRN IV 01/21/18 11:30 01/24/18 05:03 (Mag-Ox) 800 mg UNSCH PRN PO 01/21/18 11:30 Sodium Phosphate 30 mmol/Sodium Chloride 260 ml @ 43.333 mls/ hr UNSCH PRN IV 01/21/18 11:30 (K-Phos) 2,000 mg UNSCH PRN PO 01/21/18 11:30 Potassium Phosphate 30 mmol/ Sodium Chloride 260 ml @ 43.333 mls/ hr UNSCH PRN IV 01/21/18 11:30 01/22/18 19:00 (Buspar) 30 mg BID PO 01/22/18 21:00 01/29/18 07:47 (Cymbalta Dr) 20 mg DAILY PO 01/22/18 13:15 01/29/18 07:41 (KCl) 20 meq Q12HR PO 01/23/18 14:00 01/29/18 07:42 (Pill Splitter) 1 ea UNSCH PRN OTHER 01/24/18 12:00 (Norvasc) 10 mg DAILY PO 01/26/18 16:00 01/29/18 07:41 (Apresoline) 50 mg Q8HR PO 01/26/18 16:00 01/29/18 04:49 (Vasotec Inj) 1.25 mg Q6H PRN IV PUSH 01/26/18 16:00 01/28/18 22:11 (Pepcid) 10 mg BID PO 01/27/18 21:00 01/29/18 07:41 (SEROquel) 12.5 mg BID PO 01/27/18 16:30 01/29/18 07:41 (Levaquin) 750 mg Q48H PO 01/28/18 10:00 02/07/18 09:59 01/28/18 10:00 Sodium Chloride 1,000 ml @ 84 mls/hr [id number] IV 01/28/18 15:00 01/29/18 02:55 (Deltasone) 10 mg BID PO 01/28/18 21:00 01/29/18 07:42 (Mycostatin Liq) 5 ml QID SWISH-SWAL 01/28/18 16:00 01/29/18 07:40 (Diflucan) 100 mg DAILY PO 01/29/18 09:30 02/05/18 09:29 A/P Problem List: (1) Septic shock ICD Code: A41.9 - Sepsis, unspecified organism; R65.21 - Severe sepsis with septic shock (2) Respiratory failure ICD Code: J96.90 - Respiratory failure, unspecified, unspecified whether with hypoxia or hypercapnia Status: Acute (3) Hypokalemia due to loss of potassium ICD Code: E87.6 - Hypokalemia (4) Acute renal failure ICD Code: N17.9 - Acute kidney failure, unspecified Status: Acute (5) Adjustment disorder with depressed mood ICD Code: F43.21 - Adjustment disorder with depressed mood (6) Elevated lactic acid level ICD Code: R79.89 - Other specified abnormal findings of blood chemistry (7) Hyperlipidemia ICD Code: E78.5 - Hyperlipidemia Status: Acute (8) Hypertension ICD Code: I10 - Essential (primary) hypertension Status: Acute (9) Chronic narcotic use ICD Code: F11.90 - Opioid use, unspecified, uncomplicated (10) Coronary artery disease ICD Code: I25.10 - Atherosclerotic heart disease of [place] coronary artery without angina pectoris (11) History of CVA (cerebrovascular accident) ICD Code: Z86.73 - Personal history of transient ischemic attack (TIA), and cerebral infarction without residual deficits (12) Unresponsive ICD Code: R41.89 - Other symptoms and signs involving cognitive functions and awareness Status: Acute Assessment and Plan Acute toxic metabolic encephalopathy- Improved- childlike- likely baseline dementia History of CVA -with adjustment disorder Depression/anxiety Chronic pain syndrome -chronic narcotic use History fo Parkinsons ? Starting Dementia CT brain 01/19 revealed no acute intracranial findings. Old left carried CV and bilateral basal cranial calcifications. - On carbidopa/levodopa 25/101 tablet every 8 hours. - currently on On Cymbalta and buspirone. - started on Seroquel 12.5 mg po bid 01/27. - try to d/c restraints. - will get Psychiatry consult for recommendations. - palliative following. Appreciate recommendations. Septic shock- resolved History of hypertension- Dyslipidemia Nonobstructive coronary disease -cardiac catheterization 2011 revealed EF 80% nonobstructive coronary disease Ventricular bigeminy secondary to severe hypokalemia S/P bradyarrhythmia 01/19 2D echocardiogram- EF 55-60%,,mod TR, PAP 29, moderate annular calcifications. EKG revealed heart rate of 84. Normal FL, QRS and QT intervals. Inferior Q waves. Nonspecific in acute lateral ST changes. - off beta joshua and clonidine. - On pravastatin. - Amlodpine 10 mg po daily for HTN - Hydralazine increased to 75 mg TID 01/29. - IV Vasotec prn with BP parameter and closely monitor BMP. Severe sepsis secondary to S. Pneumoniae Now also growing Aspergillus- contaminant was on Ceftriaxone per ID - now on Levaquin 750 mg daily till 02/07. - No need to treat Aspergillus in the sputum. Acute hypoxemic respiratory failure- Resolved History of COPD, patient on chronic steroids - DC Hydrocortisone- change to prednisone 10 mg po bid (home dose- chronically on 10 mg daily). - Duonebs. Hyperglycemia Chronic prednisone use. - Sliding scale insulin with Novulin R to maintain euglycemia/low regimen. Acute kidney injury Creatinine gradually stabilizing. Renal ultrasound no hydronephrosis. - continue IVF- change to 1/2 NS. - daily BMP. Hypokalemia Improved. - KCL to po 20 meq bid. Oral Thrush - start Nystatin 6 cc qid. Deconditioning History of Parkinsons vs Essential tremors per daughter. - PT evaluate and treat daily. - will need SNF. Prophylaxis: DVT -SCD/heparin SQ Problem Qualifiers (1) Respiratory failure: Qualified Codes: J96.00 - Acute respiratory failure, unspecified whether with hypoxia or hypercapnia (2) Acute renal failure: Qualified Codes: N17.9 - Acute kidney failure, unspecified (3) Coronary artery disease: Qualified Codes: I25.10 - Atherosclerotic heart disease of [place] coronary artery without angina pectoris Froylan Garces DO Jan 29, 2018 12:26
[2018-01-29] MEDS: ONDANSETRON HCL 4 MG/2 ML VIAL IV PUSH PRN (13:43)
[2018-01-29] MEDS ORDERED: HALOPERIDOL LACTATE 5 MG/ML AMP IM PRN (15:00)
--- NOTE | 2018-01-29 15:10 | PD.PSY.CON ---
Provisional Diagnosis Admission Date Jan 19, 2018 at 09:52 Loman I. Delirium due to underlying medical conditions, major neurocognitive disorder, history of depression History of Present Illness Service Psychiatry Consult Requested By Medical team Reason for Consult Agitation Primary Care Physician Triston Pena M.D. HPI Patient is a 77-year-old [facility] woman, , 3 adult children, domicile with 1 adult son, unemployed on Social Security benefits, with past psychiatric history of dementia and depression, 1 hospitalization here in [place], last 2016, patient is in Cymbalta 20 mg by mouth daily, gabapentin 300 mg by mouth twice a day, hospitalized Acute toxic metabolic encephalopathy- Improved- childlike- likely baseline dementia. History of CVA -with adjustment disorder. Severe sepsis secondary to S. Pneumoniae. Consulted to psychiatry due to increased agitation, disorganized behavior, and because the patient has been requested to be discharged back home. On psychiatric evaluation today patient is restrained in four-point, she is poorly cooperative, disorganized, disoriented, with marked attention deficit, fluctuation of consciousness. Patient thinks that she is at her house, when I asked her how many people are in the room and she states over 20. As per nurse in charge the patient has been agitated, hyperactive, difficult to handle. The patient is unable to verbalize the reason of her hospitalization, a rational choice at this moment. Family psychiatric history: Denies Past psychiatric history: Denies previous psychiatric diagnoses, denies any prior psychiatric consultations, tires prior psychiatric medication trials although currently on Lexapro and Cymbalta, denies pre-suicide attempt was a for his behavior. Patient currently being prescribed antidepressants to her primary care doctor, Dr. Pena. Substance use history: Patient quit tobacco use 20 years ago, denies use of any illicit drugs, prior rehabilitation or detox. Past medical history: Patient reports history of hypertension, arthritis Allergies: NKDA Social history: , 3 adult children, domiciled with one, unemployed on social security benefits, highest education is college. Denies any legal history. Past Family Social History Coded Allergies: No Known Allergies (Verified Allergy, Unknown, 09/21/17) Active Scripts Nitrofurantoin Monohydrate Macrocrystals (Macrobid) 100 Mg Capsule, 100 MG PO DAILY for Infection for 5 Days, #5 CAP 0 Refills Prov:Vinny Garcia MD 11/13/17 Walker with Front Wheels (Walker with Front Wheels) 1 Mis Mis, EA .ROUTE DIRECTED, #1 0 Refills Prov:Daria Laureano MD 09/24/17 Reported Medications Gabapentin (Gabapentin) 300 Mg Cap, 300 MG PO BID, #60 CAP 0 Refills 11/12/17 Buspirone (Buspirone) 30 Mg Tab, 30 MG PO BID for Anxiety, TAB 0 Refills 11/12/17 Prednisone (Prednisone) 10 Mg Tab, 10 MG PO DAILY, TAB 0 Refills 11/12/17 Lovastatin (Lovastatin) 40 Mg Tab, 40 MG PO DAILY for Cholesterol Management, # 30 TAB 0 Refills 11/12/17 Lisinopril (Lisinopril) 20 Mg Tab, 20 MG PO DAILY, #30 TAB 0 Refills 11/12/17 Carbidopa-Levodopa (Carbidopa-Levodopa) 25-100 Mg Tab, 1 TAB PO Q8HR for Parkinson Disease Mgmt, #90 TAB 0 Refills 09/14/17 Fentanyl Patch 72 HR (Fentanyl Patch 72 HR) 25 Mcg/Hr Patch, 25 MCG T-DERMAL Q72H for Pain Management, #10 PATCH 0 Refills 09/14/17 Docusate Sodium (Docusate Sodium) 100 Mg Cap, 100 MG PO BID for Prevent Constipation, #60 CAP 0 Refills 09/14/17 Amlodipine (Amlodipine) 10 Mg Tab, 10 MG PO DAILY for Blood Pressure Management , #30 TAB 0 Refills 07/25/[address] (Cymbalta DR) 20 Mg Capdr, 20 MG PO DAILY, #30 CAP 0 Refills 07/25/17 Meclizine HCl (Meclizine 25) 25 Mg Tab, 25 MG PO TID Y for DIZZINESS 07/25/17 Potassium Chloride ER (Potassium Chloride ER) 10 Meq Tab, 10 MEQ PO DAILY for Electrolyte Replacement, #30 TAB 0 Refills 07/25/17 Current Medications Medications (Trade) Dose Ordered Sig/Joselin Route Start Time Stop Time Status Last Admin (NS Flush) 2 ml UNSCH PRN IV FLUSH 01/19/18 10:30 (NS Flush) 2 ml BID IV FLUSH 01/19/18 21:00 01/29/18 07:47 (Zofran Inj) 4 mg Q6H PRN IV PUSH 01/19/18 10:30 01/29/18 13:43 (Albuterol Neb) 2.5 mg Q2HR NEB PRN INH 01/19/18 10:30 Miscellaneous Information 1 Q361D XX 01/19/18 10:30 01/23/18 10:30 (Chlorhexidine 2% Cloth) Taper DAILY@04 TOP 01/20/18 04:00 01/16/19 03:59 01/27/18 04:00 (Chlorhexidine 2% Cloth) 3 pack UNSCH PRN TOP 01/19/18 10:30 (Senokot) 17.2 mg Q12H PRN PO 01/19/18 10:30 (Peridex 0.12% Liq) 15 ml BID@08,20 MT 01/19/18 20:00 01/29/18 08:00 (D50w (Vial) Inj) 50 ml UNSCH PRN IV PUSH 01/19/18 10:30 (Glucagon Inj) 1 mg UNSCH PRN OTHER 01/19/18 10:30 (NovoLIN R SUPPLEMENTAL SCALE) 1 Q6HR SQ 01/19/18 12:00 01/25/18 01:09 (Pravachol) 40 mg DAILY PO 01/20/18 09:00 01/29/18 07:41 (Heparin Inj) 5,000 units Q12HR SQ 01/19/18 21:00 01/29/18 09:00 (NS Flush) DAILY IV FLUSH 01/19/18 14:00 01/28/18 09:00 (NS Flush) UNSCH PRN IV FLUSH 01/19/18 14:00 (Brethine Inj) 1 mg UNSCH PRN SQ 01/20/18 07:30 (Sinemet 25-100 Mg) 1 tab Q8HR PO 01/21/18 10:00 01/29/18 13:43 (Tylenol) 650 mg Q6H PRN PO 01/21/18 11:30 01/25/18 00:24 Miscellaneous Information ICU - CALL ORDERING PHYSIC... UNSCH PRN .XX 01/21/18 11:30 Potassium Chloride 100 ml @ 25 mls/hr UNSCH PRN IV 01/21/18 11:30 01/27/18 09:55 (K-Lyte Cl Eff) 50 meq UNSCH PRN PO 01/21/18 11:30 Potassium Chloride 100 ml @ 50 mls/hr UNSCH PRN IV 01/21/18 11:30 Magnesium Sulfate 4 gm/Sodium Chloride 108 ml @ 54 mls/hr UNSCH PRN IV 01/21/18 11:30 Magnesium Sulfate 2 gm/Sodium Chloride 104 ml @ 52 mls/hr UNSCH PRN IV 01/21/18 11:30 01/24/18 05:03 (Mag-Ox) 800 mg UNSCH PRN PO 01/21/18 11:30 Sodium Phosphate 30 mmol/Sodium Chloride 260 ml @ 43.333 mls/ hr UNSCH PRN IV 01/21/18 11:30 (K-Phos) 2,000 mg UNSCH PRN PO 01/21/18 11:30 Potassium Phosphate 30 mmol/ Sodium Chloride 260 ml @ 43.333 mls/ hr UNSCH PRN IV 01/21/18 11:30 01/22/18 19:00 (Buspar) 30 mg BID PO 01/22/18 21:00 01/29/18 07:47 (Cymbalta Dr) 20 mg DAILY PO 01/22/18 13:15 01/29/18 07:41 (KCl) 20 meq Q12HR PO 01/23/18 14:00 01/29/18 07:42 (Pill Splitter) 1 ea UNSCH PRN OTHER 01/24/18 12:00 (Norvasc) 10 mg DAILY PO 01/26/18 16:00 01/29/18 07:41 (Vasotec Inj) 1.25 mg Q6H PRN IV PUSH 01/26/18 16:00 01/28/18 22:11 (Pepcid) 10 mg BID PO 01/27/18 21:00 01/29/18 07:41 (SEROquel) 12.5 mg BID PO 01/27/18 16:30 01/29/18 07:41 (Levaquin) 750 mg Q48H PO 01/28/18 10:00 02/07/18 09:59 01/28/18 10:00 Sodium Chloride 1,000 ml @ 84 mls/hr [id number] IV 01/28/18 15:00 01/29/18 02:55 (Deltasone) 10 mg BID PO 01/28/18 21:00 01/29/18 07:42 (Mycostatin Liq) 5 ml QID SWISH-SWAL 01/28/18 16:00 01/29/18 13:43 (Diflucan) 100 mg DAILY PO 01/29/18 09:30 02/05/18 09:29 (Apresoline) 75 mg Q8HR PO 01/29/18 14:00 (Haldol Inj) 2 mg Q8H PRN IM 01/29/18 15:00 Physical Exam Vital Signs Vital Signs Date Time Temp Pulse Resp B/P (MAP) Pulse Ox O2 Delivery O2 Flow Rate FiO2 01/29/18 12:00 98.3 82 24 148/70 (96) 96 01/27/18 08:20 21 01/27/18 07:00 Room Air 01/26/18 21:16 2.00 I/O 01/29/18 01/29/18 01/30/18 08:00 16:00 00:00 Intake Total 1731 ml Output Total 3600 ml Balance -1869 ml Lab Results Test 01/29/18 03:20 Blood Urea Nitrogen 8 MG/DL Creatinine 1.56 MG/DL Random Glucose 140 MG/DL Calcium Level 8.6 MG/DL Sodium Level 145 MEQ/L Potassium Level 3.4 MEQ/L Chloride Level 107 MEQ/L Carbon Dioxide Level 25.9 MEQ/L Anion Gap 12 MEQ/L Estimat Glomerular Filtration Rate 32 ML/MIN Date/Time Source Procedure Growth Status 01/19/18 08:40 Blood Peripheral Aerobic Blood Culture - Final NO GROWTH IN 5 DAYS Complete 01/19/18 08:40 Blood Peripheral Anaerobic Blood Culture - Final NO GROWTH IN 5 DAYS Complete 01/20/18 00:45 Nasal Aspirate Influenza Types A,B Antigen (MAKAYLA) - Final NEGATIVE FOR FLU A AND B ANTIGEN.... Complete 01/19/18 09:02 Urine Catheterized Urine Legionella Antigen - Final PRESUMPTIVE NEGATIVE FOR LEGIONELLA P... Complete 01/19/18 09:02 Streptococcus pneumoniae Antigen (M - Final Pos For Pneumococcal Antigen Complete Mental Status Examination Appearance: Appropriate Consciousness: Alert, Clouded Orientation: Person Motor Activity: Abnormal gait Speech: Incoherent Language: Perseveration Fund of Knowledge: Adequate Memory: Impaired Mood: Irritable Affect: Irritable Thought Process & Associations: Loose associations Hallucination Type: Visual Delusion Type: None Suicidal Ideation: No Suicidal Plan: No Suicidal Intention: No Homicidal Ideation: No Homicidal Plan: No Homicidal Intention: No Insight: Poor Judgment: Poor Assessment & Plan Problem List: (1) Delirium due to another medical condition ICD Codes: F05 - Delirium due to known physiological condition Assessment & Plan: Psychiatric evaluation patient is disoriented, incoherent, disorganized, restless, she is restrained in 4 points to protect her IV access. Patient has marked attention deficit in fluctuation of consciousness, most probably delirium related with underlying medical conditions especially sepsis. Agree with Seroquel 12.5 mg twice daily, can be increased to 25 mg as patient can tolerate. Haldol 2 mg IM/IV every 8 hours as needed severe agitation and aggressive behavior. QTc is 443 Continue Cymbalta 30 mg daily. The patient does not have decision-making capacity to sign AMA or to participate in discharge planning at this moment. We will follow-up. Consult appreciated. (2) Sepsis ICD Codes: A41.9 - Sepsis, unspecified organism Status: Acute Assessment & Plan Estimated LOS: days Problem Qualifiers (1) Sepsis: Qualified Codes: A41.9 - Sepsis, unspecified organism Dixon Roberts MD Jan 29, 2018 15:10
[2018-01-29] MEDS: hydrALAZINE HCL 25 MG TAB PO SCH ×2 (15:39→21:04)
[2018-01-30] VITALS (10 sets, daily range): BP systolic 143–195; BP diastolic 65–84; PULSE 68–96; RESP 24–30; TEMP 98.2–99; O2SAT 95–98
[2018-01-30] MEDS: ENALAPRILAT 1.25 MG/ML VIAL IV PUSH PRN ×2 (05:42→11:30)
[2018-01-30] MEDS: hydrALAZINE HCL 25 MG TAB PO SCH ×3 (05:42→20:49)
[2018-01-30] MEDS: INSULIN NovoLIN REGULAR SUPPLEMENTAL SCALE SQ SCH ×4 (05:42→17:06)
[2018-01-30] MEDS: CARBIDOPA/LEVODOPA 25 MG/100 MG TAB PO SCH ×3 (05:42→20:49)
[2018-01-30] MEDS: CHLORHEXIDINE 0.12% (ORAL KIT) 15 ML CUP MT SCH ×2 (08:00→20:00)
[2018-01-30] MEDS: NYSTATIN SUSP 500,000 U/5 ML CUP SWISH-SWAL SCH ×4 (09:00→20:49)
[2018-01-30] MEDS: SODIUM CHLORIDE 0.9% FLUSH 10 ML FLUSH IV FLUSH SCH ×4 (09:00→20:50)
[2018-01-30] MEDS: busPIRone HCL 10 MG TAB PO SCH ×2 (09:00→20:48)
[2018-01-30] MEDS: FLUCONAZOLE 100 MG TAB PO SCH ×2 (09:00→09:50)
[2018-01-30 09:04] LABS: HEMATOCRIT 41.3 % (35.0-46.0); HEMOGLOBIN 13.7 GM/DL (11.6-15.3); MEAN CORPUSCULAR HEMOGLOBIN 30.6 PG (27.0-34.0); MEAN CORPUSCULAR HGB CONC 33.2 % (32.0-36.0); MEAN PLATELET VOLUME 8.6 FL (7.0-11.0); PLATELET COUNT 469 TH/MM3 (150-450); RED BLOOD COUNT 4.49 MIL/MM3 (4.00-5.30); RED CELL DISTRIBUTION WIDTH 13.2 % (11.6-17.2); WHITE BLOOD COUNT 12.2 TH/MM3 (4.0-11.0)
[2018-01-30 09:27] LABS: BICARBONATE 27.8 MEQ/L (21.0-32.0); CALCIUM 8.8 MG/DL (8.5-10.1); CREATININE 1.55 MG/DL (0.50-1.00); MAGNESIUM 1.5 MG/DL (1.5-2.5)
[2018-01-30] MEDS: LEVOFLOXACIN 750 MG TAB PO SCH (09:50)
[2018-01-30] MEDS: predniSONE 10 MG TAB PO SCH ×2 (09:50→20:48)
[2018-01-30] MEDS: PRAVASTATIN SOD 40 MG TAB PO SCH (09:50)
[2018-01-30] MEDS: POTASSIUM CHLORIDE 20 MEQ CONTROLLED RELEASE TAB PO SCH ×2 (09:50→20:49)
[2018-01-30] MEDS: QUEtiapine FUMARATE 25 MG TAB PO SCH ×2 (09:50→20:48)
[2018-01-30] MEDS: FAMOTIDINE 20 MG TAB PO SCH ×2 (09:50→20:48)
[2018-01-30] MEDS: DULoxetine HCl DR 20 MG CAP PO SCH (09:50)
[2018-01-30] MEDS: HEPARIN SODIUM - SQ 10,000 UNITS/ML VIAL SQ SCH ×2 (09:51→20:47)
--- NOTE | 2018-01-30 10:29 | HHI.PR ---
Subjective Remarks The patient wanted to sit up. She is expecting to see her son later today. Nursing reports patient has been quite agitated. Her blood pressure has also been elevated. Objective Vitals Vital Signs Date Time Temp Pulse Resp B/P (MAP) Pulse Ox O2 Delivery O2 Flow Rate FiO2 01/30/18 04:00 98.6 78 24 175/77 (109) 01/30/18 00:00 98.4 80 28 143/66 (91) 98 01/29/18 20:00 98.1 87 22 185/87 (119) 98 01/29/18 16:00 98.2 82 24 180/57 (98) 96 01/29/18 12:00 98.3 82 24 148/70 (96) 96 I/O 01/29/18 01/29/18 01/29/18 01/30/18 01/30/18 01/30/18 07:00 15:00 23:00 07:00 15:00 23:00 Intake Total 1731 ml 1387 ml 1235 ml Output Total 3600 ml 2500 ml 2100 ml Balance -1869 ml -1113 ml -865 ml Intake Oral 480 ml 380 ml 480 ml IV Total 1251 ml 1007 ml 755 ml Output Urine Total 3600 ml 2500 ml 2100 ml # Bowel Movements 1 2 1 Result Diagram: 01/30/18 0613 01/30/18 0613 Imaging Last Impressions Chest X-Ray 01/21/18 0600 Signed Impressions: Service Date/Time: Sunday, January 21, 2018 03:47 - CONCLUSION: Stable chest x-ray with underinflation and bilateral basilar air space opacities representing either atelectasis or consolidation. Snug Fernandez MD Head CT 01/19/18 0836 Signed Impressions: Service Date/Time: Friday, January 19, 2018 10:12 - CONCLUSION: 1. No acute intracranial abnormality. 2. Atrophy and chronic small vessel ischemic change. 3. Paranasal sinus disease. Oneil Bills Jr., MD Renal Ultrasound 01/19/18 0000 Signed Impressions: Service Date/Time: Friday, January 19, 2018 10:45 - CONCLUSION: Normal examination. Jameel Baldwin MD Objective Remarks GENERAL: NAD. HEENT: anicteric + oral/tongue thrush, central line in place, no nuchal rigidity. PULMONARY: decreased breath sounds. CARDIAC: rhythm- regular. GI: soft, good bowel sounds. EXTREMITIES: no edema. NEURO: moves all extremities spontaneously. Has dementia. Medications and IVs Current Medications Medications (Trade) Dose Ordered Sig/Joselin Route Start Time Stop Time Status Last Admin (NS Flush) 2 ml UNSCH PRN IV FLUSH 01/19/18 10:30 (NS Flush) 2 ml BID IV FLUSH 01/19/18 21:00 01/30/18 09:51 (Zofran Inj) 4 mg Q6H PRN IV PUSH 01/19/18 10:30 01/29/18 13:43 (Albuterol Neb) 2.5 mg Q2HR NEB PRN INH 01/19/18 10:30 Miscellaneous Information 1 Q361D XX 01/19/18 10:30 01/23/18 10:30 (Chlorhexidine 2% Cloth) Taper DAILY@04 TOP 01/20/18 04:00 01/16/19 03:59 01/27/18 04:00 (Chlorhexidine 2% Cloth) 3 pack UNSCH PRN TOP 01/19/18 10:30 (Senokot) 17.2 mg Q12H PRN PO 01/19/18 10:30 (Peridex 0.12% Liq) 15 ml BID@08,20 MT 01/19/18 20:00 01/29/18 08:00 (D50w (Vial) Inj) 50 ml UNSCH PRN IV PUSH 01/19/18 10:30 (Glucagon Inj) 1 mg UNSCH PRN OTHER 01/19/18 10:30 (NovoLIN R SUPPLEMENTAL SCALE) 1 Q6HR SQ 01/19/18 12:00 01/25/18 01:09 (Pravachol) 40 mg DAILY PO 01/20/18 09:00 01/30/18 09:50 (Heparin Inj) 5,000 units Q12HR SQ 01/19/18 21:00 01/30/18 09:51 (NS Flush) DAILY IV FLUSH 01/19/18 14:00 01/30/18 09:51 (NS Flush) UNSCH PRN IV FLUSH 01/19/18 14:00 (Brethine Inj) 1 mg UNSCH PRN SQ 01/20/18 07:30 (Sinemet 25-100 Mg) 1 tab Q8HR PO 01/21/18 10:00 01/30/18 05:42 (Tylenol) 650 mg Q6H PRN PO 01/21/18 11:30 01/25/18 00:24 Miscellaneous Information ICU - CALL ORDERING PHYSIC... UNSCH PRN .XX 01/21/18 11:30 Potassium Chloride 100 ml @ 25 mls/hr UNSCH PRN IV 01/21/18 11:30 01/27/18 09:55 (K-Lyte Cl Eff) 50 meq UNSCH PRN PO 01/21/18 11:30 Potassium Chloride 100 ml @ 50 mls/hr UNSCH PRN IV 01/21/18 11:30 Magnesium Sulfate 4 gm/Sodium Chloride 108 ml @ 54 mls/hr UNSCH PRN IV 01/21/18 11:30 Magnesium Sulfate 2 gm/Sodium Chloride 104 ml @ 52 mls/hr UNSCH PRN IV 01/21/18 11:30 01/24/18 05:03 (Mag-Ox) 800 mg UNSCH PRN PO 01/21/18 11:30 Sodium Phosphate 30 mmol/Sodium Chloride 260 ml @ 43.333 mls/ hr UNSCH PRN IV 01/21/18 11:30 (K-Phos) 2,000 mg UNSCH PRN PO 01/21/18 11:30 Potassium Phosphate 30 mmol/ Sodium Chloride 260 ml @ 43.333 mls/ hr UNSCH PRN IV 01/21/18 11:30 01/22/18 19:00 (Buspar) 30 mg BID PO 01/22/18 21:00 01/29/18 21:04 (Cymbalta Dr) 20 mg DAILY PO 01/22/18 13:15 01/30/18 09:50 (KCl) 20 meq Q12HR PO 01/23/18 14:00 01/30/18 09:50 (Pill Splitter) 1 ea UNSCH PRN OTHER 01/24/18 12:00 (Norvasc) 10 mg DAILY PO 01/26/18 16:00 01/30/18 09:50 (Vasotec Inj) 1.25 mg Q6H PRN IV PUSH 01/26/18 16:00 01/30/18 05:42 (Pepcid) 10 mg BID PO 01/27/18 21:00 01/30/18 09:50 (SEROquel) 12.5 mg BID PO 01/27/18 16:30 01/30/18 09:50 (Levaquin) 750 mg Q48H PO 01/28/18 10:00 02/07/18 09:59 01/30/18 09:50 Sodium Chloride 1,000 ml @ 84 mls/hr [id number] IV 01/28/18 15:00 01/29/18 21:24 (Deltasone) 10 mg BID PO 01/28/18 21:00 01/30/18 09:50 (Mycostatin Liq) 5 ml QID SWISH-SWAL 01/28/18 16:00 01/29/18 21:04 (Diflucan) 100 mg DAILY PO 01/29/18 09:30 02/05/18 09:29 01/30/18 09:50 (Apresoline) 75 mg Q8HR PO 01/29/18 14:00 01/30/18 05:42 (Haldol Inj) 2 mg Q8H PRN IM 01/29/18 15:00 01/29/18 21:04 A/P Problem List: (1) Septic shock ICD Code: A41.9 - Sepsis, unspecified organism; R65.21 - Severe sepsis with septic shock (2) Respiratory failure ICD Code: J96.90 - Respiratory failure, unspecified, unspecified whether with hypoxia or hypercapnia Status: Acute (3) Hypokalemia due to loss of potassium ICD Code: E87.6 - Hypokalemia (4) Acute renal failure ICD Code: N17.9 - Acute kidney failure, unspecified Status: Acute (5) Adjustment disorder with depressed mood ICD Code: F43.21 - Adjustment disorder with depressed mood (6) Elevated lactic acid level ICD Code: R79.89 - Other specified abnormal findings of blood chemistry (7) Hyperlipidemia ICD Code: E78.5 - Hyperlipidemia Status: Acute (8) Hypertension ICD Code: I10 - Essential (primary) hypertension Status: Acute (9) Chronic narcotic use ICD Code: F11.90 - Opioid use, unspecified, uncomplicated (10) Coronary artery disease ICD Code: I25.10 - Atherosclerotic heart disease of [place] coronary artery without angina pectoris (11) History of CVA (cerebrovascular accident) ICD Code: Z86.73 - Personal history of transient ischemic attack (TIA), and cerebral infarction without residual deficits (12) Unresponsive ICD Code: R41.89 - Other symptoms and signs involving cognitive functions and awareness Status: Acute Assessment and Plan Acute toxic metabolic encephalopathy- Improved- childlike- likely baseline dementia History of CVA -with adjustment disorder Depression/anxiety Chronic pain syndrome -chronic narcotic use History of Parkinson's ? Starting Dementia CT brain 01/19 revealed no acute intracranial findings. Old left carried CV and bilateral basal cranial calcifications. Appreciate psychiatry recommendations. - On carbidopa/levodopa 25/101 tablet every 8 hours. - currently on On Cymbalta and buspirone. - started on Seroquel 12.5 mg po bid 01/27. Haldol as needed added by psych. - try to d/c restraints. - palliative following. Appreciate recommendations. Septic shock- resolved History of hypertension- Dyslipidemia Nonobstructive coronary disease -cardiac catheterization 2011 revealed EF 80% nonobstructive coronary disease Ventricular bigeminy secondary to severe hypokalemia S/P bradyarrhythmia 01/19 2D echocardiogram- EF 55-60%,,mod TR, PAP 29, moderate annular calcifications. EKG revealed heart rate of 84. Normal [place], QRS and QT intervals. Inferior Q waves. Nonspecific in acute lateral ST changes. - off beta joshua and clonidine. - On pravastatin. - Amlodipine 10 mg po daily for HTN - Hydralazine increased to 75 mg TID 01/29. BP still fluctuating 01/30. - IV Vasotec prn with BP parameter and closely monitor BMP. Severe sepsis secondary to S. Pneumoniae Now also growing Aspergillus- contaminant was on Ceftriaxone per ID - now on Levaquin 750 mg daily until 02/07. - No need to treat Aspergillus in the sputum. Acute hypoxemic respiratory failure- Resolved History of COPD, patient on chronic steroids - DC Hydrocortisone- change to prednisone 10 mg po bid (home dose- chronically on 10 mg daily). - Duonebs. Hyperglycemia Chronic prednisone use. - Sliding scale insulin with Novulin R to maintain euglycemia/low regimen. Acute kidney injury Creatinine gradually stabilizing. Renal ultrasound no hydronephrosis. - continue IVF- changed to 1/2 NS. - daily BMP. - outpt follow-up with nephrology. Hypokalemia Improved. - KCL to po 20 meq bid. Oral Thrush - start Nystatin 6 cc qid. Deconditioning History of Parkinsons vs Essential tremors per daughter. - PT evaluate and treat daily. - will need SNF. Prophylaxis: DVT -SCD/heparin SQ Problem Qualifiers (1) Respiratory failure: Qualified Codes: J96.00 - Acute respiratory failure, unspecified whether with hypoxia or hypercapnia (2) Acute renal failure: Qualified Codes: N17.9 - Acute kidney failure, unspecified (3) Coronary artery disease: Qualified Codes: I25.10 - Atherosclerotic heart disease of [place] coronary artery without angina pectoris Froylan Garces DO Jan 30, 2018 10:28
[2018-01-30] MEDS: SODIUM CHLOR 0.45% 1000 ML INJ 1,000 ML IV SCH (14:40)
[2018-01-31] VITALS (12 sets, daily range): BP systolic 150–207; BP diastolic 70–88; PULSE 70–82; RESP 19–29; TEMP 98.1–98.6; O2SAT 96–100
[2018-01-31] MEDS: SODIUM CHLOR 0.45% 1000 ML INJ 1,000 ML IV SCH (01:37)
[2018-01-31] MEDS: ENALAPRILAT 1.25 MG/ML VIAL IV PUSH PRN (01:37)
[2018-01-31] MEDS: CHLORHEXIDINE GLUCONATE 2 % 1 PACK (2 CLOTHS) TOP SCH (03:45)
[2018-01-31] MEDS: ONDANSETRON HCL 4 MG/2 ML VIAL IV PUSH PRN (04:22)
[2018-01-31] MEDS: INSULIN NovoLIN REGULAR SUPPLEMENTAL SCALE SQ SCH ×4 (05:50→17:58)
[2018-01-31] MEDS: CARBIDOPA/LEVODOPA 25 MG/100 MG TAB PO SCH ×3 (05:50→22:00)
[2018-01-31] MEDS: hydrALAZINE HCL 25 MG TAB PO SCH ×3 (05:50→22:00)
[2018-01-31 06:00] LABS: HEMATOCRIT 39.7 % (35.0-46.0); HEMOGLOBIN 13.3 GM/DL (11.6-15.3); MEAN CELL VOLUME 91.3 FL (80.0-100.0); MEAN CORPUSCULAR HEMOGLOBIN 30.5 PG (27.0-34.0); MEAN CORPUSCULAR HGB CONC 33.4 % (32.0-36.0); MEAN PLATELET VOLUME 8.8 FL (7.0-11.0); PLATELET COUNT 506 TH/MM3 (150-450); RED BLOOD COUNT 4.35 MIL/MM3 (4.00-5.30); RED CELL DISTRIBUTION WIDTH 13.5 % (11.6-17.2); WHITE BLOOD COUNT 11.8 TH/MM3 (4.0-11.0)
[2018-01-31 06:23] LABS: BICARBONATE 28.3 MEQ/L (21.0-32.0); CREATININE 1.53 MG/DL (0.50-1.00); MAGNESIUM 1.5 MG/DL (1.5-2.5)
[2018-01-31] MEDS: CHLORHEXIDINE 0.12% (ORAL KIT) 15 ML CUP MT SCH ×2 (08:00→19:50)
[2018-01-31] MEDS: POTASSIUM CHLORIDE 20 MEQ CONTROLLED RELEASE TAB PO SCH ×2 (09:00→19:49)
[2018-01-31] MEDS: NYSTATIN SUSP 500,000 U/5 ML CUP SWISH-SWAL SCH ×4 (09:00→21:00)
[2018-01-31] MEDS: DULoxetine HCl DR 20 MG CAP PO SCH (09:00)
[2018-01-31] MEDS: predniSONE 10 MG TAB PO SCH (09:01)
[2018-01-31] MEDS: FLUCONAZOLE 100 MG TAB PO SCH (09:01)
[2018-01-31] MEDS: PRAVASTATIN SOD 40 MG TAB PO SCH (09:03)
[2018-01-31] MEDS: busPIRone HCL 10 MG TAB PO SCH ×2 (09:10→19:49)
[2018-01-31] MEDS: QUEtiapine FUMARATE 25 MG TAB PO SCH ×2 (09:11→19:49)
[2018-01-31] MEDS: HEPARIN SODIUM - SQ 10,000 UNITS/ML VIAL SQ SCH ×2 (09:11→19:49)
[2018-01-31] MEDS: FAMOTIDINE 20 MG TAB PO SCH ×2 (09:12→19:48)
[2018-01-31] MEDS: SODIUM CHLORIDE 0.9% FLUSH 10 ML FLUSH IV FLUSH SCH ×3 (09:13→19:49)
[2018-01-31] MEDS ORDERED: ENALAPRILAT 2.5 MG/2 ML VIAL IV PUSH PRN (09:45)
--- NOTE | 2018-01-31 09:50 | HHI.PR ---
Subjective Remarks The pt was complaining of abdominal pain and nausea and vomiting. She felt like she was constipated. She said that Parkinson's was a difficult disease but she is managing. Discussed with nursing at the bedside. Objective Vitals Vital Signs Date Time Temp Pulse Resp B/P (MAP) Pulse Ox O2 Delivery O2 Flow Rate FiO2 01/31/18 06:00 73 01/31/18 04:00 98.1 72 19 183/81 (115) 100 01/31/18 04:00 72 01/31/18 02:00 77 01/31/18 00:00 82 01/31/18 00:00 98.2 82 25 163/78 (106) 100 01/30/18 22:00 74 01/30/18 20:00 77 01/30/18 20:00 98.2 77 24 177/77 (110) 96 01/30/18 18:00 96 01/30/18 16:00 92 01/30/18 16:00 99.0 92 28 175/65 (101) 95 01/30/18 14:00 68 01/30/18 12:00 68 01/30/18 12:00 98.8 68 30 175/71 (105) 98 01/30/18 10:00 74 I/O 01/30/18 01/30/18 01/30/18 01/31/18 01/31/18 01/31/18 07:00 15:00 23:00 07:00 15:00 23:00 Intake Total 1235 ml 1740 ml 456 ml Output Total 2100 ml 1800 ml 700 ml Balance -865 ml -60 ml -244 ml Intake Oral 480 ml 640 ml 120 ml IV Total 755 ml 1100 ml 336 ml Output Urine Total 2100 ml 1800 ml 700 ml # Bowel Movements 1 1 0 Result Diagram: 01/31/18 0320 01/31/18 0320 Imaging Last Impressions Chest X-Ray 01/21/18 0600 Signed Impressions: Service Date/Time: Sunday, January 21, 2018 03:47 - CONCLUSION: Stable chest x-ray with underinflation and bilateral basilar air space opacities representing either atelectasis or consolidation. Sung Fernandez MD Head CT 01/19/18 0836 Signed Impressions: Service Date/Time: Friday, January 19, 2018 10:12 - CONCLUSION: 1. No acute intracranial abnormality. 2. Atrophy and chronic small vessel ischemic change. 3. Paranasal sinus disease. Oneil Bills Jr., MD Renal Ultrasound 01/19/18 0000 Signed Impressions: Service Date/Time: Friday, January 19, 2018 10:45 - CONCLUSION: Normal examination. Jameel Baldwin MD Objective Remarks GENERAL: NAD. HEENT: anicteric, NC, AT. PULMONARY: decreased breath sounds. CARDIAC: rhythm is regular. GI: soft, good bowel sounds, slightly tender to palpation. EXTREMITIES: no edema. NEURO: moves all extremities spontaneously. Has dementia. PSYCH: Calm. Medications and IVs Current Medications Medications (Trade) Dose Ordered Sig/Joselin Route Start Time Stop Time Status Last Admin (NS Flush) 2 ml UNSCH PRN IV FLUSH 01/19/18 10:30 (NS Flush) 2 ml BID IV FLUSH 01/19/18 21:00 01/31/18 09:13 (Zofran Inj) 4 mg Q6H PRN IV PUSH 01/19/18 10:30 01/31/18 04:22 (Albuterol Neb) 2.5 mg Q2HR NEB PRN INH 01/19/18 10:30 Miscellaneous Information 1 Q361D XX 01/19/18 10:30 01/23/18 10:30 (Chlorhexidine 2% Cloth) Taper DAILY@04 TOP 01/20/18 04:00 01/16/19 03:59 01/27/18 04:00 (Chlorhexidine 2% Cloth) 3 pack UNSCH PRN TOP 01/19/18 10:30 (Senokot) 17.2 mg Q12H PRN PO 01/19/18 10:30 (Peridex 0.12% Liq) 15 ml BID@08,20 MT 01/19/18 20:00 01/29/18 08:00 (D50w (Vial) Inj) 50 ml UNSCH PRN IV PUSH 01/19/18 10:30 (Glucagon Inj) 1 mg UNSCH PRN OTHER 01/19/18 10:30 (NovoLIN R SUPPLEMENTAL SCALE) 1 Q6HR SQ 01/19/18 12:00 01/25/18 01:09 (Pravachol) 40 mg DAILY PO 01/20/18 09:00 01/31/18 09:03 (Heparin Inj) 5,000 units Q12HR SQ 01/19/18 21:00 01/31/18 09:11 (NS Flush) DAILY IV FLUSH 01/19/18 14:00 01/31/18 09:13 (NS Flush) UNSCH PRN IV FLUSH 01/19/18 14:00 (Brethine Inj) 1 mg UNSCH PRN SQ 01/20/18 07:30 (Sinemet 25-100 Mg) 1 tab Q8HR PO 01/21/18 10:00 01/30/18 20:49 (Tylenol) 650 mg Q6H PRN PO 01/21/18 11:30 01/25/18 00:24 Miscellaneous Information ICU - CALL ORDERING PHYSIC... UNSCH PRN .XX 01/21/18 11:30 Potassium Chloride 100 ml @ 25 mls/hr UNSCH PRN IV 01/21/18 11:30 01/27/18 09:55 (K-Lyte Cl Eff) 50 meq UNSCH PRN PO 01/21/18 11:30 Potassium Chloride 100 ml @ 50 mls/hr UNSCH PRN IV 01/21/18 11:30 Magnesium Sulfate 4 gm/Sodium Chloride 108 ml @ 54 mls/hr UNSCH PRN IV 01/21/18 11:30 Magnesium Sulfate 2 gm/Sodium Chloride 104 ml @ 52 mls/hr UNSCH PRN IV 01/21/18 11:30 01/24/18 05:03 (Mag-Ox) 800 mg UNSCH PRN PO 01/21/18 11:30 Sodium Phosphate 30 mmol/Sodium Chloride 260 ml @ 43.333 mls/ hr UNSCH PRN IV 01/21/18 11:30 (K-Phos) 2,000 mg UNSCH PRN PO 01/21/18 11:30 Potassium Phosphate 30 mmol/ Sodium Chloride 260 ml @ 43.333 mls/ hr UNSCH PRN IV 01/21/18 11:30 01/22/18 19:00 (Buspar) 30 mg BID PO 01/22/18 21:00 01/31/18 09:10 (Cymbalta Dr) 20 mg DAILY PO 01/22/18 13:15 01/31/18 09:00 (KCl) 20 meq Q12HR PO 01/23/18 14:00 01/30/18 09:50 (Pill Splitter) 1 ea UNSCH PRN OTHER 01/24/18 12:00 (Norvasc) 10 mg DAILY PO 01/26/18 16:00 01/31/18 08:56 (Vasotec Inj) 1.25 mg Q6H PRN IV PUSH 01/26/18 16:00 01/31/18 01:37 (Pepcid) 10 mg BID PO 01/27/18 21:00 01/31/18 09:12 (SEROquel) 12.5 mg BID PO 01/27/18 16:30 01/31/18 09:11 (Levaquin) 750 mg Q48H PO 01/28/18 10:00 02/07/18 09:59 01/30/18 09:50 Sodium Chloride 1,000 ml @ 84 mls/hr [id number] IV 01/28/18 15:00 01/31/18 01:37 (Deltasone) 10 mg BID PO 01/28/18 21:00 01/31/18 09:01 (Mycostatin Liq) 5 ml QID SWISH-SWAL 01/28/18 16:00 01/30/18 20:49 (Diflucan) 100 mg DAILY PO 01/29/18 09:30 02/05/18 09:29 01/31/18 09:01 (Apresoline) 75 mg Q8HR PO 01/29/18 14:00 01/30/18 20:49 A/P Problem List: (1) Septic shock ICD Code: A41.9 - Sepsis, unspecified organism; R65.21 - Severe sepsis with septic shock (2) Respiratory failure ICD Code: J96.90 - Respiratory failure, unspecified, unspecified whether with hypoxia or hypercapnia Status: Acute (3) Hypokalemia due to loss of potassium ICD Code: E87.6 - Hypokalemia (4) Acute renal failure ICD Code: N17.9 - Acute kidney failure, unspecified Status: Acute (5) Adjustment disorder with depressed mood ICD Code: F43.21 - Adjustment disorder with depressed mood (6) Elevated lactic acid level ICD Code: R79.89 - Other specified abnormal findings of blood chemistry (7) Hyperlipidemia ICD Code: E78.5 - Hyperlipidemia Status: Acute (8) Hypertension ICD Code: I10 - Essential (primary) hypertension Status: Acute (9) Chronic narcotic use ICD Code: F11.90 - Opioid use, unspecified, uncomplicated (10) Coronary artery disease ICD Code: I25.10 - Atherosclerotic heart disease of [place] coronary artery without angina pectoris (11) History of CVA (cerebrovascular accident) ICD Code: Z86.73 - Personal history of transient ischemic attack (TIA), and cerebral infarction without residual deficits (12) Unresponsive ICD Code: R41.89 - Other symptoms and signs involving cognitive functions and awareness Status: Acute Assessment and Plan Acute toxic metabolic encephalopathy History of CVA -with adjustment disorder Depression/anxiety Chronic pain syndrome -chronic narcotic use History of Parkinson's ? Starting Dementia CT brain 01/19 revealed no acute intracranial findings. Old left carried CV and bilateral basal cranial calcifications. Appreciate psychiatry recommendations. - On carbidopa/levodopa 25/101 tablet every 8 hours. - currently on On Cymbalta and buspirone. - started on Seroquel 12.5 mg po bid 01/27. QTc is over 450 so will not increase dose. Haldol discontinued as unable to place in SNF if requiring. - try to d/c restraints. - palliative following. Appreciate recommendations. Septic shock- resolved History of hypertension Dyslipidemia Nonobstructive coronary disease -cardiac catheterization 2011 revealed EF 80% nonobstructive coronary disease Ventricular bigeminy secondary to severe hypokalemia S/P bradyarrhythmia 01/19 2D echocardiogram- EF 55-60%, mod TR, PAP 29, moderate annular calcifications. EKG revealed heart rate of 84. Normal NE, QRS and QT intervals. Inferior Q waves. Nonspecific in acute lateral ST changes. - off beta joshua and clonidine. - On pravastatin. - Amlodipine 10 mg po daily for HTN - Hydralazine increased to 75 mg TID 01/29. BP still elevated but pt has been refusing doses. - IV Vasotec prn with BP parameter and closely monitor BMP. Severe sepsis secondary to S. Pneumoniae Now also growing Aspergillus- contaminant Was on Ceftriaxone per ID - now on Levaquin 750 mg daily until 02/07. - No need to treat Aspergillus in the sputum. Acute hypoxemic respiratory failure History of COPD, patient on chronic steroids. Now on room air. - DC Hydrocortisone- change to prednisone 10 mg po daily (home dose). - Duonebs. - IS. - encourage ambulation. Hyperglycemia Chronic prednisone use. - Sliding scale insulin with Novulin R to maintain euglycemia/low regimen. - wean prednisone to home dose. Acute kidney injury Creatinine gradually stabilizing. Renal ultrasound no hydronephrosis. Seems to have underlying chronic kidney disease. - d/c IVFs. - daily BMP. - outpt follow-up with nephrology. Hypokalemia Improved. - KCL to po 20 meq bid. Oral thrush - continue Nystatin 6 cc qid. Deconditioning History of Parkinsons vs Essential tremors per daughter. - PT evaluate and treat daily. - will need SNF. Prophylaxis: DVT -SCD/heparin SQ Discharge Planning D/c when accepted to SNF Problem Qualifiers (1) Respiratory failure: Qualified Codes: J96.00 - Acute respiratory failure, unspecified whether with hypoxia or hypercapnia (2) Acute renal failure: Qualified Codes: N17.9 - Acute kidney failure, unspecified (3) Coronary artery disease: Qualified Codes: I25.10 - Atherosclerotic heart disease of [place] coronary artery without angina pectoris Froylan Garces DO Jan 31, 2018 09:50
[2018-01-31] MEDS ORDERED: ALUMINUM/MAGNESIUM/SIMETH 30 ML CUP PO ONE (10:00)
[2018-01-31] MEDS: DOCUSATE SODIUM 50 MG/SENNA 8.6 MG TAB PO SCH ×2 (10:00→19:49)
[2018-01-31] MEDS: ICU - POTASSIUM CHLORIDE/AQUEOUS SOLN 20 MEQ/100 ML IVPB IV PRN ×4 (10:41→17:58)
[2018-01-31 10:59] LABS: ALBUMIN 3.3 GM/DL (3.4-5.0); DIRECT BILIRUBIN ADULT 0.1 MG/DL (0.0-0.2)
[2018-01-31 11:00] LABS: INDIRECT BILIRUBIN 0.3 MG/DL (0.0-0.8); TOTAL BILIRUBIN ADULT 0.4 MG/DL (0.2-1.0)
--- NOTE | 2018-01-31 12:07 | RADRPT ---
EXAM DATE/TIME: 01/31/2018 10:51 [facility] COMPARISON: No previous studies available for comparison. INDICATIONS : Abdomen pain. MEDICAL HISTORY : Hypertension. Chronic obstructive pulmonary disease. SURGICAL HISTORY : Cholecystectomy. Bilateral hip arthroplasty. ENCOUNTER: Initial ACUITY: 1 week PAIN SCORE: 5/10 LOCATION: Abdomen. FINDINGS: Supine view of the abdomen was performed. The abdominal bowel gas pattern is normal. No abnormal ma sses, calcifications, or organomegaly is seen. The osseous structures are unremarkable. Degenerative changes lumbar spine. Bilateral hip prostheses. CONCLUSION: Unremarkable abdomen. Vinny Méndez MD on January 31, 2018 at 12:05 Board Certified Radiologist. This report was verified electronically.
--- NOTE | 2018-01-31 12:46 | HHI.HCPN ---
Reason for visit a. To assist with evaluation and management of symptoms including: Pain, dyspnea, confusion b. To assist medical decision maker(s) with: better understanding of current medical conditions; weighing benefits/burdens of medical treatment options; making medical treatment decisions. . Subjective/Interval History Ms. Baum is a 77 year old female with adjustment disorder, lipidemia, hypertension, CAD, COPD, CVA (left basal ganglia) and peripheral neuropathy who presented to [facility] on 01/19/2018 for evaluation of altered mental status. Patient was intubated for airway protection due to her altered mental status. Patient received 2L bolus in the ED. White blood cell count and lactic acid were elevated. Patient was started on empiric antibiotics (Zosyn and Vancomycin) and was then admitted to critical care services for further evaluation and medical management. Voicemail received from daughter Elsy with questions prior to my arrival on patient unit. Callback to Elsy: she has questions regarding discharge planning, patient's current condition and status. Updated case management is working on placement, she indicates that she was able to speak with returned case inspector Claudia earlier today who answered most questions regarding that. Review of patient current/recent diagnostics, recent psychiatry evaluation and other update as per review of EMR , and that I have not yet physically seen patient today. Review of discharge process and monitoring of KUB, additional labs and recent medication changes prior to discharge though possibly if patient medically stable could discharge in a day or 2. She is appreciative of update, all QUESTIONS answered to the best of my ability provided her with my contact information. Patient reported with episodes nausea, vomiting earlier today. KUB obtained, negative for acute process. Patient also reported constipation, bowel regimen added by medical attending. LFTs, lipase, obtained; unremarkable. --Pt later seen in room no visitors present. She is alert,pleasant, partially oriented. Searches for words and at times says "I don't know what I was going to say". She tells me she just had lunch, [employer] soup and it was the best soup and bread she has ever had (her daughter did bring [employer] soup for lunch). She denies n/v. Denies abdominal discomfort. Denies dyspnea. Denies pain. Poor insight into hospitalization or conditions. D/w nurse, she shares pt has intermittently endorsed abdominal discomfort and nausea -- no vomiting-- comes and goes inconsistently, and pt was unable to further qualify. Abd exam benign. . Advance Directives Health Care Surrogate: Copy in medical record Advance Directive Specifics Date completed: 10/04/2017 . Health Care Surrogate(s): Patient's son (Los) is designated as the healthcare surrogate decision maker. Daughter, Elsy, is designated as the alternate health care surrogate. . Documented care wishes: Health care surrogate designation form completed 09/24/2017. . Objective Vital Signs Date Time Temp Pulse Resp B/P (MAP) Pulse Ox O2 Delivery O2 Flow Rate FiO2 01/31/18 12:03 70 21 150/72 (98) 01/31/18 12:00 98.4 74 19 207/88 (127) 01/31/18 12:00 74 01/31/18 10:00 70 01/31/18 08:00 72 01/31/18 08:00 98.6 72 21 196/87 (123) 98 01/31/18 06:00 73 01/31/18 04:00 98.1 72 19 183/81 (115) 100 01/31/18 04:00 72 01/31/18 02:00 77 01/31/18 00:00 82 01/31/18 00:00 98.2 82 25 163/78 (106) 100 01/30/18 22:00 74 01/30/18 20:00 77 01/30/18 20:00 98.2 77 24 177/77 (110) 96 01/30/18 18:00 96 01/30/18 16:00 92 01/30/18 16:00 99.0 92 28 175/65 (101) 95 01/30/18 14:00 68 Intake & Output 01/31/18 01/31/18 07:00 19:00 Intake Total 456 ml Output Total 700 ml Balance -244 ml Intake Oral 120 ml IV Total 336 ml Output Urine Total 700 ml # Bowel Movements 0 Physical Exam CONSTITUTIONAL/GENERAL: This is an adequately nourished, elderly female person in no acute distress TUBES/LINES/DRAINS: PIV 2, external wick catheter CARDIOVASCULAR: Regular rate , No murmur. Peripheral pulses symmetric. RESPIRATORY/CHEST: on room air. Clear to auscultation. Breath sounds equal bilaterally. GASTROINTESTINAL: Abdomen soft, non-tender, nondistended. No hepato-splenomegaly , or palpable masses. No guarding. Bowel sounds present. GENITOURINARY: Without palpable bladder distension. external catheter in place. MUSCULOSKELETAL: Extremities without clubbing, cyanosis or mottling. Trace edema in bilateral lower extremities. NEUROLOGICAL: alert, pleasant. Oriented to self, family, recent lunch, hospital , poor insight to conditions/hospitalization. moves all 4 extremities, + tremor. Follows commands. PSYCHIATRIC: No obvious anxiety/depression. . Diagnostic Tests Laboratory Laboratory Tests Test 01/29/18 03:20 01/30/18 06:13 01/31/18 03:20 Blood Urea Nitrogen 8 MG/DL (7-18) 12 MG/DL (7-18) 15 MG/DL (7-18) Creatinine 1.56 MG/DL (0.50-1.00) 1.55 MG/DL (0.50-1.00) 1.53 MG/DL (0.50-1.00) Random Glucose 140 MG/DL (74-106) 142 MG/DL (74-106) 135 MG/DL (74-106) Calcium Level 8.6 MG/DL (8.5-10.1) 8.8 MG/DL (8.5-10.1) 9.0 MG/DL (8.5-10.1) Sodium Level 145 MEQ/L (136-145) 142 MEQ/L (136-145) 138 MEQ/L (136-145) Potassium Level 3.4 MEQ/L (3.5-5.1) 3.2 MEQ/L (3.5-5.1) 3.2 MEQ/L (3.5-5.1) Chloride Level 107 MEQ/L (98-107) 102 MEQ/L (98-107) 99 MEQ/L (98-107) Carbon Dioxide Level 25.9 MEQ/L (21.0-32.0) 27.8 MEQ/L (21.0-32.0) 28.3 MEQ/L (21.0-32.0) Anion Gap 12 MEQ/L (5-15) 12 MEQ/L (5-15) 11 MEQ/L (5-15) Estimat Glomerular Filtration Rate 32 ML/MIN (>89) 32 ML/MIN (>89) 33 ML/MIN (>89) White Blood Count 12.2 TH/MM3 (4.0-11.0) 11.8 TH/MM3 (4.0-11.0) Red Blood Count 4.49 MIL/MM3 (4.00-5.30) 4.35 MIL/MM3 (4.00-5.30) Hemoglobin 13.7 GM/DL (11.6-15.3) 13.3 GM/DL (11.6-15.3) Hematocrit 41.3 % (35.0-46.0) 39.7 % (35.0-46.0) Mean Corpuscular Volume 92.0 FL (80.0-100.0) 91.3 FL (80.0-100.0) Mean Corpuscular Hemoglobin 30.6 PG (27.0-34.0) 30.5 PG (27.0-34.0) Mean Corpuscular Hemoglobin Concent 33.2 % (32.0-36.0) 33.4 % (32.0-36.0) Red Cell Distribution Width 13.2 % (11.6-17.2) 13.5 % (11.6-17.2) Platelet Count 469 TH/MM3 (150-450) 506 TH/MM3 (150-450) Mean Platelet Volume 8.6 FL (7.0-11.0) 8.8 FL (7.0-11.0) Magnesium Level 1.5 MG/DL (1.5-2.5) 1.5 MG/DL (1.5-2.5) Total Bilirubin 0.4 MG/DL (0.2-1.0) Direct Bilirubin 0.1 MG/DL (0.0-0.2) Indirect Bilirubin 0.3 MG/DL (0.0-0.8) Aspartate Amino Transf (AST/SGOT) 17 U/L (15-37) Alanine Aminotransferase (ALT/SGPT) 14 U/L (10-53) Alkaline Phosphatase 63 U/L (45-117) Total Protein 7.0 GM/DL (6.4-8.2) Albumin 3.3 GM/DL (3.4-5.0) Lipase 279 U/L (73-393) Result Diagram: 01/31/18 0320 01/31/18 0320 Imaging Last Impressions Abdomen X-Ray 01/31/18 0000 Signed Impressions: Service Date/Time: January 10:51 - CONCLUSION: Unremarkable abdomen. Vinny Méndez MD Chest X-Ray 01/21/18 0600 Signed Impressions: Service Date/Time: Sunday, January 21, 2018 03:47 - CONCLUSION: Stable chest x-ray with underinflation and bilateral basilar air space opacities representing either atelectasis or consolidation. Sung Fernandez MD Head CT 01/19/18 0836 Signed Impressions: Service Date/Time: Friday, January 19, 2018 10:12 - CONCLUSION: 1. No acute intracranial abnormality. 2. Atrophy and chronic small vessel ischemic change. 3. Paranasal sinus disease. Oneil Bills Jr., MD Renal Ultrasound 01/19/18 0000 Signed Impressions: Service Date/Time: Friday, January 19, 2018 10:45 - CONCLUSION: Normal examination. Jameel Baldwin MD Procedures 01/19/2018: Intubation 01/19/2018: NGT placement 01/19/2018: Left IJ central line placement 01/21/2018: Self extubation . Assessment and Plan Disease Oriented Problem List: (1) Coronary artery disease (2) Septic shock (3) History of CVA (cerebrovascular accident) (4) History of myocardial infarction (5) Acute renal failure (6) Sepsis (7) Leukocytosis (8) Chronic constipation (9) COPD (chronic obstructive pulmonary disease) (10) Acute hypoxemic respiratory failure (11) Chronic pain syndrome (12) Toxic metabolic encephalopathy Symptom Scale: (1) Dyspnea (2) Confusion (3) Pain Pertinent Non-Medical Issues Psychosocial: Patient was born in [facility]. She had 1 brother and 1 sister. Her sister is ; her brother lives in [place]. Patient states her father was a political prisoner in [place]. She moved to the [place] when she was 17 years old with her daughter. She met her after moving to the [facility] [place]. Together they had 2 addition children; son (Los) and daughter ( Elsy) both live locally. Patient was to her for approximately 30 years before he from complications related to EtOH consumption. He worked as a gordillo before his . 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 She currently lives with her son in her home in [place]. Spiritual: Hoahaoism tato Legal: HCS designation form completed 09/24/2017. Patient's son (Los) is designated as the healthcare surrogate decision maker. Daughter, Elsy, is designated as the alternate health care surrogate. Ethical issues impacting care: No known ethical issues impacting care . Important Contacts Elsy Corona, daughter: [phone] Jameel Baum, son: [phone] Paty Baum, dtr: [phone] . Prognosis Patient is a 77-year-old female with multiple comorbid conditions who was admitted with hypoxia and sepsis. Patient's family reporting an acute decline in recent months as evidenced by increased confusion, weakness and poor nutritional intake. Patient son states the patient wants to stay in bed all the time and is sleeping more often. Patient is at risk for further decline given her age, complex medical condition and overall poor functional status. . Code Status: Alternative Code (NO COMPRESSIONS. Okay to proceed with ACLS medications, cardioversion and re-intubation if indicated) Plan * ALTERNATE CODE-intubation, ACLS medications and cardioversion if indicated. NO COMPRESSIONS. * Decision-making: HCS designation form completed 09/24/2017. Patient's son ( Los) is designated as the healthcare surrogate decision maker. Daughter, Elsy, is designated as the alternate health care surrogate. * GOALS: family wishes to cont maximized hospital tx, (short of alt code) , pursue rehabilitation to maximize pt function * Symptom management: = Dyspnea: Oxygen saturation stable on room air. Follow-up chest x- ray 01/21/2018 showed basilar consolidation versus infiltrates. Leukocytosis has resolved. Sputum culture growing aspergillus and pneumococcus. Patient on Levaquin-okay to complete course with oral meds per infectious disease. Tolerating room air. no dyspnea reported = Encephalopathy: She is alert and smiling, but she remains confused. Patient having increased agitation/confusion at night. Patient is on Cymbalta and Buspirone, added Seroquel on 01/27/18. Psychiatry consulted/ following for delirium, EEG on 01/21/2018 was abnormal due to mild/moderate slowing, medication versus encephalopathic process. No epileptic activity noted. * Palliative care will continue to follow this patient throughout her hospitalization to establish trust, assist with symptom management and clarification of medical treatment goals. . Attestation To help prompt me to consider important information that might be impacting today's encounter and assessment, information from prior notes written by myself or my colleagues may have been "brought forward" into today's note. My signature on this note, however, is an attestation that I personally performed the exam, history, and/or decision-making noted today, and, unless otherwise indicated, the interactions with patient, family, and staff as well as the review of records all occurred today. I also attest that the listed assessment and stated plan reflect my best clinical judgment today based on the combination of historical information, prior notes, and today's exam/ interactions. When time spent is documented, it refers only to time spent today by the signer, or if indicated, combined time spent today by collaborating physician/nurse practitioner. Flor Valdez Jan 31, 2018 12:46
--- NOTE | 2018-01-31 14:21 | EKG ---
Date Performed: 01/30/2018 Time Performed: 16:46:47 PTAGE: 77 years EKG: Sinus rhythm WITH OCCASIONAL SUPRAVENTRICULAR PREMATURE COMPLEXES INFERIOR MYOCARDIAL INFARCTION , PROBABLY OLD S OME VARIABILITY IN THE R-WAVES IN THE ANTERIOR PRECORDIAL LEADS AND AN ANTERIOR WALL INFARCTION CANNO T BE ENTIRELY EXCLUDED AND THIS FINDING IS NEW SINCE THE PRIOR TRACING. CLINICAL CORRELATION WILL BE ADVISED TO ASSESS AN INTERVAL ANTERIOR WALL INFARCT BUT THE SERIAL CHANGES ARE SOMEWHAT NONSPECIFIC. ABNORMAL ECG Compared to PREVIOUS TRACING , the lateral ST segment changes have resolved. Except for the developme nt of critieria for possible anteroseptal infarct and a probably inferior wall infarct there has been no other significant serial change. PREVIOUS TRACIN01/23/2018 22.46 DOCTOR: Christi Julien Interpretating Date/Time 01/31/2018 14:20:33
[2018-01-31] MEDS ORDERED: ALUMINUM/MAGNESIUM/SIMETH 30 ML CUP PO PRN (16:00)
[2018-02-01] VITALS: BP 156/72; PULSE 109; RESP 28; TEMP 98.3; O2SAT 100
[2018-02-01 04:00] VITALS: BP 163/72; PULSE 71; PULSE 73; RESP 20; TEMP 98; O2SAT 100
[2018-02-01] MEDS: CHLORHEXIDINE GLUCONATE 2 % 1 PACK (2 CLOTHS) TOP SCH (04:00)
[2018-02-01] MEDS: CARBIDOPA/LEVODOPA 25 MG/100 MG TAB PO SCH ×2 (06:00→14:00)
[2018-02-01] MEDS: hydrALAZINE HCL 25 MG TAB PO SCH ×2 (06:00→14:00)
[2018-02-01] MEDS: INSULIN NovoLIN REGULAR SUPPLEMENTAL SCALE SQ SCH ×3 (06:00→12:00)
[2018-02-01] MEDS: CHLORHEXIDINE 0.12% (ORAL KIT) 15 ML CUP MT SCH (07:24)
[2018-02-01 08:00] VITALS: BP 167/75; PULSE 78; RESP 22; TEMP 97.9
[2018-02-01] MEDS: SODIUM CHLORIDE 0.9% FLUSH 10 ML FLUSH IV FLUSH SCH ×2 (08:32)
[2018-02-01] MEDS: POTASSIUM CHLORIDE 20 MEQ CONTROLLED RELEASE TAB PO SCH (08:32)
[2018-02-01] MEDS: busPIRone HCL 10 MG TAB PO SCH (08:32)
[2018-02-01] MEDS: FLUCONAZOLE 100 MG TAB PO SCH (08:32)
[2018-02-01] MEDS: DULoxetine HCl DR 20 MG CAP PO SCH (08:32)
[2018-02-01] MEDS: DOCUSATE SODIUM 50 MG/SENNA 8.6 MG TAB PO SCH (08:32)
[2018-02-01] MEDS: PRAVASTATIN SOD 40 MG TAB PO SCH (08:32)
[2018-02-01] MEDS: FAMOTIDINE 20 MG TAB PO SCH (08:33)
[2018-02-01] MEDS: QUEtiapine FUMARATE 25 MG TAB PO SCH (08:33)
[2018-02-01] MEDS: HEPARIN SODIUM - SQ 10,000 UNITS/ML VIAL SQ SCH (08:33)
[2018-02-01] MEDS: NYSTATIN SUSP 500,000 U/5 ML CUP SWISH-SWAL SCH ×2 (08:33→13:00)
[2018-02-01] MEDS: LEVOFLOXACIN 750 MG TAB PO SCH (08:41)
[2018-02-01] MEDS ORDERED: predniSONE 10 MG TAB PO SCH (09:00)
[2018-02-01] MEDS ORDERED: HYDR-3799 PO (09:32)
[2018-02-01] MEDS ORDERED: DIFL100T PO (09:32)
[2018-02-01] MEDS ORDERED: LEVA750T9 PO (09:32)
--- NOTE | 2018-02-01 09:33 | HHI.DCPOC ---
Discharge Care Plan Diagnosis: (1) Delirium due to another medical condition (2) Acute hypoxemic respiratory failure (3) Toxic metabolic encephalopathy (4) Septic shock (5) Hypokalemia due to loss of potassium (6) HTN (hypertension) (7) Sepsis Goals to Promote Your Health * To prevent worsening of your condition and complications * To maintain your health at the optimal level Directions to Meet Your Goals Take your medications as prescribed Follow your dietary instruction Follow activity as directed Keep your appointments as scheduled Take your immunizations and boosters as scheduled If your symptoms worsen call your PCP, if no PCP go to Urgent Care Center or Emergency Room Smoking is Dangerous to Your Health. Avoid second hand smoke Call the 24-hour hour crisis hotline for domestic abuse at Froylan Garces DO Feb 01, 2018 09:33
[2018-02-01] MEDS ORDERED: SERO25TA PO (11:50)
[2018-02-01 12:00] VITALS: BP 161/75; PULSE 73; RESP 17; TEMP 98.1
--- NOTE | 2018-02-01 12:00 | HHI.DS ---
Discharge Summary Admission Date Jan 19, 2018 at 09:52 Discharge Date: Feb 01, 2018 Admitting Diagnosis altered mental status, respiratory failure, sepsis (1) Septic shock ICD Code: A41.9 - Sepsis, unspecified organism; R65.21 - Severe sepsis with septic shock Diagnosis: Principal (2) Respiratory failure ICD Code: J96.90 - Respiratory failure, unspecified, unspecified whether with hypoxia or hypercapnia Status: Acute (3) Hypokalemia due to loss of potassium ICD Code: E87.6 - Hypokalemia Diagnosis: Principal (4) Acute renal failure ICD Code: N17.9 - Acute kidney failure, unspecified Diagnosis: Secondary Status: Acute (5) Adjustment disorder with depressed mood ICD Code: F43.21 - Adjustment disorder with depressed mood Diagnosis: Principal (6) Elevated lactic acid level ICD Code: R79.89 - Other specified abnormal findings of blood chemistry Diagnosis: Principal (7) Hyperlipidemia ICD Code: E78.5 - Hyperlipidemia Diagnosis: Principal Status: Acute (8) Hypertension ICD Code: I10 - Essential (primary) hypertension Diagnosis: Secondary Status: Acute (9) Chronic narcotic use ICD Code: F11.90 - Opioid use, unspecified, uncomplicated Diagnosis: Secondary (10) Coronary artery disease ICD Code: I25.10 - Atherosclerotic heart disease of [place] coronary artery without angina pectoris Diagnosis: Secondary (11) History of CVA (cerebrovascular accident) ICD Code: Z86.73 - Personal history of transient ischemic attack (TIA), and cerebral infarction without residual deficits Diagnosis: Secondary (12) Unresponsive ICD Code: R41.89 - Other symptoms and signs involving cognitive functions and awareness Diagnosis: Principal Status: Acute (13) Delirium due to another medical condition ICD Code: F05 - Delirium due to known physiological condition Diagnosis: Principal (14) HTN (hypertension) ICD Code: I10 - Essential (primary) hypertension Diagnosis: Principal Status: Chronic Procedures None Brief History - From Admission This is a 77-year-old female. Date of admission 01/19/2018 medical history includes CVA involving the left caudate, adjustment disorder, hypertension with insulin, chronic pain syndrome on chronic in the past clinic notes for coronary disease and COPD. Patient was previously on hospice which was rescinded by the son today. Hospice nurse evaluated this patient this morning and found the patient to be unresponsive and called 911. Patient lives with her son and apparently the son did not know regarding her history either. Fentanyl patch was removed and received 0.4 mg naltrexone. As per EMS radio report patient's GCS improved from 7-15. Initial blood pressure was 70 palp systolic. Patient had received some fluid which improved the blood pressure to 108 prior to their arrival as per EMS. MBS reportedly was within normal limits. When patient arrived to the emergency room patient became unresponsive.. Blood pressure was in the 90s systolic with manual cuff. As per the hospice nurse to the paramedics patient is a full code. Her rectal temperature was 100.4 upon arrival. Patient was intubated using 20 mg etomidate and 100 mg succinylcholine. Chest x -ray revealed no acute cardiopulmonary findings. Head CT revealed old left caudate CVA/lacunar and bilateral basal gland calcification otherwise unremarkable. Patient does have a urinary tract infection. Leukocytosis 20, 000. Lactate of 4.6. Troponin 0 0.09 with old Q waves in inferior leads. We are asked to admit CBC/BMP: 01/31/18 0320 02/01/18 0210 Significant Findings Laboratory Tests Test 01/30/18 06:13 01/31/18 03:20 02/01/18 02:10 White Blood Count 12.2 TH/MM3 (4.0-11.0) 11.8 TH/MM3 (4.0-11.0) Platelet Count 469 TH/MM3 (150-450) 506 TH/MM3 (150-450) Creatinine 1.55 MG/DL (0.50-1.00) 1.53 MG/DL (0.50-1.00) Random Glucose 142 MG/DL (74-106) 135 MG/DL (74-106) Potassium Level 3.2 MEQ/L (3.5-5.1) 3.2 MEQ/L (3.5-5.1) Estimat Glomerular Filtration Rate 32 ML/MIN (>89) 33 ML/MIN (>89) Albumin 3.3 GM/DL (3.4-5.0) Imaging Last Impressions Abdomen X-Ray 01/31/18 0000 Signed Impressions: Service Date/Time: January 10:51 - CONCLUSION: Unremarkable abdomen. Vinny Méndez MD Chest X-Ray 01/21/18 0600 Signed Impressions: Service Date/Time: Sunday, January 21, 2018 03:47 - CONCLUSION: Stable chest x-ray with underinflation and bilateral basilar air space opacities representing either atelectasis or consolidation. Sung Fernandez MD Head CT 01/19/18 0836 Signed Impressions: Service Date/Time: Friday, January 19, 2018 10:12 - CONCLUSION: 1. No acute intracranial abnormality. 2. Atrophy and chronic small vessel ischemic change. 3. Paranasal sinus disease. Oneil Bills Jr., MD Renal Ultrasound 01/19/18 0000 Signed Impressions: Service Date/Time: Friday, January 19, 2018 10:45 - CONCLUSION: Normal examination. Jameel Baldwin MD PE at Discharge GENERAL: NAD. HEENT: anicteric, NC, AT. PULMONARY: decreased breath sounds. CARDIAC: rhythm is regular. GI: soft, good bowel sounds, slightly tender to palpation. EXTREMITIES: no edema. NEURO: moves all extremities spontaneously. Has dementia. PSYCH: Calm. Pt update on day of discharge The patient said that she wanted to get out of here. She said that she wanted to drink soda. She denied any specific symptoms. Discussed with nursing at the bedside. Hospital Course Acute toxic metabolic encephalopathy The pt has a history of CVA with adjustment disorder, depression/ anxiety, chronic pain syndrome with chronic narcotic use and a history of Parkinson's disease. CT brain 01/19 revealed no acute intracranial findings; Atrophy and chronic small vessel ischemic change. Psychiatry was consulted. The pt was continued on carbidopa/levodopa, Cymbalta and buspirone. We started Seroquel 12.5 mg po bid, which we will recommend to continue for a few more days prior to discontinuation. She no longer requires restraints. Palliative care has been following. Case management assisted with placement. Cardiac The pt has nonobstructive coronary disease -cardiac catheterization 2011 revealed EF 80% nonobstructive coronary disease. She was noted to have a bradyarrhythmia. 01/19 2D echocardiogram- EF 55-60%, mod TR, PAP 29, moderate annular calcifications. We discontinued beta joshua and clonidine. We continued amlodipine 10 mg po daily for HTN. We increased hydralazine to 75 mg TID. She received IV Vasotec as needed. Severe sepsis Secondary to S. Pneumoniae. Initially had septic shock. Infectious disease was consulted. Currently on Levaquin 750 mg daily until 02/07. No need to treat Aspergillus in the sputum per ID. She received fluconazole for candiduria. Acute hypoxemic respiratory failure History of COPD, patient on chronic steroids. Now on room air. We discontinued hydrocortisone and changed to prednisone 10 mg po daily (home dose). She received Duonebs, IS and we encouraged ambulation with PT and OT. Acute kidney injury Creatinine gradually stabilized. Renal ultrasound revealed no hydronephrosis.S/ p IVFs. We recommend outpt follow-up with nephrology in a week. She will need a repeat BMP in 3-5 days. Pt Condition on Discharge: Stable Discharge Disposition: Discharge to SNF Discharge Time: > 30 minutes Discharge Instructions DIET: Follow Instructions for: Heart Healthy Diet Activities you can perform: Weight Bearing as Kip Follow up Referrals: Nephrology - 1 Week PCP Follow-up - 1 Week SNF[facility]/ New Orders: BASIC METABOLIC PROF - 3-5 Days New Medications: Fluconazole (Diflucan) 100 Mg Tab 100 MG PO DAILY for Infection, #3 TAB Hydralazine HCl (Hydralazine HCl) 25 Mg Tablet 75 MG PO Q8HR for Blood Pressure Management, #90 TAB Levofloxacin (Levaquin) 750 Mg Tablet 750 MG PO Q48H for Infection, #3 TAB Quetiapine (Seroquel) 25 Mg Tab 12.5 MG PO BID for Agitation for 3 Days, #6 TAB Continued Medications: Amlodipine (Amlodipine) 10 Mg Tab 10 MG PO DAILY for Blood Pressure Management, #30 TAB 0 Refills Buspirone (Buspirone) 30 Mg Tab 30 MG PO BID for Anxiety, TAB 0 Refills Carbidopa-Levodopa (Carbidopa-Levodopa) 25-100 Mg Tab 1 TAB PO Q8HR for Parkinson Disease Mgmt, #90 TAB 0 Refills Docusate Sodium (Docusate Sodium) 100 Mg Cap 100 MG PO BID for Prevent Constipation, #60 CAP [address] (Cymbalta DR) 20 Mg Capdr 20 MG PO DAILY, #30 CAP 0 Refills Lovastatin (Lovastatin) 40 Mg Tab 40 MG PO DAILY for Cholesterol Management, #30 TAB 0 Refills Potassium Chloride ER (Potassium Chloride ER) 10 Meq Tab 10 MEQ PO DAILY for Electrolyte Replacement, #30 TAB 0 Refills Prednisone (Prednisone) 10 Mg Tab 10 MG PO DAILY, TAB 0 Refills Discontinued Medications: Fentanyl Patch 72 HR (Fentanyl Patch 72 HR) 25 Mcg/Hr Patch 25 MCG T-DERMAL Q72H for Pain Management, #10 PATCH 0 Refills Gabapentin (Gabapentin) 300 Mg Cap 300 MG PO BID, #60 CAP 0 Refills Lisinopril (Lisinopril) 20 Mg Tab 20 MG PO DAILY, #30 TAB 0 Refills Meclizine HCl (Meclizine 25) 25 Mg Tab 25 MG PO TID PRN for DIZZINESS Nitrofurantoin Monohydrate Macrocrystals (Macrobid) 100 Mg Capsule 100 MG PO DAILY for Infection for 5 Days, #5 CAP 0 Refills Froylan Garces DO Feb 01, 2018 12:00
== END 2018-02-01 15:15 | DRG 871 ==
LOC: NEPE 08:26 → NEDA 09:52 → HIMW 12:25
PROVIDERS: ADMIT Hospitalist; ATTEND Hospitalist
PROC: 5A1945Z Respiratory Ventilation, 24-96 Consecutive Hours (ICD-10-PCS; principal; 2018-01-19)
PROC: 0BH17EZ Insertion of Endotracheal Airway into Trachea, Via Natural or Artificial Opening (ICD-10-PCS; 2018-01-19)
PROC: 0T9B70Z Drainage of Bladder with Drainage Device, Via Natural or Artificial Opening (ICD-10-PCS; 2018-01-19)
PROC: 0D9670Z Drainage of Stomach with Drainage Device, Via Natural or Artificial Opening (ICD-10-PCS; 2018-01-19)
PROC: 05HN33Z Insertion of Infusion Device into Left Internal Jugular Vein, Percutaneous Approach (ICD-10-PCS; 2018-01-19)
DX: A41.9 Sepsis, unspecified organism (principal); I21.A1 Myocardial infarction type 2; J96.01 Acute respiratory failure with hypoxia; R65.21 Severe sepsis with septic shock; G92 Toxic encephalopathy; N17.9 Acute kidney failure, unspecified; J13 Pneumonia due to Streptococcus pneumoniae; E87.0 Hyperosmolality and hypernatremia; N39.0 Urinary tract infection, site not specified; J44.0 Chronic obstructive pulmonary disease with (acute) lower respiratory infection; F05 Delirium due to known physiological condition; B37.0 Candidal stomatitis; Z96.643 Presence of artificial hip joint, bilateral; E87.6 Hypokalemia; E88.09 Other disorders of plasma-protein metabolism, not elsewhere classified; F43.21 Adjustment disorder with depressed mood; R74.0 Nonspecific elevation of levels of transaminase and lactic acid dehydrogenase [LDH]; E78.5 Hyperlipidemia, unspecified; N18.9 Chronic kidney disease, unspecified; I12.9 Hypertensive chronic kidney disease with stage 1 through stage 4 chronic kidney disease, or unspecified chronic kidney disease; Z79.891 Long term (current) use of opiate analgesic; I25.10 Atherosclerotic heart disease of native coronary artery without angina pectoris; Z86.73 Personal history of transient ischemic attack (TIA), and cerebral infarction without residual deficits; G89.4 Chronic pain syndrome; G62.9 Polyneuropathy, unspecified; Z79.52 Long term (current) use of systemic steroids; K59.09 Other constipation; Z87.891 Personal history of nicotine dependence; F41.9 Anxiety disorder, unspecified; R73.9 Hyperglycemia, unspecified; Z51.5 Encounter for palliative care; Z78.1 Physical restraint status; R00.8 Other abnormalities of heart beat; G20 Parkinson's disease; F03.90 Unspecified dementia, unspecified severity, without behavioral disturbance, psychotic disturbance, mood disturbance, and anxiety
CPT/HCPCS: 31500; 36556; 36600; 36620; 51702; 70450; 71045; 74018; 76775; 76937; 80048; 80053; 80061; 80076; 80202; 81001; 82140; 82150; 82550; 82552; 82570; 82805; 82948; 83605; 83690; 83735; 84100; 84132; 84155; 84300; 84443; 84484; 85007; 85025; 85027; 85384; 85610; 85730; 87040; 87070; 87086; 87186; 87205; 87449; 87493; 87641; 87804; 93005; 93306; 94002; 94003; 94150; 94640; 94664; 95819; 96374; J0330; J0360; J0696; J1630; J1644; J1720; J2060; J2250; J2310; J2405; J2543; J2997; J3010; J3370; J3475; J3480; J7030; J7040; J7050; J7512

== ENCOUNTER 2018-02-21 12:53 | Inpatient (IN) | payer MEDICARE ==
[~2018-02-21 12:53] MED LIST changes: +DIFL100T PO; -FENT25DI T-DERMAL; -GABA300C5 PO; +HYDR-3799 PO; +LEVA750T9 PO; -LISI-515 PO; -MACR100C2 PO; -MECL1TAB42 PO; +SERO25TA PO
[2018-02-21 13:32] VITALS: BP 153/97; PULSE 88; RESP 18; TEMP 98.1; O2SAT 97
--- NOTE | 2018-02-21 14:33 | PD ---
HPI Chief Complaint: Psychiatric Symptoms Time Seen by Provider: 13:22 Travel History International Travel<30 days: No Contact w/Intl Traveler<30days: No Traveled to known affect area: No History of Present Illness HPI 77-year-old female that presents to the ED for evaluation of Miguel Act started by nurse practitioner. Patient is a history of depression as well as Parkinson' s disease and COPD. Patient has been here. Patient herself continues to tell me that she is very upset as she wants to be on hospice but her insurance will not let her being hospice. She denies any homicidal ideation and states that she wants to "meet God". Denies any urinary or bowel movement issues. Denies symptoms at this time. Per patient she is being currently treated for cellulitis of her lower legs and both of them. She does have a history of edema chronically. She denies using oxygen. Denies any substance abuse. She states compliance with her medications and lives in an [facility]. History is somewhat limited as patient herself continues to want to talk about her not being in hospice and is very upset about this. Per Miguel act she apparently mentioned to staff that she wanted to we will her chair into the and have the cars hit her to end her life. No other medical complaints at this time. PFSH Past Medical History Hx Anticoagulant Therapy: Yes (Unsure of which one) Arthritis: Yes Asthma: No Autoimmune Disease: No Blood Disorders: No Anxiety: Yes Depression: Yes Heart Rhythm Problems: No Cancer: Yes Cardiovascular Problems: Yes High Cholesterol: No Chemotherapy: No Chest Pain: No Congestive Heart Failure: No COPD: Yes (Maybe per daughter Elsy Corona, recently diagnosed if so.) Cerebrovascular Accident: Yes (Maybe stroke per daughter Elsy Corona) Diabetes: No Diminished Hearing: No Endocrine: No Gastrointestinal Disorders: Yes GERD: No Genitourinary: Yes (contreras ) Headaches: No Hiatal Hernia: No Heparin Induced Thrombocytopen: No Hypertension: Yes Immune Disorder: No Implanted Vascular Access Dvce: No Kidney Stones: No Musculoskeletal: Yes Neurologic: No Psychiatric: No Reproductive: No Respiratory: No Migraines: No Radiation Therapy: No Renal Failure: No Seizures: No Sickle Cell Disease: No Sleep Apnea: No Thyroid Disease: No Ulcer: No ?: Not Menopausal: Yes : 4 Para: 3 : 1 Past Surgical History Abdominal Surgery: Yes (GALLBLADDER 2000) AICD: No Arteriovenous Shunt: No Cardiac Surgery: No Cholecystectomy: Yes (2000) Ear Surgery: No Endocrine Surgery: No Eye Surgery: No Genitourinary Surgery: No Gynecologic Surgery: No Insulin Pump: No Joint Replacement: Yes (hip replacement, wrist surgery) Neurologic Surgery: No Oral Surgery: Yes (teeth removed) Pacemaker: No Thoracic Surgery: No Other Surgery: Yes (hip surgery hx, gall bladder out, hx port in chest) Social History Alcohol Use: No (Pt unable to respond) Tobacco Use: No (Pt unable to respond) Substance Use: No (Pt unable to respond) Allergies-Medications (Allergen,Severity, Reaction): Coded Allergies: No Known Allergies (Verified Allergy, Unknown, 09/21/17) Reported Meds & Prescriptions Reported Meds & Active Scripts Active Hydralazine HCl 25 Mg Tablet 75 Mg PO Q8HR Walker with Front Wheels (Device) 1 Mis Mis Ea .ROUTE DIRECTED Reported Lorazepam 0.5 Mg Tab 0.5 Mg PO Q8H PRN Norris-3 Fish Oil/Vitamin (Fish Oil-Cholecalciferol) 1,000-1,000 Mg Cap 1 Cap PO DAILY Clindamycin (Clindamycin HCl) 150 Mg Cap 150 Mg PO Q6H Seroquel (Quetiapine Fumarate) 25 Mg Tab 25 Mg PO BID Tylenol (Acetaminophen) 325 Mg Tab 650 Mg PO Q4H PRN Tylenol (Acetaminophen) 325 Mg Tab 650 Mg PO Q4H PRN Buspirone (Buspirone HCl) 30 Mg Tab 20 Mg PO TID Prednisone 10 Mg Tab 10 Mg PO DAILY Lovastatin 40 Mg Tab 40 Mg PO DAILY Carbidopa-Levodopa 25-100 Mg Tab 1 Tab PO Q8HR Docusate Sodium 100 Mg Cap 100 Mg PO BID Amlodipine (Amlodipine Besylate) 10 Mg Tab 10 Mg PO DAILY Cymbalta DR (Duloxetine HCl) 20 Mg Capdr 30 Mg PO DAILY Potassium Chloride ER (Potassium Chloride) 10 Meq Tab 10 Meq PO DAILY Review of Systems ROS Limitations: Poor Historian Except as stated in HPI: all other systems reviewed are Neg Physical Exam Exam Limitations: Poor Historian Narrative GENERAL: SKIN: Warm and dry. HEAD: Atraumatic. Normocephalic. EYES: Pupils equal and round. No scleral icterus. No injection or drainage. ENT: No nasal bleeding or discharge. Mucous membranes pink and moist. Tongue is midline. No uvula deviation. NECK: Trachea midline. No JVD. CARDIOVASCULAR: Regular rate and rhythm. No murmurs, S3, S4. RESPIRATORY: No accessory muscle use. Clear to auscultation. Breath sounds equal bilaterally. GASTROINTESTINAL: Abdomen soft, non-tender, nondistended. Hepatic and splenic margins not palpable. MUSCULOSKELETAL: Extremities without clubbing, cyanosis, or edema. No obvious deformities. Full range of motion of the upper and lower extremities bilaterally. 2+ pulses bilaterally. Patient does have lower leg edema 1+ with erythema. Blanchable. Slightly warm to touch but is bilaterally. NEUROLOGICAL: Awake and alert. No obvious cranial nerve deficits. Motor grossly within normal limits. Five out of 5 muscle strength in the arms and legs. Normal speech. PSYCHIATRIC: Appropriate mood and affect; insight and judgment normal. Data Data Last Documented VS Vital Signs Date Time Temp Pulse Resp B/P (MAP) Pulse Ox O2 Delivery O2 Flow Rate FiO2 02/21/18 13:32 98.1 88 18 153/97 (115) 97 Room Air Orders Orders Complete Blood Count With Diff (02/21/18 13:22) Comprehensive Metabolic Panel (02/21/18 13:22) Thyroid Stimulating Hormone (02/21/18 13:22) Urinalysis - C+S If Indicated (02/21/18 13:22) Psych Screen (02/21/18 13:22) Drug Screen, Random Urine (02/21/18 13:22) Alcohol (Ethanol) (02/21/18 13:22) Labs Laboratory Tests Test 02/21/18 16:18 02/21/18 16:25 White Blood Count 9.6 TH/MM3 Red Blood Count 4.02 MIL/MM3 Hemoglobin 12.8 GM/DL Hematocrit 38.6 % Mean Corpuscular Volume 96.0 FL Mean Corpuscular Hemoglobin 31.9 PG Mean Corpuscular Hemoglobin Concent 33.2 % Red Cell Distribution Width 15.2 % Platelet Count 290 TH/MM3 Mean Platelet Volume 9.2 FL Neutrophils (%) (Auto) 77.2 % Lymphocytes (%) (Auto) 18.0 % Monocytes (%) (Auto) 3.2 % Eosinophils (%) (Auto) 1.2 % Basophils (%) (Auto) 0.4 % Neutrophils # (Auto) 7.4 TH/MM3 Lymphocytes # (Auto) 1.7 TH/MM3 Monocytes # (Auto) 0.3 TH/MM3 Eosinophils # (Auto) 0.1 TH/MM3 Basophils # (Auto) 0.0 TH/MM3 CBC Comment DIFF FINAL Differential Comment Blood Urea Nitrogen 13 MG/DL Creatinine 1.09 MG/DL Random Glucose 164 MG/DL Total Protein 7.8 GM/DL Albumin 3.5 GM/DL Calcium Level 8.9 MG/DL Alkaline Phosphatase 111 U/L Aspartate Amino Transf (AST/SGOT) 18 U/L Alanine Aminotransferase (ALT/SGPT) 22 U/L Total Bilirubin 0.3 MG/DL Sodium Level 142 MEQ/L Potassium Level 3.8 MEQ/L Chloride Level 104 MEQ/L Carbon Dioxide Level 27.0 MEQ/L Anion Gap 11 MEQ/L Estimat Glomerular Filtration Rate 48 ML/MIN Thyroid Stimulating Hormone 3rd Gen 0.672 uIU/ML Ethyl Alcohol Level LESS THAN 3 MG/DL Urine Color LIGHT-YELLOW Urine Turbidity HAZY Urine pH 7.0 Urine Specific [place] 1.006 Urine Protein NEG mg/dL Urine Glucose (UA) NEG mg/dL Urine Ketones NEG mg/dL Urine Occult Blood NEG Urine Nitrite NEG Urine Bilirubin NEG Urine Urobilinogen LESS THAN 2.0 MG/DL Urine Leukocyte Esterase NEG Urine RBC LESS THAN 1 /hpf Urine WBC LESS THAN 1 /hpf Urine Squamous Epithelial Cells 2 /hpf Urine Bacteria RARE /hpf Urine Hyaline Casts 2 /lpf Microscopic Urinalysis Comment CULT NOT INDICATED Urine Opiates Screen NEG Urine Barbiturates Screen NEG Urine Amphetamines Screen NEG Urine Benzodiazepines Screen NEG Urine Cocaine Screen NEG Urine Cannabinoids Screen NEG MDM Medical Decision Making Medical Screen Exam Complete: Yes Emergency Medical Condition: Yes Medical Record Reviewed: Yes Interpretation(s) CBC & BMP Diagram 02/21/18 16:18 Total Protein 7.8, Albumin 3.5, Calcium Level 8.9, Alkaline Phosphatase 111, Aspartate Amino Transf (AST/SGOT) 18, Alanine Aminotransferase (ALT/SGPT) 22, Total Bilirubin 0.3 UA negative tox negative Differential Diagnosis Depression versus adjustment disorder versus suicidal ideation versus normal exam Narrative Course 77-year-old female that presents to the ED for evaluation of illness. Currently patient appears to be no sign of acute distress. She does have a history of depression and symptoms appear to be mainly exacerbated secondary to being angry at not being in hospice since the only thing that really sound. She does not appear to be any sign of acute distress otherwise. Her vitals and physical exam are reassuring. She does appear to have chronic leg edema impression of cellulitis with me appears to be more chronic leg edema tonsillitis. Labs were drawn. Patient will be medically cleared pending labs. Okay to be seen by psych. Mental health screening was discussed with the patient. Diagnosis Primary Impression: Adjustment disorder with depressed mood Rickey Godoy Feb 21, 2018 14:33
[2018-02-21] MEDS ORDERED: TYLE325T PO ×2 (15:56→15:59)
[2018-02-21] MEDS ORDERED: SERO25TA PO (16:19)
[2018-02-21] MEDS ORDERED: CLIN150C14 PO (16:21)
[2018-02-21] MEDS ORDERED: OMEGCAP PO (16:24)
[2018-02-21] MEDS ORDERED: LORA0.5T PO (16:26)
[2018-02-21 17:12] LABS: AUTOMATED NEUTROPHIL # 7.4 TH/MM3 (1.8-7.7); BASOPHIL % 0.4 % (0.0-2.0); EOSINOPHIL # 0.1 TH/MM3 (0-0.4); EOSINOPHIL % 1.2 % (0.0-4.0); HEMATOCRIT 38.6 % (35.0-46.0); HEMOGLOBIN 12.8 GM/DL (11.6-15.3); LYMPHOCYTE # 1.7 TH/MM3 (1.0-4.8); MEAN CORPUSCULAR HEMOGLOBIN 31.9 PG (27.0-34.0); MEAN CORPUSCULAR HGB CONC 33.2 % (32.0-36.0); MEAN PLATELET VOLUME 9.2 FL (7.0-11.0); MONO % 3.2 % (0.0-8.0); MONOCYTE # 0.3 TH/MM3 (0-0.9); NEUT % 77.2 % (16.0-70.0); PLATELET COUNT 290 TH/MM3 (150-450); RED BLOOD COUNT 4.02 MIL/MM3 (4.00-5.30); RED CELL DISTRIBUTION WIDTH 15.2 % (11.6-17.2); WHITE BLOOD COUNT 9.6 TH/MM3 (4.0-11.0)
[2018-02-21 17:24] LABS: ALKALINE PHOSPHATASE 111 U/L (45-117); ALT (GPT) 22 U/L (10-53); CREATININE 1.09 MG/DL (0.50-1.00); GLOMERULAR FILTRATION RATE 48 ML/MIN (>89); TOTAL BILIRUBIN ADULT 0.3 MG/DL (0.2-1.0); TOTAL PROTEIN 7.8 GM/DL (6.4-8.2)
[2018-02-21 17:29] LABS: ALBUMIN 3.5 GM/DL (3.4-5.0); AST (GOT) 18 U/L (15-37); BLOOD UREA NITROGEN 13 MG/DL (7-18); CALCIUM 8.9 MG/DL (8.5-10.1); CHLORIDE 104 MEQ/L (98-107); GLUCOSE,RANDOM 164 MG/DL (74-106); SODIUM (NA) 142 MEQ/L (136-145)
[2018-02-21 17:34] LABS: BACTERIA, URINE RARE /hpf; BILIRUBIN, URINE NEG (NEG); BLOOD, URINE NEG (NEG); GLUCOSE,URINE NEG (NEG); HYALINE CAST, URINE 2 /lpf (RARE); KETONE, URINE NEG (NEG); NITRITE,URINE NEG (NEG); SQUAMOUS EPITHELIAL CELL URINE 2 /hpf (0-5); URINE COLOR LIGHT-YELLOW (YELLW/STRAW); URINE LEUKOCYTE ESTERASE NEG (NEG)
[2018-02-21 19:53] VITALS: BP 164/86; PULSE 78; RESP 18; TEMP 98.3; O2SAT 98
[2018-02-21] MEDS ORDERED: MAGNESIUM HYDROXIDE SUSP 30 ML CUP PO PRN (20:00)
[2018-02-21] MEDS ORDERED: diphenhydrAMINE HCL 50 MG/ML VIAL - HS PRN IM (20:00)
[2018-02-21] MEDS ORDERED: diphenhydrAMINE HCL 50 MG CAP - HS PRN PO (20:00)
[2018-02-21] MEDS ORDERED: ACETAMINOPHEN 325 MG TAB PO PRN (20:00)
[2018-02-21] MEDS ORDERED: ALUMINUM/MAGNESIUM/SIMETH 30 ML CUP PO PRN (20:00)
[2018-02-21 20:24] VITALS: BP 127/59; PULSE 85; RESP 17; TEMP 98.2; O2SAT 94
[2018-02-21] MEDS ORDERED: REMOVE OLD NICOTINE PATCH T-DERMAL SCH (21:00)
[2018-02-21] MEDS: QUEtiapine FUMARATE 25 MG TAB PO SCH (21:00)
[2018-02-21] MEDS: CARBIDOPA/LEVODOPA 25 MG/100 MG TAB PO SCH (22:00)
[2018-02-21] MEDS: DOCUSATE SODIUM 100 MG CAP PO SCH (23:52)
[2018-02-21] MEDS: hydrALAZINE HCL 25 MG TAB PO SCH (23:52)
[2018-02-21] MEDS: CLINDAMYCIN 150 MG CAP PO SCH (23:53)
[2018-02-22] MEDS: CARBIDOPA/LEVODOPA 25 MG/100 MG TAB PO SCH (04:31)
[2018-02-22] MEDS: CLINDAMYCIN 150 MG CAP PO SCH ×2 (04:31→09:14)
[2018-02-22] MEDS: hydrALAZINE HCL 25 MG TAB PO SCH (04:33)
[2018-02-22 04:42] VITALS: BP 128/63; PULSE 78; RESP 16; TEMP 98.8; O2SAT 93
[2018-02-22] MEDS ORDERED: CHOLECALCIFEROL (VIT D3) 1000 UNIT TAB PO SCH (09:00)
[2018-02-22] MEDS ORDERED: NICOTINE 21 MG/24 HR PATCH T-DERMAL SCH (09:00)
[2018-02-22] MEDS ORDERED: DULoxetine HCl DR 30 MG CAP PO SCH (09:00)
[2018-02-22] MEDS ORDERED: POTASSIUM CHLORIDE 10 MEQ CONTROLLED RELEASE TAB PO SCH (09:00)
[2018-02-22] MEDS ORDERED: predniSONE 10 MG TAB PO SCH (09:00)
[2018-02-22] MEDS ORDERED: PRAVASTATIN SOD 40 MG TAB PO SCH (09:00)
[2018-02-22] MEDS: QUEtiapine FUMARATE 25 MG TAB PO SCH (09:14)
[2018-02-22] MEDS: busPIRone HCL 10 MG TAB PO SCH ×2 (09:15→12:51)
[2018-02-22] MEDS: DOCUSATE SODIUM 100 MG CAP PO SCH (09:15)
--- NOTE | 2018-02-22 11:13 | HHI.HP ---
Provisional Diagnosis Admission Date Feb 21, 2018 at 19:35 [place] I. Adjustment disorder with depressed mood Certification of Person's Competence To Provide Express and Informed Consent I have personally examined Radha Baum , a person being served at [facility] on, Feb 22, 2018 11:02. Express and informed consent means consent voluntarily given in writing, by a competent person, after sufficient explanation and disclosure of the subject matter involved to enable the person to make a knowing and willful decision without any element of force, fraud, deceit, duress, or other form of constraint or coercion. This person is 18 years of age or older, is not now known to be incompetent to consent to treatment with a guardian advocate, and does not have a health care surrogate or proxy currently making medical treatment decisions. I have found this person to be one of the following: [xxx ] Competent to provide express and informed consent, as defined above, for voluntary admission to this facility and is competent to provide express and informed consent for treatment. He/she has the consistent capacity to make well reasoned, willful, and knowing decisions concerning his or her medical or mental health treatment. The person fully and consistently understands the purpose of the admission for examination/placement and is fully capable of personally exercising all rights assured [place] Incompetent to provide express and informed consent to voluntary admission, and this is incompetent to provide express and informed consent to treatment. The person must be transferred to involuntary status and a petition for a guardian advocate filed with the Circuit Court. [] Refusing to provide express and informed consent to voluntary admission but is competent to provide express and informed consent for treatment. The person must be discharged or transferred to involuntary status. Form shall be completed within 24 hours of a person's arrival at the receiving facility and filed in the clinical record of each person: 1. Admitted on a voluntary basis 2. Permitted to provide express and informed consent to his/her own treatment 3. Allowed to transfer from involuntary to voluntary status 4. Prior to permitting a person to consent to his or her own treatment after having been previously found incompetent to consent to treatment. History of Present Illness Capacity: Has Capacity HPI Patient is a 77-year-old white female who comes in from a local penitentiary under a Miguel act signed by Caroline CAPELLAN dated 02/21/18 at 10 AM with excellent reviewed essentially stating patient was evaluated today and is an despair says that she wants to noon says that she wants to walk out in front of traffic at [facility] patient has a specific plan and cannot contract for safety. Patient seen screened in the ED urine toxicology negative bladder: Negative. Of interest patient was hospitalized here 01/19/18 through 02/01/18 was seen in consultation by Dr. Velázquez for diagnosis of delirium patient was placed in the penitentiary. It appears patient was not happy with the family meeting place and that facility. It appears patient told her staff here that she wanted to go to [facility]'s some new underwear and then walk into traffic. At the present time patient sitting quietly in our day room she is calm alert and oriented, alternating from somewhat animated to somewhat drowsy. She denies suicidality at this time denies voices or visions. There is no significant past psychiatric history. Though this this irritability with the family because of the placement. She is willing opiates. Reluctantly return to the penitentiary. She says review of the be there than here. At this time I feel patient no longer meets Miguel criteria will lift Miguel act will allow patient to be discharged return to the penitentiary. She may continue room prescribed medications which do include an antidepressant and Seroquel follow- up of mental health services through that facility Review of Systems Except as stated in HPI: all other systems reviewed are Neg Past Psych History Psychological trauma history Unknown at this time Violence risk - others (6 mos) Low Violence risk - self (6 mos) Patient made statements about wanting to , I feel the risk is essentially fairly low Substance Abuse History Drugs/Alcohol past 12 months Denies Past Family Social History Coded Allergies: No Known Allergies (Verified Allergy, Unknown, 09/21/17) Active Scripts Hydralazine HCl (Hydralazine HCl) 25 Mg Tablet, 75 MG PO Q8HR for Blood Pressure Management, #90 TAB Prov:Froylan Garces DO 02/01/18 Walker with Front Wheels (Walker with Front Wheels) 1 Mis Mis, EA .ROUTE DIRECTED, #1 0 Refills Prov:Daria Laureano MD 09/24/17 Reported Medications Lorazepam (Lorazepam) 0.5 Mg Tab, 0.5 MG PO Q8H Y for ANXIETY, TAB 0 Refills 02/21/18 Fish Oil-Cholecalciferol ([place]-3 Fish Oil/Vitamin) 1,000-1,000 Mg Cap, 1 CAP PO DAILY for Nutritional Supplement, CAP 0 Refills 02/21/18 Clindamycin (Clindamycin) 150 Mg Cap, 150 MG PO Q6H for Infection, CAP 0 Refills 02/21/18 Quetiapine (Seroquel) 25 Mg Tab, 25 MG PO BID, #60 TAB 0 Refills 02/21/18 Acetaminophen (Tylenol) 325 Mg Tab, 650 MG PO Q4H Y for INCREASED TEMPERATURE, TAB 0 Refills 02/21/18 Acetaminophen (Tylenol) 325 Mg Tab, 650 MG PO Q4H Y for PAIN , TAB 0 Refills 02/21/18 Buspirone (Buspirone) 30 Mg Tab, 20 MG PO TID for Anxiety, TAB 0 Refills 11/12/17 Prednisone (Prednisone) 10 Mg Tab, 10 MG PO DAILY, TAB 0 Refills 11/12/17 Lovastatin (Lovastatin) 40 Mg Tab, 40 MG PO DAILY for Cholesterol Management, # 30 TAB 0 Refills 11/12/17 Carbidopa-Levodopa (Carbidopa-Levodopa) 25-100 Mg Tab, 1 TAB PO Q8HR for Parkinson Disease Mgmt, #90 TAB 0 Refills 09/14/17 Docusate Sodium (Docusate Sodium) 100 Mg Cap, 100 MG PO BID for Prevent Constipation, #60 CAP 0 Refills 09/14/17 Amlodipine (Amlodipine) 10 Mg Tab, 10 MG PO DAILY for Blood Pressure Management , #30 TAB 0 Refills 07/25/[address] (Cymbalta DR) 20 Mg Capdr, 30 MG PO DAILY, #30 CAP 0 Refills 07/25/17 Potassium Chloride ER (Potassium Chloride ER) 10 Meq Tab, 10 MEQ PO DAILY for Electrolyte Replacement, #30 TAB 0 Refills 07/25/17 Discontinued Scripts Quetiapine (Seroquel) 25 Mg Tab, 12.5 MG PO BID for Agitation for 3 Days, #6 TAB Prov:Froylan Garces DO 02/01/18 Fluconazole (Diflucan) 100 Mg Tab, 100 MG PO DAILY for Infection, #3 TAB Prov:Froylan Garces DO 02/01/18 Levofloxacin (Levaquin) 750 Mg Tablet, 750 MG PO Q48H for Infection, #3 TAB Prov:Froylan Garces DO 02/01/18 Current Medications Medications (Trade) Dose Ordered Sig/Joselin Route Start Time Stop Time Status Last Admin (Benadryl) 50 mg HS PRN PO 02/21/18 20:00 (Benadryl Inj) 50 mg HS PRN IM 02/21/18 20:00 (Tylenol) 650 mg Q4H PRN PO 02/21/18 20:00 (Milk Of Magnesia Liq) 30 ml DAILY PRN PO 02/21/18 20:00 (Mag-Al Plus Susp Liq) 30 ml Q6H PRN PO 02/21/18 20:00 (KCl) 10 meq DAILY PO 02/22/18 09:00 02/22/18 09:15 (Cymbalta Dr) 30 mg DAILY PO 02/22/18 09:00 02/22/18 09:14 (Norvasc) 10 mg DAILY PO 02/22/18 09:00 02/22/18 09:14 (Colace) 100 mg BID PO 02/21/18 21:00 02/22/18 09:15 (Sinemet 25-100 Mg) 1 tab Q8HR PO 02/21/18 22:00 02/22/18 04:31 (Pravachol) 40 mg DAILY PO 02/22/18 09:00 02/22/18 09:14 (Deltasone) 10 mg DAILY PO 02/22/18 09:00 02/22/18 09:15 (Buspar) 20 mg TID PO 02/22/18 09:00 02/22/18 09:15 (Apresoline) 75 mg Q8HR PO 02/21/18 22:00 02/22/18 04:33 (SEROquel) 25 mg BID PO 02/21/18 21:00 02/22/18 09:14 (Cleocin) 150 mg Q6H PO 02/21/18 20:00 02/22/18 09:14 (Vitamin D3) 1,000 units DAILY PO 02/22/18 09:00 02/22/18 09:14 Family Psych History Patient hospitalized here middle of January seen in psychiatric consultation at bedtime Social History Patient recently moved to penitentiary Patient's Strengths (min. 2) Patient verbal able access healthcare Physical Exam Patient medically cleared ED patient sitting in Nicole chair without distress, and no SI distress, no complaints of abdominal pain Vital Signs Vital Signs Date Time Temp Pulse Resp B/P (MAP) Pulse Ox O2 Delivery O2 Flow Rate FiO2 02/22/18 04:42 98.8 78 16 128/63 (84) 93 02/21/18 19:53 Room Air I/O 02/22/18 02/22/18 02/23/18 08:00 16:00 00:00 Intake Total 660 ml Balance 660 ml Lab Results Test 02/21/18 16:18 02/21/18 16:25 White Blood Count 9.6 TH/MM3 Red Blood Count 4.02 MIL/MM3 Hemoglobin 12.8 GM/DL Hematocrit 38.6 % Mean Corpuscular Volume 96.0 FL Mean Corpuscular Hemoglobin 31.9 PG Mean Corpuscular Hemoglobin Concent 33.2 % Red Cell Distribution Width 15.2 % Platelet Count 290 TH/MM3 Mean Platelet Volume 9.2 FL Neutrophils (%) (Auto) 77.2 % Lymphocytes (%) (Auto) 18.0 % Monocytes (%) (Auto) 3.2 % Eosinophils (%) (Auto) 1.2 % Basophils (%) (Auto) 0.4 % Neutrophils # (Auto) 7.4 TH/MM3 Lymphocytes # (Auto) 1.7 TH/MM3 Monocytes # (Auto) 0.3 TH/MM3 Eosinophils # (Auto) 0.1 TH/MM3 Basophils # (Auto) 0.0 TH/MM3 CBC Comment DIFF FINAL Differential Comment Blood Urea Nitrogen 13 MG/DL Creatinine 1.09 MG/DL Random Glucose 164 MG/DL Total Protein 7.8 GM/DL Albumin 3.5 GM/DL Calcium Level 8.9 MG/DL Alkaline Phosphatase 111 U/L Aspartate Amino Transf (AST/SGOT) 18 U/L Alanine Aminotransferase (ALT/SGPT) 22 U/L Total Bilirubin 0.3 MG/DL Sodium Level 142 MEQ/L Potassium Level 3.8 MEQ/L Chloride Level 104 MEQ/L Carbon Dioxide Level 27.0 MEQ/L Anion Gap 11 MEQ/L Estimat Glomerular Filtration Rate 48 ML/MIN Thyroid Stimulating Hormone 3rd Gen 0.672 uIU/ML Ethyl Alcohol Level LESS THAN 3 MG/DL Urine Color LIGHT-YELLOW Urine Turbidity HAZY Urine pH 7.0 Urine Specific [place] 1.006 Urine Protein NEG mg/dL Urine Glucose (UA) NEG mg/dL Urine Ketones NEG mg/dL Urine Occult Blood NEG Urine Nitrite NEG Urine Bilirubin NEG Urine Urobilinogen LESS THAN 2.0 MG/DL Urine Leukocyte Esterase NEG Urine RBC LESS THAN 1 /hpf Urine WBC LESS THAN 1 /hpf Urine Squamous Epithelial Cells 2 /hpf Urine Bacteria RARE /hpf Urine Hyaline Casts 2 /lpf Microscopic Urinalysis Comment CULT NOT INDICATED Urine Opiates Screen NEG Urine Barbiturates Screen NEG Urine Amphetamines Screen NEG Urine Benzodiazepines Screen NEG Urine Cocaine Screen NEG Urine Cannabinoids Screen NEG Mental Status Examination Appearance: Appropriate Consciousness: Alert (to mapping) Orientation: Person, Place, Date/Time Motor Activity: Other (patient sitting in Nicole chair) Speech: Unremarkable Language: Adequate Fund of Knowledge: Adequate Attention and Concentration: Other (fair) Memory: Impaired Mood: Other (euthymic to somewhat dysphoric to somewhat intense and irritable) Affect: Other (some increased range and intensity) Thought Process & Associations: Linear Thought Content: Appropriate Hallucination Type: None Delusion Type: None Suicidal Ideation: No Suicidal Plan: No Suicidal Intention: No Homicidal Ideation: No Homicidal Plan: No Homicidal Intention: No Insight: Poor Judgment: Poor Assessment & Plan Problem List: (1) Adjustment disorder with depressed mood ICD Codes: F43.21 - Adjustment disorder with depressed mood Assessment & Plan Estimated LOS: days patient does not meet Miguel criteria at this time, patient to be discharged today to return to her penitentiary, she may [id number] schedule medications, no change medications by me. Follow-up mental health services to that facility Discharge Planning to return to her penitentiary Request HC Surrog/Guard Advoc?: Sung Bernal MD Feb 22, 2018 11:13
--- NOTE | 2018-02-22 11:16 | HHI.DS ---
Psychiatry Discharge Summary Inpatient Psychiatric care?: Yes Advance Directive: No Reason Not Provided: Due to Patient Condition Mental Health AdvanceDirective: No Health Care Proxy: No Admission Admission Date Feb 21, 2018 at 19:35 Admission Diagnosis: (1) Adjustment disorder with depressed mood ICD Code: F43.21 - Adjustment disorder with depressed mood Brief History Patient is a 77-year-old white female who comes in from a local prison under a Miguel act signed by Caroline CAPELLAN dated 02/21/18 at 10 AM with excellent reviewed essentially stating patient was evaluated today and is an despair says that she wants to noon says that she wants to walk out in front of traffic at [facility] patient has a specific plan and cannot contract for safety. Patient seen screened in the ED urine toxicology negative bladder: Negative. Of interest patient was hospitalized here 01/19/18 through 02/01/18 was seen in consultation by Dr. Velázquez for diagnosis of delirium patient was placed in the prison. It appears patient was not happy with the family meeting place and that facility. It appears patient told her staff here that she wanted to go to [facility]'s some new underwear and then walk into traffic. At the present time patient sitting quietly in our day room she is calm alert and oriented, alternating from somewhat animated to somewhat drowsy. She denies suicidality at this time denies voices or visions. There is no significant past psychiatric history. Though this this irritability with the family because of the placement. She is willing opiates. Reluctantly return to the prison. She says review of the be there than here. At this time I feel patient no longer meets Miguel criteria will lift Miguel act will allow patient to be discharged return to the prison. She may continue room prescribed medications which do include an antidepressant and Seroquel follow- up of mental health services through that facility Tobacco Use In Past 30 Days: No Tobacco Past 30 Days Alcohol Use: Monthly or Less Hospital Course Please see dictation under brief history the patient does not meet Miguel criteria will discharge patient to her prison today no Rx by me, she may continue her own schedule medications at that facility, follow-up services to that facility Results Blood Pressure 128 / 63 Vital Signs Date Time Temp Pulse Resp B/P (MAP) Pulse Ox O2 Delivery O2 Flow Rate FiO2 02/22/18 04:42 98.8 78 16 128/63 (84) 93 02/21/18 19:53 Room Air Laboratory Tests Test 02/21/18 16:18 02/21/18 16:25 Neutrophils (%) (Auto) 77.2 % (16.0-70.0) Creatinine 1.09 MG/DL (0.50-1.00) Random Glucose 164 MG/DL (74-106) Estimat Glomerular Filtration Rate 48 ML/MIN (>89) Urine Turbidity HAZY (CLEAR) Urine Bacteria RARE /hpf (NONE) Summary of Procedures None done Pending results at discharge: No Medications # of Antipsychotic meds at D/C: 0 Approp Antipsych med options 1 - Minimum of three failed multiple trials of monotherapy. 2 - Documented plan to taper to monotherapy due to previous use of multiple meds OR cross-taper in progress at D/C. 3 - Documentation of augmentation of Clozapine. 4 - Justification other than those listed in allowable values 1-3, document here : Discharge Discharge Date: Feb 22, 2018 Discharge Diagnosis: (1) Adjustment disorder with depressed mood ICD Code: F43.21 - Adjustment disorder with depressed mood Pt Condition on Discharge: Stable Discharge Disposition: Discharge to SNF Discharge Instructions Diet Instructions: As Tolerated, No Restrictions Activities you can perform: Regular-No Restrictions Scheduled Appointment: At facility Discharge Time > 30 minutes Mental Status Examination Appearance: Appropriate Consciousness: Alert (to mapping) Orientation: Person, Place, Date/Time Motor Activity: Other (patient sitting in Nicole chair) Speech: Unremarkable Language: Adequate Fund of Knowledge: Adequate Attention and Concentration: Other (fair) Memory: Impaired Mood: Other (euthymic to somewhat dysphoric to somewhat intense and irritable) Affect: Other (some increased range and intensity) Thought Process & Associations: Linear Thought Content: Appropriate Hallucination Type: None Delusion Type: None Suicidal Ideation: No Suicidal Plan: No Suicidal Intention: No Homicidal Ideation: No Homicidal Plan: No Homicidal Intention: No Insight: Poor Judgment: Poor Discharge/Advance Care Plan Health Problems: (1) Adjustment disorder with depressed mood Goals to promote your health * To prevent worsening of your condition and complications * To maintain your health at the optimal level Directions to meet your goals Take your medications as prescribed Follow your dietary instruction Follow activity as directed Keep your appointments as scheduled Take your immunizations and boosters as scheduled If your symptoms worsen call your PCP, if no PCP go to Urgent Care Center or Emergency Room For 11/06 questions related to your inpatient stay or results of tests pending at discharge, please contact Dr. Sung Schuster at Smoking is Dangerous to Your Health. Avoid second hand smoking Sung Schuster MD Feb 22, 2018 11:16
== END 2018-02-22 13:40 | DRG 881 ==
LOC: NEPJ 12:53 → NEDA 19:35 → H250 20:18
PROVIDERS: ADMIT Psychiatry & Neurology Psychiatry; ATTEND Psychiatry & Neurology Psychiatry
DX: F43.21 Adjustment disorder with depressed mood (principal); G20 Parkinson's disease; L03.115 Cellulitis of right lower limb; L03.116 Cellulitis of left lower limb; J44.9 Chronic obstructive pulmonary disease, unspecified; I10 Essential (primary) hypertension; F32.9 Major depressive disorder, single episode, unspecified; Z96.649 Presence of unspecified artificial hip joint
CPT/HCPCS: 80053; 80307; 81001; 84443; 85025; 99285; J7512

== ENCOUNTER 2018-03-19 17:33 | Emergency (ER) | payer MEDICARE, MEDICAID ==
[~2018-03-19] VITALS: Ht 167.6 cm; Wt 82.0 kg
[~2018-03-19 17:33] MED LIST changes: +CLIN150C14 PO; -DIFL100T PO; -LEVA750T9 PO; +LORA0.5T PO; +OMEGCAP PO; +TYLE325T PO
[2018-03-19 17:47] VITALS: BP 165/73; PULSE 76; RESP 20; TEMP 98; O2SAT 95
--- NOTE | 2018-03-19 18:29 | PD ---
HPI Chief Complaint: Altered Mental Status Time Seen by Provider: 17:55 Travel History International Travel<30 days: No Contact w/Intl Traveler<30days: No Traveled to known affect area: No History of Present Illness HPI Is a 77-year-old woman who presents to the emergency department for reported brief altered mental status episode last about 5 minutes or so per EMS. Patient states she does not sleep well at night and sleeps more during the day. She has no complaints. She has a history of anxiety, hyperlipidemia, hypertension, and Parkinson's. Patient denies any recent illness or injury. She has no intent this time. History Past Medical History Narrative Medical COPD Depression/anxiety Hypertension on hyperlipidemia Parkinson's Menopausal: Yes : 4 Para: 3 Social History Alcohol Use: No (Pt unable to respond) Tobacco Use: No (Pt unable to respond) Allergies-Medications (Allergen,Severity, Reaction): Coded Allergies: No Known Allergies (Verified Allergy, Unknown, 03/19/18) Reported Meds & Prescriptions Reported Meds & Active Scripts Active Hydralazine HCl 25 Mg Tablet 75 Mg PO Q8HR Walker with Front Wheels (Device) 1 Mis Mis Ea .ROUTE DIRECTED Reported Lorazepam 0.5 Mg Tab 0.5 Mg PO Q8H PRN [place]-3 Fish Oil/Vitamin (Fish Oil-Cholecalciferol) 1,000-1,000 Mg Cap 1 Cap PO DAILY Clindamycin (Clindamycin HCl) 150 Mg Cap 150 Mg PO Q6H Seroquel (Quetiapine Fumarate) 25 Mg Tab 25 Mg PO BID Tylenol (Acetaminophen) 325 Mg Tab 650 Mg PO Q4H PRN Tylenol (Acetaminophen) 325 Mg Tab 650 Mg PO Q4H PRN Buspirone (Buspirone HCl) 30 Mg Tab 20 Mg PO TID Prednisone 10 Mg Tab 10 Mg PO DAILY Lovastatin 40 Mg Tab 40 Mg PO DAILY Carbidopa-Levodopa 25-100 Mg Tab 1 Tab PO Q8HR Docusate Sodium 100 Mg Cap 100 Mg PO BID Amlodipine (Amlodipine Besylate) 10 Mg Tab 10 Mg PO DAILY Cymbalta DR (Duloxetine HCl) 20 Mg Capdr 30 Mg PO DAILY Potassium Chloride ER (Potassium Chloride) 10 Meq Tab 10 Meq PO DAILY Review of Systems Except as stated in HPI: all other systems reviewed are Neg Physical Exam Narrative GENERAL: Well 77-year-old woman, no acute distress. Some tremor. SKIN: Focused skin assessment warm/dry. HEAD: Atraumatic. Normocephalic. EYES: Pupils equal and round. No scleral icterus. No injection or drainage. ENT: No nasal bleeding or discharge. Mucous membranes pink and moist. NECK: Trachea midline. No JVD. CARDIOVASCULAR: Regular rate and rhythm. No murmur appreciated. RESPIRATORY: No accessory muscle use. Clear to auscultation. Breath sounds equal bilaterally. GASTROINTESTINAL: Abdomen soft, non-tender, nondistended. Hepatic and splenic margins not palpable. MUSCULOSKELETAL: No obvious deformities. No edema. NEUROLOGICAL: Awake and alert. Some tremor. No obvious cranial nerve deficits. Motor grossly within normal limits. Normal speech. Gait a little bit unstable but she normally walks with a walker. She is able to walk with minimal assistance. PSYCHIATRIC: Well-appearing. Not anxious. Normal mental status. Talkative. Data Data Last Documented VS Vital Signs Date Time Temp Pulse Resp B/P (MAP) Pulse Ox O2 Delivery O2 Flow Rate FiO2 03/19/18 17:47 98.0 76 20 165/73 (103) 95 MDM Medical Decision Making Medical Screen Exam Complete: Yes Emergency Medical Condition: Yes Differential Diagnosis TIA, infection, sleepiness, anxiety, other Narrative Course Medical decision making Is a well 77-year-old woman presents emerged from with apparently some transient altered mental status. She denies any recent illness or injury. She is a little bit of tremor but otherwise benign exam. She is pleasant and conversant and alert and oriented. I do not think she needs any further workup at this point. She does not want any further workup at this point. Would recommend outpatient follow-up. Diagnosis Primary Impression: Confusion Patient Instructions: General Instructions Additional Instructions: Follow-up with your primary doctor. Return to the emergency department for any new or worsening symptoms. Med/Other Pt SpecificInfo: No Change to Meds Disposition: 01 DISCHARGE HOME Condition: Stable Jameel Palomo MD March 19, 2018 18:29
== END 2018-03-19 21:19 | disposition home or self-care (01) ==
LOC: NEPE 17:33
DX: R41.0 Disorientation, unspecified (principal); G20 Parkinson's disease; I10 Essential (primary) hypertension; E78.5 Hyperlipidemia, unspecified
CPT/HCPCS: 99281

== ENCOUNTER 2018-07-12 14:48 | Inpatient (IN) ==
[2018-07-12] MEDS ORDERED: Haloperidol Inj 5 MG/ML Ampul IM ONE (16:42)
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
[2018-07-12 17:56] LABS: Baso # (Auto) 0.1 th/mm3 (0.0-0.2); Baso % (Auto) 0.8 % (0.0-2.0); Hematocrit 37.1 % (35.0-46.0); Hemoglobin 13.3 gm/dL (11.6-15.3); Lymph # (Auto) 2.4 th/mm3 (1.0-4.8); Lymph % (Auto) 17.8 % (9.0-44.0); Mean Corpuscular HGB Conc 35.9 % (32.0-36.0); Mean Corpuscular Hemoglobin 30.9 pg (27.0-34.0); Mean Corpuscular Volume 86.1 fL (80.0-100.0); Mean Platelet Volume 8.6 fL (7.0-11.0); Mono # (Auto) 0.6 th/mm3 (0.0-0.9); Mono % (Auto) 4.1 % (0.0-8.0); Neut # (Auto) 10.6 th/mm3 (1.8-7.7); Neut % (Auto) 77.3 % (16.0-70.0); Platelet Count 463 th/mm3 (150-450); Red Blood Count 4.32 mil/mm3 (4.00-5.30); Red Cell Distribution Width 16.3 % (11.6-17.2); White Blood Count 13.7 th/mm3 (4.0-11.0)
[2018-07-12 18:28] LABS: Albumin 4.2 g/dL (3.4-5.0); Anion Gap 13 meq/L (5-15); Aspartate Aminotransferase 22 U/L (15-37); Blood Urea Nitrogen 12 mg/dL (7-18); Calcium 9.8 mg/dL (8.5-10.1); Carbon Dioxide 27.5 meq/L (21.0-32.0); Chloride 102 meq/L (98-107); Glomerular Filtration Rate 47 mL/min (>89); Glucose,Random 122 mg/dL (74-106); Sodium 142 meq/L (136-145)
[2018-07-12 18:29] LABS: Alanine Aminotransferase 11 U/L (10-53)
[2018-07-12 18:39] LABS: Alkaline Phosphatase 69 U/L (45-117); Thyroid Stimulating Hormone 0.487 uIU/mL (0.358-3.740); Total Protein 8.4 g/dL (6.4-8.2)
--- NOTE | 2018-07-12 18:41 | CT ---
EXAM DATE: 07/12/2018 6:32 PM EDT AGE/SEX: 77 years / Female INDICATIONS: Patient having suicidal thoughts; Miguel Act. CLINICAL DATA: This is the patient's initial encounter. Patient reports that signs and symptoms have been present for 1 day and indicates a pain score of Nonresponsive. MEDICAL/SURGICAL HISTORY: Parkinson's disease. Hypertension. Chronic obstructive pulmonary diseas e. None. RADIATION DOSE: 35.60 CTDI (mGy) [place] [facility] [place]. . TECHNIQUE: CT of the head without contrast. Using automated exposure control and adjustment of the mA and/or kV according to patient size, radiation dose was kept as low as reasonably achievable to ob tain optimal diagnostic quality images. DICOM format image data is available electronically for revi ew and comparison. FINDINGS: Cerebrum: The ventricles, sulci, and basal cisterns are prominent characteristic of moderate severit y central and cortical atrophy; unchanged in appearance from January 2018.. No evidence of midline maye ft, mass lesion, hemorrhage or acute infarction. Physiologic calcification in the basal ganglia. No extraaxial fluid collections are seen. Posterior Fossa: The cerebellum and brainstem are intact. The 4th ventricle is midline. The cerebe llopontine angle is unremarkable. Extracranial: The visualized portion of the orbits is intact. The visualized portion of the paranasa l sinuses are clear. Skull: The calvaria is intact. No evidence of skull fracture. CONCLUSION: 1. No acute findings in the brain. 2. Stable moderate severity central and cortical atrophy. . Electronically signed by: Oneil Hernandez MD 07/12/2018 6:39 PM EDT
[2018-07-12 20:23] LABS: Bilirubin,Urine Negative (Negative); Clarity,Urine Clear (Clear); Color,Urine Straw (Yellw/Straw); Glucose,Urine (UA) Negative (Negative); Leukocyte Esterase,Urine Negative (Negative); Nitrite,Urine Negative (Negative); Specific Gravity,Urine 1.008 (1.002-1.035); Squamous Epithelial Cell,Urine 1 /hpf (0-5)
[2018-07-12 20:42] LABS: Amphetamine Screen,Urine Neg (Neg); Barbiturate Screen,Urine Neg (Neg); Cannabinoid Screen,Urine Neg (Neg); Cocaine Screen,Urine Neg (Neg)
[2018-07-12 20:43] LABS: Opiate Screen,Urine Neg (Neg)
[2018-07-13] MEDS ORDERED: hydrALAZINE 50 MG Tablet PO ONE ×2 (07:54→15:07)
[2018-07-13] MEDS ORDERED: Furosemide 20 MG Tablet PO ONE (09:38)
[2018-07-13] MEDS ORDERED: amLODIPine 10 MG Tablet PO ONE (09:38)
[2018-07-13] MEDS ORDERED: Aluminum/Magnesium/Simethacone Susp 30 ML UDC PO PRN (14:37)
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
[2018-07-14] MEDS: Acetaminophen 325 MG Tablet PO PRN ×2 (00:46→21:05)
[2018-07-14] MEDS: Duloxetine 60 MG DR Capsule PO SCH (09:45)
[2018-07-14] MEDS: hydrALAZINE 25 MG Tablet PO SCH ×3 (09:45→17:57)
[2018-07-14] MEDS: amLODIPine 10 MG Tablet PO SCH (09:46)
[2018-07-14] MEDS: Furosemide 20 MG Tablet PO SCH (09:46)
[2018-07-14 09:58] LABS: Calcium 8.9 mg/dL (8.5-10.1); Carbon Dioxide 31.5 meq/L (21.0-32.0); Chol/HDL Ratio 2.68 Ratio; HDL Cholesterol 65.5 mg/dL (40.0-60.0)
[2018-07-14 11:04] LABS: Hemoglobin A1c 6.7 % (4.3-6.0)
--- NOTE | 2018-07-14 12:42 | P.HPPSY ---
Provisional Diagnosis Admission Date: July 13, 2018 14:37 Bovina I.: Unspecified psychosis, r/o dementia with behavioral disturbance, r/o medication induced psychosis, history of depression and anxiety Competence Certification of Person's Competence To Provide Express and Informed Consent I have personally examined Radha Baum, a person being served at [facility] on, July 14, 2018 1228. Express and informed consent means consent voluntarily given in writing, by a competent person, after sufficient explanation and disclosure of the subject matter involved to enable the person to make a knowing and willful decision without any element of force, fraud, deceit, duress, or other form of constraint or coercion. This person is 18 years of age or older, is not now known to be incompetent to consent to treatment with a guardian advocate, and does not have a health care surrogate or proxy currently making medical treatment decisions. I have found this person to be one of the following: [] Competent to provide express and informed consent, as defined above, for voluntary admission to this facility and is competent to provide express and informed consent for treatment. He/she has the consistent capacity to make well reasoned, willful, and knowing decisions concerning his or her medical or mental health treatment. The person fully and consistently understands the purpose of the admission for examination/placement and is fully capable of personally exercising all rights assured [place] Incompetent to provide express and informed consent to voluntary admission, and this is incompetent to provide express and informed consent to treatment. The person must be transferred to involuntary status and a petition for a guardian advocate filed with the Circuit Court. [x] Refusing to provide express and informed consent to voluntary admission but is competent to provide express and informed consent for treatment. The person must be discharged or transferred to involuntary status. Form shall be completed within 24 hours of a person's arrival at the receiving facility and filed in the clinical record of each person: 1. Admitted on a voluntary basis 2. Permitted to provide express and informed consent to his/her own treatment 3. Allowed to transfer from involuntary to voluntary status 4. Prior to permitting a person to consent to his or her own treatment after having been previously found incompetent to consent to treatment. History of Present Illness Capacity: Has capacity History of Present Illness: The patient is a 77 year-old [facility] woman, domiciled in a prison, , mother of 3 kids, supported by shelter benefits, with psychiatric history of depression and anxiety, previous psychiatric hospitalizations, to this psychiatric department with her last admission being on 02/21/18, no suicide attempts, the patient is on Cymbalta 60 mg, buspirone 10 mg 3 times daily, medical history of COPD, hypertension, Parkinson's disease, who presents under a Miguel Act for being aggressive towards staff at her SNF. Reviewed electronic medical records, labs, and discussed case with staff. Per the nurse's note, the patient swung at a nurse in the ER and required an ETO. On my psychiatric evaluation today the patient is calm, cooperative and very pleasant. The patient says that she is here because she does not want to live in a prison anymore, which is to be discharged back to her house with her son. The patient does not have an insight of her recent aggressive behavior. She says that is not in her moral and catholic belief to hit people. For this reason, she also denies suicidal ideation. He does report that she has been seen the eyes of God in the mirror and she has been seeing god everywhere, especially "the eyes of Jose Morgan". She reports good mood, denies symptoms of depression, denies rahat, denies suicidal enemas ideation, denies visual and auditory hallucinations. The patient is fully oriented x3. No aggressive behavior, no agitation presented in the unit. PPHx:psychiatric history of depression and anxiety, previous psychiatric hospitalizations, to this psychiatric department with her last admission being on 02/21/18, no suicide attempts, the patient is on Cymbalta 60 mg, buspirone 10 mg 3 times daily. She has been reporting frequent falls. PMHx: Parkinson's disease, COPD, hypertension SustanceHx: Patient denies use of illegal drugs or alcohol Family Hx: No family psychiatric history social Hx: The patient was born in [facility], she lives in a prison, she is , mother of 3 kids, her highest level of education is high - Inpatient Certification I certify that the inpatient services were ordered in accordance with Medicare regulations governing the order. This includes certification that hospital inpatient services are reasonable and necessary and in the case of services not specified as inpatient-only under 42 CFR 419.22(n), that they are appropriately provided as inpatient services in accordance to with the 2-midnight benchmark under 43 CFR 412.3(e) I certify that inpatient psychiatric hospital services are medically necessary. Evaluation and treatment and/or diagnostic testing are expected to improve the patient's condition. The patient needs on a daily basis, active treatment furnished directly by or requiring the supervision of inpatient psychiatric facility personnel. Estimated Total Length of Stay (Days): 7 Plans for Post Hospital Care: [facility] Review of Systems Constitutional: Reports fatigue, Denies anorexia, Denies body ache(s), Denies chills, Denies daytime sleepiness, Denies excessive sweating, Denies fever(s), Denies headache(s), Denies increased appetite, Denies lack of energy, Denies malaise, Denies night sweats, Denies weakness, Denies weight gain, Denies weight loss, Denies other Eyes: Denies blind spots, Denies blurry vision, Denies bulging eyes, Denies change in vision, Denies double vision, Denies discharge, Denies dry eyes, Denies floaters, Denies irritation, Denies itchy eyes, Denies loss of vision, Denies pain, Denies requires corrective lenses, Denies sensitivity to light, Denies other Ears, Nose, Mouth, and Throat: Denies abnormal hearing, Denies bleeding gums, Denies bad breath, Denies change in voice, Denies dental pain, Denies difficulty swallowing, Denies dizziness, Denies dry mouth, Denies ear discharge , Denies ear pain, Denies facial pain, Denies headache(s), Denies hearing loss, Denies hoarseness, Denies lip swelling, Denies nosebleed, Denies mouth lesions, Denies mouth pain, Denies nasal congestion, Denies nasal discharge, Denies nasal obstruction, Denies nasal trauma, Denies neck lump, Denies neck pain, Denies nose pain, Denies pain with swallowing, Denies poor balance, Denies post nasal drip, Denies ringing in the ears, Denies sinus pain, Denies sinus pressure , Denies sore throat, Denies throat swelling, Denies tongue swelling, Denies other Cardiovascular: Denies chest pain, Denies chest pain at rest, Denies chest pain with activity, Denies excessive sweating, Denies fainting, Denies fast heart rate, Denies foot swelling, Denies generalized swelling, Denies irregular heart rhythm, Denies leg pain with activity, Denies leg sores, Denies leg swelling, Denies lightheadedness, Denies radiating jaw, neck or arm pain, Denies rapid, pounding, or irregular heartbeat, Denies shortness of breath, Denies shortness of breath with activity, Denies shortness of breath when lying down, Denies shortness of breath causing sudden awakening, Denies slow heart rate, Denies other Respiratory: Denies change in phlegm color, Denies chest congestion, Denies cough, Denies coughing up blood, Denies excessive phlegm production, Denies pain on inspiration, Denies pain with cough, Denies shortness of breath, Denies shortness of breath with activity, Denies snoring, Denies stridor, Denies wheezing, Denies other Neurologic: Reports dizziness Psychiatric: Reports anxiety, Reports mood swings, Reports paranoia PMF - History History Provided By: Patient - Medical History Medical History: Medical History (Last Reviewed 07/13/18 @ 15:15 by TIMI Foster) COPD (chronic obstructive pulmonary disease) Chronic pain Dyslipidemia HTN (hypertension) Parkinson disease Psychosis UTI (urinary tract infection) - Tobacco History Smoking Status: Cognitive impairment - Alcohol History How Often Do You Have a Drink Containing Alcohol: Unable to Obtain - Substance Use History Substance History: No History of Abuse - Travel History Recent Travel in the [place] Within the Last 8 Weeks: No Recent Travel Out of the Country Within the Last 8 Weeks: No - Immunization History Tetanus Immunization: Unable to Assess Hx Influenza Vaccine This Season: Unable to Assess Medications and Allergies Active Medications: Active Medications Acetaminophen (Tylenol) 650 mg PO Q4H PRN PRN Reason: Pain 1-5 or Temp >101F Last Admin: 07/14/18 00:46 Dose: 650 mg Al Hydrox/Mg Hydrox/Simethicone (Mag-Al Plus Susp Liq) 30 ml PO Q6H PRN PRN Reason: DYSPEPSIA Amlodipine Besylate (Norvasc) 10 mg PO DAILY [facility] Last Admin: 07/14/18 09:46 Dose: 10 mg Buspirone HCl (Buspar) 20 mg PO TID [facility] Last Admin: 07/14/18 09:46 Dose: 20 mg Carbidopa/Levodopa (Sinemet 25/100 Mg) 1 tab PO TID [facility] Last Admin: 07/14/18 09:45 Dose: 1 tab Diphenhydramine HCl (Benadryl) 50 mg PO HS PRN PRN Reason: INSOMNIA Duloxetine HCl (Cymbalta) 60 mg PO DAILY [facility] Last Admin: 07/14/18 09:45 Dose: 60 mg Furosemide (Lasix) 20 mg PO DAILY [facility] Last Admin: 07/14/18 09:46 Dose: 20 mg Hydralazine HCl (Apresoline) 75 mg PO TID [facility] Last Admin: 07/14/18 09:45 Dose: 75 mg Hydroxyzine HCl (Atarax) 50 mg PO Q6H PRN PRN Reason: ANXIETY Last Admin: 07/13/18 15:59 Dose: 50 mg Lorazepam (Ativan Inj) 1 mg IM Q6H PRN PRN Reason: MODERATE TO SEVERE ANXIETY Lorazepam (Ativan Inj) 0.5 mg IM Q12H PRN PRN Reason: MODERATE TO SEVERE ANXIETY Pravastatin Sodium (Pravachol) 40 mg PO QPM [facility] Venlafaxine HCl (Effexor) 25 mg PO BID [facility] Allergies Allergy/AdvReac Type Severity Reaction Status Date / Time No Known Allergies Allergy Unknown Uncoded 03/19/18 17:52 Home Medications Medication Instructions Recorded Confirmed Type amlodipine 10 mg PO DAILY 07/12/18 07/12/18 History buspirone 20 mg PO TID 07/12/18 07/12/18 History calcium citrate 1,000 mg PO DAILY 07/12/18 07/12/18 History carbidopa-levodopa 1 tab PO TID 07/12/18 07/12/18 History cholecalciferol (vitamin D3) 07/12/18 History docusate sodium 100 mg PO BID 07/12/18 07/12/18 History duloxetine [Cymbalta] 60 mg PO DAILY 07/12/18 07/12/18 History furosemide 20 mg PO DAILY 07/12/18 07/12/18 History hydralazine 75 mg PO TID 07/12/18 07/12/18 History lorazepam [Ativan] 0.5 mg PO TID 07/12/18 07/12/18 History lovastatin 40 mg PO QPM 07/12/18 07/12/18 History omega-3 fatty acids 950 mg PO DAILY 07/12/18 07/12/18 History potassium chloride 20 meq PO DAILY 07/12/18 07/12/18 History pramipexole [Mirapex] 0.25 mg PO DAILY 07/12/18 07/12/18 History prednisone 10 mg PO DAILY 07/12/18 07/12/18 History quetiapine [Seroquel] 25 mg PO BID 07/12/18 07/12/18 History Results - Labs CBC & Chem 7: 07/12/18 17:32 07/14/18 08:21 Labs: Laboratory Results - last 24 hr 07/14/18 07/14/18 08:21 08:21 Sodium 143 Potassium 3.0 L D Chloride 103 Carbon Dioxide 31.5 Anion Gap 9 BUN 13 Creatinine 0.99 Estimated GFR 54 L Random Glucose 121 H Hemoglobin A1c 6.7 H Calcium 8.9 D Triglycerides 167 H Cholesterol 176 LDL Cholesterol, Calc 77 HDL Cholesterol 65.5 H Cholesterol/HDL Ratio 2.68 Exam Vital signs: Vital Signs 07/13/18 14:00 07/13/18 16:00 07/13/18 17:20 Temperature 98.5 F 98.1 F Pulse Rate 77 83 91 H Respiratory Rate 17 18 18 Blood Pressure 179/71 H 151/70 H 200/98 H Pulse Oximetry 94 L 97 07/13/18 18:00 07/14/18 06:00 Temperature 98.6 F Pulse Rate 95 H 65 Respiratory Rate 20 Blood Pressure 164/80 H 158/72 H Pulse Oximetry 96 Intake & Output 07/13/18 07/14/18 07/14/18 18:59 06:59 18:59 Weight 83.4 kg Other: # Voids 1 Weight On Admission 83.4 kg Narrative: Patient seems to be quite hypoactive, bilateral upper extremity tremors, slow gait - Constitutional no acute distress Mental Status Examination Appearance: Appropriate, Well dressed/well groomed Consciousness: Alert Orientation: Person, Place, Date/Time Motor Activity: Other (sitting on stretcher) Speech: Unremarkable Language: Adequate Fund of Knowledge: Adequate Attention and Concentration: Adequate Memory: Impaired Mood: Anxious Affect: Irritable (once told of admission) Thought Process & Associations: Goal directed (on discharge) Thought Content: Delusional Hallucination Type: None Delusion Type: Other (believes the SNF is her "big beautiful home" and the staff are her "large group of servants" who are her "children") Suicidal Ideation: No Suicidal Plan: No Suicidal Intention: No Homicidal Ideation: No Homicidal Plan: No Homicidal Intention: No Insight: Poor Judgment: Impulsive Assessment and Plan - Assessment (1) Unspecified psychosis Code(s): F29 - Unspecified psychosis not due to a substance or known physiological condition Status: Acute - Plan Plan: Estimated LOS: [] days On my psychiatric evaluation today the patient presents calm, cooperative, a little bit irritable, talkative, at times disorganized, with prominent hyper catholic statements, but mostly logical, coherent and relevant. The patient is oriented x3, with no fluctuation of consciousness, no attention deficit, no gross cognitive impairment present. She has been described by prison staff as a psychotic, paranoid, aggressive, but this symptoms has not been present during this hospitalization. The patient denies suicidal enemas ideation, she denies visual and auditory hallucinations at the moment. Given her described aggressive behavior psychosis, the patient will continue psychiatric hospitalization for stabilization and longitudinal observation. Unclear if current psychosis is the product of dementia, and acute psychotic process or secondary to medication for Parkinson's disease. I will start Seroquel 25 mg twice daily for psychosis. Will restart her Cymbalta 60 mg and buspirone 10 mg 3 times daily for anxiety and depression. Will consult psychiatry for second opinion. Will consult medicine to address frequent falls and low saturation. I will restart her outpatient medications for Parkinson's disease and hypertension. Might consider a neurology consult. Justification for Continued Inpatient Stay: Continue psychiatric admission.
--- NOTE | 2018-07-14 12:56 | ECG ---
Date Performed: 07/14/2018 Time Performed: 10:08:05 PTAGE: 77 years EKG: Sinus rhythm ANTERIOR MYOCARDIAL INFARCTION , OF INDETERMINATE AGE POSSIBLE INFERIOR MYOCARDIAL INFARCTION , PROB ABLY OLD ABNORMAL ECG Since the PREVIOUS TRACING , no significant change noted PREVIOUS TRACIN01/30/2018 16.46 DOCTOR: Aryan Loco Interpretating Date/Time 07/14/2018 12:54:55
[2018-07-14] MEDS: predniSONE 10 MG Tablet PO SCH (14:50)
--- NOTE | 2018-07-14 16:20 | P.CONIM ---
History of Present Illness Primary Care Provider: Ashish Burroughs DO Family Provider: Ashish Burroughs DO History of Present Illness: 77-year-old female with a history of Parkinson's disease, dementia who presents due to being combative with nursing staff at her SNF. Patient says she is feeling all right. Denies any chest pain or shortness of breath. Denies nausea or vomiting. Patient has a history of falls with hip fracture in the past. He says she sits on the edge of the bed for a minute prior to standing and then stands with her walker prior to walking. She says this has been going on for many years and has not changed recently. She denies any lightheadedness currently. Review of Systems All other systems reviewed negative except as stated in HPI PMFSH - History History Provided By: Patient - Medical History Medical History: Medical History (Last Reviewed 07/13/18 @ 15:15 by TIMI Foster) COPD (chronic obstructive pulmonary disease) Chronic pain Dyslipidemia HTN (hypertension) Parkinson disease Psychosis UTI (urinary tract infection) - Surgical History Surgical History: Surgical History (Last Updated 07/14/18 @ 16:07 by Padilla Schilling MD) History of cardiac cath History of total right hip arthroplasty Hx of cholecystectomy - Family History Family History: Family History (Last Updated 07/14/18 @ 16:08 by Padilla Schilling MD) Other Family history unobtainable - Tobacco History Smoking Status: Cognitive impairment - Alcohol History How Often Do You Have a Drink Containing Alcohol: Unable to Obtain - Substance Use History Substance History: No History of Abuse - Travel History Recent Travel in the [place] Within the Last 8 Weeks: No Recent Travel Out of the Country Within the Last 8 Weeks: No - Immunization History Tetanus Immunization: Unable to Assess Hx Influenza Vaccine This Season: Unable to Assess Medications and Allergies Active Medications: Active Medications Acetaminophen (Tylenol) 650 mg PO Q4H PRN PRN Reason: Pain 1-5 or Temp >101F Last Admin: 07/14/18 00:46 Dose: 650 mg Al Hydrox/Mg Hydrox/Simethicone (Mag-Al Plus Susp Liq) 30 ml PO Q6H PRN PRN Reason: DYSPEPSIA Amlodipine Besylate (Norvasc) 10 mg PO DAILY [facility] Last Admin: 07/14/18 09:46 Dose: 10 mg Buspirone HCl (Buspar) 20 mg PO TID [facility] Last Admin: 07/14/18 12:56 Dose: 20 mg Carbidopa/Levodopa (Sinemet 25/100 Mg) 1 tab PO TID [facility] Last Admin: 07/14/18 12:56 Dose: 1 tab Diphenhydramine HCl (Benadryl) 50 mg PO HS PRN PRN Reason: INSOMNIA Duloxetine HCl (Cymbalta) 60 mg PO DAILY [facility] Last Admin: 07/14/18 09:45 Dose: 60 mg Furosemide (Lasix) 20 mg PO DAILY [facility] Last Admin: 07/14/18 09:46 Dose: 20 mg Hydralazine HCl (Apresoline) 75 mg PO TID [facility] Last Admin: 07/14/18 12:57 Dose: 75 mg Hydroxyzine HCl (Atarax) 50 mg PO Q6H PRN PRN Reason: ANXIETY Last Admin: 07/13/18 15:59 Dose: 50 mg Lorazepam (Ativan Inj) 1 mg IM Q6H PRN PRN Reason: MODERATE TO SEVERE ANXIETY Lorazepam (Ativan Inj) 0.5 mg IM Q12H PRN PRN Reason: MODERATE TO SEVERE ANXIETY Potassium Chloride (K-Dur) 20 meq PO DAILY [facility] Last Admin: 07/14/18 14:50 Dose: 20 meq Pravastatin Sodium (Pravachol) 40 mg PO QPM [facility] Prednisone (Deltasone) 10 mg PO DAILY [facility] Last Admin: 07/14/18 14:50 Dose: 10 mg Venlafaxine HCl (Effexor) 25 mg PO BID [facility] Allergies Allergy/AdvReac Type Severity Reaction Status Date / Time No Known Allergies Allergy Unknown Uncoded 03/19/18 17:52 Home Medications Medication Instructions Recorded Confirmed Type amlodipine 10 mg PO DAILY 07/12/18 07/12/18 History buspirone 20 mg PO TID 07/12/18 07/12/18 History calcium citrate 1,000 mg PO DAILY 07/12/18 07/12/18 History carbidopa-levodopa 1 tab PO TID 07/12/18 07/12/18 History cholecalciferol (vitamin D3) 07/12/18 History docusate sodium 100 mg PO BID 07/12/18 07/12/18 History duloxetine [Cymbalta] 60 mg PO DAILY 07/12/18 07/12/18 History furosemide 20 mg PO DAILY 07/12/18 07/12/18 History hydralazine 75 mg PO TID 07/12/18 07/12/18 History lorazepam [Ativan] 0.5 mg PO TID 07/12/18 07/12/18 History lovastatin 40 mg PO QPM 07/12/18 07/12/18 History omega-3 fatty acids 950 mg PO DAILY 07/12/18 07/12/18 History potassium chloride 20 meq PO DAILY 07/12/18 07/12/18 History pramipexole [Mirapex] 0.25 mg PO DAILY 07/12/18 07/12/18 History prednisone 10 mg PO DAILY 07/12/18 07/12/18 History quetiapine [Seroquel] 25 mg PO BID 07/12/18 07/12/18 History Exam Vital signs: Vital Signs 07/13/18 17:20 07/13/18 18:00 07/14/18 06:00 Temperature 98.1 F 98.6 F Pulse Rate 91 H 95 H 65 Respiratory Rate 18 20 Blood Pressure 200/98 H 164/80 H 158/72 H Pulse Oximetry 97 96 Intake & Output 07/13/18 07/14/18 07/14/18 18:59 06:59 18:59 Weight 83.4 kg Other: # Voids 1 Weight On Admission 83.4 kg Narrative: GENERAL: Patient sitting up in bed. Appears comfortable. Breathing comfortably. Very disjointed speech, pleasant however. SKIN: Warm and dry. HEAD: Atraumatic. Normocephalic. EYES: Pupils equal and round. No scleral icterus. No injection or drainage. ENT: No nasal bleeding or discharge. Mucous membranes pink and moist. NECK: Trachea midline. No JVD. CARDIOVASCULAR: Regular rate and rhythm. RESPIRATORY: No accessory muscle use. Clear to auscultation. Breath sounds equal bilaterally. GASTROINTESTINAL: Abdomen soft, non-tender, nondistended. Hepatic and splenic margins not palpable. MUSCULOSKELETAL: Extremities without clubbing, cyanosis, or edema. No obvious deformities. NEUROLOGICAL: Awake and alert. No obvious cranial nerve deficits. Lateral tremor and some rigidity. Motor grossly within normal limits. Five out of 5 muscle strength in the arms and legs. Normal speech. PSYCHIATRIC: Appropriate mood and affect; insight and judgment normal. Patient is initially on 2 L nasal cannula, however subsequently pulse ox with good waveform shows saturating 96% on room air. Patient needs to lay her hand on the bed to prevent shaking which ruins the waveform. Results - Labs CBC & Chem 7: 07/12/18 17:32 07/14/18 08:21 Labs: Laboratory Results - last 24 hr 07/14/18 07/14/18 08:21 08:21 Sodium 143 Potassium 3.0 L D Chloride 103 Carbon Dioxide 31.5 Anion Gap 9 BUN 13 Creatinine 0.99 Estimated GFR 54 L Random Glucose 121 H Hemoglobin A1c 6.7 H Calcium 8.9 D Triglycerides 167 H Cholesterol 176 LDL Cholesterol, Calc 77 HDL Cholesterol 65.5 H Cholesterol/HDL Ratio 2.68 Assessment and Plan - Plan //Behavioral issues //Dementia As per psychiatry. //False hypoxia. This is secondary to Parkinson's tremor which causes poor waveform. Patient needs to keep hand on the bed when she is checking her oxygen //Hypokalemia. Potassium 3.0. Likely secondary to not having potassium will restart patient's home potassium. //Parkinsonism //Fall risk -Chronic. Patient will use her walker. Patient understands to sit up on edge of bed prior to walking. Patient appears to be very well aware of this and explained the reasoning to me. Continue Parkinson's meds //Hypertension. Blood pressure acceptable. Continue home meds. //Chronic prednisone use. Will continue Discussed Condition With: Patient, nurse.
[2018-07-15] MEDS: Acetaminophen 325 MG Tablet PO PRN ×2 (06:03→15:00)
[2018-07-15 08:03] LABS: Albumin 3.5 g/dL (3.4-5.0); Calcium 9.4 mg/dL (8.5-10.1); Magnesium 2.1 mg/dL (1.5-2.5); Phosphorus 4.1 mg/dL (2.5-4.9); Potassium 3.3 meq/L (3.5-5.1)
[2018-07-15] MEDS: Furosemide 20 MG Tablet PO SCH (08:54)
[2018-07-15] MEDS: predniSONE 10 MG Tablet PO SCH (08:54)
[2018-07-15] MEDS: Duloxetine 60 MG DR Capsule PO SCH (08:54)
[2018-07-15] MEDS: QUEtiapine 25 MG Tablet PO SCH ×2 (08:54→20:28)
[2018-07-15] MEDS: amLODIPine 10 MG Tablet PO SCH (08:54)
[2018-07-15] MEDS: hydrALAZINE 25 MG Tablet PO SCH ×3 (14:48→17:40)
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
--- NOTE | 2018-07-15 17:16 | P.PN ---
Subjective Interval history: Patient's nurse reports that she was complaining of bilateral knee pain earlier Patient offers no specific complaints at this time. Reports that the knee pain has gone away. Patient goes on to report that she was being seen by Dr. Covarrubias orthopedic surgery as an outpatient and had cortisone injections in the past. Patient feels that she may need another injection. Physical Exam Vital signs: Vital Signs 07/14/18 18:01 07/15/18 06:12 Temperature 98.6 F 99.1 F Pulse Rate 89 80 Respiratory Rate 18 17 Blood Pressure 156/72 H 168/79 H Pulse Oximetry 91 L 96 Intake & Output 07/14/18 07/15/18 07/15/18 18:59 06:59 18:59 Intake Total 1440 / 1440 300 / 300 1680 / 1680 Output Total 4 / 4 Balance 1440 / 1440 296 / 296 1680 / 1680 Weight 82.9 kg Intake: Oral 1440 / 1440 300 / 300 1680 / 1680 Output: Urine 4 / Narrative: GENERAL: This is a well-nourished, well-developed patient, in no apparent distress. CARDIOVASCULAR: Regular rate and rhythm RESPIRATORY: Clear to auscultation. Breath sounds equal bilaterally. No wheezes , rales, or rhonchi. GASTROINTESTINAL: Abdomen soft, non-tender, nondistended. Normal active bowel sounds MUSCULOSKELETAL: Extremities without clubbing, cyanosis, or edema. NEURO: Alert & Oriented x4 to person, place, time, situation. Moves all ext x4 - Urinary Catheter Management Straight Cath placed during this visit: no Reason for continuing: Not indwelling catheter Results - Labs CBC & Chem 7: 07/12/18 17:32 07/15/18 06:25 Laboratory Results - last 24 hr 07/15/18 06:25 Sodium 143 Potassium 3.3 L Chloride 103 Carbon Dioxide 31.0 Anion Gap 9 BUN 10 Creatinine 0.90 Estimated GFR 60 L Random Glucose 105 Calcium 9.4 Phosphorus 4.1 Magnesium 2.1 Albumin 3.5 Assessment and Plan - Plan //Behavioral issues //Dementia As per psychiatry. //False hypoxia. This is secondary to Parkinson's tremor which causes poor waveform. Patient needs to keep hand on the bed when she is checking her oxygen //Hypokalemia. Potassium 3.0 (07/14). Likely secondary to not having potassium will continue patient's home potassium. potassium 3.3 (07/15) replaced recheck in AM //Parkinsonism //Fall risk -Chronic. Patient will use her walker. Patient understands to sit up on edge of bed prior to walking. Patient appears to be very well aware of this and explained the reasoning to me. Continue Parkinson's meds //bilateral knee pain - resolved after ambulation likely arthritis recommend patient follow up with her outpatient orthopedic Dr. Covarrubias after DC acetaminophen as needed for pain //Hypertension. Blood pressure acceptable. Continue home meds. //Chronic prednisone use. Will continue Discussed Condition With: Supervising physician Dr. Julian
[2018-07-16] MEDS: Acetaminophen 325 MG Tablet PO PRN ×2 (01:11→20:45)
[2018-07-16] MEDS: predniSONE 10 MG Tablet PO SCH (09:43)
[2018-07-16] MEDS: Furosemide 20 MG Tablet PO SCH (09:43)
[2018-07-16] MEDS: Duloxetine 60 MG DR Capsule PO SCH (09:44)
[2018-07-16] MEDS: amLODIPine 10 MG Tablet PO SCH (09:44)
[2018-07-16] MEDS: QUEtiapine 25 MG Tablet PO SCH ×2 (09:45→20:45)
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
--- NOTE | 2018-07-16 16:12 | P.PN ---
Subjective Interval history: Patient seen in inpatient psych patient ambulating about the halls asking about discharge offers no other complaints at this time per RN patient has been agitated intermittently about not being DC'd today Physical Exam Vital signs: Vital Signs 07/15/18 17:45 07/16/18 06:02 Temperature 97.1 F L 98.4 F Pulse Rate 84 69 Respiratory Rate 17 16 Blood Pressure 141/67 H 171/74 H Pulse Oximetry 93 L 95 Intake & Output 07/15/18 07/16/18 07/16/18 18:59 06:59 18:59 Intake Total 1680 / 1680 720 / 720 Output Total Balance 1680 / 1680 719 / 719 Intake: Oral 1680 / 1680 720 / 720 Output: Urine Narrative: GENERAL: This is a well-nourished, well-developed patient CARDIOVASCULAR: Regular rate and rhythm RESPIRATORY: Clear to auscultation. Breath sounds equal bilaterally. No wheezes , rales, or rhonchi. GASTROINTESTINAL: Abdomen soft, non-tender, nondistended. Normal active bowel sounds MUSCULOSKELETAL: Extremities without clubbing, cyanosis, or edema. NEURO: Alert & Oriented. Moves all ext x4 - Urinary Catheter Management Straight Cath placed during this visit: no Reason for continuing: Not indwelling catheter Results - Labs CBC & Chem 7: 07/12/18 17:32 07/15/18 06:25 Assessment and Plan - Plan //Behavioral issues //Dementia As per psychiatry. //False hypoxia. This is secondary to Parkinson's tremor which causes poor waveform. Patient needs to keep hand on the bed when she is checking her oxygen //Hypokalemia. Potassium 3.0 (07/14). Likely secondary to not having potassium will continue patient's home potassium. potassium 3.3 (07/15) replaced recheck in [facility] pending //Parkinsonism //Fall risk -Chronic. Patient will use her walker. Patient understands to sit up on edge of bed prior to walking. Patient appears to be very well aware of this and explained the reasoning to me. Continue Parkinson's meds //bilateral knee pain - resolved after ambulation likely arthritis recommend patient follow up with her outpatient orthopedic Dr. Covarrubias after DC acetaminophen as needed for pain //Hypertension. Blood pressure acceptable. hydralazine increased to 100 mg TID clonidine PRN added also patient's HTN today may be due to agitation //Chronic prednisone use. Will continue Discussed Condition With: Supervising physician Dr. Julian
[2018-07-17] MEDS: Duloxetine 60 MG DR Capsule PO SCH (08:40)
[2018-07-17] MEDS: Furosemide 20 MG Tablet PO SCH (08:41)
[2018-07-17] MEDS: amLODIPine 10 MG Tablet PO SCH (08:41)
[2018-07-17] MEDS: QUEtiapine 25 MG Tablet PO SCH (08:42)
[2018-07-17] MEDS: predniSONE 10 MG Tablet PO SCH (08:43)
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
--- NOTE | 2018-07-17 11:13 | P.PN ---
Subjective Interval history: Follow-up on patient with dementia, hypertension. Patient seen and examined. Patient appears calm at present. She tells me that a police stenographer came by her room earlier today told her that she had to go to court tomorrow and then if she would have had a knife she would have thrown at him. She also informed me that there will be a war and that [place] will be destroyed. Otherwise, she denies any acute medical complaints. She denies any fever chills. She denies any chest pain or shortness of breath. She denies any nausea, vomiting or abdominal pain. Physical Exam Vital signs: Vital Signs 07/17/18 06:00 Temperature 97.2 F L Pulse Rate 79 Respiratory Rate 18 Blood Pressure 183/74 H Pulse Oximetry 94 L Intake & Output 07/16/18 07/17/18 07/17/18 18:59 06:59 18:59 Intake Total 360 / 360 240 / 240 240 / 240 Output Total Balance 359 / 359 240 / 240 240 / 240 Intake: Oral 360 / 360 240 / 240 240 / 240 Output: Urine Other: # Voids 2 Narrative: GENERAL: WDWN elderly female patient, INAD. Awake and alert. Ambulating in her room with walker. SKIN: Warm and dry. No generalized rash. HEAD: Atraumatic. Normocephalic. EYES: Pupils equal and round. No scleral icterus. No injection or drainage. ENT: No nasal bleeding or discharge. Mucous membranes pink and moist. NECK: Trachea midline. CARDIOVASCULAR: Regular rate and rhythm. RESPIRATORY: No accessory muscle use. Clear to auscultation. Breath sounds equal bilaterally. GASTROINTESTINAL: Abdomen soft, non-tender, nondistended. MUSCULOSKELETAL: Extremities without clubbing, cyanosis, or edema. No obvious deformities. NEUROLOGICAL: Awake and alert. No obvious cranial nerve deficits. Able to move all extremities spontaneously. No focal neurologic finding. Normal speech. PSYCHIATRIC: Calm and cooperative. Judgment and insight poor. - Urinary Catheter Management Straight Cath placed during this visit: no Reason for continuing: Not indwelling catheter Results - Labs CBC & Chem 7: 07/12/18 17:32 07/15/18 06:25 Assessment and Plan - Plan //Behavioral issues //Dementia As per psychiatry. //False hypoxia. This is secondary to Parkinson's tremor which causes poor waveform. Patient needs to keep hand on the bed when she is checking her oxygen //Hypokalemia. Potassium 3.0 (07/14). Likely secondary to not having potassium will continue patient's home potassium. potassium 3.3 (07/15) replaced recheck BMP, lab from yesterday not drawn. Patient to be discharged to SNF. Recommend repeat BMP in 1-2 days. Order placed in EMR. //Parkinsonism //Fall risk Chronic. Patient will use her walker. Patient understands to sit up on edge of bed prior to walking. Patient appears to be very well aware of this and explained the reasoning to me. Continue Parkinson's meds. //bilateral knee pain - resolved after ambulation likely arthritis recommend patient follow up with her outpatient orthopedic Dr. Covarrubias after DC acetaminophen as needed for pain //Hypertension. Blood pressure elevated Add Lisinopril 5mg daily continue on hydralazine 100 mg TID and Norvasc 10mg daily clonidine PRN //Diabetes HgbA1c 6.7 lifestyle modification, dietary changes follow up with PCP and have A1c rechecked in 3 mos. //Chronic prednisone use. Will continue //DVT prophylaxis Patient is ambulatory Code Status: FULL Discussed Condition With: patientKaylee RN
--- NOTE | 2018-07-17 11:30 | P.TTN ---
- Patient Problems Problems: 1. Discharge planning 2. Medication compliance 3. Knowledge deficit 4. Lack of coping skills - Progress Toward Goals Provider Present: Dr. Diego Garcia Provider Input: 07/17/18: Pt to return to [facility], pt is to D/C to day or, if this plan does not work, pt will be scheduled for court hearing, on docket, for legal assisted disposition plan. Nurse Input: 07/17/18: Pt Sherley, RN: Pt is pleasant, compiant, re-directable as needed. Nursing to complete 3008. Psychiatric Counselors Present: Shayy Angeles [facility] Psychiatric Therapist Input: 07/17/18: Shayy to contact [facility] for pt to return with goal of D/C today. Group Spec/RT/OT/NDIAYE Present: AMBAR Mishra, Mario Sanchez, OT Group Spec/RT/OT/NDIAYE Input: Pt has attended select groups. - Discharge Plan Per medical staff, 3008 to be completed, pt disposition is to return pt to [facility] or, pt to attend court hearing 07/18 if pt continues to be [facility] patient. - Documentation Scribe: Mario Sanchez, MS, OTR Teaching Recipient: Patient
[2018-07-17] MEDS ORDERED: Lisinopril 5 MG Tablet PO SCH (11:40)
[2018-07-17] MEDS: Acetaminophen 325 MG Tablet PO PRN (13:10)
== END 2018-07-17 14:50 ==
LOC: NEPD 14:48 → NEDA 07-13 14:37 → H250 07-13 16:53 → H4EA 07-14 11:24
PROVIDERS: ADMIT Psychiatry & Neurology Psychiatry; ATTEND Psychiatry & Neurology Psychiatry